=== PATIENT | female | born 1985 | race American Indian/Alaskan Native ===

== ENCOUNTER 2016-11-10 14:55 | Inpatient (IN) | payer MEDICARE ==
[2016-11-10 14:55] VITALS: BMI 38.7
--- NOTE | 2016-11-10 15:21 | C.PDOC ---
History Of Present Illness 31 year old patient, with a past medical history of CHF, atrial fibrillation, and pacemaker, presents to the ED complaining of shortness of breath with associated productive cough for the past couple of days. Patient also complains of abdominal pain when she coughs. Patient notes she is complaint with her chronic medications. Patient denies any fever. Time Seen by Provider: 11/10/16 15:10 Chief Complaint (Nursing): Shortness Of Breath History Per: Patient History/Exam Limitations: no limitations Onset/Duration Of Symptoms: Days (couple of days) Current Symptoms Are (Timing): Still Present Initiating Event: Other Quality: Tightness, "Pain" Exacerbating Factor(s): Coughing Severity: Mild Pain Scale Rating Of: 3 Associated Symptoms: Productive Cough Recent travel outside of the [place]: No Past Medical History Reviewed: Historical Data, Nursing Documentation, Vital Signs Vital Signs: Last Vital Signs Temp 98.3 F 11/10/16 15:13 Pulse 85 11/10/16 18:44 Resp 19 11/10/16 18:44 BP 96/53 L 11/10/16 18:44 Pulse Ox 99 11/10/16 19:01 - Medical History PMH: Atrial Fibrillation (ablation sep 2015), CHF Surgical History: Pacemaker - [facility] Procedures EXCISION OF DESCENDING COLON, ENDO, DIAGN (03/30/16) EXCISION OF STOMACH, ENDO, DIAGN (03/30/16) Family History: States: Unknown Family Hx - Social History Hx Tobacco Use: No Hx Alcohol Use: No Hx Substance Use: No - Immunization History Hx Tetanus Toxoid Vaccination: No Hx Influenza Vaccination: No Hx Pneumococcal Vaccination: No Review Of Systems Except As Marked, All Systems Reviewed And Found Negative. Constitutional: Negative for: Fever Respiratory: Positive for: Cough, Shortness of Breath Gastrointestinal: Positive for: Abdominal Pain Physical Exam - Physical Exam Appears: Non-toxic, Other (mild respiratory distress) Skin: Warm, Dry Head: Atraumatic, Normacephalic Eye(s): bilateral: PERRL, EOMI Oral Mucosa: Moist Neck: Normal ROM, Supple Chest: Symmetrical Cardiovascular: Rhythm Regular Respiratory: Normal Breath Sounds, No Accessory Muscle Use, No Rales, No Rhonchi , No Wheezing Gastrointestinal/Abdominal: Soft, Tenderness (suprapubic), No Guarding, No Rebound, Other (obese) Back: Normal Inspection, No CVA Tenderness Extremity: Normal ROM Neurological/Psych: Oriented x3, Normal Speech, Normal Cognition Gait: Steady ED Course And Treatment - Laboratory Results Result Diagrams: 11/10/16 15:44 11/10/16 15:44 ECG: Interpreted By Me, Viewed By Me ECG Rhythm: Sinus Tachycardia, Nonspecific Changes Rate From EC O2 Sat by Pulse Oximetry: 99 (RA) Pulse Ox Interpretation: Normal - Radiology CXR: Interpreted by Me, Viewed By Me CXR Interpretation: Yes: Cardiomegaly, Other (pacemaker). No: Infiltrates - CT Scan/US CTA Chest Other Rad Studies (CT/US): Read By Radiologist (Evangelina Castillo MD), Radiology Report Reviewed CT/US Interpretation: EXAM: CT Angiography Chest With Intravenous Contrast. CLINICAL HISTORY: 31 years old, female; Signs and symptoms; Shortness of breath ; Prior surgery; Surgery date: 6+. months; Additional info: SOB. TECHNIQUE: Axial computed tomographic angiography images of the chest with intravenous contrast using. pulmonary embolism protocol. This CT exam was performed using one or more of the following dose. reduction techniques: automated exposure control, adjustment of the mA and/or kV according to. patient size, and/or use of iterative reconstruction technique. MIP reconstructed images were created and reviewed. Coronal and sagittal reformatted images were created and reviewed. CONTRAST: 100 mL of [id number] administered intravenously. EXAM DATE/ TIME: 11/10/2016 4:05 PM. COMPARISON: CT - ANGIO CHEST PE PROTOCOL 01/15/2016 12 :12:28 AM. FINDINGS: Artifacts: Motion artifact degrades image quality. Heart , aorta and Pulmonary arteries: The heart is enlarged. There is streak artifact from pacemaker. leads. Aortic is normal in caliber. Lack of contrast in the aorta limits evaluation. Bolus timing limits. evaluation of the pulmonary vessels. There is poor opacification of pulmonary arteries. CT number of. the main pulmonary artery is only 109 Hounsfield units. There are no emboli in the main pulmonary. arteries. Peripheral vessels cannot be evaluated. Lungs: Trachea and main bronchi are patent. There asymmetric groundglass opacities bilaterally. There is atelectasis/scarring at both lung bases. There is subsegmental atelectasis/scarring in the. right upper lobe. There are multiple small less than 4 mm nodular opacities. Similar findings seen on. the prior study There are no effusions. Mediastinum: Esophagus is not optimally demonstrated. Allowing for technique, no pathologic. mediastinal or hilar adenopathy is identified. Thyroid: Thyroid is unremarkable. Bones/joints: Bony structures are unremarkable. Soft tissues: unremarkable. Upper abdomen: There are no acute abnormalities in the visualized portion of the abdomen. IMPRESSION: Cardiomegaly with pacemaker; bolus timing limits evaluation of pulmonary arteries,. no large central pulmonary emboli, peripheral vessels cannot be evaluated; asymmetric groundglass. opacity/airspace disease; multiple small less than 4 mm appearing nodules, similar findings seen on. the prior study. Footer: As per Fleischner Society guidelines for follow-up and management of pulmonary nodules: For patients at low risk (minimal or absent history of smoking and of other known risk factors), no. follow-up needed. For patient at high risk (history of smoking or of other known risk factors),. recommend follow-up chest CT at 12 months; if unchanged, no further follow-up needed. Progress Note: Plan: -Labs. -Chest x-ray. -Albuterol, Toradol. --Reassess and disposition. Progress: Morphine and Zofran given. Disposition - Disposition Disposition Time: 19:09 Condition: STABLE - Clinical Impression Clinical Impression: Pneumonia, Urinary tract infection, CHF (congestive heart failure), Dyspnea - PA / [employer] / Resident Statement MD/DO has reviewed & agrees with the documentation as recorded. - Scribe Statement The provider has reviewed the documentation as recorded by the Scribe Kristin Cheung All medical record entries made by the Scribe were at my direction and personally dictated by me. I have reviewed the chart and agree that the record accurately reflects my personal performance of the history, physical exam, medical decision making, and the department course for this patient. I have also personally directed, reviewed, and agree with the discharge instructions and disposition.
[2016-11-10] MEDS ORDERED: Albuterol 0.083% Inhal Sol (2.5 mg/3 mL) UD IH STA (15:22)
[2016-11-10 15:51] LABS: BASO % 0.5 % (0.0-2.0); EOS % 0.1 % (0.0-4.0); HEMATOCRIT 37.2 % (34.0-47.0); LYMPH # 0.8 K/uL (1.0-4.3); LYMPH % 9.4 % (20.0-40.0); MEAN CELL VOLUME 90.5 fL (81.0-99.0); MEAN CORPUSCULAR HEMOGLOBIN 30.2 pg (27.0-31.0); MEAN CORPUSCULAR HGB CONC 33.4 g/dL (33.0-37.0); MEAN PLATELET VOLUME 9.4 fL (7.2-11.7); MONO # 0.3 K/uL (0.0-0.8); MONO % 3.7 % (0.0-10.0); PLATELET COUNT 170 K/uL (130-400); RED CELL DISTRIBUTION WIDTH 13.9 % (11.5-14.5); WHITE BLOOD COUNT 8.1 K/uL (4.8-10.8)
[2016-11-10 15:54] LABS: RBC URINE 2 /hpf (0-3); URINE BACTERIA RARE (<OCC); URINE BILIRUBIN NEGATIVE (NEGATIVE); URINE BLOOD NEGATIVE (NEGATIVE); URINE COLOR Yellow (YELLOW); URINE GLUCOSE (UA) NORMAL (Normal); URINE KETONE NEGATIVE (NEGATIVE); URINE LEUKOCYTE ESTERASE 3+ Leu/uL (Negative); URINE PROTEIN 1+ mg/dL (NEGATIVE); WBC URINE 21 /hpf (0-5)
[2016-11-10] MEDS ORDERED: Albuterol 0.083% Inhal Sol (2.5 mg/3 mL) UD ONE (15:57)
[2016-11-10 16:03] LABS: CHLORIDE 96 mmol/L (98-107)
[2016-11-10 16:04] LABS: POTASSIUM 4.3 mmol/L (3.6-5.2); SODIUM 136 mmol/L (132-148)
[2016-11-10 16:06] LABS: ALB/GLOB RATIO 1.3 (1.0-2.1); ALKALINE PHOSPHATASE 44 U/L (38-126); ALT/SGPT 21 U/L (9-52); AST/SGOT 41 U/L (14-36); BILIRUBIN,TOTAL 1.6 mg/dL (0.2-1.3); BLOOD UREA NITROGEN 11 mg/dL (7-17); CARBON DIOXIDE 26 mmol/L (22-30); GFR AFRICAN-AMERICAN > 60; GLUCOSE,RANDOM 80 mg/dL (65-105); TOTAL PROTEIN 7.6 g/dL (6.3-8.3)
[2016-11-10 16:07] LABS: CALCIUM 8.6 mg/dl (8.6-10.4)
[2016-11-10 16:18] LABS: NEUTROPHIL 85 % (50-75); TOTAL CELLS COUNTED 100
[2016-11-10] MEDS ORDERED: Morphine 4 MG/ML VIAL ONE (16:51)
[2016-11-10] MEDS ORDERED: Iodixanol 320 MG/ML 100 ML BOTTLE IV ONE ×2 (17:27→17:59)
--- NOTE | 2016-11-10 18:15 | RAD ---
HISTORY: SOB COMPARISON: 03/30/2016 TECHNIQUE: Chest PA and lateral FINDINGS: LUNGS: Mild venous congestion. Patchy left basilar airspace opacity with question small left pleural effusion. PLEURA: As above. CARDIOVASCULAR: Cardiomegaly. Left-sided pacemaker. OSSEOUS STRUCTURES: No significant abnormalities. VISUALIZED UPPER ABDOMEN: Normal. OTHER FINDINGS: None. IMPRESSION: Mild venous congestion. Patchy left basilar airspace opacity with question small left pleural effusion.
--- NOTE | 2016-11-10 18:58 | CT ---
EXAM: CT Angiography Chest With Intravenous Contrast CLINICAL HISTORY: 31 years old, female; Signs and symptoms; Shortness of breath; Prior surgery; Surgery date: 6+ months; Additional info: SOB TECHNIQUE: Axial computed tomographic angiography images of the chest with intravenous contrast using pulmonary embolism protocol. This CT exam was performed using one or more of the following dose reduction techniques: automated exposure control, adjustment of the mA and/or kV according to patient size, and/or use of iterative reconstruction technique. MIP reconstructed images were created and reviewed. Coronal and sagittal reformatted images were created and reviewed. CONTRAST: 100 mL of [id number] administered intravenously. EXAM DATE/TIME: 11/10/2016 4:05 PM COMPARISON: CT - ANGIO CHEST PE PROTOCOL 01/15/2016 12:12:28 AM FINDINGS: Artifacts: Motion artifact degrades image quality. Heart, aorta and Pulmonary arteries: The heart is enlarged. There is streak artifact from pacemaker leads. Aortic is normal in caliber. Lack of contrast in the aorta limits evaluation. Bolus timing limits evaluation of the pulmonary vessels. There is poor opacification of pulmonary arteries. CT number of the main pulmonary artery is only 109 Hounsfield units. There are no emboli in the main pulmonary arteries. Peripheral vessels cannot be evaluated. Lungs: Trachea and main bronchi are patent. There asymmetric groundglass opacities bilaterally. There is atelectasis/scarring at both lung bases. There is subsegmental atelectasis/scarring in the right upper lobe. There are multiple small less than 4 mm nodular opacities. Similar findings seen on the prior study There are no effusions. Mediastinum: Esophagus is not optimally demonstrated. Allowing for technique, no pathologic mediastinal or hilar adenopathy is identified. Thyroid: Thyroid is unremarkable Bones/joints: Bony structures are unremarkable. Soft tissues: unremarkable Upper abdomen: There are no acute abnormalities in the visualized portion of the abdomen. IMPRESSION: Cardiomegaly with pacemaker; bolus timing limits evaluation of pulmonary arteries, no large central pulmonary emboli, peripheral vessels cannot be evaluated; asymmetric groundglass opacity/airspace disease; multiple small less than 4 mm appearing nodules, similar findings seen on the prior study Footer: As per Fleischner Society guidelines for follow-up and management of pulmonary nodules: For patients at low risk (minimal or absent history of smoking and of other known risk factors), no follow-up needed. For patient at high risk (history of smoking or of other known risk factors), recommend follow-up chest CT at 12 months; if unchanged, no further follow-up needed.
[2016-11-10] MEDS ORDERED: Moxifloxacin IV 400mg/250ml NS 250 ML IV ONE (19:07)
[2016-11-10] MEDS ORDERED: Moxifloxacin IV 400mg/250ml NS 250 ML IVPB ONE (19:40)
[2016-11-10] MEDS ORDERED: Home Med 1 UNIT (Tramadol/Acetaminophen [Ultracet 37.5/325 Mg] 1 TAB) PO PRN (21:09)
[2016-11-10] MEDS ORDERED: Azithromycin 500mg/250ML NS 250 ML IVPB SCH (21:15)
[2016-11-10] MEDS ORDERED: Azithromycin 500mg/250ML NS 250 ML IVPB ONE (23:51)
[2016-11-11] MEDS ORDERED: Tramadol 25 mg PO PRN (00:38)
[2016-11-11] MEDS: Tramadol 25 mg PO PRN ×2 (00:53→20:51)
[2016-11-11] MEDS: Albuterol-Ipratrop 3 mg / 0.5 (3 ml) UD INH SCH ×3 (08:03→19:18)
[2016-11-11] MEDS: Fluticasone-Salmeterol 250-50mcg Diskus INH SCH ×2 (08:08→19:17)
[2016-11-11] MEDS ORDERED: Digoxin 250 mcg (0.25 mg) Tab PO SCH (10:00)
[2016-11-11] MEDS ORDERED: VALSARTAN PO SCH (10:00)
[2016-11-11] MEDS ORDERED: SACUBITRIL PO SCH (10:00)
[2016-11-11] MEDS: Enoxaparin 40 mg Syringe SC SCH (10:42)
[2016-11-11] MEDS: cefTRIAXone IV 1 gm in Dextros 1 GM in Dextrose 5% In Water 50 ML IVPB SCH (10:42)
--- NOTE | 2016-11-11 11:57 | CP.PCM.CON ---
History of Present Illness - History of Present Illness History of Present Illness: 31 y/o female w/ past medical hx significant for CHF, A. fib, and pacemaker insertion presents for shortness of breath starting Friday night and progressively getting worse until Friday afternoon. She attempted taking her medications without improvement in symptoms. She admits associated aching constant substernal chest pain without radiation that worsens with a deep breath. She has had a slightly productive cough with only yellow sputum streaked with small amounts of blood. She denies previous diagnosis of COPD or asthma. Pulmonology was consulted for acute exacerbation of congestive heart failure. Presently her breathing has improved significantly and chest pain is diminished to slight ache only. She is currently having 6/10 stabbing RLQ abdominal pain on dilaudid 2mg IV that radiates to LLQ. It has been there since time of admission and has only slightly improved from 9/10 at time of admission with medication. She is now experiencing nausea. She denies orthopnea, headache , chest congestion, diarrhea, constipation, and vomiting. Pmhx; CHF & Atrial fibrillation Pshx: Pacemaker insertion (2009) Famhx: father dilated cardiomyopathy, A.fib, HTN; Mother asthma Sshx: lives with 8 y/o daughter in house. Denies ever smoking or drugs. Consumes alcohol rarely. PMD: none (Sees Dr. Rajan) Pearl Cutter: Dr. Rajan Review of Systems - Constitutional Constitutional: absent: Chills, Fever - EENT Nose/Mouth/Throat: absent: Nasal Congestion, Nasal Discharge - Cardiovascular Cardiovascular: Chest Pain at Rest, Chest Pain with Activity, Dyspnea, Dyspnea on Exertion - Respiratory Respiratory: Cough, Dyspnea, Dyspnea on Exertion, Wheezing. absent: Chest Congestion - Gastrointestinal Gastrointestinal: Abdominal Pain. absent: Constipation, Diarrhea - Neurological Neurological: absent: Abnormal Hearing, Headaches - Endocrine Endocrine: absent: Polydipsia, Polyphagia Past Patient History - Infectious Disease Hx of Infectious Diseases: None - Past Medical History & Family History Past Medical History?: Yes - Past Social History Smoking Status: Never Smoked - CARDIAC Hx Atrial Fibrillation: Yes (ablation sep 2015) Hx Congestive Heart Failure: Yes Hx Pacemaker: Yes - PULMONARY Hx Respiratory Disorders: No - NEUROLOGICAL Hx Neurological Disorder: No - HEENT Hx HEENT Problems: No - RENAL Hx Chronic Kidney Disease: No - ENDOCRINE/METABOLIC Hx Endocrine Disorders: No - HEMATOLOGICAL/ONCOLOGICAL Hx Blood Disorders: No - INTEGUMENTARY Hx Dermatological Problems: No - MUSCULOSKELETAL/RHEUMATOLOGICAL Hx Falls: No - GASTROINTESTINAL Hx Gastrointestinal Disorders: No - GENITOURINARY/GYNECOLOGICAL Hx Genitourinary Disorders: No - PSYCHIATRIC Hx Substance Use: No - SURGICAL HISTORY Hx Surgeries: Yes Other/Comment: AICGracia 2010 - ANESTHESIA Hx Anesthesia: Yes Hx Anesthesia Reactions: No Hx Malignant Hyperthermia: No Meds Allergies/Adverse Reactions: Allergies Allergy/AdvReac Type Severity Reaction Status Date / Time pantoprazole sodium Allergy Severe ITCHING Verified 11/10/16 15:03 [From Protonix] - Medications Medications: Current Medications Acetaminophen (Tylenol 325mg Tab) 325 mg PO Q8H PRN PRN Reason: Pain Last Admin: 11/11/16 00:51 Dose: 325 mg Albuterol/Ipratropium (Duoneb 3 Mg/0.5 Mg (3 Ml) Ud) 3 ml INH RQ6 [facility] Last Admin: 11/11/16 08:03 Dose: 3 ml Carvedilol (Coreg) 12.5 mg PO Q12 [facility] Last Admin: 11/10/16 23:54 Dose: Not Given Digoxin (Lanoxin) 0.25 mg PO DAILY [facility] Enoxaparin Sodium (Lovenox) 40 mg SC DAILY [facility] Furosemide (Lasix) 80 mg PO BID [facility] Home Med (Sacubitril/Valsartan [Entresto 24 Mg-26 Mg Tablet]) 1 tab PO DAILY [facility] Hydromorphone HCl (Dilaudid) 2 mg IVP Q12 [facility] Last Admin: 11/10/16 21:23 Dose: 2 mg Azithromycin (Zithromax 500mg In Ns Addvantage) 250 mls @ 167 mls/hr IVPB Q24H [facility] Last Admin: 11/11/16 00:31 Dose: 167 mls/hr Ceftriaxone Sodium 1 gm/ (Dextrose) 100 mls @ 50 mls/30 min IVPB DAILY [facility] Fluticasone/Salmeterol (Advair Diskus 250/50) 1 puff INH RQ12 [facility] Last Admin: 11/11/16 08:08 Dose: Not Given Tramadol HCl (Ultram) 25 mg PO Q8H PRN PRN Reason: Pain Last Admin: 11/11/16 00:53 Dose: 25 mg Physical Exam - Constitutional Appears: Non-toxic, No Acute Distress - Head Exam Head Exam: ATRAUMATIC, NORMOCEPHALIC - Eye Exam Eye Exam: PERRL Pupil Exam: NORMAL ACCOMODATION - ENT Exam ENT Exam: Mucous Membranes Moist - Neck Exam Neck exam: Positive for: Normal Inspection - Respiratory Exam Respiratory Exam: Clear to Auscultation Bilateral, NORMAL BREATHING PATTERN. absent: Accessory Muscle Use, Rales, Rhonchi, Wheezes - Cardiovascular Exam Cardiovascular Exam: REGULAR RHYTHM, +S1, +S2. absent: Gallop - GI/Abdominal Exam GI & Abdominal Exam: Normal Bowel Sounds, Rebound (Rebound tenderness present in RLQ), Soft, Tenderness (In RLQ on gentle and deep palpation.) - Extremities Exam Extremities exam: Positive for: normal inspection, pedal pulses present. Negative for: pedal edema - Back Exam Back exam: NORMAL INSPECTION - Neurological Exam Neurological exam: Alert, Oriented x3 - Psychiatric Exam Psychiatric exam: Normal Affect, Normal Mood - Skin Skin Exam: Intact, Normal Color, Warm Results - Vital Signs Recent Vital Signs: Last Vital Signs Temp 97.6 F 11/11/16 00:51 Pulse 92 H 11/11/16 06:00 Resp 20 11/11/16 06:00 BP 107/70 11/11/16 00:15 Pulse Ox 99 11/11/16 00:15 - Labs Result Diagrams: 11/10/16 15:44 11/10/16 15:44 Assessment & Plan - Assessment and Plan (Free Text) Assessment: Acute exacerbation of congestive heart failure Plan: Continue lasix 80mg IVP q12h. Consider reducing to lower dosage given clinical improvement. CHF management as per cardiology F/u abdomen/pelvis non-contrast CT scan for abdominal pain. F/u ECHO. Unlikely to be pneumonia given lack of significant clinical or imaging evidence. De-escalation of antibiotics may be appropriate. CT chest (11/10/16)scan shows cardiomegaly with multiple small < 4mm nodules seen on previous scans. CXR (11/10/16)Mild venous congestion. Patchy left basilar airspace opacity with question small left pleural effusion.
--- NOTE | 2016-11-11 13:45 | CT ---
PROCEDURE: CT Abdomen and Pelvis without intravenous contrast HISTORY: abd pain COMPARISON: None. TECHNIQUE: Without contrast.. Contrast Dose: Radiation dose: Total exam DLP = 1240 mGy-cm. This CT exam was performed using one or more of the following dose reduction techniques: Automated exposure control, adjustment of the mA and/or kV according to patient size, and/or use of iterative reconstruction technique. FINDINGS: LOWER THORAX: Cardiomegaly. LIVER: Unremarkable. No gross lesion or ductal dilatation. GALLBLADDER AND BILE DUCTS: Sludge in the gallbladder. PANCREAS: Unremarkable. No gross lesion or ductal dilatation. SPLEEN: Unremarkable. ADRENALS: Unremarkable. No mass. KIDNEYS AND URETERS: Residual contrast in the collecting systems. No hydronephrosis. No solid mass. VASCULATURE: Unremarkable. No aortic aneurysm. BOWEL: Unremarkable. No obstruction. No gross mural thickening. APPENDIX: Unremarkable. Normal appendix. PERITONEUM: Unremarkable. No free fluid. No free air. LYMPH NODES: Unremarkable. No enlarged lymph nodes. BLADDER: Unremarkable. REPRODUCTIVE: Unremarkable. BONES: No acute fracture. OTHER FINDINGS: None. IMPRESSION: Residual contrast in the urinary tract. Cardiomegaly. Sludge in gallbladder.
[2016-11-11] MEDS: Digoxin 250 mcg (0.25 mg) Tab PO SCH (18:40)
--- NOTE | 2016-11-11 18:59 | CP.PCM.HP ---
History of Present Illness - History of Present Illness History of Present Illness: 31 year old female with past medical history significant for CHF, atrial fibrillation and pacemaker insertion present for shortness of breath starting Friday night and progressively getting worse until Friday afternoon. She attempted taking her medication without improvement in symptoms. She admits associated aching constant substernal chest pain without radiation that worsens with a deep breathe. She has had a slightly productive cough with only yellow sputum streaked with small amount of blood. She denies previous diagnosis of COPD or asthma. She denies nausea, orthopnea, headache, chest congestion, diarrhea, constipation and vomiting. Present on Admission - Present on Admission Any Indicators Present on Admission: No Past Patient History - Infectious Disease Hx of Infectious Diseases: None - Past Medical History & Family History Past Medical History?: Yes - Past Social History Smoking Status: Never Smoked - CARDIAC Hx Atrial Fibrillation: Yes (ablation sep 2015) Hx Congestive Heart Failure: Yes Hx Pacemaker: Yes - PULMONARY Hx Respiratory Disorders: No - NEUROLOGICAL Hx Neurological Disorder: No - HEENT Hx HEENT Problems: No - RENAL Hx Chronic Kidney Disease: No - ENDOCRINE/METABOLIC Hx Endocrine Disorders: No - HEMATOLOGICAL/ONCOLOGICAL Hx Blood Disorders: No - INTEGUMENTARY Hx Dermatological Problems: No - MUSCULOSKELETAL/RHEUMATOLOGICAL Hx Falls: No - GASTROINTESTINAL Hx Gastrointestinal Disorders: No - GENITOURINARY/GYNECOLOGICAL Hx Genitourinary Disorders: No - PSYCHIATRIC Hx Substance Use: No - SURGICAL HISTORY Hx Surgeries: Yes Other/Comment: AICGracia 2009 - ANESTHESIA Hx Anesthesia: Yes Hx Anesthesia Reactions: No Hx Malignant Hyperthermia: No Meds Home Medications: Home Medication List Medication Instructions Recorded Confirmed Type Albuterol/Ipratropium [Combivent 1 puff IH Q6H PRN #1 inhaler 11/15/16 Rx Respimat] Amoxicillin/Clavulanate [Augmentin 1 tab PO BID #20 tab 11/15/16 Rx 875 MG-125 MG Tab] Fluticasone/Salmeterol 250/50 1 puff INH RQ12 #1 puff 11/15/16 Rx [Advair Diskus 250/50] Allergies/Adverse Reactions: Allergies Allergy/AdvReac Type Severity Reaction Status Date / Time pantoprazole sodium Allergy Severe ITCHING Verified 01/25/17 17:14 [From Protonix] Physical Exam - Constitutional Appears: Well - Head Exam Head Exam: ATRAUMATIC, NORMAL INSPECTION, NORMOCEPHALIC - Eye Exam Eye Exam: EOMI, Normal appearance, PERRL Pupil Exam: NORMAL ACCOMODATION, PERRL - ENT Exam ENT Exam: Mucous Membranes Moist, Normal Exam - Neck Exam Neck exam: Positive for: Normal Inspection - Respiratory Exam Respiratory Exam: Decreased Breath Sounds - Cardiovascular Exam Cardiovascular Exam: REGULAR RHYTHM, +S1, +S2 - GI/Abdominal Exam GI & Abdominal Exam: Diminished Bowel Sounds, Soft - Rectal Exam Rectal Exam: Deferred Results - Vital Signs Recent Vital Signs: Last Vital Signs Temp 97.1 F L 11/11/16 14:00 Pulse 92 H 11/11/16 10:00 Resp 20 11/11/16 06:00 BP 110/78 11/11/16 18:42 Pulse Ox 99 11/11/16 00:15 - Labs Result Diagrams: 11/13/16 06:06 11/13/16 07:29 Assessment & Plan (1) Asthma Status: Acute (2) Atrial fibrillation Status: Acute (3) Chest discomfort Status: Acute (4) Dyspnea Status: Acute (5) Foot sprain Status: Acute (6) Leg edema Status: Acute (7) PNA (pneumonia) Status: Acute (8) UTI (urinary tract infection) Status: Acute (9) CHF (congestive heart failure) Status: Chronic (10) Systolic and diastolic CHF w/reduced LV function, NYHA class 4 Status: Chronic - Assessment and Plan (Free Text) Plan: Consult pulmonology Consult cardiology Chest x-ray shows mild venous congestion DuoNeb Coreg Lanoxin Lovenox Lasix Dilaudid Zithromax Advair Diskus
[2016-11-11] MEDS: Azithromycin 500 MG in Sodium Chloride 0.9% 250 ML IVPB SCH (23:25)
[2016-11-12] MEDS: Albuterol-Ipratrop 3 mg / 0.5 (3 ml) UD INH SCH ×4 (01:01→19:41)
[2016-11-12 07:35] LABS: BASO % 0.5 % (0.0-2.0); EOS % 0.1 % (0.0-4.0); HEMATOCRIT 32.5 % (34.0-47.0); LYMPH # 0.7 K/uL (1.0-4.3); LYMPH % 15.1 % (20.0-40.0); MEAN CELL VOLUME 89.8 fL (81.0-99.0); MEAN CORPUSCULAR HEMOGLOBIN 30.3 pg (27.0-31.0); MEAN CORPUSCULAR HGB CONC 33.8 g/dL (33.0-37.0); MEAN PLATELET VOLUME 8.7 fL (7.2-11.7); MONO # 0.3 K/uL (0.0-0.8); MONO % 5.7 % (0.0-10.0); RED CELL DISTRIBUTION WIDTH 13.8 % (11.5-14.5); WHITE BLOOD COUNT 4.8 K/uL (4.8-10.8)
[2016-11-12 07:39] LABS: CHLORIDE 95 mmol/L (98-107)
[2016-11-12 07:40] LABS: POTASSIUM 3.8 mmol/L (3.6-5.2); SODIUM 134 mmol/L (132-148)
[2016-11-12 07:42] LABS: ALB/GLOB RATIO 1.2 (1.0-2.1); AST/SGOT 25 U/L (14-36); BILIRUBIN,TOTAL 0.9 mg/dL (0.2-1.3); BLOOD UREA NITROGEN 11 mg/dL (7-17); CARBON DIOXIDE 27 mmol/L (22-30); GFR AFRICAN-AMERICAN > 60; TOTAL PROTEIN 6.6 g/dL (6.3-8.3)
[2016-11-12 07:43] LABS: ALKALINE PHOSPHATASE 53 U/L (38-126); ALT/SGPT 23 U/L (9-52); CALCIUM 8.3 mg/dl (8.6-10.4); GLUCOSE,RANDOM 98 mg/dL (65-105)
[2016-11-12] MEDS: Fluticasone-Salmeterol 250-50mcg Diskus INH SCH (08:13)
--- NOTE | 2016-11-12 09:00 | CP.PCM.CON ---
<Kiran Troncoso - Last Filed: 11/12/16 08:54> History of Present Illness - History of Present Illness History of Present Illness: PGY4 GI Fellow Consult Note Patient is a 31yo female with PMHx significant for cardiomyopathy with h/o atrial fibrillation and pacemaker/defibrillator placement 8 years ago who presented to the ED with complaint of abdominal pain and shortness of breath. The patient returned from the [facility] on 6 days [employer]. 3 days [employer] she developed vague abdominal pain which eventually localized to the RLQ. Pain became more severe, stabbing in quality and with the worsening pain came shortness of breath. She later developed nausea and vomiting with emesis of undigested food over the past 24 hours. As pain did not improve and she continued to become more dyspneic, she came to the ED for further evaluation. A CT without contrast in the ED was unremarkable with the exception of gallbladder sludge and mild constipation. A fleet enema did not improve symptoms overnight. Denies any prior episodes like this. Currently, she denies any fever, chills, weight loss, hematochezia, melena, diarrhea but does admit to urinary frequency and urgency. PMHx: See HPI PSHx: Pacemaker/defibrillator placement FHx: Mom/Dad - dilated CMP Social: Denies tobacco, EtOH or illicit drug use Endo: EGD/Colonoscopy - 03/2016 at [facility] [place] - was told she had a spastic colon - will need to request records Review of Systems - Constitutional Constitutional: Anorexia. absent: Chills, Fever, Weight Gain, Weight Loss - EENT Eyes: absent: Change in Vision Nose/Mouth/Throat: absent: Sore Throat - Cardiovascular Cardiovascular: Dyspnea. absent: Chest Pain, Palpitations - Respiratory Respiratory: Dyspnea. absent: Cough, Excessive Mucous Production - Gastrointestinal Gastrointestinal: Abdominal Pain, Constipation, Nausea, Vomiting. absent: Cramping, Diarrhea, Dyspepsia, Dysphagia, Hematemesis, Hematochezia, Loose Stools, Melena, Odynophagia - Genitourinary Genitourinary: Dysuria, Urinary Frequency, Urinary Hesitance, Urinary Urgency - Musculoskeletal Musculoskeletal: absent: Back Pain, Neck Pain - Integumentary Integumentary: absent: New Lesions, Rash - Neurological Neurological: absent: Dizziness, Numbness, Focal Weakness - Psychiatric Psychiatric: absent: Anxiety, Depression - Endocrine Endocrine: Polyuria. absent: Polydipsia, Polyphagia - Hematologic/Lymphatic Hematologic: absent: Easy Bleeding, Easy Bruising, Lymphadenopathy Past Patient History - Infectious Disease Hx of Infectious Diseases: None - Past Medical History & Family History Past Medical History?: Yes - Past Social History Smoking Status: Never Smoked - CARDIAC Hx Atrial Fibrillation: Yes (ablation sep 2015) Hx Congestive Heart Failure: Yes Hx Pacemaker: Yes - PULMONARY Hx Respiratory Disorders: No - NEUROLOGICAL Hx Neurological Disorder: No - HEENT Hx HEENT Problems: No - RENAL Hx Chronic Kidney Disease: No - ENDOCRINE/METABOLIC Hx Endocrine Disorders: No - HEMATOLOGICAL/ONCOLOGICAL Hx Blood Disorders: No - INTEGUMENTARY Hx Dermatological Problems: No - MUSCULOSKELETAL/RHEUMATOLOGICAL Hx Falls: No - GASTROINTESTINAL Hx Gastrointestinal Disorders: No - GENITOURINARY/GYNECOLOGICAL Hx Genitourinary Disorders: No - PSYCHIATRIC Hx Substance Use: No - SURGICAL HISTORY Hx Surgeries: Yes Other/Comment: WALE 2009 - ANESTHESIA Hx Anesthesia: Yes Hx Anesthesia Reactions: No Hx Malignant Hyperthermia: No Meds Allergies/Adverse Reactions: Allergies Allergy/AdvReac Type Severity Reaction Status Date / Time pantoprazole sodium Allergy Severe ITCHING Verified 11/10/16 15:03 [From Protonix] - Medications Medications: Current Medications Acetaminophen (Tylenol 325mg Tab) 325 mg PO Q8H PRN PRN Reason: Pain Last Admin: 11/11/16 20:53 Dose: 325 mg Albuterol/Ipratropium (Duoneb 3 Mg/0.5 Mg (3 Ml) Ud) 3 ml INH RQ6 [facility] Last Admin: 11/12/16 07:58 Dose: 3 ml Carvedilol (Coreg) 12.5 mg PO Q12 [facility] Last Admin: 11/11/16 23:00 Dose: 12.5 mg Digoxin (Lanoxin) 0.25 mg PO DAILY@1800 [facility] Last Admin: 11/11/16 18:40 Dose: 0.25 mg Enoxaparin Sodium (Lovenox) 40 mg SC DAILY [facility] Last Admin: 11/11/16 10:42 Dose: 40 mg Famotidine (Pepcid) 20 mg PO DAILY [facility] Furosemide (Lasix) 80 mg PO BID [facility] Last Admin: 11/11/16 18:42 Dose: 80 mg Home Med (Sacubitril/Valsartan [Entresto 24 Mg-26 Mg Tablet]) 1 tab PO DAILY [facility] Hydromorphone HCl (Dilaudid) 2 mg IVP Q12 [facility] Last Admin: 11/11/16 22:20 Dose: 2 mg Ceftriaxone Sodium 1 gm/ (Dextrose) 100 mls @ 50 mls/30 min IVPB DAILY [facility] Last Admin: 11/11/16 10:42 Dose: 50 mls/30 min Azithromycin 500 mg/ Sodium (Chloride) 250 mls @ 167 mls/hr IVPB Q24H [facility] Last Admin: 11/11/16 23:25 Dose: 167 mls/hr Ondansetron HCl (Zofran Inj) 4 mg IVP Q6H PRN PRN Reason: nausea and vomiting Last Admin: 11/12/16 00:54 Dose: 4 mg Fluticasone/Salmeterol (Advair Diskus 250/50) 1 puff INH RQ12 [facility] Last Admin: 11/12/16 08:13 Dose: Not Given Tramadol HCl (Ultram) 25 mg PO Q8H PRN PRN Reason: Pain Last Admin: 11/11/16 20:51 Dose: 25 mg Physical Exam - Constitutional Appears: Non-toxic, No Acute Distress, Other (morbidly obese) - Eye Exam Eye Exam: EOMI, PERRL - ENT Exam ENT Exam: Mucous Membranes Moist - Respiratory Exam Respiratory Exam: Clear to Auscultation Bilateral. absent: Rales, Rhonchi, Wheezes - Cardiovascular Exam Cardiovascular Exam: RRR, +S1, +S2, Systolic Murmur (holosystolic) - GI/Abdominal Exam GI & Abdominal Exam: Normal Bowel Sounds, Soft, Tenderness (RLQ). absent: Distended, Firm, Guarding, Rigid - Extremities Exam Extremities exam: Positive for: normal inspection. Negative for: pedal edema - Neurological Exam Neurological exam: Alert, Oriented x3 - Psychiatric Exam Psychiatric exam: Normal Affect, Normal Mood - Skin Skin Exam: Dry, Warm Results - Vital Signs Recent Vital Signs: Last Vital Signs Temp 97.2 F L 11/12/16 08:00 Pulse 76 11/12/16 08:00 Resp 21 11/12/16 08:00 BP 111/75 11/12/16 08:00 Pulse Ox 100 11/12/16 08:00 - Labs Result Diagrams: 11/12/16 07:28 11/12/16 07:28 Labs: Laboratory Results - last 24 hr 11/12/16 07:28 WBC 4.8 RBC 3.62 L Hgb 11.0 Hct 32.5 L MCV 89.8 MCH 30.3 MCHC 33.8 RDW 13.8 Plt Count 147 MPV 8.7 Neut % (Auto) 78.6 H Lymph % (Auto) 15.1 L [place] % (Auto) 5.7 Eos % (Auto) 0.1 Baso % (Auto) 0.5 Neut # 3.8 Lymph # 0.7 L [place] # 0.3 Eos # 0.0 Baso # 0.0 Sodium 134 Potassium 3.8 Chloride 95 L Carbon Dioxide 27 Anion Gap 16 BUN 11 Creatinine 0.8 Est GFR ( Amer) > 60 Est GFR (Non-Af Amer) > 60 Random Glucose 98 Calcium 8.3 L Total Bilirubin 0.9 AST 25 ALT 23 Alkaline Phosphatase 53 Total Protein 6.6 Albumin 3.6 Globulin 3.0 Albumin/Globulin Ratio 1.2 Assessment & Plan - Assessment and Plan (Free Text) Assessment: Patient is a 31yo female with PMHx significant for cardiomyopathy with h/o atrial fibrillation and pacemaker/defibrillator placement 8 years ago who presented to the ED with complaint of abdominal pain and shortness of breath. -RLQ abdominal pain with nausea/vomiting -UTI -Acute exacerbation of CHF -H/O cardiomyopathy/CHF Plan: -Continue IV diuretic therapy for acute CHF exacerbation, symptoms improved since initiation -IV ABX for presumed UTI given abnormal U/A -Unclear etiology of abdominal pain at present given unremarkable CT scan - possibly 2/2 UTI, no evidence of colitis on CT - if symptoms worsen, consider repeat imaging with contrast; would also consider ruling out mesenteric ischemia if symptoms persist/worsen given cardiac history and elevated DDimer ( however this is typically elevated in obese patients) -Conservative therapy for now with IV ABX, analgesia and advancing diet as tolerated -Continue to monitor clinically - Date & Time Date: 11/12/16 Time: 07:00 <Clint Monae - Last Filed: 11/12/16 09:42> Meds - Medications Medications: Current Medications Acetaminophen (Tylenol 325mg Tab) 325 mg PO Q8H PRN PRN Reason: Pain Last Admin: 11/11/16 20:53 Dose: 325 mg Albuterol/Ipratropium (Duoneb 3 Mg/0.5 Mg (3 Ml) Ud) 3 ml INH RQ6 [facility] Last Admin: 11/12/16 07:58 Dose: 3 ml Carvedilol (Coreg) 12.5 mg PO Q12 [facility] Last Admin: 11/11/16 23:00 Dose: 12.5 mg Digoxin (Lanoxin) 0.25 mg PO DAILY@1800 [facility] Last Admin: 11/11/16 18:40 Dose: 0.25 mg Enoxaparin Sodium (Lovenox) 40 mg SC DAILY [facility] Last Admin: 11/11/16 10:42 Dose: 40 mg Famotidine (Pepcid) 20 mg PO DAILY [facility] Furosemide (Lasix) 80 mg PO BID [facility] Last Admin: 11/11/16 18:42 Dose: 80 mg Hydromorphone HCl (Dilaudid) 2 mg IVP Q12 [facility] Last Admin: 11/11/16 22:20 Dose: 2 mg Ceftriaxone Sodium 1 gm/ (Dextrose) 100 mls @ 50 mls/30 min IVPB DAILY [facility] Last Admin: 11/11/16 10:42 Dose: 50 mls/30 min Azithromycin 500 mg/ Sodium (Chloride) 250 mls @ 167 mls/hr IVPB Q24H [facility] Last Admin: 11/11/16 23:25 Dose: 167 mls/hr Ondansetron HCl (Zofran Inj) 4 mg IVP Q6H PRN PRN Reason: nausea and vomiting Last Admin: 11/12/16 00:54 Dose: 4 mg Fluticasone/Salmeterol (Advair Diskus 250/50) 1 puff INH RQ12 [facility] Last Admin: 11/12/16 08:13 Dose: Not Given Tramadol HCl (Ultram) 25 mg PO Q8H PRN PRN Reason: Pain Last Admin: 11/11/16 20:51 Dose: 25 mg Results - Vital Signs Recent Vital Signs: Last Vital Signs Temp 97.2 F L 11/12/16 08:00 Pulse 76 11/12/16 08:00 Resp 21 11/12/16 08:00 BP 111/75 11/12/16 08:00 Pulse Ox 100 11/12/16 08:00 - Labs Result Diagrams: 11/12/16 07:28 11/12/16 07:28 Labs: Laboratory Results - last 24 hr 11/12/16 07:28 WBC 4.8 RBC 3.62 L Hgb 11.0 Hct 32.5 L MCV 89.8 MCH 30.3 MCHC 33.8 RDW 13.8 Plt Count 147 MPV 8.7 Neut % (Auto) 78.6 H Lymph % (Auto) 15.1 L [place] % (Auto) 5.7 Eos % (Auto) 0.1 Baso % (Auto) 0.5 Neut # 3.8 Lymph # 0.7 L [place] # 0.3 Eos # 0.0 Baso # 0.0 Sodium 134 Potassium 3.8 Chloride 95 L Carbon Dioxide 27 Anion Gap 16 BUN 11 Creatinine 0.8 Est GFR ( Amer) > 60 Est GFR (Non-Af Amer) > 60 Random Glucose 98 Calcium 8.3 L Total Bilirubin 0.9 AST 25 ALT 23 Alkaline Phosphatase 53 Total Protein 6.6 Albumin 3.6 Globulin 3.0 Albumin/Globulin Ratio 1.2 Attending/Attestation - Attestation I have personally seen and examined this patient.: Yes I have fully participated in the care of the patient.: Yes I have reviewed all pertinent clinical information: Yes Notes (Text): 11/12/16 09:34 I have seen and examined patient with GI fellow. Agree with above documentation with the following additions. In brief, this is a 31 year old female with history of obesity, atrial fibrillation, CHF s/p ICD who presents to hospital with complaint of abdominal pain and dyspnea on exertion. Symptoms started after returning from the [facility] 6 days ago. She describes dyspnea which is worse with exertion along with RLQ abdominal pain radiating to RUQ, 6/ 10 intensity which was worse after meal consumption. This was associated with nausea and non-bloody emesis. She otherwise denies fever/chills, weight loss, rectal bleeding, diarrhea, or similar prior episodes. She does endorse urinary urgency. She had an EGD/colonoscopy at [facility] [place] in [place], unclear regarding results. Cardiomyopathy / CHF s/p ICD Atrial fibrillation Morbid obesity Abdominal pain - CT imaging reviewed by me showing GB sludge, otherwise no acute GI pathology UTI - Liquid diet, advance slowly as tolerated - Continue with antibiotic therapy as per medical team, await urine culture results - Oral H2 daksha and anti-emetic therapy PRN - Echocardiogram ordered, follow up cardiology recommendations - LFTs normal, continue to monitor - Continue with conservative management for time being, no planned GI intervention. Will continue to monitor patient clinical course
[2016-11-12] MEDS: Enoxaparin 40 mg Syringe SC SCH (09:53)
[2016-11-12] MEDS ORDERED: VALSARTAN PO SCH (10:00)
[2016-11-12] MEDS ORDERED: SACUBITRIL PO SCH (10:00)
[2016-11-12] MEDS: cefTRIAXone IV 1 gm in Dextros 1 GM in Dextrose 5% In Water 50 ML IVPB SCH (10:03)
--- NOTE | 2016-11-12 10:32 | CP.PCM.PN ---
Subjective - Date & Time of Evaluation Date of Evaluation: 11/12/16 Time of Evaluation: 15:00 - Subjective Subjective: pt. denies chest pain SOB improved afebrile Objective - Vital Signs/Intake and Output Vital Signs (last 24 hours): Temp Pulse Resp BP Pulse Ox 97.2 F L 88 21 95/80 L 100 11/12/16 08:00 11/12/16 10:00 11/12/16 08:00 11/12/16 10:03 11/12/16 08:00 Intake and Output: 11/12/16 11/12/16 06:59 18:59 Intake Total 350 300 Output Total 600 Balance -250 300 - Medications Medications: Current Medications Acetaminophen (Tylenol 325mg Tab) 325 mg PO Q8H PRN PRN Reason: Pain Last Admin: 11/11/16 20:53 Dose: 325 mg Albuterol/Ipratropium (Duoneb 3 Mg/0.5 Mg (3 Ml) Ud) 3 ml INH RQ6 [facility] Last Admin: 11/12/16 07:58 Dose: 3 ml Carvedilol (Coreg) 12.5 mg PO Q12 [facility] Last Admin: 11/12/16 10:03 Dose: 12.5 mg Digoxin (Lanoxin) 0.25 mg PO DAILY@1800 [facility] Last Admin: 11/11/16 18:40 Dose: 0.25 mg Enoxaparin Sodium (Lovenox) 40 mg SC DAILY [facility] Last Admin: 11/12/16 09:53 Dose: 40 mg Famotidine (Pepcid) 20 mg PO DAILY [facility] Last Admin: 11/12/16 09:52 Dose: 20 mg Furosemide (Lasix) 80 mg PO BID [facility] Last Admin: 11/11/16 18:42 Dose: 80 mg Hydromorphone HCl (Dilaudid) 2 mg IVP Q12 [facility] Last Admin: 11/12/16 09:54 Dose: 2 mg Ceftriaxone Sodium 1 gm/ (Dextrose) 100 mls @ 50 mls/30 min IVPB DAILY [facility] Last Admin: 11/12/16 10:03 Dose: 50 mls/30 min Azithromycin 500 mg/ Sodium (Chloride) 250 mls @ 167 mls/hr IVPB Q24H [facility] Last Admin: 11/11/16 23:25 Dose: 167 mls/hr Ondansetron HCl (Zofran Inj) 4 mg IVP Q6H PRN PRN Reason: nausea and vomiting Last Admin: 11/12/16 00:54 Dose: 4 mg Fluticasone/Salmeterol (Advair Diskus 250/50) 1 puff INH RQ12 [facility] Last Admin: 11/12/16 08:13 Dose: Not Given Tramadol HCl (Ultram) 25 mg PO Q8H PRN PRN Reason: Pain Last Admin: 11/11/16 20:51 Dose: 25 mg - Labs Labs: 11/12/16 07:28 11/12/16 07:28 - Constitutional Appears: Well - Head Exam Head Exam: ATRAUMATIC, NORMAL INSPECTION, NORMOCEPHALIC - Eye Exam Eye Exam: EOMI, Normal appearance, PERRL Pupil Exam: NORMAL ACCOMODATION, PERRL - ENT Exam ENT Exam: Mucous Membranes Moist, Normal Exam - Neck Exam Neck Exam: Full ROM, Normal Inspection. absent: Lymphadenopathy - Respiratory Exam Respiratory Exam: Decreased Breath Sounds - Cardiovascular Exam Cardiovascular Exam: REGULAR RHYTHM, +S1, +S2 - GI/Abdominal Exam GI & Abdominal Exam: Soft, Diminished Bowel Sounds - Rectal Exam Rectal Exam: Deferred Assessment and Plan - Assessment and Plan (Free Text) Plan: continue lasix and digoxin continue meds as ordered on liquid diet f/u dr. sosa cardio consultation
--- NOTE | 2016-11-12 16:00 | CP.PCM.PN ---
Subjective - Date & Time of Evaluation Date of Evaluation: 11/12/16 Time of Evaluation: 09:15 - Subjective Subjective: Patient seen and examined lying in bed. Patient is resting comfortably with no acute complaints. Pt continues to have only minimal urination. She admits to abdominal pain, constipation, headache, and joint aches. Pt denies chest pain and shortness of breath. Objective - Vital Signs/Intake and Output Vital Signs (last 24 hours): Temp Pulse Resp BP Pulse Ox 97.8 F 86 16 103/65 93 L 11/12/16 13:00 11/12/16 13:00 11/12/16 13:00 11/12/16 13:00 11/12/16 13:00 Intake and Output: 11/12/16 11/12/16 06:59 18:59 Intake Total 350 500 Output Total 600 Balance -250 500 - Medications Medications: Current Medications Acetaminophen (Tylenol 325mg Tab) 325 mg PO Q8H PRN PRN Reason: Pain Last Admin: 11/11/16 20:53 Dose: 325 mg Albuterol/Ipratropium (Duoneb 3 Mg/0.5 Mg (3 Ml) Ud) 3 ml INH RQ6 [facility] Last Admin: 11/12/16 13:28 Dose: 3 ml Carvedilol (Coreg) 12.5 mg PO Q12 [facility] Last Admin: 11/12/16 10:03 Dose: 12.5 mg Digoxin (Lanoxin) 0.25 mg PO DAILY@1800 [facility] Last Admin: 11/11/16 18:40 Dose: 0.25 mg Enoxaparin Sodium (Lovenox) 40 mg SC DAILY [facility] Last Admin: 11/12/16 09:53 Dose: 40 mg Famotidine (Pepcid) 20 mg PO DAILY [facility] Last Admin: 11/12/16 09:52 Dose: 20 mg Furosemide (Lasix) 80 mg PO BID [facility] Last Admin: 11/12/16 10:41 Dose: 80 mg Hydromorphone HCl (Dilaudid) 2 mg IVP Q12 [facility] Last Admin: 11/12/16 09:54 Dose: 2 mg Ceftriaxone Sodium 1 gm/ (Dextrose) 100 mls @ 50 mls/30 min IVPB DAILY [facility] Last Admin: 11/12/16 10:03 Dose: 50 mls/30 min Azithromycin 500 mg/ Sodium (Chloride) 250 mls @ 167 mls/hr IVPB Q24H [facility] Last Admin: 11/11/16 23:25 Dose: 167 mls/hr Metoclopramide HCl (Reglan) 10 mg IVP BID PRN PRN Reason: Nausea/Vomiting Ondansetron HCl (Zofran Inj) 4 mg IVP Q6H PRN PRN Reason: nausea and vomiting Last Admin: 11/12/16 12:49 Dose: 4 mg Fluticasone/Salmeterol (Advair Diskus 250/50) 1 puff INH RQ12 [facility] Last Admin: 11/12/16 08:13 Dose: Not Given Tramadol HCl (Ultram) 25 mg PO Q8H PRN PRN Reason: Pain Last Admin: 11/11/16 20:51 Dose: 25 mg - Labs Labs: 11/12/16 07:28 11/12/16 07:28 - Constitutional Appears: Non-toxic, No Acute Distress - Head Exam Head Exam: NORMOCEPHALIC - Eye Exam Eye Exam: Normal appearance Pupil Exam: NORMAL ACCOMODATION - ENT Exam ENT Exam: Mucous Membranes Moist - Neck Exam Neck Exam: Normal Inspection - Respiratory Exam Respiratory Exam: Accessory Muscle Use, Clear to Ausculation Bilateral, NORMAL BREATHING PATTERN. absent: Rales, Rhonchi, Wheezes, Respiratory Distress - Cardiovascular Exam Cardiovascular Exam: REGULAR RHYTHM, +S1, +S2, Murmur (Flow murmur noted). absent: Gallop - GI/Abdominal Exam GI & Abdominal Exam: Soft, Tenderness, Normal Bowel Sounds - Extremities Exam Extremities Exam: Full ROM, Normal Capillary Refill. absent: Pedal Edema - Back Exam Back Exam: NORMAL INSPECTION - Neurological Exam Neurological Exam: Alert, Awake - Psychiatric Exam Psychiatric exam: Normal Affect, Normal Mood - Skin Skin Exam: Dry, Intact, Normal Color, Warm Assessment and Plan - Assessment and Plan (Free Text) Assessment: Acute exacerbation CHF Plan: Urinating only small amount. Consider switching to lasix IVP or drip to enhance diuresis. Shortness of breath and clinical exam is continues to be stable. CHF management as per cardiology ECHO shows severe left sided systolic dysfunction EF = 20-30%. Unlikely to be pneumonia given lack of significant clinical or imaging evidence. Consider switching antibiotics for better UTI coverage. CT chest (11/10/16)scan shows cardiomegaly with multiple small < 4mm nodules seen on previous scans. CXR (11/10/16)Mild venous congestion. Patchy left basilar airspace opacity with question small left pleural effusion.
--- NOTE | 2016-11-12 17:31 | CP.PCM.CON ---
<James Dickinson - Last Filed: 11/12/16 17:24> History of Present Illness - History of Present Illness History of Present Illness: Cardiology Consultation Note Dr. Romero CC: Chest Pain and SOB HPI: This is a 31 year old female with PMH notable for cardiomyopathy with h/o atrial fibrillation and pacemaker/defibrillator placement 8 years ago presenting for cardiac evaluation of chest pain and shortness of breath. The patient notes that she had shortness of breath starting Friday night and that progressively worsened. Her SOB did not improve with home medications. The SOB was associated with substernal CP that did not radiate. This pain has since dissipated. The patient underwent echocardiographic evaluation on 11/11/16. the official report from this study is still pending. Presently, the patient denies fever, chills, headache, chest pain, SOB, abdominal pain, N/V/D/C, changes in bowel, and extremity paresthesias. PMH: cardiomyopathy with h/o atrial fibrillation and pacemaker/ defibrillator placement 8 years ago PSH: Pacemaker/defibrillator placement FH: Mom/Dad - dilated CMP Social: Denies tobacco, EtOH or illicit drug use Review of Systems - Constitutional Constitutional: absent: Chills, Fatigue, Fever - EENT Eyes: absent: Blind Spots, Change in Vision Ears: absent: Decreased Hearing, Tinnitus Nose/Mouth/Throat: absent: Nose Pain, Facial Pain, Neck Pain - Cardiovascular Cardiovascular: Leg Edema. absent: Chest Pain, Palpitations, Syncope - Respiratory Respiratory: absent: Cough, Dyspnea, Dyspnea on Exertion - Gastrointestinal Gastrointestinal: absent: Abdominal Pain, Constipation, Diarrhea, Nausea, Vomiting - Genitourinary Genitourinary: absent: Change in Urinary Stream - Musculoskeletal Musculoskeletal: absent: Stiffness, Tingling - Integumentary Integumentary: absent: Lesions, Rash, Wounds - Neurological Neurological: absent: Frequent Falls, Syncope, Tremor, Weakness - Endocrine Endocrine: absent: Cold Intolorance, Heat Intolorance Past Patient History - Infectious Disease Hx of Infectious Diseases: None - Past Medical History & Family History Past Medical History?: Yes - Past Social History Smoking Status: Never Smoked - CARDIAC Hx Atrial Fibrillation: Yes (ablation sep 2015) Hx Congestive Heart Failure: Yes Hx Pacemaker: Yes - PULMONARY Hx Respiratory Disorders: No - NEUROLOGICAL Hx Neurological Disorder: No - HEENT Hx HEENT Problems: No - RENAL Hx Chronic Kidney Disease: No - ENDOCRINE/METABOLIC Hx Endocrine Disorders: No - HEMATOLOGICAL/ONCOLOGICAL Hx Blood Disorders: No - INTEGUMENTARY Hx Dermatological Problems: No - MUSCULOSKELETAL/RHEUMATOLOGICAL Hx Falls: No - GASTROINTESTINAL Hx Gastrointestinal Disorders: No - GENITOURINARY/GYNECOLOGICAL Hx Genitourinary Disorders: No - PSYCHIATRIC Hx Substance Use: No - SURGICAL HISTORY Hx Surgeries: Yes Other/Comment: AICD 2010 - ANESTHESIA Hx Anesthesia: Yes Hx Anesthesia Reactions: No Hx Malignant Hyperthermia: No Meds Allergies/Adverse Reactions: Allergies Allergy/AdvReac Type Severity Reaction Status Date / Time pantoprazole sodium Allergy Severe ITCHING Verified 11/10/16 15:03 [From Protonix] - Medications Medications: Current Medications Acetaminophen (Tylenol 325mg Tab) 325 mg PO Q8H PRN PRN Reason: Pain Last Admin: 11/11/16 20:53 Dose: 325 mg Albuterol/Ipratropium (Duoneb 3 Mg/0.5 Mg (3 Ml) Ud) 3 ml INH RQ6 [facility] Last Admin: 11/12/16 13:28 Dose: 3 ml Carvedilol (Coreg) 12.5 mg PO Q12 [facility] Last Admin: 11/12/16 10:03 Dose: 12.5 mg Digoxin (Lanoxin) 0.25 mg PO DAILY@1800 [facility] Last Admin: 11/11/16 18:40 Dose: 0.25 mg Enoxaparin Sodium (Lovenox) 40 mg SC DAILY [facility] Last Admin: 11/12/16 09:53 Dose: 40 mg Famotidine (Pepcid) 20 mg PO DAILY [facility] Last Admin: 11/12/16 09:52 Dose: 20 mg Furosemide (Lasix) 80 mg PO BID [facility] Last Admin: 11/12/16 10:41 Dose: 80 mg Hydromorphone HCl (Dilaudid) 2 mg IVP Q12 [facility] Last Admin: 11/12/16 09:54 Dose: 2 mg Ceftriaxone Sodium 1 gm/ (Dextrose) 100 mls @ 50 mls/30 min IVPB DAILY [facility] Last Admin: 11/12/16 10:03 Dose: 50 mls/30 min Azithromycin 500 mg/ Sodium (Chloride) 250 mls @ 167 mls/hr IVPB Q24H [facility] Last Admin: 11/11/16 23:25 Dose: 167 mls/hr Metoclopramide HCl (Reglan) 10 mg IVP BID PRN PRN Reason: Nausea/Vomiting Ondansetron HCl (Zofran Inj) 4 mg IVP Q6H PRN PRN Reason: nausea and vomiting Last Admin: 11/12/16 12:49 Dose: 4 mg Fluticasone/Salmeterol (Advair Diskus 250/50) 1 puff INH RQ12 [facility] Last Admin: 11/12/16 08:13 Dose: Not Given Tramadol HCl (Ultram) 25 mg PO Q8H PRN PRN Reason: Pain Last Admin: 11/11/16 20:51 Dose: 25 mg Physical Exam - Constitutional Appears: Well - Head Exam Head Exam: ATRAUMATIC, NORMAL INSPECTION, NORMOCEPHALIC - Eye Exam Eye Exam: EOMI, Normal appearance, PERRL - ENT Exam ENT Exam: Mucous Membranes Moist, Normal Exam - Neck Exam Neck exam: Positive for: Normal Inspection. Negative for: Lymphadenopathy - Respiratory Exam Respiratory Exam: Clear to Auscultation Bilateral, NORMAL BREATHING PATTERN. absent: Rhonchi, Wheezes - Cardiovascular Exam Cardiovascular Exam: REGULAR RHYTHM, RRR, +S1, +S2. absent: Diastolic murmur, Systolic Murmur - GI/Abdominal Exam GI & Abdominal Exam: Normal Bowel Sounds, Soft. absent: Distended, Guarding, Tenderness - Extremities Exam Extremities exam: Positive for: pedal edema. Negative for: normal inspection - Neurological Exam Neurological exam: Alert, CN II-XII Intact, Oriented x3 - Skin Skin Exam: Dry, Intact, Normal Color, Warm Results - Vital Signs Recent Vital Signs: Last Vital Signs Temp 97.6 F 11/12/16 16:30 Pulse 74 11/12/16 16:30 Resp 20 11/12/16 16:30 BP 109/79 11/12/16 16:30 Pulse Ox 95 11/12/16 16:30 - Labs Result Diagrams: 11/12/16 07:28 11/12/16 07:28 Labs: Laboratory Results - last 24 hr 11/12/16 07:28 WBC 4.8 RBC 3.62 L Hgb 11.0 Hct 32.5 L MCV 89.8 MCH 30.3 MCHC 33.8 RDW 13.8 Plt Count 147 MPV 8.7 Neut % (Auto) 78.6 H Lymph % (Auto) 15.1 L [place] % (Auto) 5.7 Eos % (Auto) 0.1 Baso % (Auto) 0.5 Neut # 3.8 Lymph # 0.7 L [place] # 0.3 Eos # 0.0 Baso # 0.0 Sodium 134 Potassium 3.8 Chloride 95 L Carbon Dioxide 27 Anion Gap 16 BUN 11 Creatinine 0.8 Est GFR ( Amer) > 60 Est GFR (Non-Af Amer) > 60 Random Glucose 98 Calcium 8.3 L Total Bilirubin 0.9 AST 25 ALT 23 Alkaline Phosphatase 53 Total Protein 6.6 Albumin 3.6 Globulin 3.0 Albumin/Globulin Ratio 1.2 Assessment & Plan (2) Leg edema Status: Acute (3) Chest pain Status: Resolved (4) CHF (congestive heart failure) Status: Chronic - Assessment and Plan (Free Text) Plan: 1.) LE Edema- likely 2/2 to CHF - change lasix to IV 40mg IV BID - add metolazone 2.5mg PO - start losartan 100mg - Continue coreg 12.5mg po bid - Continue Digoxzin 0.25mg po daily - continue management as per medical and consult teams Case discussed with Dr. Nick Dickinson PGY1 - Date & Time Date: 11/12/16 Time: 17:39 <Zaynab Romero - Last Filed: 11/21/16 09:47> Results - Vital Signs Recent Vital Signs: Last Vital Signs Temp 97.6 F 11/15/16 00:00 Pulse 78 11/15/16 15:30 Resp 18 11/15/16 00:00 BP 111/56 L 11/15/16 11:14 Pulse Ox 98 11/14/16 08:00 - Labs Result Diagrams: 11/13/16 06:06 11/13/16 07:29 Attending/Attestation - Attestation I have personally seen and examined this patient.: Yes I have fully participated in the care of the patient.: Yes I have reviewed all pertinent clinical information: Yes Notes (Text): 11/21/16 09:46 pt with post cardiomyopathy diresis with zaroxyl and lasix
[2016-11-12] MEDS: Digoxin 250 mcg (0.25 mg) Tab PO SCH (18:16)
--- NOTE | 2016-11-12 22:59 | CARD ---
APPROVED REPORT EXAM: Two-dimensional and M-mode echocardiogram with Doppler and color Doppler. Other Information Quality : GoodRhythm : NSR INDICATION Dyspnea Pleural Effusion Atrial Fibrillation Chest Pain Congestive Heart Failure PACEMAKER, LEG EDEMA, PLEURAL EFFUSION, PNEUMONIA M-Mode DIMENSIONS RVDd2.35 (2.1-3.2cm)Left Atrium (MM)4.74 (2.5-4.0cm) IVSd1.73 (0.7-1.1cm)Aortic Root2.51 (2.2-3.7cm) LVDd6.22 (4.0-5.6cm)Aortic Cusp Exc.1.40 (1.5-2.0cm) PWd2.14 (0.7-1.1cm)FS (%) 10 % LVDs5.61 (2.0-3.8cm)LVEF (%)21 (>50%) Aortic Valve AoV Peak Hlqqkkeb968.3cm/Brit Peak GR.5mmHg Mitral Valve MV E Crhbsqqt15.0cm/sMV A Eabefvlg04.3cm/sE/A ratio2.4 TDI E/Lateral E'0.0E/Medial E'0.0 Tricuspid Valve TR Peak Bekyfqvj919jd/sTR Peak Gr.[id number] LEFT VENTRICLE The Left Ventricle is moderately dilated. There is borderline concentric left ventricular hypertrophy. Left ventricle systolic function is severely impaired. The Ejection Fraction is <20%. There is a flattened septum consistent with right ventricle pressure overload. Transmitral Doppler flow pattern is Grade II-pseudonormal filling dynamics. There is no ventricular septal defect visualized. RIGHT VENTRICLE The right ventricle is borderline dilated. The right ventricle is mildly to moderately hypertrophied. There is a pacemaker lead in the right ventricle. ATRIA The left atrium is moderately dilated. The right atrium is mildly dilated. AORTIC VALVE The aortic valve is mildly sclerotic. The aortic valve is tri-cuspid. No aortic regurgitation is present. There is no aortic valvular stenosis. MITRAL VALVE The mitral valve is normal in structure. There is no evidence of mitral valve prolapse. Mitral regurgitation is mild to moderate. TRICUSPID VALVE The tricuspid valve is normal in structure. There is mild to moderate tricuspid regurgitation. Right ventricular systolic pressure is estimated at greater than 60 mmHg. There is severe pulmonary hypertension. PULMONIC VALVE The pulmonic valve is not well visualized. There is mild to moderate pulmonic valvular regurgitation. GREAT VESSELS The IVC is normal in size and collapses >50% with inspiration. PERICARDIAL EFFUSION There is no pericardial effusion. There is moderate pleural effusion. <Conclusion> Left ventricle systolic function is severely impaired. The Ejection Fraction is <20%. Transmitral Doppler flow pattern is Grade II-pseudonormal filling dynamics. Mitral regurgitation is mild to moderate. There is severe pulmonary hypertension.
[2016-11-12] MEDS: Azithromycin 500 MG in Sodium Chloride 0.9% 250 ML IVPB SCH (23:51)
[2016-11-13] MEDS: Albuterol-Ipratrop 3 mg / 0.5 (3 ml) UD INH SCH ×4 (01:01→19:33)
[2016-11-13 06:23] LABS: BASO % 0.6 % (0.0-2.0); EOS % 0.7 % (0.0-4.0); HEMATOCRIT 33.3 % (34.0-47.0); LYMPH # 0.9 K/uL (1.0-4.3); LYMPH % 25.1 % (20.0-40.0); MEAN CELL VOLUME 89.8 fL (81.0-99.0); MEAN CORPUSCULAR HEMOGLOBIN 30.1 pg (27.0-31.0); MEAN CORPUSCULAR HGB CONC 33.5 g/dL (33.0-37.0); MEAN PLATELET VOLUME 8.9 fL (7.2-11.7); MONO # 0.3 K/uL (0.0-0.8); MONO % 8.8 % (0.0-10.0); RED CELL DISTRIBUTION WIDTH 13.6 % (11.5-14.5); WHITE BLOOD COUNT 3.6 K/uL (4.8-10.8)
[2016-11-13 07:36] LABS: CHLORIDE 94 mmol/L (98-107); POTASSIUM 3.7 mmol/L (3.6-5.2); SODIUM 134 mmol/L (132-148)
[2016-11-13 07:39] LABS: BLOOD UREA NITROGEN 10 mg/dL (7-17); CARBON DIOXIDE 28 mmol/L (22-30); GFR AFRICAN-AMERICAN > 60; GLUCOSE,RANDOM 87 mg/dL (65-105)
[2016-11-13] MEDS: Fluticasone-Salmeterol 250-50mcg Diskus INH SCH (07:48)
--- NOTE | 2016-11-13 09:02 | CP.PCM.PN ---
<LeanahumairaKiran moreira - Last Filed: 11/13/16 08:59> Subjective - Date & Time of Evaluation Date of Evaluation: 11/13/16 Time of Evaluation: 06:00 - Subjective Subjective: PGY4 GI Fellow Progress Note Patient seen and examined bedside this morning. The patient admits to ongoing right sided abdominal pain as well as constipation, nausea and vomiting. She vomited following solid meal for lunch and tlerated liquids for dinner. No events overnight. 12 system ROS performed and negative except where stated. Objective - Vital Signs/Intake and Output Vital Signs (last 24 hours): Temp Pulse Resp BP Pulse Ox 97.4 F L 70 22 108/71 95 11/13/16 08:00 11/13/16 08:00 11/13/16 08:00 11/13/16 08:00 11/13/16 08:00 Intake and Output: 11/13/16 11/13/16 06:59 18:59 Intake Total 850 Output Total 850 Balance 0 - Medications Medications: Current Medications Acetaminophen (Tylenol 325mg Tab) 325 mg PO Q8H PRN PRN Reason: Pain Last Admin: 11/11/16 20:53 Dose: 325 mg Albuterol/Ipratropium (Duoneb 3 Mg/0.5 Mg (3 Ml) Ud) 3 ml INH RQ6 [facility] Last Admin: 11/13/16 07:38 Dose: 3 ml Carvedilol (Coreg) 12.5 mg PO Q12 [facility] Last Admin: 11/12/16 21:27 Dose: 12.5 mg Digoxin (Lanoxin) 0.25 mg PO DAILY@1800 [facility] Last Admin: 11/12/16 18:16 Dose: 0.25 mg Enoxaparin Sodium (Lovenox) 40 mg SC DAILY [facility] Last Admin: 11/12/16 09:53 Dose: 40 mg Famotidine (Pepcid) 20 mg PO DAILY [facility] Last Admin: 11/12/16 09:52 Dose: 20 mg Furosemide (Lasix) 40 mg IVP BID [facility] Last Admin: 11/12/16 18:16 Dose: 40 mg Hydromorphone HCl (Dilaudid) 2 mg IVP Q12 [facility] Last Admin: 11/12/16 21:24 Dose: 2 mg Ceftriaxone Sodium 1 gm/ (Dextrose) 100 mls @ 50 mls/30 min IVPB DAILY [facility] Last Admin: 11/12/16 10:03 Dose: 50 mls/30 min Azithromycin 500 mg/ Sodium (Chloride) 250 mls @ 167 mls/hr IVPB Q24H [facility] Last Admin: 11/12/16 23:51 Dose: 167 mls/hr Metoclopramide HCl (Reglan) 10 mg IVP BID PRN PRN Reason: Nausea/Vomiting Metolazone (Zaroxolyn) 2.5 mg PO DAILY [facility] Ondansetron HCl (Zofran Inj) 4 mg IVP Q6H PRN PRN Reason: nausea and vomiting Last Admin: 11/12/16 12:49 Dose: 4 mg Polyethylene Glycol (Miralax) 17 gm PO DAILY [facility] Fluticasone/Salmeterol (Advair Diskus 250/50) 1 puff INH RQ12 [facility] Last Admin: 11/13/16 07:48 Dose: Not Given Tramadol HCl (Ultram) 25 mg PO Q8H PRN PRN Reason: Pain Last Admin: 11/11/16 20:51 Dose: 25 mg - Labs Labs: 11/13/16 06:06 11/13/16 07:29 - Constitutional Appears: No Acute Distress, Other (obese) - Eye Exam Eye Exam: EOMI, PERRL - ENT Exam ENT Exam: Mucous Membranes Moist - Respiratory Exam Respiratory Exam: Clear to Ausculation Bilateral. absent: Rales, Rhonchi, Wheezes - Cardiovascular Exam Cardiovascular Exam: RRR, +S1, +S2, Murmur (holosystolic) - GI/Abdominal Exam GI & Abdominal Exam: Soft, Tenderness (right sided), Normal Bowel Sounds. absent: Distended, Firm, Guarding, Rigid, Organomegaly - Extremities Exam Extremities Exam: Normal Inspection. absent: Pedal Edema, Tenderness - Neurological Exam Neurological Exam: Alert, Awake, Oriented x3 - Psychiatric Exam Psychiatric exam: Normal Affect, Normal Mood - Skin Skin Exam: Dry, Warm Assessment and Plan - Assessment and Plan (Free Text) Assessment: Patient is a 31yo female with PMHx significant for cardiomyopathy with h/o atrial fibrillation and pacemaker/defibrillator placement 8 years ago who presented to the ED with complaint of abdominal pain and shortness of breath. -RUQ/RLQ abdominal pain with nausea/vomiting -UTI -Acute exacerbation of CHF -H/O cardiomyopathy/CHF Plan: -Continue with liquid diet for now -Reglan/Zofran alternating PRN for nausea -Check abdominal U/S given persistence of discomfort -Consider repeat CT imaging with PO contrast if symptoms persist -Conservative therapy for now with IV ABX, analgesia, antiemetics and advancing diet as tolerated -Continue to monitor clinically <Reno Colon - Last Filed: 11/13/16 09:26> Objective - Vital Signs/Intake and Output Vital Signs (last 24 hours): Temp Pulse Resp BP Pulse Ox 97.4 F L 70 22 108/71 95 11/13/16 08:00 11/13/16 08:00 11/13/16 08:00 11/13/16 08:00 11/13/16 08:00 Intake and Output: 11/13/16 11/13/16 06:59 18:59 Intake Total 850 Output Total 850 Balance 0 - Medications Medications: Current Medications Acetaminophen (Tylenol 325mg Tab) 325 mg PO Q8H PRN PRN Reason: Pain Last Admin: 11/11/16 20:53 Dose: 325 mg Albuterol/Ipratropium (Duoneb 3 Mg/0.5 Mg (3 Ml) Ud) 3 ml INH RQ6 [facility] Last Admin: 11/13/16 07:38 Dose: 3 ml Carvedilol (Coreg) 12.5 mg PO Q12 [facility] Last Admin: 11/12/16 21:27 Dose: 12.5 mg Digoxin (Lanoxin) 0.25 mg PO DAILY@1800 [facility] Last Admin: 11/12/16 18:16 Dose: 0.25 mg Enoxaparin Sodium (Lovenox) 40 mg SC DAILY [facility] Last Admin: 11/12/16 09:53 Dose: 40 mg Famotidine (Pepcid) 20 mg PO DAILY [facility] Last Admin: 11/12/16 09:52 Dose: 20 mg Furosemide (Lasix) 40 mg IVP BID [facility] Last Admin: 11/12/16 18:16 Dose: 40 mg Hydromorphone HCl (Dilaudid) 2 mg IVP Q12 [facility] Last Admin: 11/12/16 21:24 Dose: 2 mg Ceftriaxone Sodium 1 gm/ (Dextrose) 100 mls @ 50 mls/30 min IVPB DAILY [facility] Last Admin: 11/12/16 10:03 Dose: 50 mls/30 min Azithromycin 500 mg/ Sodium (Chloride) 250 mls @ 167 mls/hr IVPB Q24H [facility] Last Admin: 11/12/16 23:51 Dose: 167 mls/hr Metoclopramide HCl (Reglan) 10 mg IVP BID PRN PRN Reason: Nausea/Vomiting Metolazone (Zaroxolyn) 2.5 mg PO DAILY [facility] Ondansetron HCl (Zofran Inj) 4 mg IVP Q6H PRN PRN Reason: nausea and vomiting Last Admin: 11/12/16 12:49 Dose: 4 mg Polyethylene Glycol (Miralax) 17 gm PO DAILY [facility] Fluticasone/Salmeterol (Advair Diskus 250/50) 1 puff INH RQ12 [facility] Last Admin: 11/13/16 07:48 Dose: Not Given Tramadol HCl (Ultram) 25 mg PO Q8H PRN PRN Reason: Pain Last Admin: 11/11/16 20:51 Dose: 25 mg - Labs Labs: 11/13/16 06:06 11/13/16 07:29 Attending/Attestation - Attestation I have personally seen and examined this patient.: Yes I have fully participated in the care of the patient.: Yes I have reviewed all pertinent clinical information, including history, physical exam and plan: Yes Notes (Text): Patient seen and examined with GI fellow on rounds. Agree with his note as documented above with the following additions/exceptions. This is a 31 year old female with h/o cardiomyopathy s/p AICD, atrial fibrillation who is admitted with abdominal pain and shortness of breath. She is being treated for CHF exacerbation. She has had persistence of abdominal complaints, although slightly improved today. She does complain of constipation. She had episode of non bloody emesis yesterday. Would obtain abdominal ultrasound for further evaluation given presence of sludge on CT and initial LFT abnormalities. Monitor LFTs. Continue supportive care, antiemetic therapy as needed, liquid diet as tolerated and bowel regimen. Obtain prior endoscopy records from [facility] [place]. 11/13/16 09:23
[2016-11-13] MEDS: cefTRIAXone IV 1 gm in Dextros 1 GM in Dextrose 5% In Water 50 ML IVPB SCH (09:23)
[2016-11-13] MEDS: metOLazone 2.5 MG TAB PO SCH (09:23)
[2016-11-13 09:30] LABS: ALB/GLOB RATIO 1.1 (1.0-2.1); ALKALINE PHOSPHATASE 49 U/L (38-126); AST/SGOT 51 U/L (14-36); BILIRUBIN,DIRECT 0.7 mg/dL (0.0-0.4); BILIRUBIN,TOTAL 0.8 mg/dL (0.2-1.3); TOTAL PROTEIN 6.7 g/dL (6.3-8.3)
[2016-11-13 09:31] LABS: ALT/SGPT 20 U/L (9-52)
--- NOTE | 2016-11-13 09:47 | CP.PCM.PN ---
<James Dickinson - Last Filed: 11/13/16 16:44> Subjective - Date & Time of Evaluation Date of Evaluation: 11/13/16 Time of Evaluation: 09:44 - Subjective Subjective: Cardiology Progress Note Dr. Romero Patient seen and examined at the bedside. No acute distress. No acute events overnight. The nursing staff reports no issues. The patient reports that the swithc from PO to IV lasix has not caused her to urinate any more frequently. The patient notes that the swelling in her LE has improved minimally. The patient reports continued right sided abdominal pain. Presently, the patient denies fever, chills, headache, and all cardiopulmonary complaints. Objective - Vital Signs/Intake and Output Vital Signs (last 24 hours): Temp Pulse Resp BP Pulse Ox 97.4 F L 70 22 116/82 95 11/13/16 08:00 11/13/16 08:00 11/13/16 08:00 11/13/16 09:31 11/13/16 08:00 Intake and Output: 11/13/16 11/13/16 06:59 18:59 Intake Total 850 Output Total 850 Balance 0 - Medications Medications: Current Medications Acetaminophen (Tylenol 325mg Tab) 325 mg PO Q8H PRN PRN Reason: Pain Last Admin: 11/11/16 20:53 Dose: 325 mg Albuterol/Ipratropium (Duoneb 3 Mg/0.5 Mg (3 Ml) Ud) 3 ml INH RQ6 [facility] Last Admin: 11/13/16 07:38 Dose: 3 ml Carvedilol (Coreg) 12.5 mg PO Q12 [facility] Last Admin: 11/13/16 09:21 Dose: 12.5 mg Digoxin (Lanoxin) 0.25 mg PO DAILY@1800 [facility] Last Admin: 11/12/16 18:16 Dose: 0.25 mg Enoxaparin Sodium (Lovenox) 40 mg SC DAILY [facility] Last Admin: 11/12/16 09:53 Dose: 40 mg Famotidine (Pepcid) 20 mg PO DAILY [facility] Last Admin: 11/13/16 09:23 Dose: 20 mg Furosemide (Lasix) 40 mg IVP BID [facility] Last Admin: 11/13/16 09:31 Dose: 40 mg Hydromorphone HCl (Dilaudid) 2 mg IVP Q12 [facility] Last Admin: 11/13/16 09:23 Dose: 2 mg Ceftriaxone Sodium 1 gm/ (Dextrose) 100 mls @ 50 mls/30 min IVPB DAILY [facility] Last Admin: 11/13/16 09:23 Dose: 50 mls/30 min Azithromycin 500 mg/ Sodium (Chloride) 250 mls @ 167 mls/hr IVPB Q24H [facility] Last Admin: 11/12/16 23:51 Dose: 167 mls/hr Metoclopramide HCl (Reglan) 10 mg IVP BID PRN PRN Reason: Nausea/Vomiting Metolazone (Zaroxolyn) 2.5 mg PO DAILY [facility] Last Admin: 11/13/16 09:23 Dose: 2.5 mg Ondansetron HCl (Zofran Inj) 4 mg IVP Q6H PRN PRN Reason: nausea and vomiting Last Admin: 11/12/16 12:49 Dose: 4 mg Polyethylene Glycol (Miralax) 17 gm PO DAILY [facility] Fluticasone/Salmeterol (Advair Diskus 250/50) 1 puff INH RQ12 [facility] Last Admin: 11/13/16 07:48 Dose: Not Given Tramadol HCl (Ultram) 25 mg PO Q8H PRN PRN Reason: Pain Last Admin: 11/11/16 20:51 Dose: 25 mg - Labs Labs: 11/13/16 06:06 11/13/16 07:29 - Constitutional Appears: Well, No Acute Distress - Head Exam Head Exam: ATRAUMATIC, NORMAL INSPECTION, NORMOCEPHALIC - Eye Exam Eye Exam: EOMI - ENT Exam ENT Exam: Mucous Membranes Moist - Neck Exam Neck Exam: Full ROM, Normal Inspection. absent: Lymphadenopathy - Respiratory Exam Respiratory Exam: Clear to Ausculation Bilateral, NORMAL BREATHING PATTERN. absent: Rhonchi, Wheezes - Cardiovascular Exam Cardiovascular Exam: REGULAR RHYTHM, RRR, +S1, +S2, Murmur. absent: Diastolic murmur - GI/Abdominal Exam GI & Abdominal Exam: Soft, Tenderness, Normal Bowel Sounds - Extremities Exam Extremities Exam: Full ROM, Normal Capillary Refill, Normal Inspection, Pedal Edema (trace-1+ edema (improving) ). absent: Joint Swelling - Neurological Exam Neurological Exam: Alert, Awake, CN II-XII Intact, Oriented x3 - Skin Skin Exam: Dry, Intact, Normal Color, Warm Assessment and Plan (2) Leg edema Status: Acute (3) Chest pain Status: Resolved (4) CHF (congestive heart failure) Status: Chronic - Assessment and Plan (Free Text) Plan: 1.) LE Edema- likely 2/2 to CHF - Lasix 40mg IV BID - metolazone 2.5mg PO - losartan 100mg - Continue coreg 12.5mg po bid - Continue Digoxzin 0.25mg po daily - LE Edema improved from prior examination - patient is hemodynamically stable at this time - continue management as per medical and consult teams Case discussed with Dr. Nick Dickinson PGY1 <Zaynab Romero - Last Filed: 11/21/16 09:48> Objective - Vital Signs/Intake and Output Vital Signs (last 24 hours): Temp Pulse Resp BP Pulse Ox 97.6 F 78 18 111/56 L 98 11/15/16 00:00 11/15/16 15:30 11/15/16 00:00 11/15/16 11:14 11/14/16 08:00 - Labs Labs: 11/13/16 06:06 11/13/16 07:29 Attending/Attestation - Attestation I have personally seen and examined this patient.: Yes I have fully participated in the care of the patient.: Yes I have reviewed all pertinent clinical information, including history, physical exam and plan: Yes Notes (Text): 11/21/16 09:48 May need to increase lasix
[2016-11-13] MEDS: Enoxaparin 40 mg Syringe SC SCH (09:48)
--- NOTE | 2016-11-13 10:25 | CP.PCM.PN ---
Subjective - Date & Time of Evaluation Date of Evaluation: 11/13/16 Time of Evaluation: 09:30 - Subjective Subjective: Pt seen and examined in bed. Pt continues to feel the same as yesterday. Pt has no acute complaints. Improving abdominal pain and has not yet had bowel movement despite fleet enema and laxative. Denies chest pain, shortness of breath, pleuritic chest pain, fever, chills, nausea, and vomiting. Objective - Vital Signs/Intake and Output Vital Signs (last 24 hours): Temp Pulse Resp BP Pulse Ox 97.4 F L 80 20 116/82 99 11/13/16 08:00 11/13/16 09:25 11/13/16 09:25 11/13/16 09:31 11/13/16 09:25 Intake and Output: 11/13/16 11/13/16 06:59 18:59 Intake Total 850 Output Total 850 Balance 0 - Medications Medications: Current Medications Acetaminophen (Tylenol 325mg Tab) 325 mg PO Q8H PRN PRN Reason: Pain Last Admin: 11/11/16 20:53 Dose: 325 mg Albuterol/Ipratropium (Duoneb 3 Mg/0.5 Mg (3 Ml) Ud) 3 ml INH RQ6 [facility] Last Admin: 11/13/16 07:38 Dose: 3 ml Carvedilol (Coreg) 12.5 mg PO Q12 [facility] Last Admin: 11/13/16 09:21 Dose: 12.5 mg Digoxin (Lanoxin) 0.25 mg PO DAILY@1800 [facility] Last Admin: 11/12/16 18:16 Dose: 0.25 mg Enoxaparin Sodium (Lovenox) 40 mg SC DAILY [facility] Last Admin: 11/13/16 09:48 Dose: 40 mg Famotidine (Pepcid) 20 mg PO DAILY [facility] Last Admin: 11/13/16 09:23 Dose: 20 mg Furosemide (Lasix) 40 mg IVP BID [facility] Last Admin: 11/13/16 09:31 Dose: 40 mg Hydromorphone HCl (Dilaudid) 2 mg IVP Q12 [facility] Last Admin: 11/13/16 09:23 Dose: 2 mg Ceftriaxone Sodium 1 gm/ (Dextrose) 100 mls @ 50 mls/30 min IVPB DAILY [facility] Last Admin: 11/13/16 09:23 Dose: 50 mls/30 min Azithromycin 500 mg/ Sodium (Chloride) 250 mls @ 167 mls/hr IVPB Q24H [facility] Last Admin: 11/12/16 23:51 Dose: 167 mls/hr Metoclopramide HCl (Reglan) 10 mg IVP BID PRN PRN Reason: Nausea/Vomiting Metolazone (Zaroxolyn) 2.5 mg PO DAILY [facility] Last Admin: 11/13/16 09:23 Dose: 2.5 mg Ondansetron HCl (Zofran Inj) 4 mg IVP Q6H PRN PRN Reason: nausea and vomiting Last Admin: 11/12/16 12:49 Dose: 4 mg Polyethylene Glycol (Miralax) 17 gm PO DAILY [facility] Fluticasone/Salmeterol (Advair Diskus 250/50) 1 puff INH RQ12 [facility] Last Admin: 11/13/16 07:48 Dose: Not Given Tramadol HCl (Ultram) 25 mg PO Q8H PRN PRN Reason: Pain Last Admin: 11/11/16 20:51 Dose: 25 mg - Labs Labs: 11/13/16 06:06 11/13/16 07:29 - Constitutional Appears: Non-toxic, No Acute Distress - Head Exam Head Exam: NORMOCEPHALIC - Eye Exam Eye Exam: Normal appearance, PERRL Pupil Exam: NORMAL ACCOMODATION - ENT Exam ENT Exam: Mucous Membranes Moist - Neck Exam Neck Exam: Normal Inspection - Respiratory Exam Respiratory Exam: Clear to Ausculation Bilateral, NORMAL BREATHING PATTERN. absent: Accessory Muscle Use, Rales, Rhonchi, Wheezes - Cardiovascular Exam Cardiovascular Exam: Diastolic murmur, REGULAR RHYTHM, RRR, +S1, +S2. absent: Gallop, Rubs - GI/Abdominal Exam GI & Abdominal Exam: Soft, Normal Bowel Sounds. absent: Tenderness - Extremities Exam Extremities Exam: Normal Inspection. absent: Joint Swelling, Pedal Edema - Neurological Exam Neurological Exam: Alert, Awake, Oriented x3 - Psychiatric Exam Psychiatric exam: Normal Affect, Normal Mood - Skin Skin Exam: Intact, Normal Color, Warm Assessment and Plan (1) Systolic and diastolic CHF w/reduced LV function, NYHA class 4 Status: Acute - Assessment and Plan (Free Text) Assessment: Acute exacerbation CHF Plan: Respiratory status is stable. Placed onto lasix IV from PO and started on zaroxlyn per cardiology. CHF management as per cardiology ECHO shows severe left sided systolic dysfunction EF = 20-30%. Unlikely to be pneumonia given lack of significant clinical or imaging evidence. Consider switching antibiotics for better UTI coverage. CT chest (11/10/16) scan shows cardiomegaly with multiple small < 4mm nodules seen on previous scans. CXR (11/10/16)Mild venous congestion. Patchy left basilar airspace opacity with question small left pleural effusion.
[2016-11-13] MEDS: POLYETHYLENE GLYCOL 3350 17 GM/Dose PACKET PO SCH (12:17)
--- NOTE | 2016-11-13 12:44 | US ---
HISTORY: eval GB, r/o choledocolithiasis COMPARISON: None. TECHNIQUE: Sonographic evaluation of the abdomen. FINDINGS: LIVER: Measures 17.2 cm. Normal echogenicity of the liver parenchyma. No mass. No intrahepatic bile duct dilatation. GALLBLADDER: Unremarkable. No gallstones. COMMON BILE DUCT: Measures 4.1 mm. No stones. No dilatation. PANCREAS: Unremarkable as visualized. No mass. No ductal dilatation. RIGHT KIDNEY: Measures 10.9cm. Normal echogenicity. No calculus, mass, or hydronephrosis. LEFT KIDNEY: Measures 9.2cm. Normal echogenicity. No calculus, mass, or hydronephrosis. SPLEEN: Normal in size and contour. No mass. A splenule is identified medial to the spleen. AORTA: No aneurysmal dilatation. IVC: Unremarkable. OTHER FINDINGS: None. IMPRESSION: No evidence of cholelithiasis or biliary dilatation.
[2016-11-13] MEDS: Digoxin 250 mcg (0.25 mg) Tab PO SCH (17:51)
--- NOTE | 2016-11-13 18:11 | CP.PCM.PN ---
Subjective - Date & Time of Evaluation Date of Evaluation: 11/13/16 Time of Evaluation: 15:20 - Subjective Subjective: clinically same still having constipation Objective - Vital Signs/Intake and Output Vital Signs (last 24 hours): Temp Pulse Resp BP Pulse Ox 97.4 F L 74 18 115/70 94 L 11/13/16 16:06 11/13/16 16:06 11/13/16 16:06 11/13/16 17:50 11/13/16 16:06 Intake and Output: 11/13/16 11/13/16 06:59 18:59 Intake Total 850 800 Output Total 850 750 Balance 0 50 - Medications Medications: Current Medications Acetaminophen (Tylenol 325mg Tab) 325 mg PO Q8H PRN PRN Reason: Pain Last Admin: 11/11/16 20:53 Dose: 325 mg Albuterol/Ipratropium (Duoneb 3 Mg/0.5 Mg (3 Ml) Ud) 3 ml INH RQ6 [facility] Last Admin: 11/13/16 13:25 Dose: 3 ml Carvedilol (Coreg) 12.5 mg PO Q12 [facility] Last Admin: 11/13/16 09:21 Dose: 12.5 mg Digoxin (Lanoxin) 0.25 mg PO DAILY@1800 [facility] Last Admin: 11/13/16 17:51 Dose: 0.25 mg Enoxaparin Sodium (Lovenox) 40 mg SC DAILY [facility] Last Admin: 11/13/16 09:48 Dose: 40 mg Famotidine (Pepcid) 20 mg PO DAILY [facility] Last Admin: 11/13/16 09:23 Dose: 20 mg Furosemide (Lasix) 40 mg IVP BID [facility] Last Admin: 11/13/16 17:50 Dose: 40 mg Hydromorphone HCl (Dilaudid) 2 mg IVP Q12 [facility] Last Admin: 11/13/16 09:23 Dose: 2 mg Ceftriaxone Sodium 1 gm/ (Dextrose) 100 mls @ 50 mls/30 min IVPB DAILY [facility] Last Admin: 11/13/16 09:23 Dose: 50 mls/30 min Azithromycin 500 mg/ Sodium (Chloride) 250 mls @ 167 mls/hr IVPB Q24H [facility] Last Admin: 11/12/16 23:51 Dose: 167 mls/hr Metoclopramide HCl (Reglan) 10 mg IVP BID PRN PRN Reason: Nausea/Vomiting Metolazone (Zaroxolyn) 2.5 mg PO DAILY [facility] Last Admin: 11/13/16 09:23 Dose: 2.5 mg Ondansetron HCl (Zofran Inj) 4 mg IVP Q6H PRN PRN Reason: nausea and vomiting Last Admin: 11/12/16 12:49 Dose: 4 mg Polyethylene Glycol (Miralax) 17 gm PO DAILY [facility] Last Admin: 11/13/16 12:17 Dose: 17 gm Fluticasone/Salmeterol (Advair Diskus 250/50) 1 puff INH RQ12 [facility] Last Admin: 11/13/16 07:48 Dose: Not Given Tramadol HCl (Ultram) 25 mg PO Q8H PRN PRN Reason: Pain Last Admin: 11/11/16 20:51 Dose: 25 mg - Labs Labs: 11/13/16 06:06 11/13/16 07:29 - Constitutional Appears: Well - Head Exam Head Exam: ATRAUMATIC, NORMAL INSPECTION, NORMOCEPHALIC - Eye Exam Eye Exam: EOMI, Normal appearance, PERRL Pupil Exam: NORMAL ACCOMODATION, PERRL - ENT Exam ENT Exam: Mucous Membranes Moist, Normal Exam - Neck Exam Neck Exam: Full ROM, Normal Inspection. absent: Lymphadenopathy - Respiratory Exam Respiratory Exam: Decreased Breath Sounds - Cardiovascular Exam Cardiovascular Exam: REGULAR RHYTHM, +S1, +S2 - GI/Abdominal Exam GI & Abdominal Exam: Soft, Diminished Bowel Sounds - Rectal Exam Rectal Exam: Deferred Assessment and Plan - Assessment and Plan (Free Text) Plan: Dr. Ry Mayfield continue meds as ordered f/u labs
--- NOTE | 2016-11-13 22:55 | CP.PCM.CON ---
History of Present Illness - History of Present Illness History of Present Illness: Patient with acute on Chronic systolic CHF Past Patient History - Infectious Disease Hx of Infectious Diseases: None - Past Medical History & Family History Past Medical History?: Yes - Past Social History Smoking Status: Never Smoked - CARDIAC Hx Atrial Fibrillation: Yes (ablation sep 2015) Hx Congestive Heart Failure: Yes Hx Pacemaker: Yes - PULMONARY Hx Respiratory Disorders: No - NEUROLOGICAL Hx Neurological Disorder: No - HEENT Hx HEENT Problems: No - RENAL Hx Chronic Kidney Disease: No - ENDOCRINE/METABOLIC Hx Endocrine Disorders: No - HEMATOLOGICAL/ONCOLOGICAL Hx Blood Disorders: No - INTEGUMENTARY Hx Dermatological Problems: No - MUSCULOSKELETAL/RHEUMATOLOGICAL Hx Falls: No - GASTROINTESTINAL Hx Gastrointestinal Disorders: No - GENITOURINARY/GYNECOLOGICAL Hx Genitourinary Disorders: No - PSYCHIATRIC Hx Substance Use: No - SURGICAL HISTORY Hx Surgeries: Yes Other/Comment: WALE 2009 - ANESTHESIA Hx Anesthesia: Yes Hx Anesthesia Reactions: No Hx Malignant Hyperthermia: No Meds Allergies/Adverse Reactions: Allergies Allergy/AdvReac Type Severity Reaction Status Date / Time pantoprazole sodium Allergy Severe ITCHING Verified 11/10/16 15:03 [From Protonix] - Medications Medications: Current Medications Acetaminophen (Tylenol 325mg Tab) 325 mg PO Q8H PRN PRN Reason: Pain Last Admin: 11/11/16 20:53 Dose: 325 mg Albuterol/Ipratropium (Duoneb 3 Mg/0.5 Mg (3 Ml) Ud) 3 ml INH RQ6 [facility] Last Admin: 11/13/16 19:33 Dose: 3 ml Carvedilol (Coreg) 12.5 mg PO Q12 [facility] Last Admin: 11/13/16 09:21 Dose: 12.5 mg Digoxin (Lanoxin) 0.25 mg PO DAILY@1800 [facility] Last Admin: 11/13/16 17:51 Dose: 0.25 mg Enoxaparin Sodium (Lovenox) 40 mg SC DAILY [facility] Last Admin: 11/13/16 09:48 Dose: 40 mg Famotidine (Pepcid) 20 mg PO DAILY [facility] Last Admin: 11/13/16 09:23 Dose: 20 mg Furosemide (Lasix) 40 mg IVP BID [facility] Last Admin: 11/13/16 17:50 Dose: 40 mg Hydromorphone HCl (Dilaudid) 2 mg IVP Q12 [facility] Last Admin: 11/13/16 22:04 Dose: 2 mg Ceftriaxone Sodium 1 gm/ (Dextrose) 100 mls @ 50 mls/30 min IVPB DAILY [facility] Last Admin: 11/13/16 09:23 Dose: 50 mls/30 min Azithromycin 500 mg/ Sodium (Chloride) 250 mls @ 167 mls/hr IVPB Q24H [facility] Last Admin: 11/12/16 23:51 Dose: 167 mls/hr Metoclopramide HCl (Reglan) 10 mg IVP BID PRN PRN Reason: Nausea/Vomiting Metolazone (Zaroxolyn) 2.5 mg PO DAILY [facility] Last Admin: 11/13/16 09:23 Dose: 2.5 mg Ondansetron HCl (Zofran Inj) 4 mg IVP Q6H PRN PRN Reason: nausea and vomiting Last Admin: 11/12/16 12:49 Dose: 4 mg Polyethylene Glycol (Miralax) 17 gm PO DAILY [facility] Last Admin: 11/13/16 12:17 Dose: 17 gm Fluticasone/Salmeterol (Advair Diskus 250/50) 1 puff INH RQ12 [facility] Last Admin: 11/13/16 07:48 Dose: Not Given Tramadol HCl (Ultram) 25 mg PO Q8H PRN PRN Reason: Pain Last Admin: 11/11/16 20:51 Dose: 25 mg Results - Vital Signs Recent Vital Signs: Last Vital Signs Temp 97.4 F L 11/13/16 16:06 Pulse 80 11/13/16 18:00 Resp 20 11/13/16 18:00 BP 115/70 11/13/16 18:00 Pulse Ox 94 L 11/13/16 16:06 - Labs Result Diagrams: 11/13/16 06:06 11/13/16 07:29 Labs: Laboratory Results - last 24 hr 11/13/16 11/13/16 06:06 07:29 WBC 3.6 L RBC 3.71 L Hgb 11.1 Hct 33.3 L MCV 89.8 MCH 30.1 MCHC 33.5 RDW 13.6 Plt Count 158 MPV 8.9 Neut % (Auto) 64.8 Lymph % (Auto) 25.1 [place] % (Auto) 8.8 Eos % (Auto) 0.7 Baso % (Auto) 0.6 Neut # 2.3 Lymph # 0.9 L [place] # 0.3 Eos # 0.0 Baso # 0.0 Sodium 134 Potassium 3.7 Chloride 94 L Carbon Dioxide 28 Anion Gap 15 BUN 10 Creatinine 0.8 Est GFR ( Amer) > 60 Est GFR (Non-Af Amer) > 60 Random Glucose 87 Calcium 8.0 L Total Bilirubin 0.8 Direct Bilirubin 0.7 H AST 51 H D ALT 20 Alkaline Phosphatase 49 Total Protein 6.7 Albumin 3.4 L Globulin 3.2 Albumin/Globulin Ratio 1.1
[2016-11-14] MEDS: Azithromycin 500 MG in Sodium Chloride 0.9% 250 ML IVPB SCH
[2016-11-14] MEDS: Albuterol-Ipratrop 3 mg / 0.5 (3 ml) UD INH SCH ×4 (01:01→20:37)
[2016-11-14] MEDS: Tramadol 25 mg PO PRN (01:57)
--- NOTE | 2016-11-14 07:04 | CP.PCM.PN ---
<Kiran Troncoso - Last Filed: 11/14/16 08:01> Subjective - Date & Time of Evaluation Date of Evaluation: 11/14/16 Time of Evaluation: 06:15 - Subjective Subjective: PGY4 GI Fellow Progress Note Patient seen and examined bedside this morning. The patient is on the phone, sitting up, in no discomfort this morning. States that she passed BM and ate without difficulty yesterday. No nausea, vomiting or abdominal pain presently. 12 system ROS performed and negative except where stated. Objective - Vital Signs/Intake and Output Vital Signs (last 24 hours): Temp Pulse Resp BP Pulse Ox 98 F 95 H 15 100/66 94 L 11/14/16 00:00 11/14/16 00:00 11/14/16 00:00 11/14/16 00:00 11/14/16 00:00 - Medications Medications: Current Medications Acetaminophen (Tylenol 325mg Tab) 325 mg PO Q8H PRN PRN Reason: Pain Last Admin: 11/11/16 20:53 Dose: 325 mg Albuterol/Ipratropium (Duoneb 3 Mg/0.5 Mg (3 Ml) Ud) 3 ml INH RQ6 [facility] Last Admin: 11/14/16 01:01 Dose: Not Given Carvedilol (Coreg) 12.5 mg PO Q12 [facility] Last Admin: 11/13/16 22:00 Dose: 12.5 mg Digoxin (Lanoxin) 0.25 mg PO DAILY@1800 [facility] Last Admin: 11/13/16 17:51 Dose: 0.25 mg Enoxaparin Sodium (Lovenox) 40 mg SC DAILY [facility] Last Admin: 11/13/16 09:48 Dose: 40 mg Famotidine (Pepcid) 20 mg PO DAILY [facility] Last Admin: 11/13/16 09:23 Dose: 20 mg Furosemide (Lasix) 40 mg IVP BID [facility] Last Admin: 11/13/16 17:50 Dose: 40 mg Hydromorphone HCl (Dilaudid) 2 mg IVP Q12 [facility] Last Admin: 11/13/16 22:04 Dose: 2 mg Ceftriaxone Sodium 1 gm/ (Dextrose) 100 mls @ 50 mls/30 min IVPB DAILY [facility] Last Admin: 11/13/16 09:23 Dose: 50 mls/30 min Azithromycin 500 mg/ Sodium (Chloride) 250 mls @ 167 mls/hr IVPB Q24H [facility] Last Admin: 11/14/16 00:00 Dose: 167 mls/hr Metoclopramide HCl (Reglan) 10 mg IVP BID PRN PRN Reason: Nausea/Vomiting Metolazone (Zaroxolyn) 2.5 mg PO DAILY [facility] Last Admin: 11/13/16 09:23 Dose: 2.5 mg Ondansetron HCl (Zofran Inj) 4 mg IVP Q6H PRN PRN Reason: nausea and vomiting Last Admin: 11/12/16 12:49 Dose: 4 mg Polyethylene Glycol (Miralax) 17 gm PO DAILY [facility] Last Admin: 11/13/16 12:17 Dose: 17 gm Fluticasone/Salmeterol (Advair Diskus 250/50) 1 puff INH RQ12 [facility] Last Admin: 11/13/16 07:48 Dose: Not Given Tramadol HCl (Ultram) 25 mg PO Q8H PRN PRN Reason: Pain Last Admin: 11/14/16 01:57 Dose: 25 mg - Labs Labs: 11/13/16 06:06 11/13/16 07:29 - Constitutional Appears: Non-toxic, No Acute Distress, Other (obese) - Eye Exam Eye Exam: EOMI, PERRL - ENT Exam ENT Exam: Mucous Membranes Moist - Respiratory Exam Respiratory Exam: Clear to Ausculation Bilateral. absent: Rales, Rhonchi, Wheezes - Cardiovascular Exam Cardiovascular Exam: RRR, +S1, +S2, Murmur (holosystolic) - GI/Abdominal Exam GI & Abdominal Exam: Soft, Normal Bowel Sounds. absent: Distended, Firm, Guarding, Rigid, Tenderness, Organomegaly - Neurological Exam Neurological Exam: Alert, Awake, Oriented x3 - Psychiatric Exam Psychiatric exam: Normal Affect, Normal Mood - Skin Skin Exam: Dry, Warm Assessment and Plan - Assessment and Plan (Free Text) Assessment: Patient is a 31yo female with PMHx significant for cardiomyopathy with h/o atrial fibrillation and pacemaker/defibrillator placement 8 years ago who presented to the ED with complaint of abdominal pain and shortness of breath. -RUQ/RLQ abdominal pain with nausea/vomiting - resolved -UTI -Acute exacerbation of CHF -H/O cardiomyopathy/CHF Plan: -Diet advanced without issue -Patient has never received reglan, no zofran given since 11/12 -U/S reviewed and unremarkable -All studies/lab work to date unremarkable -Continue conservative management with PRN analgesia/antiemetics and advance diet as tolerated -[facility] state there are no prior records on this patient with regards to an EGD/ Colonoscopy -No further recommendations at this time, OK for D/C from GI standpoint -Will sign off. Thank you for allowing us to participate in the care of your patient. Please reconsult if needed. <Clint Monae - Last Filed: 11/14/16 12:30> Objective - Vital Signs/Intake and Output Vital Signs (last 24 hours): Temp Pulse Resp BP Pulse Ox 97.3 F L 78 19 104/60 98 11/14/16 08:00 11/14/16 10:00 11/14/16 08:00 11/14/16 09:58 11/14/16 08:00 Intake and Output: 11/14/16 11/14/16 06:59 18:59 Intake Total 470 Balance 470 - Medications Medications: Current Medications Acetaminophen (Tylenol 325mg Tab) 325 mg PO Q8H PRN PRN Reason: Pain Last Admin: 11/11/16 20:53 Dose: 325 mg Albuterol/Ipratropium (Duoneb 3 Mg/0.5 Mg (3 Ml) Ud) 3 ml INH RQ6 [facility] Last Admin: 11/14/16 07:34 Dose: 3 ml Carvedilol (Coreg) 12.5 mg PO Q12 [facility] Last Admin: 11/14/16 09:57 Dose: 12.5 mg Digoxin (Lanoxin) 0.25 mg PO DAILY@1800 [facility] Last Admin: 11/13/16 17:51 Dose: 0.25 mg Enoxaparin Sodium (Lovenox) 40 mg SC DAILY [facility] Last Admin: 11/14/16 10:00 Dose: 40 mg Famotidine (Pepcid) 20 mg PO DAILY [facility] Last Admin: 11/14/16 09:57 Dose: 20 mg Furosemide (Lasix) 40 mg IVP BID [facility] Last Admin: 11/14/16 09:58 Dose: 40 mg Hydromorphone HCl (Dilaudid) 2 mg IVP Q12 [facility] Last Admin: 11/14/16 10:00 Dose: 2 mg Ceftriaxone Sodium 1 gm/ (Dextrose) 100 mls @ 50 mls/30 min IVPB DAILY [facility] Last Admin: 11/14/16 10:02 Dose: 50 mls/30 min Azithromycin 500 mg/ Sodium (Chloride) 250 mls @ 167 mls/hr IVPB Q24H [facility] Last Admin: 11/14/16 00:00 Dose: 167 mls/hr Metolazone (Zaroxolyn) 2.5 mg PO DAILY [facility] Last Admin: 11/14/16 09:57 Dose: 2.5 mg Ondansetron HCl (Zofran Inj) 4 mg IVP Q6H PRN PRN Reason: nausea and vomiting Last Admin: 11/12/16 12:49 Dose: 4 mg Polyethylene Glycol (Miralax) 17 gm PO DAILY [facility] Last Admin: 11/14/16 09:58 Dose: 17 gm Fluticasone/Salmeterol (Advair Diskus 250/50) 1 puff INH RQ12 [facility] Last Admin: 11/14/16 07:46 Dose: Not Given Tramadol HCl (Ultram) 25 mg PO Q8H PRN PRN Reason: Pain Last Admin: 11/14/16 01:57 Dose: 25 mg - Labs Labs: 11/13/16 06:06 11/13/16 07:29 Attending/Attestation - Attestation I have personally seen and examined this patient.: Yes I have fully participated in the care of the patient.: Yes I have reviewed all pertinent clinical information, including history, physical exam and plan: Yes Notes (Text): 11/14/16 12:28 I have seen and examined patient with GI fellow. She is seen sitting in bed, appears quite comfortable. Her abdominal pain has resolved and she denies nausea, vomiting, diarrhea, fever/chills. She had a bowel movement following miralax and is tolerating PO diet without difficulty. Atrial fibrillation CHF s/p ICD Obesity Abdominal pain, nausea, vomiting - resolved UTI - Diet as tolerated - Continue with antibiotic therapy as per medical team - Etiology of abdominal possibly related to biliary colic vs suprapubic pain related to UTI - No ongoing GI issues, will sign off case. Suggest additional outpatient GI follow up and obtaining prior endoscopic records from [facility]. Please reconsult as necessary, thank you.
[2016-11-14] MEDS: Fluticasone-Salmeterol 250-50mcg Diskus INH SCH ×2 (07:46→20:37)
--- NOTE | 2016-11-14 09:16 | CP.PCM.PN ---
<James Dickinson - Last Filed: 11/14/16 14:19> Subjective - Date & Time of Evaluation Date of Evaluation: 11/14/16 Time of Evaluation: 09:10 - Subjective Subjective: Cardiology Progress Note Dr. Romero Patient seen and examined at the bedside. No acute distress. No acute events overnight. The nursing staff reports no issues. The patient states that she feels much improved from yesterday. The patient also comments that the edema in her left leg has resolved, but she has residual edema in her right leg that she states is consistent with her baseline. Presently, the patient denies fever , chills, headache, and all cardiopulmonary complaints. Objective - Vital Signs/Intake and Output Vital Signs (last 24 hours): Temp Pulse Resp BP Pulse Ox 98 F 95 H 15 100/66 94 L 11/14/16 00:00 11/14/16 00:00 11/14/16 00:00 11/14/16 00:00 11/14/16 00:00 - Medications Medications: Current Medications Acetaminophen (Tylenol 325mg Tab) 325 mg PO Q8H PRN PRN Reason: Pain Last Admin: 11/11/16 20:53 Dose: 325 mg Albuterol/Ipratropium (Duoneb 3 Mg/0.5 Mg (3 Ml) Ud) 3 ml INH RQ6 [facility] Last Admin: 11/14/16 07:34 Dose: 3 ml Carvedilol (Coreg) 12.5 mg PO Q12 [facility] Last Admin: 11/13/16 22:00 Dose: 12.5 mg Digoxin (Lanoxin) 0.25 mg PO DAILY@1800 [facility] Last Admin: 11/13/16 17:51 Dose: 0.25 mg Enoxaparin Sodium (Lovenox) 40 mg SC DAILY [facility] Last Admin: 11/13/16 09:48 Dose: 40 mg Famotidine (Pepcid) 20 mg PO DAILY [facility] Last Admin: 11/13/16 09:23 Dose: 20 mg Furosemide (Lasix) 40 mg IVP BID [facility] Last Admin: 11/13/16 17:50 Dose: 40 mg Hydromorphone HCl (Dilaudid) 2 mg IVP Q12 [facility] Last Admin: 11/13/16 22:04 Dose: 2 mg Ceftriaxone Sodium 1 gm/ (Dextrose) 100 mls @ 50 mls/30 min IVPB DAILY [facility] Last Admin: 11/13/16 09:23 Dose: 50 mls/30 min Azithromycin 500 mg/ Sodium (Chloride) 250 mls @ 167 mls/hr IVPB Q24H [facility] Last Admin: 11/14/16 00:00 Dose: 167 mls/hr Metolazone (Zaroxolyn) 2.5 mg PO DAILY [facility] Last Admin: 11/13/16 09:23 Dose: 2.5 mg Ondansetron HCl (Zofran Inj) 4 mg IVP Q6H PRN PRN Reason: nausea and vomiting Last Admin: 11/12/16 12:49 Dose: 4 mg Polyethylene Glycol (Miralax) 17 gm PO DAILY [facility] Last Admin: 11/13/16 12:17 Dose: 17 gm Fluticasone/Salmeterol (Advair Diskus 250/50) 1 puff INH RQ12 [facility] Last Admin: 11/14/16 07:46 Dose: Not Given Tramadol HCl (Ultram) 25 mg PO Q8H PRN PRN Reason: Pain Last Admin: 11/14/16 01:57 Dose: 25 mg - Labs Labs: 11/13/16 06:06 11/13/16 07:29 - Additional Findings Additional findings: - Constitutional Appears: Well, No Acute Distress - Head Exam Head Exam: ATRAUMATIC, NORMAL INSPECTION, NORMOCEPHALIC - Eye Exam Eye Exam: EOMI - ENT Exam ENT Exam: Mucous Membranes Moist - Neck Exam Neck Exam: Full ROM, Normal Inspection. absent: Lymphadenopathy - Respiratory Exam Respiratory Exam: Clear to Ausculation Bilateral, NORMAL BREATHING PATTERN. absent: Rhonchi, Wheezes - Cardiovascular Exam Cardiovascular Exam: REGULAR RHYTHM, RRR, +S1, +S2, Murmur. absent: Diastolic murmur - GI/Abdominal Exam GI & Abdominal Exam: Soft, Tenderness, Normal Bowel Sounds - Extremities Exam Extremities Exam: Full ROM, Normal Capillary Refill, Normal Inspection, Pedal Edema (trace left LE, 1+ edema right LE ). absent: Joint Swelling - Neurological Exam Neurological Exam: Alert, Awake, CN II-XII Intact, Oriented x3 - Skin Skin Exam: Dry, Intact, Normal Color, Warm Assessment and Plan (1) Systolic and diastolic CHF w/reduced LV function, NYHA class 4 Status: Chronic (2) Leg edema Status: Acute (3) Chest pain Status: Resolved - Assessment and Plan (Free Text) Plan: 1.) LE Edema- likely 2/2 to CHF - Lasix 40mg IV BID - metolazone 2.5mg PO - losartan 100mg - Continue coreg 12.5mg po bid - Continue Digoxzin 0.25mg po daily - left LE edema resolved, right LE edema remains, but the patient states that this is consistent with her baseline - patient is voiding appropriately - continue to monitor I&O - continue daily weights - 11/11/16 Echo- LVEF 21% - patient is hemodynamically stable at this time - continue management as per medical and consult teams Case discussed with Dr. Nick Dickinson PGY1 <Zaynab Romero - Last Filed: 11/21/16 09:48> Objective - Vital Signs/Intake and Output Vital Signs (last 24 hours): Temp Pulse Resp BP Pulse Ox 97.6 F 78 18 111/56 L 98 11/15/16 00:00 11/15/16 15:30 11/15/16 00:00 11/15/16 11:14 11/14/16 08:00 - Labs Labs: 11/13/16 06:06 11/13/16 07:29 Attending/Attestation - Attestation I have personally seen and examined this patient.: Yes I have fully participated in the care of the patient.: Yes I have reviewed all pertinent clinical information, including history, physical exam and plan: Yes Notes (Text): 11/21/16 09:48 less edema much improved
[2016-11-14] MEDS: metOLazone 2.5 MG TAB PO SCH (09:57)
[2016-11-14] MEDS: POLYETHYLENE GLYCOL 3350 17 GM/Dose PACKET PO SCH (09:58)
[2016-11-14] MEDS: Enoxaparin 40 mg Syringe SC SCH (10:00)
[2016-11-14] MEDS: cefTRIAXone IV 1 gm in Dextros 1 GM in Dextrose 5% In Water 50 ML IVPB SCH (10:02)
--- NOTE | 2016-11-14 11:14 | CP.PCM.PN ---
Subjective - Date & Time of Evaluation Date of Evaluation: 11/14/16 Time of Evaluation: 10:45 - Subjective Subjective: Pt seen and examined sitting in chair at bedside. She is comfortable and offers no acute complaints. States that legs are always swollen and slightly painful but swelling may have increased recently. She is sedentary at work. Denies dyspnea, chest pain, difficulty breathing, fevers, chills. Objective - Vital Signs/Intake and Output Vital Signs (last 24 hours): Temp Pulse Resp BP Pulse Ox 98 F 95 H 15 104/60 94 L 11/14/16 00:00 11/14/16 00:00 11/14/16 00:00 11/14/16 09:58 11/14/16 00:00 - Medications Medications: Current Medications Acetaminophen (Tylenol 325mg Tab) 325 mg PO Q8H PRN PRN Reason: Pain Last Admin: 11/11/16 20:53 Dose: 325 mg Albuterol/Ipratropium (Duoneb 3 Mg/0.5 Mg (3 Ml) Ud) 3 ml INH RQ6 [facility] Last Admin: 11/14/16 07:34 Dose: 3 ml Carvedilol (Coreg) 12.5 mg PO Q12 [facility] Last Admin: 11/14/16 09:57 Dose: 12.5 mg Digoxin (Lanoxin) 0.25 mg PO DAILY@1800 [facility] Last Admin: 11/13/16 17:51 Dose: 0.25 mg Enoxaparin Sodium (Lovenox) 40 mg SC DAILY [facility] Last Admin: 11/14/16 10:00 Dose: 40 mg Famotidine (Pepcid) 20 mg PO DAILY [facility] Last Admin: 11/14/16 09:57 Dose: 20 mg Furosemide (Lasix) 40 mg IVP BID [facility] Last Admin: 11/14/16 09:58 Dose: 40 mg Hydromorphone HCl (Dilaudid) 2 mg IVP Q12 [facility] Last Admin: 11/14/16 10:00 Dose: 2 mg Ceftriaxone Sodium 1 gm/ (Dextrose) 100 mls @ 50 mls/30 min IVPB DAILY [facility] Last Admin: 11/14/16 10:02 Dose: 50 mls/30 min Azithromycin 500 mg/ Sodium (Chloride) 250 mls @ 167 mls/hr IVPB Q24H [facility] Last Admin: 11/14/16 00:00 Dose: 167 mls/hr Metolazone (Zaroxolyn) 2.5 mg PO DAILY [facility] Last Admin: 11/14/16 09:57 Dose: 2.5 mg Ondansetron HCl (Zofran Inj) 4 mg IVP Q6H PRN PRN Reason: nausea and vomiting Last Admin: 11/12/16 12:49 Dose: 4 mg Polyethylene Glycol (Miralax) 17 gm PO DAILY [facility] Last Admin: 11/14/16 09:58 Dose: 17 gm Fluticasone/Salmeterol (Advair Diskus 250/50) 1 puff INH RQ12 [facility] Last Admin: 11/14/16 07:46 Dose: Not Given Tramadol HCl (Ultram) 25 mg PO Q8H PRN PRN Reason: Pain Last Admin: 11/14/16 01:57 Dose: 25 mg - Labs Labs: 11/13/16 06:06 11/13/16 07:29 - Constitutional Appears: Non-toxic, No Acute Distress - Head Exam Head Exam: NORMAL INSPECTION, NORMOCEPHALIC - Eye Exam Eye Exam: Normal appearance Pupil Exam: NORMAL ACCOMODATION - ENT Exam ENT Exam: Mucous Membranes Moist - Neck Exam Neck Exam: Normal Inspection - Respiratory Exam Respiratory Exam: Clear to Ausculation Bilateral, NORMAL BREATHING PATTERN. absent: Rales, Rhonchi, Wheezes - Cardiovascular Exam Cardiovascular Exam: Diastolic murmur, REGULAR RHYTHM, RRR, +S1, +S2. absent: Rubs - GI/Abdominal Exam GI & Abdominal Exam: Soft, Normal Bowel Sounds. absent: Tenderness - Extremities Exam Extremities Exam: Pedal Edema (Greater on right than left. Pain to palpation of back of calf although pt states that is chronic. No erythema noted due to skin color. ) - Back Exam Back Exam: NORMAL INSPECTION - Neurological Exam Neurological Exam: Alert, Awake, Oriented x3 - Psychiatric Exam Psychiatric exam: Normal Affect, Normal Mood - Skin Skin Exam: Dry, Intact, Normal Color Assessment and Plan (1) Systolic and diastolic CHF w/reduced LV function, NYHA class 4 Status: Chronic - Assessment and Plan (Free Text) Assessment: CHF Exacerbation Plan: Stable from pulmonary point of view. CHF management per cardiology.
[2016-11-14 11:28] VITALS: PULSE 78
[2016-11-14 11:30] VITALS: O2SAT 98
[2016-11-14] MEDS: Digoxin 250 mcg (0.25 mg) Tab PO SCH (18:09)
[2016-11-14 18:10] VITALS: PULSE 77
--- NOTE | 2016-11-14 18:52 | CP.PCM.PN ---
Subjective - Date & Time of Evaluation Date of Evaluation: 11/14/16 Time of Evaluation: 18:10 - Subjective Subjective: clinically much improved seems comfortable Objective - Vital Signs/Intake and Output Vital Signs (last 24 hours): Temp Pulse Resp BP Pulse Ox 97.3 F L 78 19 107/70 98 11/14/16 08:00 11/14/16 10:00 11/14/16 08:00 11/14/16 18:09 11/14/16 08:00 Intake and Output: 11/14/16 11/14/16 06:59 18:59 Intake Total 1280 Output Total 1600 Balance -320 - Medications Medications: Current Medications Acetaminophen (Tylenol 325mg Tab) 325 mg PO Q8H PRN PRN Reason: Pain Last Admin: 11/11/16 20:53 Dose: 325 mg Albuterol/Ipratropium (Duoneb 3 Mg/0.5 Mg (3 Ml) Ud) 3 ml INH RQ6 [facility] Last Admin: 11/14/16 13:25 Dose: Not Given Carvedilol (Coreg) 12.5 mg PO Q12 [facility] Last Admin: 11/14/16 09:57 Dose: 12.5 mg Digoxin (Lanoxin) 0.25 mg PO DAILY@1800 [facility] Last Admin: 11/14/16 18:09 Dose: 0.25 mg Enoxaparin Sodium (Lovenox) 40 mg SC DAILY [facility] Last Admin: 11/14/16 10:00 Dose: 40 mg Famotidine (Pepcid) 20 mg PO DAILY [facility] Last Admin: 11/14/16 09:57 Dose: 20 mg Furosemide (Lasix) 40 mg IVP BID [facility] Last Admin: 11/14/16 18:09 Dose: 40 mg Hydromorphone HCl (Dilaudid) 2 mg IVP Q12 [facility] Ceftriaxone Sodium 1 gm/ (Dextrose) 100 mls @ 50 mls/30 min IVPB DAILY [facility] Last Admin: 11/14/16 10:02 Dose: 50 mls/30 min Azithromycin 500 mg/ Sodium (Chloride) 250 mls @ 167 mls/hr IVPB Q24H [facility] Last Admin: 11/14/16 00:00 Dose: 167 mls/hr Metolazone (Zaroxolyn) 2.5 mg PO DAILY [facility] Last Admin: 11/14/16 09:57 Dose: 2.5 mg Ondansetron HCl (Zofran Inj) 4 mg IVP Q6H PRN PRN Reason: nausea and vomiting Last Admin: 11/12/16 12:49 Dose: 4 mg Polyethylene Glycol (Miralax) 17 gm PO DAILY [facility] Last Admin: 11/14/16 09:58 Dose: 17 gm Fluticasone/Salmeterol (Advair Diskus 250/50) 1 puff INH RQ12 [facility] Last Admin: 11/14/16 07:46 Dose: Not Given Tramadol HCl (Ultram) 25 mg PO Q8H PRN PRN Reason: Pain Last Admin: 11/14/16 01:57 Dose: 25 mg - Labs Labs: 11/13/16 06:06 11/13/16 07:29 Assessment and Plan - Assessment and Plan (Free Text) Plan: continue meds as ordered Dr. Ry Mayfield
--- NOTE | 2016-11-14 21:41 | CP.PCM.PN ---
Subjective - Date & Time of Evaluation Date of Evaluation: 11/14/16 Time of Evaluation: 07:00 - Subjective Subjective: Patient seen and examined at the bedside. Comfortable Physical Examination - Head Exam Head Exam: ATRAUMATIC, NORMAL INSPECTION, NORMOCEPHALIC - Eye Exam Eye Exam: EOMI - ENT Exam ENT Exam: Mucous Membranes Moist - Neck Exam Neck Exam: Full ROM, Normal Inspection. absent: Lymphadenopathy - Respiratory Exam Respiratory Exam: Clear to Ausculation Bilateral, NORMAL BREATHING PATTERN. absent: Rhonchi, Wheezes - Cardiovascular Exam Cardiovascular Exam: REGULAR RHYTHM, RRR, +S1, +S2, Murmur. absent: Diastolic murmur - GI/Abdominal Exam GI & Abdominal Exam: Soft, Tenderness, Normal Bowel Sounds - Extremities Exam Extremities Exam: Full ROM, Normal Capillary Refill, Normal Inspection, Pedal Edema (trace left LE, 1+ edema right LE ). absent: Joint Swelling - Neurological Exam Neurological Exam: Alert, Awake, CN II-XII Intact, Oriented x3 - Skin Skin Exam: Dry, Intact, Normal Color, Warm Objective - Vital Signs/Intake and Output Vital Signs (last 24 hours): Temp Pulse Resp BP Pulse Ox 97.3 F L 78 19 107/70 98 11/14/16 08:00 11/14/16 10:00 11/14/16 08:00 11/14/16 18:09 11/14/16 08:00 Intake and Output: 11/14/16 11/15/16 18:59 06:59 Intake Total 1280 Output Total 1600 Balance -320 - Medications Medications: Current Medications Acetaminophen (Tylenol 325mg Tab) 325 mg PO Q8H PRN PRN Reason: Pain Last Admin: 11/11/16 20:53 Dose: 325 mg Albuterol/Ipratropium (Duoneb 3 Mg/0.5 Mg (3 Ml) Ud) 3 ml INH RQ6 [facility] Last Admin: 11/14/16 20:37 Dose: 3 ml Carvedilol (Coreg) 12.5 mg PO Q12 [facility] Last Admin: 11/14/16 09:57 Dose: 12.5 mg Digoxin (Lanoxin) 0.25 mg PO DAILY@1800 [facility] Last Admin: 11/14/16 18:09 Dose: 0.25 mg Enoxaparin Sodium (Lovenox) 40 mg SC DAILY [facility] Last Admin: 11/14/16 10:00 Dose: 40 mg Famotidine (Pepcid) 20 mg PO DAILY [facility] Last Admin: 11/14/16 09:57 Dose: 20 mg Furosemide (Lasix) 40 mg IVP BID [facility] Last Admin: 11/14/16 18:09 Dose: 40 mg Hydromorphone HCl (Dilaudid) 2 mg IVP Q12 [facility] Ceftriaxone Sodium 1 gm/ (Dextrose) 100 mls @ 50 mls/30 min IVPB DAILY [facility] Last Admin: 11/14/16 10:02 Dose: 50 mls/30 min Azithromycin 500 mg/ Sodium (Chloride) 250 mls @ 167 mls/hr IVPB Q24H [facility] Last Admin: 11/14/16 00:00 Dose: 167 mls/hr Metolazone (Zaroxolyn) 2.5 mg PO DAILY [facility] Last Admin: 11/14/16 09:57 Dose: 2.5 mg Ondansetron HCl (Zofran Inj) 4 mg IVP Q6H PRN PRN Reason: nausea and vomiting Last Admin: 11/12/16 12:49 Dose: 4 mg Polyethylene Glycol (Miralax) 17 gm PO DAILY [facility] Last Admin: 11/14/16 09:58 Dose: 17 gm Fluticasone/Salmeterol (Advair Diskus 250/50) 1 puff INH RQ12 [facility] Last Admin: 11/14/16 20:37 Dose: Not Given Tramadol HCl (Ultram) 25 mg PO Q8H PRN PRN Reason: Pain Last Admin: 11/14/16 01:57 Dose: 25 mg - Labs Labs: 11/13/16 06:06 11/13/16 07:29 Assessment and Plan - Assessment and Plan (Free Text) Assessment: Assessment and Plan (1) Systolic and diastolic CHF w/reduced LV function, NYHA class 4 Status: Chronic Change lasix to PO (2) Chest pain Status: Resolved Non cardiac (3) Leg edema Status: Acute Resolved
[2016-11-15] MEDS: Azithromycin 500 MG in Sodium Chloride 0.9% 250 ML IVPB SCH
[2016-11-15] MEDS: Albuterol-Ipratrop 3 mg / 0.5 (3 ml) UD INH SCH ×3 (01:01→14:10)
[2016-11-15 02:02] VITALS: RESP 18; TEMP 97.6
[2016-11-15] MEDS: Fluticasone-Salmeterol 250-50mcg Diskus INH SCH (07:58)
[2016-11-15] MEDS: POLYETHYLENE GLYCOL 3350 17 GM/Dose PACKET PO SCH (10:56)
[2016-11-15] MEDS: Enoxaparin 40 mg Syringe SC SCH (10:56)
[2016-11-15 10:57] VITALS: BP 111/56
[2016-11-15] MEDS: metOLazone 2.5 MG TAB PO SCH (11:17)
[2016-11-15] MEDS ORDERED: cefTRIAXone IV 1 gm in Dextros 50 ML IVPB SCH (12:00)
--- NOTE | 2016-11-15 12:18 | VASCLAB ---
PROCEDURE: Right Lower Extremity Venous Duplex Exam. HISTORY: CHF/Pleural effusion, R leg swelling DVT suspected PRIORS: None. TECHNIQUE: Right common femoral, femoral, popliteal and posterior tibial, peroneal and great saphenous veins were evaluated. Flow was assessed with color Doppler, compressibility, assessment of phasic flow and augmentation response. Report prepared by Willam Gardiner RVT FINDINGS: RIGHT: 1. Common Femoral Vein: 1.1. Compressibility - Fully compressible: Thrombus - None: Flow - Phasic: Augmentation -Normal: Reflux - . 2. Femoral Vein: 2.1. Compressibility - Fully compressible: Thrombus - None: Flow - Phasic: Augmentation -Normal: Reflux - . 3. Popliteal Vein: 3.1. Compressibility - Fully compressible: Thrombus - None: Flow - Phasic: Augmentation -Normal: Reflux - . 4. Posterior Tibial Vein: 4.1. Compressibility - Fully compressible: Thrombus - None: Flow - Phasic: Augmentation -Normal: Reflux - . 5. Peroneal Vein: 5.1. Compressibility - Fully compressible: Thrombus - None: Flow - Phasic: Augmentation -Normal: Reflux - . 6. Great Saphenous Vein: 6.1. Compressibility - Fully compressible: Thrombus -None: Flow - Phasic: Augmentation - Normal: Reflux - . OTHER FINDINGS: IMPRESSION: No evidence of deep or superficial vein thrombosis of the right lower extremity with excellent venous return. Normal venous flow noted in the left common femoral vein.
--- NOTE | 2016-11-15 12:39 | CP.PCM.PN ---
<James Dickinson - Last Filed: 11/15/16 12:24> Subjective - Date & Time of Evaluation Date of Evaluation: 11/15/16 Time of Evaluation: 12:24 - Subjective Subjective: Cardiology Progress Note Dr. Romero Patient seen and examined at the bedside. No acute distress. No acute events overnight. The nursing staff reports no issues. The patient states that she feels much improved from yesterday. The patient also comments that the edema in her left leg has resolved, but she has residual edema in her right leg that she states is consistent with her baseline. Venous ulsonography was done yesterday and preliminarily negative. Presently, the patient denies fever, chills, headache, and all cardiopulmonary complaints. Objective - Vital Signs/Intake and Output Vital Signs (last 24 hours): Temp Pulse Resp BP Pulse Ox 97.6 F 78 18 111/56 L 98 11/15/16 00:00 11/15/16 00:00 11/15/16 00:00 11/15/16 11:14 11/14/16 08:00 - Medications Medications: Current Medications Acetaminophen (Tylenol 325mg Tab) 325 mg PO Q8H PRN PRN Reason: Pain Last Admin: 11/11/16 20:53 Dose: 325 mg Albuterol/Ipratropium (Duoneb 3 Mg/0.5 Mg (3 Ml) Ud) 3 ml INH RQ6 [facility] Last Admin: 11/15/16 07:58 Dose: 3 ml Carvedilol (Coreg) 12.5 mg PO Q12 [facility] Last Admin: 11/15/16 10:57 Dose: 12.5 mg Digoxin (Lanoxin) 0.25 mg PO DAILY@1800 [facility] Last Admin: 11/14/16 18:09 Dose: 0.25 mg Enoxaparin Sodium (Lovenox) 40 mg SC DAILY [facility] Last Admin: 11/15/16 10:56 Dose: 40 mg Famotidine (Pepcid) 20 mg PO DAILY [facility] Last Admin: 11/15/16 10:57 Dose: 20 mg Furosemide (Lasix) 40 mg IVP BID [facility] Last Admin: 11/15/16 11:14 Dose: Not Given Hydromorphone HCl (Dilaudid) 2 mg IVP Q12 [facility] Last Admin: 11/15/16 11:13 Dose: Not Given Azithromycin 500 mg/ Sodium (Chloride) 250 mls @ 167 mls/hr IVPB Q24H [facility] Last Admin: 11/15/16 00:00 Dose: 167 mls/hr Ceftriaxone Sodium (Rocephin Iv 1 Gm Duplex) 50 mls @ 50 mls/30 min IVPB DAILY [facility] Last Admin: 11/15/16 11:48 Dose: 50 mls/30 min Metolazone (Zaroxolyn) 2.5 mg PO DAILY [facility] Last Admin: 11/15/16 11:17 Dose: 2.5 mg Ondansetron HCl (Zofran Inj) 4 mg IVP Q6H PRN PRN Reason: nausea and vomiting Last Admin: 11/12/16 12:49 Dose: 4 mg Polyethylene Glycol (Miralax) 17 gm PO DAILY [facility] Last Admin: 11/15/16 10:56 Dose: 17 gm Fluticasone/Salmeterol (Advair Diskus 250/50) 1 puff INH RQ12 [facility] Last Admin: 11/15/16 07:58 Dose: 1 puff Tramadol HCl (Ultram) 25 mg PO Q8H PRN PRN Reason: Pain Last Admin: 11/14/16 01:57 Dose: 25 mg - Labs Labs: 11/13/16 06:06 11/13/16 07:29 - Additional Findings Additional findings: - Constitutional Appears: Well, No Acute Distress - Head Exam Head Exam: ATRAUMATIC, NORMAL INSPECTION, NORMOCEPHALIC - Eye Exam Eye Exam: EOMI - ENT Exam ENT Exam: Mucous Membranes Moist - Neck Exam Neck Exam: Full ROM, Normal Inspection. absent: Lymphadenopathy - Respiratory Exam Respiratory Exam: Clear to Ausculation Bilateral, NORMAL BREATHING PATTERN. absent: Rhonchi, Wheezes - Cardiovascular Exam Cardiovascular Exam: REGULAR RHYTHM, RRR, +S1, +S2, Murmur. absent: Diastolic murmur - GI/Abdominal Exam GI & Abdominal Exam: Soft, Tenderness, Normal Bowel Sounds - Extremities Exam Extremities Exam: Full ROM, Normal Capillary Refill, Normal Inspection, Pedal Edema (trace left LE, 1+ edema right LE ). absent: Joint Swelling - Neurological Exam Neurological Exam: Alert, Awake, CN II-XII Intact, Oriented x3 - Skin Skin Exam: Dry, Intact, Normal Color, Warm Assessment and Plan (1) Systolic and diastolic CHF w/reduced LV function, NYHA class 4 Assessment & Plan: LE Edema likely 2/2 to chronic CHF Lasix 40mg IV BID metolazone 2.5mg PO losartan 100mg Continue coreg 12.5mg po bid Continue Digoxzin 0.25mg po daily left LE edema resolved, right LE edema remains, but the patient states that this is consistent with her baseline - RLE Doppler negative for superficial or deep thrombosis. Final report pending continue to monitor I&O continue daily weights 11/11/16 Echo- LVEF 21% patient is hemodynamically stable at this time continue management as per medical and consult teams Status: Chronic (2) Leg edema Assessment & Plan: 22 to CHF- management as per #1 Status: Acute (3) Chest pain Status: Resolved - Assessment and Plan (Free Text) Plan: Case discussed with Dr. Nick Dickinson PGY1 <Zaynab Romero - Last Filed: 11/21/16 09:49> Objective - Vital Signs/Intake and Output Vital Signs (last 24 hours): Temp Pulse Resp BP Pulse Ox 97.6 F 78 18 111/56 L 98 11/15/16 00:00 11/15/16 15:30 11/15/16 00:00 11/15/16 11:14 11/14/16 08:00 - Labs Labs: 11/13/16 06:06 11/13/16 07:29 Attending/Attestation - Attestation I have personally seen and examined this patient.: Yes I have fully participated in the care of the patient.: Yes I have reviewed all pertinent clinical information, including history, physical exam and plan: Yes Notes (Text): 11/21/16 09:49 negative for dvt prelim edema resolved to nl
--- NOTE | 2016-11-15 13:35 | CP.PCM.PN ---
Subjective - Date & Time of Evaluation Date of Evaluation: 11/15/16 Time of Evaluation: 11:40 - Subjective Subjective: clinically stable Objective - Vital Signs/Intake and Output Vital Signs (last 24 hours): Temp Pulse Resp BP Pulse Ox 97.6 F 78 18 111/56 L 98 11/15/16 00:00 11/15/16 00:00 11/15/16 00:00 11/15/16 11:14 11/14/16 08:00 - Medications Medications: Current Medications Acetaminophen (Tylenol 325mg Tab) 325 mg PO Q8H PRN PRN Reason: Pain Last Admin: 11/11/16 20:53 Dose: 325 mg Albuterol/Ipratropium (Duoneb 3 Mg/0.5 Mg (3 Ml) Ud) 3 ml INH RQ6 [facility] Last Admin: 11/15/16 07:58 Dose: 3 ml Carvedilol (Coreg) 12.5 mg PO Q12 [facility] Last Admin: 11/15/16 10:57 Dose: 12.5 mg Digoxin (Lanoxin) 0.25 mg PO DAILY@1800 [facility] Last Admin: 11/14/16 18:09 Dose: 0.25 mg Enoxaparin Sodium (Lovenox) 40 mg SC DAILY [facility] Last Admin: 11/15/16 10:56 Dose: 40 mg Famotidine (Pepcid) 20 mg PO DAILY [facility] Last Admin: 11/15/16 10:57 Dose: 20 mg Furosemide (Lasix) 40 mg PO BID [facility] Hydromorphone HCl (Dilaudid) 2 mg IVP Q12 [facility] Last Admin: 11/15/16 11:13 Dose: Not Given Azithromycin 500 mg/ Sodium (Chloride) 250 mls @ 167 mls/hr IVPB Q24H [facility] Last Admin: 11/15/16 00:00 Dose: 167 mls/hr Ceftriaxone Sodium (Rocephin Iv 1 Gm Duplex) 50 mls @ 50 mls/30 min IVPB DAILY [facility] Last Admin: 11/15/16 11:48 Dose: 50 mls/30 min Metolazone (Zaroxolyn) 2.5 mg PO DAILY [facility] Last Admin: 11/15/16 11:17 Dose: 2.5 mg Ondansetron HCl (Zofran Inj) 4 mg IVP Q6H PRN PRN Reason: nausea and vomiting Last Admin: 11/12/16 12:49 Dose: 4 mg Polyethylene Glycol (Miralax) 17 gm PO DAILY [facility] Last Admin: 11/15/16 10:56 Dose: 17 gm Fluticasone/Salmeterol (Advair Diskus 250/50) 1 puff INH RQ12 [facility] Last Admin: 11/15/16 07:58 Dose: 1 puff Tramadol HCl (Ultram) 25 mg PO Q8H PRN PRN Reason: Pain Last Admin: 11/14/16 01:57 Dose: 25 mg - Labs Labs: 11/13/16 06:06 11/13/16 07:29 - Constitutional Appears: Well - Head Exam Head Exam: ATRAUMATIC, NORMAL INSPECTION, NORMOCEPHALIC - Eye Exam Eye Exam: EOMI, Normal appearance, PERRL Pupil Exam: NORMAL ACCOMODATION, PERRL - ENT Exam ENT Exam: Mucous Membranes Moist, Normal Exam - Neck Exam Neck Exam: Full ROM, Normal Inspection. absent: Lymphadenopathy - Respiratory Exam Respiratory Exam: Decreased Breath Sounds - Cardiovascular Exam Cardiovascular Exam: REGULAR RHYTHM, +S1, +S2 - GI/Abdominal Exam GI & Abdominal Exam: Soft, Diminished Bowel Sounds - Rectal Exam Rectal Exam: Deferred Assessment and Plan - Assessment and Plan (Free Text) Plan: pt. is ready for discharge f/u with me as Outpatient tomorrow rx for Augmentin, Adavir and Combivent
--- NOTE | 2016-11-15 17:28 | CP.PCM.PN ---
Subjective - Date & Time of Evaluation Date of Evaluation: 11/15/16 Time of Evaluation: 17:24 - Subjective Subjective: 31 y/o female seen and examined today by Dr. Reid Lopez, admitted for CHF, BLE swelling-improved now, Doppler negtaive, PAOLA negative, denies any chest pain, sob, cough, resp easy and unlabored. Pt discharge home as per Dr. Reid Lopez, continue home meds, rx for Augmentin, Adavir and Combivent given as per Dr. Lopez, educated to f/u with Dr. lopez in the office tomorrow at 12 pm, return to ED if any worsening s/s, agree, verbalize understanding. Objective - Vital Signs/Intake and Output Vital Signs (last 24 hours): Temp Pulse Resp BP Pulse Ox 97.6 F 78 18 111/56 L 98 11/15/16 00:00 11/15/16 15:30 11/15/16 00:00 11/15/16 11:14 11/14/16 08:00 - Medications Medications: Current Medications Acetaminophen (Tylenol 325mg Tab) 325 mg PO Q8H PRN PRN Reason: Pain Last Admin: 11/11/16 20:53 Dose: 325 mg Albuterol/Ipratropium (Duoneb 3 Mg/0.5 Mg (3 Ml) Ud) 3 ml INH RQ6 [facility] Last Admin: 11/15/16 14:10 Dose: 3 ml Carvedilol (Coreg) 12.5 mg PO Q12 [facility] Last Admin: 11/15/16 10:57 Dose: 12.5 mg Digoxin (Lanoxin) 0.25 mg PO DAILY@1800 [facility] Last Admin: 11/14/16 18:09 Dose: 0.25 mg Enoxaparin Sodium (Lovenox) 40 mg SC DAILY [facility] Last Admin: 11/15/16 10:56 Dose: 40 mg Famotidine (Pepcid) 20 mg PO DAILY [facility] Last Admin: 11/15/16 10:57 Dose: 20 mg Furosemide (Lasix) 40 mg PO BID [facility] Hydromorphone HCl (Dilaudid) 2 mg IVP Q12 [facility] Last Admin: 11/15/16 11:13 Dose: Not Given Azithromycin 500 mg/ Sodium (Chloride) 250 mls @ 167 mls/hr IVPB Q24H [facility] Last Admin: 11/15/16 00:00 Dose: 167 mls/hr Ceftriaxone Sodium (Rocephin Iv 1 Gm Duplex) 50 mls @ 50 mls/30 min IVPB DAILY [facility] Last Admin: 11/15/16 11:48 Dose: 50 mls/30 min Metolazone (Zaroxolyn) 2.5 mg PO DAILY [facility] Last Admin: 11/15/16 11:17 Dose: 2.5 mg Ondansetron HCl (Zofran Inj) 4 mg IVP Q6H PRN PRN Reason: nausea and vomiting Last Admin: 11/12/16 12:49 Dose: 4 mg Polyethylene Glycol (Miralax) 17 gm PO DAILY [facility] Last Admin: 11/15/16 10:56 Dose: 17 gm Fluticasone/Salmeterol (Advair Diskus 250/50) 1 puff INH RQ12 [facility] Last Admin: 11/15/16 07:58 Dose: 1 puff Tramadol HCl (Ultram) 25 mg PO Q8H PRN PRN Reason: Pain Last Admin: 11/14/16 01:57 Dose: 25 mg - Labs Labs: 11/13/16 06:06 11/13/16 07:29
--- NOTE | 2016-11-15 17:32 | PCM.HF ---
Heart Failure Core Measure - Heart Failure Ejection Fraction: Less Than 40 % (lvef 21%) CECE Inhibitor Prescribed: Yes Beta-Jelly Prescribed: Carvedilol Angiotensin II Receptor Jelly Prescribed: Yes AnticoagulationTherapy for Atrial Fibrillation/Atrialflutter: Yes Aldosterone Antagonist Prescribed: No Contraindication/Reason for not providing: not prescribed by md at present Hydralazine Nitrate Prescribed: No Contraindication/Reason for not providing: on digoxin Implantable Cardioverter Defibrillator Therapy: Yes Cardiac Resynchronization Therapy Prescribed: No Contraindication/Reason for not providing: has pacemaker - Follow up Will be discharged to: Home Follow Up Date (must be within 7 days from discharge): 11/16/16 Follow Up Time: 09:00
--- NOTE | 2017-01-27 12:54 | CARD ---
APPROVED REPORT EKG Measurement Heart [id number] <Conclusion> Sinus tachycardia with 1st degree AV block Possible Left atrial enlargement Nonspecific ST and T wave abnormality Abnormal ECG
== END 2016-11-15 16:50 | disposition home or self-care (01) | DRG 292 ==
LOC: C.ER 14:55 → C.9E 20:28 → C.9I 22:43
PROVIDERS: ADMIT Internal Medicine Nephrology; ATTEND Internal Medicine Nephrology
DX: I50.43 Acute on chronic combined systolic (congestive) and diastolic (congestive) heart failure (principal); N39.0 Urinary tract infection, site not specified; I42.9 Cardiomyopathy, unspecified; R91.8 Other nonspecific abnormal finding of lung field; I48.91 Unspecified atrial fibrillation; R06.00 Dyspnea, unspecified; R60.0 Localized edema; Z95.810 Presence of automatic (implantable) cardiac defibrillator

== ENCOUNTER 2017-01-25 16:49 | Emergency (ER) | payer MEDICARE ==
[2017-01-25 16:49] VITALS: PULSE 77; BMI 38.7
[2017-01-25 17:14] VITALS: TEMP 97.7
[2017-01-25] MEDS ORDERED: Albuterol-Ipratrop 3 mg / 0.5 (3 ml) UD INH STA ×3 (18:05→23:15)
[2017-01-25] MEDS ORDERED: Albuterol-Ipratrop 3 mg / 0.5 (3 ml) UD ONE ×3 (18:29→23:31)
[2017-01-25 18:44] LABS: BASO % 1.2 % (0.0-2.0); EOS % 0.8 % (0.0-4.0); HEMATOCRIT 38.3 % (34.0-47.0); LYMPH # 0.9 K/uL (1.0-4.3); LYMPH % 26.2 % (20.0-40.0); MEAN CELL VOLUME 89.1 fL (81.0-99.0); MEAN CORPUSCULAR HEMOGLOBIN 29.5 pg (27.0-31.0); MEAN CORPUSCULAR HGB CONC 33.2 g/dL (33.0-37.0); MEAN PLATELET VOLUME 8.5 fL (7.2-11.7); MONO # 0.3 K/uL (0.0-0.8); MONO % 7.2 % (0.0-10.0); NRBC % 0.1 % (0.0-2.0); WHITE BLOOD COUNT 3.5 K/uL (4.8-10.8)
[2017-01-25 18:53] LABS: INR 1.2
[2017-01-25 18:55] LABS: CHLORIDE 104 mmol/L (98-107)
[2017-01-25 18:56] LABS: POTASSIUM 3.3 mmol/L (3.6-5.2); SODIUM 137 mmol/L (132-148)
[2017-01-25 18:58] LABS: ALB/GLOB RATIO 1.2 (1.0-2.1); ALKALINE PHOSPHATASE 44 U/L (38-126); ALT/SGPT 22 U/L (9-52); AST/SGOT 26 U/L (14-36); BILIRUBIN,TOTAL 1.1 mg/dL (0.2-1.3); BLOOD UREA NITROGEN 14 mg/dL (7-17); CARBON DIOXIDE 26 mmol/L (22-30); GFR AFRICAN-AMERICAN > 60; GLUCOSE,RANDOM 104 mg/dL (65-105); TOTAL PROTEIN 6.9 g/dL (6.3-8.3)
[2017-01-25 18:59] LABS: ALCOHOL SERUM < 10 mg/dl (0-10); CALCIUM 8.8 mg/dl (8.6-10.4)
[2017-01-25 19:01] LABS: RBC URINE 1913 /hpf (0-3); URINE BILIRUBIN NEGATIVE (NEGATIVE); URINE BLOOD 3+ (NEGATIVE); URINE COLOR Red (YELLOW); URINE GLUCOSE (UA) NORMAL (Normal); URINE KETONE TRACE mg/dL (NEGATIVE); URINE LEUKOCYTE ESTERASE NEG Leu/uL (Negative); URINE PROTEIN 2+ mg/dL (NEGATIVE)
[2017-01-25] MEDS ORDERED: Iodixanol 320 MG/ML 100 ML BOTTLE IV ONE (19:54)
--- NOTE | 2017-01-25 21:33 | C.PDOC ---
History Of Present Illness Patient is a 31 year old female who presents to the ER with a complaint of reproducible chest discomfort, cough and scant wheezing for the past 3 days. Patient has a Hx of asthma and uses advair. Asking for Dilaudid for chest discomfort. Denies SOB, nausea or vomiting. Time Seen by Provider: 01/25/17 17:43 Chief Complaint (Nursing): Chest Pain History Per: Patient History/Exam Limitations: no limitations Onset/Duration Of Symptoms: Days (3) Current Symptoms Are (Timing): Still Present Associated Symptoms: denies: Nausea, Dyspnea, Other (Vomiting) Exacerbating Factors: None Alleviating Factors: None Recent travel outside of the [place]: No Past Medical History Reviewed: Historical Data, Nursing Documentation, Vital Signs Vital Signs: Last Vital Signs Temp 97.7 F 01/25/17 17:09 Pulse 92 H 01/25/17 17:09 Resp 18 01/25/17 17:09 BP Pulse Ox 97 01/25/17 21:38 - Medical History PMH: Atrial Fibrillation (ablation sep 2015), CHF Surgical History: Pacemaker - [employer] Procedures EXCISION OF DESCENDING COLON, ENDO, DIAGN (03/30/16) EXCISION OF STOMACH, ENDO, DIAGN (03/30/16) Family History: States: Unknown Family Hx - Social History Hx Tobacco Use: No Hx Alcohol Use: No Hx Substance Use: No - Immunization History Hx Tetanus Toxoid Vaccination: No Hx Influenza Vaccination: No Hx Pneumococcal Vaccination: No Review Of Systems Cardiovascular: Positive for: Chest Pain (Reproducible chest wall) Respiratory: Positive for: Cough, Wheezing (Scant). Negative for: Shortness of Breath Gastrointestinal: Negative for: Nausea, Vomiting Physical Exam - Physical Exam Appears: Non-toxic, No Acute Distress, Other (Obese) Skin: Normal Color, Warm, Dry Head: Atraumatic, Normacephalic Oral Mucosa: Moist Chest: Symmetrical, No Tenderness Cardiovascular: Rhythm Regular, No Murmur Respiratory: No Rales, No Rhonchi, Wheezing (Scant, right side more than left) Gastrointestinal/Abdominal: Soft, No Tenderness, Other (Obese) Extremity: Normal ROM (x4), No Pedal Edema Neurological/Psych: Oriented x3, Normal Speech, Normal Cognition ED Course And Treatment - Laboratory Results Result Diagrams: 01/25/17 18:41 01/25/17 18:41 Lab Interpretation: Abnormal (dpdimer 519 H, tox + THC) O2 Sat by Pulse Oximetry: 97 (Room air) Pulse Ox Interpretation: Normal - Radiology CXR: Interpreted by Me CXR Interpretation: Yes: No Acute Disease - Other Rad CTA X-Ray: Read By Radiologist (neg for PE, stable pulm nodules.) Progress Note: CTA, EKG and CXR ordered. Solumedrol, ultram and nebulizer treatment administered. Reevaluation Time: 23:04 Reassessment Condition: Improved - Physician Consult Information Outcome Of Conversation: scant wheezing resolved. multiple request for pain meds, given solumedrol, tramadol, Motrin 600 PO, resting comfortably multiple re -evals Medical Decision Making Medical Decision Making: mild asthma exacerbation no pna/pnx/PE/CHF Disposition Doctor Will See Patient In The: Office Counseled Patient/Family Regarding: Studies Performed, Diagnosis - Disposition Disposition: HOME/ ROUTINE Disposition Time: 23:08 Condition: GOOD - Clinical Impression Clinical Impression: Chest discomfort, Asthma - Scribe Statement The provider has reviewed the documentation as recorded by the Scribjosh Ragsdale All medical record entries made by the Marizaibjosh were at my direction and personally dictated by me. I have reviewed the chart and agree that the record accurately reflects my personal performance of the history, physical exam, medical decision making, and the department course for this patient. I have also personally directed, reviewed, and agree with the discharge instructions and disposition.
--- NOTE | 2017-01-25 22:37 | CT ---
EXAM: CT Angiography Chest With Intravenous Contrast CLINICAL HISTORY: 31 years old, female; Pain; Chest pressure; Additional info: Cough, SOB, morbid obese, elev d-dimer TECHNIQUE: Axial computed tomographic angiography images of the chest with intravenous contrast using pulmonary embolism protocol. This CT exam was performed using one or more of the following dose reduction techniques: automated exposure control, adjustment of the mA and/or kV according to patient size, and/or use of iterative reconstruction technique. MIP reconstructed images were created and reviewed. Coronal and sagittal reformatted images were created and reviewed. CONTRAST: 100 mL of visipaque administered intravenously. COMPARISON: CT - ANGIO CHEST PE PROTOCOL 01/15/2016 12:12:28 AM FINDINGS: Limitations: Motion artifact - mild. Pulmonary arteries: No definite pulmonary embolism. Aorta: No aneurysm. No dissection. Inferior vena cava: Retrograde filling of IVC and hepatic veins. Lungs: Mild mosaic pattern of lung parenchyma, nonspecific. Minimal atelectasis/scarring. Several pulmonary nodules/nodular opacities, up to 0.3 cm, grossly unchanged allowing for motion. Pleural space: No significant effusion. No pneumothorax. Heart: Moderate cardiomegaly. No significant pericardial effusion. Bones/joints: No acute fracture. No dislocation. Soft tissues: Unremarkable. Lymph nodes: No pathologically enlarged lymph nodes. Tubes, lines and devices: LEFT pacemaker. IMPRESSION: 1. No definite CT evidence of pulmonary embolism. 2. Pulmonary nodules, grossly stable. Followup as clinically warranted. 3. Incidental/non-acute findings are described above.
[2017-01-25 23:43] VITALS: BP 146/87; PULSE 83; RESP 20; O2SAT 100
--- NOTE | 2017-01-26 12:27 | RAD ---
HISTORY: SOB COMPARISON: 11/10/2016 TECHNIQUE: Chest PA and lateral FINDINGS: LUNGS: No active pulmonary disease. PLEURA: No significant pleural effusion identified. No pneumothorax apparent. CARDIOVASCULAR: Cardiomegaly. AICD. No congestive change. OSSEOUS STRUCTURES: No significant abnormalities. VISUALIZED UPPER ABDOMEN: Normal. OTHER FINDINGS: None. IMPRESSION: Cardiomegaly. No acute infiltrate. AICD noted.
== END 2017-01-25 23:41 | disposition home or self-care (01) ==
LOC: C.ER 16:49
DX: J45.909 Unspecified asthma, uncomplicated (principal); R07.9 Chest pain, unspecified
CPT/HCPCS: 71020; 71275; 80053; 81001; 83880; 84484; 84703; 85025; 85378; 85610; 85730; 94640; 96374; 99284; G0480; J2930; Q9967

== ENCOUNTER 2017-04-21 14:44 | Inpatient (IN) | payer MEDICARE ==
[2017-04-21 14:45] VITALS: BMI 38.7
--- NOTE | 2017-04-21 17:22 | C.PDOC ---
History Of Present Illness 31 y/o female with hx of CHF and hemorrhoids presents to ED with complaints of rectum pain and rectal bleeding since February but worsening for the past week. Patient states she has been using Epson Salt and stool softener with no relief. Patient denies fever, chills ,n/v or any other complaints at this time. Time Seen by Provider: 04/21/17 16:51 Chief Complaint (Nursing): GI Problem History Per: Patient History/Exam Limitations: no limitations Onset/Duration Of Symptoms: Days Current Symptoms Are (Timing): Still Present Amount of Blood Loss: Medium Pain Scale Rating Of: 9 Quality Of Discomfort: "Pain" Associated Symptoms: Rectal Bleeding Past Medical History Reviewed: Historical Data, Nursing Documentation, Vital Signs Vital Signs: Last Vital Signs Temp 97.2 F L 04/21/17 15:03 Pulse 65 04/21/17 15:03 Resp 20 04/21/17 15:03 BP 119/77 04/21/17 15:03 Pulse Ox 96 04/21/17 17:39 - Medical History PMH: Atrial Fibrillation (ablation sep 2015), CHF Denies: Chronic Kidney Disease Surgical History: No Surg Hx, Pacemaker - [facility] Procedures EXCISION OF DESCENDING COLON, ENDO, DIAGN (03/30/16) EXCISION OF STOMACH, ENDO, DIAGN (03/30/16) Family History: States: Unknown Family Hx - Social History Hx Tobacco Use: No Hx Alcohol Use: No Hx Substance Use: No - Immunization History Hx Tetanus Toxoid Vaccination: No Hx Influenza Vaccination: No Hx Pneumococcal Vaccination: No Review Of Systems Except As Marked, All Systems Reviewed And Found Negative. Constitutional: Negative for: Fever, Chills Eyes: Negative for: Vision Change Gastrointestinal: Negative for: Nausea, Vomiting, Abdominal Pain Genitourinary: Negative for: Dysuria, Frequency, Hematuria Skin: Negative for: Rash Neurological: Negative for: Weakness, Numbness Physical Exam - Physical Exam Appears: Non-toxic, No Acute Distress, Other (Morbidly obese) Skin: Normal Color, Warm, Dry, No Rash Head: Atraumatic, Normacephalic Oral Mucosa: Moist Neck: Normal ROM, Supple Chest: Symmetrical Cardiovascular: Rhythm Regular, No Murmur Respiratory: Normal Breath Sounds, No Rales, No Rhonchi, No Wheezing Gastrointestinal/Abdominal: Soft, No Tenderness, No Guarding, No Rebound Rectal: Other (Swelling and erythema on 11o'clock spot along rectal fold. On digital limited exam tissue rig possible consecutive with stricture.) Back: No CVA Tenderness, No Paraspinal Tenderness Extremity: Normal ROM, Capillary Refill (<2 seconds) Neurological/Psych: Oriented x3 ED Course And Treatment O2 Sat by Pulse Oximetry: 96 (RA) Pulse Ox Interpretation: Normal Medical Decision Making Medical Decision Making: spoke with Dr Clark, will admit for further management. Disposition Discussed With .: Tra Clrak Doctor Will See Patient In The: Hospital - Disposition Disposition Time: 18:27 Condition: STABLE Forms: [employer] (Thai) - Clinical Impression Clinical Impression: Rectal pain, Rectal abscess - Scribe Statement The provider has reviewed the documentation as recorded by the Marizaibjosh Adams All medical record entries made by the Scribe were at my direction and personally dictated by me. I have reviewed the chart and agree that the record accurately reflects my personal performance of the history, physical exam, medical decision making, and the department course for this patient. I have also personally directed, reviewed, and agree with the discharge instructions and disposition. Decision To Admit - Pt Status Changed To: Hospital Disposition Of: Inpatient - Admit Certification Admit to Inpatient:: After my assessment, the patient will require hospitalization for at least two midnights. This is because of the severity of symptoms shown, intensity of services needed, and/or the medical risk in this patient being treated as an outpatient. - InPatient: Physician Admission Certification: I certify that this patient requires 2 or more midnights of care for the following reason:: patient with chronic rectal induration and possible abscess - . Bed Request Type: Regular Patient Diagnosis: Rectal pain, Rectal abscess
[2017-04-21] MEDS ORDERED: Lidocaine 2% Jelly (Uro-Jet) TOP ONE (17:31)
[2017-04-21] MEDS: Sodium Chloride 0.9% 1,000 ML IV SCH (18:38)
[2017-04-21 18:42] LABS: BASO # 0.1 K/uL (0.0-0.2); BASO % 1.2 % (0.0-2.0); EOS % 0.6 % (0.0-4.0); HEMATOCRIT 41.4 % (34.0-47.0); LYMPH # 1.2 K/uL (1.0-4.3); LYMPH % 20.3 % (20.0-40.0); MEAN CELL VOLUME 87.5 fL (81.0-99.0); MEAN CORPUSCULAR HEMOGLOBIN 30.2 pg (27.0-31.0); MEAN CORPUSCULAR HGB CONC 34.5 g/dL (33.0-37.0); MONO # 0.3 K/uL (0.0-0.8); MONO % 5.7 % (0.0-10.0); NRBC % 0.1 % (0.0-2.0); RED CELL DISTRIBUTION WIDTH 14.5 % (11.5-14.5); WHITE BLOOD COUNT 5.9 K/uL (4.8-10.8)
[2017-04-21 18:49] LABS: CHLORIDE 97 mmol/L (98-107); SODIUM 137 mmol/L (132-148)
[2017-04-21 18:50] LABS: POTASSIUM 3.8 mmol/L (3.6-5.2)
[2017-04-21 18:52] LABS: BLOOD UREA NITROGEN 13 mg/dL (7-17); CARBON DIOXIDE 28 mmol/L (22-30); GFR AFRICAN-AMERICAN > 60; GLUCOSE,RANDOM 74 mg/dL (65-105)
[2017-04-21 18:53] LABS: CALCIUM 9.1 mg/dl (8.6-10.4)
--- NOTE | 2017-04-21 19:15 | RAD ---
PROCEDURE: CHEST RADIOGRAPH, 1 VIEW HISTORY: admission COMPARISON: None available. FINDINGS: LUNGS: Mild venous congestion. Patchy bibasilar airspace opacities. Question trace left pleural effusion. PLEURA: As above. CARDIOVASCULAR: Marked cardiomegaly. Left-sided pacemaker. OSSEOUS STRUCTURES: No significant abnormalities. VISUALIZED UPPER ABDOMEN: Normal. OTHER FINDINGS: None. IMPRESSION: Mild venous congestion. Patchy bibasilar airspace opacities. Question trace left pleural effusion. Marked cardiomegaly. Left-sided pacemaker.
[2017-04-21] MEDS ORDERED: HYDROmorphone 0.5 mg/0.5 ml ISec IVP ONE (19:30)
[2017-04-21] MEDS: Dextrose 5%/0.45% NS 1,000 ML IV SCH (21:45)
[2017-04-22] MEDS: metroNIDAZOLE IV 500 mg/100 ml 500 MG/100 ML BAG IVPB SCH ×2 (01:02→07:00)
[2017-04-22] MEDS: ceFAZolin 1 gm FROZEN Premix 1 GM/50 ML ML IVPB SCH ×4 (01:03→23:58)
[2017-04-22] MEDS: Sodium Chloride 0.9% 1,000 ML IV SCH (04:30)
[2017-04-22 05:37] LABS: URINE BILIRUBIN NEGATIVE (NEGATIVE); URINE BLOOD NEGATIVE (NEGATIVE); URINE COLOR Amber (YELLOW); URINE GLUCOSE (UA) NEGATIVE (Normal); URINE KETONE NEGATIVE (NEGATIVE); URINE PROTEIN 3+ mg/dL (NEGATIVE)
[2017-04-22 05:38] LABS: RBC URINE 6 /hpf (0-3); URINE LEUKOCYTE ESTERASE 1+ Leu/uL (Negative); WBC URINE 28 /hpf (0-5)
[2017-04-22] MEDS: Dextrose 5%/0.45% NS 1,000 ML IV SCH ×2 (07:11→14:36)
--- NOTE | 2017-04-22 11:22 | CP.PCM.CON ---
<DEVON KENDRICK - Last Filed: 04/22/17 11:24> History of Present Illness - History of Present Illness History of Present Illness: Jhonatan Kendrick, PGY1, [employer] Consult Note for Dr. Barrios: CC: Elevated urine bHCG HPI: Pt is 31 yo female with past medical history of CHF and cardiomyopathy presents to [facility] for rectal pain and bleeding. Pt was evaluated for rectal pain and scheduled for OR today, on workup was found an elevated bHCG and protein in urine. Pt denies knowledge of current . Pt admits having mild to moderate nausea for the past 2 weeks, but denies recent vomiting. Pt reports FDLMP during the 1st week of March. Pt reports taking oral contraceptive pills regularly for the past year, denies use of any other contraception method. Pt denies abdominal pain, vaginal bleeding, discharge, CP, SOB, fever, chills, dysuria, or fatigue. Ob History: , with 2 elective abortions and 1 miscarriage. Full term delivery in 2008, female child, 6 lbs 11 oz at . [employer] Intern History: Last Pap smear was 2 years ago, results were normal, no history of abnormal pap smears. Pt reports having a gonorrhea infection in 2006 and was treated with antibiotics. 13 x regular x 3 days. No history of uterine fibroids. PMH: CHF, Afib, cardiomyopathy Surgical History: Pacemaker/defibrillator placement Social Hx: sexually active, monogamous, Denies tobacco, EtOH or illicit drug use Allergies: protonix Review of Systems - Review of Systems Review of Systems: 12 point ROS negative other than what is stated in HPI Past Patient History - Infectious Disease Hx of Infectious Diseases: None - Past Medical History & Family History Past Medical History?: Yes - Past Social History Smoking Status: Never Smoked - CARDIAC Hx Cardiac Disorders: Yes Hx Atrial Fibrillation: Yes (ablation sep 2015) Hx Congestive Heart Failure: Yes Hx Pacemaker: Yes - PULMONARY Hx Respiratory Disorders: No - NEUROLOGICAL Hx Neurological Disorder: No - HEENT Hx HEENT Problems: No - RENAL Hx Chronic Kidney Disease: No - ENDOCRINE/METABOLIC Hx Endocrine Disorders: No - HEMATOLOGICAL/ONCOLOGICAL Hx Blood Disorders: No - INTEGUMENTARY Hx Dermatological Problems: No - MUSCULOSKELETAL/RHEUMATOLOGICAL Hx Musculoskeletal Disorders: No Hx Falls: No - GASTROINTESTINAL Hx Gastrointestinal Disorders: Yes Hx Hemorrhoids: Yes - GENITOURINARY/GYNECOLOGICAL Hx Genitourinary Disorders: No - PSYCHIATRIC Hx Psychophysiologic Disorder: No Hx Substance Use: No - SURGICAL HISTORY Hx Surgeries: Yes Other/Comment: AICD 2009 - ANESTHESIA Hx Anesthesia: Yes Hx Anesthesia Reactions: No Hx Malignant Hyperthermia: No Meds Allergies/Adverse Reactions: Allergies Allergy/AdvReac Type Severity Reaction Status Date / Time pantoprazole sodium Allergy Severe ITCHING Verified 04/21/17 15:08 [From Protonix] - Medications Medications: Current Medications Acetaminophen (Tylenol 325mg Tab) 650 mg PO Q6 PRN PRN Reason: Pain, Mild (1-3) Sodium Chloride (Sodium Chloride 0.9%) 1,000 mls @ 100 mls/hr IV .Q10H [facility] Last Admin: 04/22/17 04:30 Dose: Not Given Dextrose/Sodium Chloride (Dextrose 5%/0.45% Ns 1000 Ml) 1,000 mls @ 125 mls/hr IV .Q8H [facility] Last Admin: 04/22/17 07:11 Dose: 125 mls/hr Cefazolin Sodium (Ancef) 1 gm in 50 mls @ 100 mls/hr IVPB Q8H [facility] Last Admin: 04/22/17 08:34 Dose: 100 mls/hr Physical Exam - Constitutional Appears: No Acute Distress - Head Exam Head Exam: ATRAUMATIC, NORMOCEPHALIC - Eye Exam Eye Exam: EOMI, Normal appearance, PERRL - ENT Exam ENT Exam: Mucous Membranes Moist - Neck Exam Neck exam: Positive for: Full Rom, Lymphadenopathy, Tenderness - Respiratory Exam Respiratory Exam: Clear to Auscultation Bilateral. absent: Rales, Rhonchi, Wheezes - Cardiovascular Exam Cardiovascular Exam: RRR. absent: Diastolic murmur, Gallop, Rubs, Systolic Murmur - GI/Abdominal Exam GI & Abdominal Exam: Soft. absent: Distended, Guarding, Organomegaly, Rebound, Tenderness - Extremities Exam Extremities exam: Positive for: normal inspection. Negative for: pedal edema - Neurological Exam Neurological exam: Alert, CN II-XII Intact, Oriented x3 - Psychiatric Exam Psychiatric exam: Normal Affect, Normal Mood - Skin Skin Exam: Dry, Intact, Normal Color, Warm Results - Vital Signs Recent Vital Signs: Last Vital Signs Temp 97.8 F 04/21/17 23:42 Pulse 87 04/21/17 23:42 Resp 20 04/21/17 23:42 BP 109/75 04/21/17 23:42 Pulse Ox 97 04/21/17 23:42 - Labs Result Diagrams: 04/21/17 18:37 04/21/17 18:37 Labs: Laboratory Results - last 24 hr 04/21/17 04/21/17 04/21/17 18:37 18:37 21:29 WBC 5.9 D RBC 4.73 Hgb 14.3 Hct 41.4 MCV 87.5 MCH 30.2 MCHC 34.5 RDW 14.5 Plt Count 214 MPV 8.0 Neut % (Auto) 72.2 Lymph % (Auto) 20.3 [place] % (Auto) 5.7 Eos % (Auto) 0.6 Baso % (Auto) 1.2 Neut # 4.2 Lymph # 1.2 [place] # 0.3 Eos # 0.0 Baso # 0.1 Sodium 137 Potassium 3.8 Chloride 97 L Carbon Dioxide 28 Anion Gap 17 BUN 13 Creatinine 0.9 Est GFR ( Amer) > 60 Est GFR (Non-Af Amer) > 60 Random Glucose 74 Calcium 9.1 Urine Color Urine Clarity Urine pH Ur Specific [place] Urine Protein Urine Glucose (UA) Urine Ketones Urine Blood Urine Nitrate Urine Bilirubin Urine Urobilinogen Ur Leukocyte Esterase Urine WBC (Auto) Urine RBC (Auto) Ur Squamous Epith Cells Hyaline Casts Urine HCG, Qual Blood Type B POSITIVE Antibody Screen Negative 04/22/17 03:59 WBC RBC Hgb Hct MCV MCH MCHC RDW Plt Count MPV Neut % (Auto) Lymph % (Auto) [place] % (Auto) Eos % (Auto) Baso % (Auto) Neut # Lymph # [place] # Eos # Baso # Sodium Potassium Chloride Carbon Dioxide Anion Gap BUN Creatinine Est GFR ( Amer) Est GFR (Non-Af Amer) Random Glucose Calcium Urine Color Marnie Urine Clarity Hazy Urine pH 5.0 Ur Specific [place] 1.024 Urine Protein 3+ H Urine Glucose (UA) Negative Urine Ketones Negative Urine Blood Negative Urine Nitrate Negative Urine Bilirubin Negative Urine Urobilinogen 2.0 H Ur Leukocyte Esterase 1+ H Urine WBC (Auto) 28 H Urine RBC (Auto) 6 H Ur Squamous Epith Cells 24 H Hyaline Casts 11-20 H Urine HCG, Qual Positive Blood Type Antibody Screen Assessment & Plan - Assessment and Plan (Free Text) Assessment: 31 yo female with past medical history of CHF, a-fib, and cardiomyopathy consulted for elevated bHCG on pre-op workup for rectal pain/ bleeding. Plan: 1. Possible , elevated HCG - Order stat bHCG - Order TVUS - BP, H/H WNL - UA showed 3+ protein, positive leuk esterase, epithelial cells 24 likely not a clean catch - Urine HCG qualitative positive 2. Rectal pain - Stop Dilautid, CI in - Tylenol 650 mg PO Q6H prn for pain - Management per surgery 3. History of CHF - Consulted MFM Pt discussed in detail with Dr. Barrios. <Timbo Barrios - Last Filed: 04/22/17 13:24> Meds - Medications Medications: Current Medications Acetaminophen (Tylenol 325mg Tab) 650 mg PO Q6 PRN PRN Reason: Pain, Mild (1-3) Last Admin: 04/22/17 12:03 Dose: 650 mg Sodium Chloride (Sodium Chloride 0.9%) 1,000 mls @ 100 mls/hr IV .Q10H [facility] Last Admin: 04/22/17 04:30 Dose: Not Given Dextrose/Sodium Chloride (Dextrose 5%/0.45% Ns 1000 Ml) 1,000 mls @ 125 mls/hr IV .Q8H [facility] Last Admin: 04/22/17 07:11 Dose: 125 mls/hr Cefazolin Sodium (Ancef) 1 gm in 50 mls @ 100 mls/hr IVPB Q8H [facility] Last Admin: 04/22/17 08:34 Dose: 100 mls/hr Results - Vital Signs Recent Vital Signs: Last Vital Signs Temp 97.8 F 04/21/17 23:42 Pulse 87 04/21/17 23:42 Resp 20 04/21/17 23:42 BP 109/75 04/21/17 23:42 Pulse Ox 97 04/21/17 23:42 - Labs Result Diagrams: 04/21/17 18:37 04/21/17 18:37 Labs: Laboratory Results - last 24 hr 04/21/17 04/21/17 04/21/17 18:37 18:37 21:29 WBC 5.9 D RBC 4.73 Hgb 14.3 Hct 41.4 MCV 87.5 MCH 30.2 MCHC 34.5 RDW 14.5 Plt Count 214 MPV 8.0 Neut % (Auto) 72.2 Lymph % (Auto) 20.3 [place] % (Auto) 5.7 Eos % (Auto) 0.6 Baso % (Auto) 1.2 Neut # 4.2 Lymph # 1.2 [place] # 0.3 Eos # 0.0 Baso # 0.1 Sodium 137 Potassium 3.8 Chloride 97 L Carbon Dioxide 28 Anion Gap 17 BUN 13 Creatinine 0.9 Est GFR ( Amer) > 60 Est GFR (Non-Af Amer) > 60 Random Glucose 74 Calcium 9.1 Urine Color Urine Clarity Urine pH Ur Specific [place] Urine Protein Urine Glucose (UA) Urine Ketones Urine Blood Urine Nitrate Urine Bilirubin Urine Urobilinogen Ur Leukocyte Esterase Urine WBC (Auto) Urine RBC (Auto) Ur Squamous Epith Cells Hyaline Casts Urine HCG, Qual Blood Type B POSITIVE Antibody Screen Negative 04/22/17 03:59 WBC RBC Hgb Hct MCV MCH MCHC RDW Plt Count MPV Neut % (Auto) Lymph % (Auto) [place] % (Auto) Eos % (Auto) Baso % (Auto) Neut # Lymph # [place] # Eos # Baso # Sodium Potassium Chloride Carbon Dioxide Anion Gap BUN Creatinine Est GFR ( Amer) Est GFR (Non-Af Amer) Random Glucose Calcium Urine Color Marnie Urine Clarity Hazy Urine pH 5.0 Ur Specific [place] 1.024 Urine Protein 3+ H Urine Glucose (UA) Negative Urine Ketones Negative Urine Blood Negative Urine Nitrate Negative Urine Bilirubin Negative Urine Urobilinogen 2.0 H Ur Leukocyte Esterase 1+ H Urine WBC (Auto) 28 H Urine RBC (Auto) 6 H Ur Squamous Epith Cells 24 H Hyaline Casts 11-20 H Urine HCG, Qual Positive Blood Type Antibody Screen Addendum Addendum: Patient examined.agree with resident exam, assessment and plan except 1)rectal abscess.continue management as per surgery.For pain management recommend tylenol .Use of naroctics in is associtad with effects on growth. risk of delivery and risk of withdrawl syndrome.If pain is severe then only short term shannan is suggested for severe pain 2) ultrasound done today.Intrauterine gestational sac?twin .repeat scan in 2 weeks avoid general anesthesia in first trimester patient need UA repeated and urine cx done secondary to proteinuria.If no uti and proteinuria present needs renal evalaution as well as MFM consultation 3) cardiomyopathy history -due to this patient is high risk needs MFM evaluation as well as cardiology evaluation Start vitamins once diet advanced 04/22/17 13:18
--- NOTE | 2017-04-22 11:59 | US ---
Indication: Comparison: None available Technique: Transvaginal pelvic ultrasound. Findings: The uterus measures approximately 11.8 x 6.3 x 7.8 cm. Anteverted. Cervix length measures approximately 3.2 cm. Two cystic structures presumed to reflect gestational sacs are identified. Gestational sac A measures approximately 0.8 cm. Gestational sac B measures approximately 0.4 cm. Both gestational sacs are too small for gestational age calculation. Gestational sac A contains a yolk sac measuring approximately 2 mm as well as a pole which measures approximately 0.2 cm. No evidence of motion at this time. Gestational sac B does not contain evidence of yolk sac or pole. The right ovary measures 3.4 x 2.0 x 3.5 cm. 2.0 x 2.1 x 2.0 cm probable corpus luteal cyst. The left ovary measures 3.5 x 2.2 x 4.3 cm. Blood flow was demonstrated to both ovaries. Impression: Two cystic structures presumed to reflect gestational sacs are identified. Gestational sac A measures approximately 0.8 cm. Gestational sac B measures approximately 0.4 cm. Both gestational sacs are too small for gestational age calculation. Gestational sac A contains a yolk sac measuring approximately 2 mm as well as a pole which measures approximately 0.2 cm. No evidence of motion at this time. Gestational sac B does not contain evidence of yolk sac or pole. Recommend clinical correlation and close interval follow-up. 2.1 cm probable right ovarian corpus luteal cyst.
--- NOTE | 2017-04-22 12:22 | CP.PCM.CON ---
History of Present Illness - History of Present Illness History of Present Illness: Pt is 31 yo female with past medical history of CHF and cardiomyopathy presents to [facility] for rectal pain and bleeding. Pt was evaluated for rectal pain and scheduled for OR today, on workup was found an elevated bHCG and protein in urine. Pt denies knowledge of current . Pt admits having mild to moderate nausea for the past 2 weeks, but denies recent vomiting. IV antibiotics started pending culture report from perirectal abscess PMH: CHF, Afib, cardiomyopathy Surgical History: Pacemaker/defibrillator placement Social Hx: sexually active, monogamous, Denies tobacco, EtOH or illicit drug use Allergies: protonix Review of Systems - Review of Systems All systems: reviewed and no additional remarkable complaints except - Constitutional Constitutional: As Per HPI - EENT Eyes: absent: As Per HPI, Blind Spots, Blurred Vision, Change in Vision, Decreased Night Vision, Diplopia, Discharge, Dry Eye, Exophthalmos, Floaters, Irritation, Itchy Eyes, Loss of Peripheral Vision, Pain, Photophobia, Requires Corrective Lenses, Sees Flashes, Spots in Vision, Tunnel Vision, Other Visual Disturbances, Loss of Vision, Other Ears: absent: As Per HPI, Decreased Hearing, Ear Discharge, Ear Pain, Tinnitus, Abnormal Hearing, Disequilibrium, Dizziness, Other Nose/Mouth/Throat: absent: As Per HPI, Epistaxis, Nasal Congestion, Nasal Discharge, Nasal Obstruction, Nasal Trauma, Nose Pain, Post Nasal Drip, Sinus Pain, Sinus Pressure, Bleeding Gums, Change in Voice, Dental Pain, Dry Mouth, Dysphagia, Halitosis, Hoarsness, Lip Swelling, Mouth Lesions, Mouth Pain, Odynophagia, Sore Throat, Throat Swelling, Tongue Swelling, Facial Pain, Neck Pain, Neck Mass, Other - Breasts Breasts: absent: As Per HPI, Change in Shape, Mass, Pain, Nipple Discharge, Nipple Inversion, Skin Changes, Swelling, Other - Cardiovascular Cardiovascular: absent: As Per HPI, Acrocyanosis, Chest Pain, Chest Pain at Rest , Chest Pain with Activity, Claudication, Diaphoresis, Dyspnea, Dyspnea on Exertion, Edema, Irregular Heart Rhythm, Pain Radiating to Arm/Neck/Jaw, Leg Edema, Leg Ulcers, Lightheadedness, Orthopnea, Palpitations, Paroxysmal Nocturnal Dyspnea, Pedal Edema, Radiating Pain, Rapid Heart Rate, Slow Heart Rate, Syncope, Other - Respiratory Respiratory: absent: As Per HPI, Cough, Dyspnea, Hemoptysis, Dyspnea on Exertion , Wheezing, Snoring, Stridor, Pain on Inspiration, Chest Congestion, Excessive Mucous Production, Change in Mucous Color, Pain with Coughing, Other - Gastrointestinal Gastrointestinal: As Per HPI - Genitourinary Genitourinary: absent: As Per HPI, Change in Urinary Stream, Difficulty Urinating, Dysuria, Flank Pain, Hematuria, Pyuria, Nocturia, Urinary Incontinence, Urinary Frequency, Urinary Hesitance, Urinary Urgency, Voiding Freq/Small Amts, Freq UTI, Hx Renal/Bladder Calculi, Hx /Renal Surgery, Bladder Distension, Other - Reproductive: Female Reproductive:Female: As Per HPI - Menstruation Menstruation: As Per HPI - Musculoskeletal Musculoskeletal: absent: As Per HPI, Abnormal Gait, Arthralgias, Atrophy, Back Pain, Deformity, Joint Swelling, Limited Range of Motion, Loss of Height, Muscle Cramps, Muscle Weakness, Myalgias, Neck Pain, Numbness, Radiating Pain into Limb, Stiffness, Tingling, Other - Integumentary Integumentary: As Per HPI, Skin Pain, Wounds - Neurological Neurological: absent: As Per HPI, Abnormal Gait, Abnormal Hearing, Abnormal Movements, Abnormal Speech, Behavioral Changes, Burning Sensations, Confusion, Convulsions, Disequilibrium, Dizziness, Numbness, Focal Weakness, Frequent Falls , Headaches, Lack of Coordination, Loss of Vision, Memory Loss, Paresthesias, Radicular Pain, Restless Legs, Sensory Deficit, Syncope, Tingling, Tremor, Vertigo, Weakness, Other Visual Disturbances, Other - Psychiatric Psychiatric: absent: As Per HPI, Abnormal Sleep Pattern, Anhedonia, Anxiety, Auditory Hallucinations, Behavioral Changes, Change in Appetite, Change in Libido, Confusion, Depression, Difficulty Concentrating, Hallucinations, Homicidal Ideation, Hopelessness, Irritability, Memory Loss, Mood Swings, Panic Attacks, Paranoia, Suicidal Ideation, Visual Hallucinations, Tactile Hallucinations, Other - Endocrine Endocrine: absent: As Per HPI, Change in Body Appearance, Change in Libido, Cold Intolorance, Deepening of Voice, Excessive Sweating, Fatigue, Flushing, Heat Intolorance, Increase in Ring/Shoe/Hat Size, Palpitations, Polydipsia, Polyphagia, Polyuria, Other - Hematologic/Lymphatic Hematologic: absent: As Per HPI, Easy Bleeding, Easy Bruising, Lymphadenopathy, Other Past Patient History - Infectious Disease Hx of Infectious Diseases: None - Past Medical History & Family History Past Medical History?: Yes - Past Social History Smoking Status: Never Smoked - CARDIAC Hx Cardiac Disorders: Yes Hx Atrial Fibrillation: Yes (ablation sep 2015) Hx Congestive Heart Failure: Yes Hx Pacemaker: Yes - PULMONARY Hx Respiratory Disorders: No - NEUROLOGICAL Hx Neurological Disorder: No - HEENT Hx HEENT Problems: No - RENAL Hx Chronic Kidney Disease: No - ENDOCRINE/METABOLIC Hx Endocrine Disorders: No - HEMATOLOGICAL/ONCOLOGICAL Hx Blood Disorders: No - INTEGUMENTARY Hx Dermatological Problems: No - MUSCULOSKELETAL/RHEUMATOLOGICAL Hx Musculoskeletal Disorders: No Hx Falls: No - GASTROINTESTINAL Hx Gastrointestinal Disorders: Yes Hx Hemorrhoids: Yes - GENITOURINARY/GYNECOLOGICAL Hx Genitourinary Disorders: No - PSYCHIATRIC Hx Psychophysiologic Disorder: No Hx Substance Use: No - SURGICAL HISTORY Hx Surgeries: Yes Other/Comment: AICD 2009 - ANESTHESIA Hx Anesthesia: Yes Hx Anesthesia Reactions: No Hx Malignant Hyperthermia: No Meds Allergies/Adverse Reactions: Allergies Allergy/AdvReac Type Severity Reaction Status Date / Time pantoprazole sodium Allergy Severe ITCHING Verified 04/21/17 15:08 [From Protonix] - Medications Medications: Current Medications Acetaminophen (Tylenol 325mg Tab) 650 mg PO Q6 PRN PRN Reason: Pain, Mild (1-3) Last Admin: 04/22/17 12:03 Dose: 650 mg Sodium Chloride (Sodium Chloride 0.9%) 1,000 mls @ 100 mls/hr IV .Q10H [facility] Last Admin: 04/22/17 04:30 Dose: Not Given Dextrose/Sodium Chloride (Dextrose 5%/0.45% Ns 1000 Ml) 1,000 mls @ 125 mls/hr IV .Q8H [facility] Last Admin: 04/22/17 07:11 Dose: 125 mls/hr Cefazolin Sodium (Ancef) 1 gm in 50 mls @ 100 mls/hr IVPB Q8H [facility] Last Admin: 04/22/17 08:34 Dose: 100 mls/hr Physical Exam - Constitutional Appears: Non-toxic, Chronically Ill - Head Exam Head Exam: NORMOCEPHALIC - Eye Exam Eye Exam: PERRL. absent: Scleral icterus - ENT Exam ENT Exam: Mucous Membranes Dry, Normal External Ear Exam - Neck Exam Neck exam: Negative for: Lymphadenopathy - Respiratory Exam Respiratory Exam: Decreased Breath Sounds, Clear to Auscultation Bilateral - Cardiovascular Exam Cardiovascular Exam: REGULAR RHYTHM, +S1, +S2 - GI/Abdominal Exam GI & Abdominal Exam: Diminished Bowel Sounds, Soft. absent: Tenderness - Rectal Exam Rectal Exam: Deferred - Exam Exam: NORMAL INSPECTION - Extremities Exam Extremities exam: Positive for: pedal pulses present. Negative for: calf tenderness, pedal edema, tenderness - Back Exam Back exam: absent: CVA tenderness (L), CVA tenderness (R), paraspinal tenderness - Neurological Exam Neurological exam: Alert, CN II-XII Intact, Oriented x3, Reflexes Normal - Psychiatric Exam Psychiatric exam: Normal Mood - Skin Skin Exam: Dry Additional comments: WOUNDS PER NURSES NOTES Results - Vital Signs Recent Vital Signs: Last Vital Signs Temp 97.8 F 04/21/17 23:42 Pulse 87 04/21/17 23:42 Resp 20 04/21/17 23:42 BP 109/75 04/21/17 23:42 Pulse Ox 97 04/21/17 23:42 - Labs Result Diagrams: 04/21/17 18:37 04/21/17 18:37 Labs: Laboratory Results - last 24 hr 04/21/17 04/21/17 04/21/17 18:37 18:37 21:29 WBC 5.9 D RBC 4.73 Hgb 14.3 Hct 41.4 MCV 87.5 MCH 30.2 MCHC 34.5 RDW 14.5 Plt Count 214 MPV 8.0 Neut % (Auto) 72.2 Lymph % (Auto) 20.3 Trigg % (Auto) 5.7 Eos % (Auto) 0.6 Baso % (Auto) 1.2 Neut # 4.2 Lymph # 1.2 Trigg # 0.3 Eos # 0.0 Baso # 0.1 Sodium 137 Potassium 3.8 Chloride 97 L Carbon Dioxide 28 Anion Gap 17 BUN 13 Creatinine 0.9 Est GFR ( Amer) > 60 Est GFR (Non-Af Amer) > 60 Random Glucose 74 Calcium 9.1 Urine Color Urine Clarity Urine pH Ur Specific [place] Urine Protein Urine Glucose (UA) Urine Ketones Urine Blood Urine Nitrate Urine Bilirubin Urine Urobilinogen Ur Leukocyte Esterase Urine WBC (Auto) Urine RBC (Auto) Ur Squamous Epith Cells Hyaline Casts Urine HCG, Qual Blood Type B POSITIVE Antibody Screen Negative 04/22/17 03:59 WBC RBC Hgb Hct MCV MCH MCHC RDW Plt Count MPV Neut % (Auto) Lymph % (Auto) Trigg % (Auto) Eos % (Auto) Baso % (Auto) Neut # Lymph # Trigg # Eos # Baso # Sodium Potassium Chloride Carbon Dioxide Anion Gap BUN Creatinine Est GFR ( Amer) Est GFR (Non-Af Amer) Random Glucose Calcium Urine Color Marnie Urine Clarity Hazy Urine pH 5.0 Ur Specific [place] 1.024 Urine Protein 3+ H Urine Glucose (UA) Negative Urine Ketones Negative Urine Blood Negative Urine Nitrate Negative Urine Bilirubin Negative Urine Urobilinogen 2.0 H Ur Leukocyte Esterase 1+ H Urine WBC (Auto) 28 H Urine RBC (Auto) 6 H Ur Squamous Epith Cells 24 H Hyaline Casts 11-20 H Urine HCG, Qual Positive Blood Type Antibody Screen Assessment & Plan (1) Rectal abscess Status: Acute (2) Rectal pain Status: Acute (3) Asthma Status: Acute - Assessment and Plan (Free Text) Assessment: CONT EMPIRIC IV ANTIBIOTICS FOR OR AND I AND D ONCE CLEARED BY OBGYN
[2017-04-22] MEDS ORDERED: Sodium Chloride 0.9% 1,000 ML IV SCH ×2 (14:08→14:09)
--- NOTE | 2017-04-22 15:09 | CARD ---
APPROVED REPORT EKG Measurement Heart [id number] <Conclusion> Sinus rhythm with 1st degree AV block with premature atrial complexes Otherwise normal ECG
--- NOTE | 2017-04-22 19:12 | CP.PCM.CON ---
History of Present Illness - History of Present Illness History of Present Illness: COMPREHENSIVE HISTORY & PHYSICAL EXAM HPI 31 years old black woman with a history of cardiomyopathy since 10 years is admitted with rectal abscess and cardiac clearance is requested. The patient had a cardiac catheterization done a few years ago and [facility], coronaries were normal and left ventricle ejection fraction is about 50%. A few years ago patient also had cardio defibrillator placed. Patient has no issue of congestive heart failure recently from her cardiomyopathy. Patient was admitted in November 2016 in [facility] for congestive heart failure was treated with medical therapy and discharged. During that time echocardiogram showed left internal ejection fraction of 15% with dilated left ventricle, left atrium. Patient also has a history of atrial fibrillation, which is cardioverted last [facility] and since then patient has been normal sinus rhythm. Patient also has a positive urine for PAST HIST. PERSONAL HIST: Smoking. N Alcohol. N Allergy N Travel_- . FAMILY HIST : ROS : Constitutional: Negative for weight change, chills, night sweats, fatigue and usage of assist device. Eyes: Negative for redness, swelling, itching, discharge, vision changes, blurry vision, double vision, glaucoma, cataracts, Ears: Negative for hearing loss, ringing, , tinnitus, vertigo Nose: Negative for rhinorrhea, stuffiness, sniffing, itching, postnasal drip, discoloration, nasal congestion and epistaxis. Throat: Negative for throat clearing, sore throat, hoarseness, difficulty swallowing and difficulty speaking. Respiratory: Negative for cough, chest tightness, sputum or phlegm, chronic cough, hemoptysis, wheezing, snoring at night, pleuritic chest pain and daytime somnolence. Cardiovascular: Negative for chest pain, palpitations, orthopnea, PND, Edema of legs, leg cramps, angina, claudication, , irregular heartbeat, Neurology: Negative for irritability, muscle weakness, numbness and tingling, seizures, tremors, migraines, slurred speech, syncope, memory loss, mood changes , recurrent headaches Gastrointestinal: Negative for difficulty swallowing, diarrhea, constipation, black stools, rectal bleeding, nausea, flatulence, reflux, poor appetite, changes in bowel habits, abdominal pain Genitourinary: Negative for frequent urination, hematuria, discharge, incontinence, urinary retention, frequent UTI, Psychiatric: Negative for depression, anxiety/panic, suicidal tendencies, Musculoskeletal: Negative for swollen joints, back pain, , neck pain, morning stiffness of joints, . Skin: Negative for rash, ulcers, itching, dry skin and pigmented lesions. P/E: Constitutional: Appears stated age and in no apparent distress. Head: Normocephalic. Ears: External ear canals patent without inflammation. Tympanic membranes intact with normal light reflex and landmark. Eyes: Pupils are central, bilaterally equal, symmetrical and reacts to light with normal movements and no icterus or pallor. Nose: External nares are patent. Mucosa is pink Mouth-Throat: Good general appearance and condition. No post-pharyngeal/oropharyngeal erythema and tonsillar hypertrophy. Good dental hygiene. Neck-Lymphatic: Neck is supple with normal ROM, no thyromegaly, lymph nodes or masses. JVD is normal with no carotid bruit. Lungs: Clear to percussion and auscultation with bilateral normal air entry. Cardiovascular: S1 and S2 are normal with grade 3/6 jennifer in mitral area radiation to axilla No gallops and rub. GI Exam: No hepatomegaly. Abdomen is soft and non-tender. No Organomegaly , masses or hernias are evident and bowel sounds are normal and active. Neurology: Higher function and all cranial nerves intact, with no gross motor or sensory deficit. Superficial and deep reflexes are normal with downwards planters. No cerebellar deficit with normal gait. Musculoskeletal: No tender spots with normal curvature of the spine with no swelling or restricted ROM of the small and large joints. Extremities: Homans sign absent. Intact pulses with mild pitting edema, calf tenderness or skin color changes. Skin: No rash, eruptions or abnormal skin pigmentation LAB/RADIOLOGY: ASSESMENT : #1. Rectal abscess. #2 cardiomyopathy with left internal ejection fraction of 15%, with AICD and history of A. fib. #3 moderate mitral regurg. #4 severe pulmonary hypertension, etiology not clear. #5 positive test. Plan. Patient is currently moderate to severe cardiac risk for general anesthesia because of low ejection fraction of 15%, left ventricular dilatation, and severe pulmonary hypertension. Past Patient History - Infectious Disease Hx of Infectious Diseases: None - Past Medical History & Family History Past Medical History?: Yes - Past Social History Smoking Status: Never Smoked - CARDIAC Hx Cardiac Disorders: Yes Hx Atrial Fibrillation: Yes (ablation sep 2015) Hx Congestive Heart Failure: Yes Hx Pacemaker: Yes - PULMONARY Hx Respiratory Disorders: No - NEUROLOGICAL Hx Neurological Disorder: No - HEENT Hx HEENT Problems: No - RENAL Hx Chronic Kidney Disease: No - ENDOCRINE/METABOLIC Hx Endocrine Disorders: No - HEMATOLOGICAL/ONCOLOGICAL Hx Blood Disorders: No - INTEGUMENTARY Hx Dermatological Problems: No - MUSCULOSKELETAL/RHEUMATOLOGICAL Hx Musculoskeletal Disorders: No Hx Falls: No - GASTROINTESTINAL Hx Gastrointestinal Disorders: Yes Hx Hemorrhoids: Yes - GENITOURINARY/GYNECOLOGICAL Hx Genitourinary Disorders: No - PSYCHIATRIC Hx Psychophysiologic Disorder: No Hx Substance Use: No - SURGICAL HISTORY Hx Surgeries: Yes Other/Comment: AICD 2009 - ANESTHESIA Hx Anesthesia: Yes Hx Anesthesia Reactions: No Hx Malignant Hyperthermia: No Meds Allergies/Adverse Reactions: Allergies Allergy/AdvReac Type Severity Reaction Status Date / Time pantoprazole sodium Allergy Severe ITCHING Verified 04/21/17 15:08 [From Protonix] - Medications Medications: Current Medications Acetaminophen (Tylenol 325mg Tab) 650 mg PO Q6 PRN PRN Reason: Pain, Mild (1-3) Last Admin: 04/22/17 12:03 Dose: 650 mg Cefazolin Sodium (Ancef) 1 gm in 50 mls @ 100 mls/hr IVPB Q8H [facility] Last Admin: 04/22/17 17:00 Dose: 100 mls/hr Results - Vital Signs Recent Vital Signs: Last Vital Signs Temp 97.9 F 04/22/17 16:00 Pulse 90 04/22/17 16:00 Resp 20 04/22/17 16:00 BP 107/72 04/22/17 16:00 Pulse Ox 98 04/22/17 16:00 - Labs Result Diagrams: 04/21/17 18:37 04/21/17 18:37 Labs: Laboratory Results - last 24 hr 04/21/17 04/21/17 04/22/17 18:37 21:29 03:59 WBC 5.9 D RBC 4.73 Hgb 14.3 Hct 41.4 MCV 87.5 MCH 30.2 MCHC 34.5 RDW 14.5 Plt Count 214 MPV 8.0 Neut % (Auto) 72.2 Lymph % (Auto) 20.3 [place] % (Auto) 5.7 Eos % (Auto) 0.6 Baso % (Auto) 1.2 Neut # 4.2 Lymph # 1.2 [place] # 0.3 Eos # 0.0 Baso # 0.1 Urine Color Marnie Urine Clarity Hazy Urine pH 5.0 Ur Specific [place] 1.024 Urine Protein 3+ H Urine Glucose (UA) Negative Urine Ketones Negative Urine Blood Negative Urine Nitrate Negative Urine Bilirubin Negative Urine Urobilinogen 2.0 H Ur Leukocyte Esterase 1+ H Urine WBC (Auto) 28 H Urine RBC (Auto) 6 H Ur Squamous Epith Cells 24 H Hyaline Casts 11-20 H Urine HCG, Qual Positive Blood Type B POSITIVE Antibody Screen Negative
--- NOTE | 2017-04-23 08:41 | CP.PCM.PN ---
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 Pt denies any acute overnight events. Pt states she understands results of ultrasound and risks associated with her past medical history, will follow-up outpatient. Pt denies abdominal pain, any spotting or vaginal bleeding, discharge, fatigue, dysuria, numbness, or focal deficits. Objective - Vital Signs/Intake and Output Vital Signs (last 24 hours): Temp Pulse Resp BP Pulse Ox 98 F 87 20 109/70 95 04/23/17 07:59 04/23/17 07:59 04/23/17 07:59 04/23/17 07:59 04/23/17 07:59 Intake and Output: 04/23/17 04/23/17 06:59 18:59 Intake Total 700 220 Balance 700 220 - Medications Medications: Current Medications Acetaminophen (Tylenol 325mg Tab) 650 mg PO Q6 PRN PRN Reason: Pain, Mild (1-3) Last Admin: 04/23/17 01:34 Dose: 650 mg Cefazolin Sodium (Ancef) 1 gm in 50 mls @ 100 mls/hr IVPB Q8H [facility] Last Admin: 04/22/17 23:58 Dose: 100 mls/hr - Labs Labs: 04/21/17 18:37 04/21/17 18:37 - Constitutional Appears: No Acute Distress - Head Exam Head Exam: ATRAUMATIC, NORMOCEPHALIC - Eye Exam Eye Exam: EOMI, PERRL - ENT Exam ENT Exam: Mucous Membranes Moist - Neck Exam Neck Exam: Full ROM - Respiratory Exam Respiratory Exam: Clear to Ausculation Bilateral. absent: Rales, Rhonchi, Wheezes - Cardiovascular Exam Cardiovascular Exam: RRR. absent: Gallop, Rubs, Murmur - GI/Abdominal Exam GI & Abdominal Exam: Soft. absent: Distended, Guarding, Tenderness, Rebound - Rectal Exam Rectal Exam: Deferred - Extremities Exam Extremities Exam: Normal Inspection - Neurological Exam Neurological Exam: Alert, Awake, Oriented x3 - Skin Skin Exam: Dry, Intact, Normal Color, Warm Assessment and Plan - Assessment and Plan (Free Text) Assessment: 31 yo female with past medical history of CHF, a-fib, and cardiomyopathy consulted for elevated urine HCG and probable on TVUS. Plan: 1. Probable , elevated urine HCG - TVUS showed interauterine gestational sac, questionable twin , repeat scan in 2 weeks - Avoid general anesthesia in first trimester - F/u quantitative bHCG - F/u repeat UA and urine culture 2/2 proteinuria on initial UA - If no UTI, consider renal evaluation if proteinuria on repeat UA - Urine HCG qualitative positive 2. Rectal Abscess - Cont. management per surgery - Recommend Tylenol 650 mg PO Q6H prn for pain - Use of narcotics in is associated with effects on growth, risk of delivery, and risk of syndrome - [place] narcotic use for severe pain, short term use 3. History cardiomyopathy - Pt high risk, needs MFM evaluation - Management per cardiology Pt discussed in detail with attending. <Kyra Cheung - Last Filed: 04/24/17 06:57> Objective - Vital Signs/Intake and Output Vital Signs (last 24 hours): Temp Pulse Resp BP Pulse Ox 97.3 F L 81 20 116/62 98 04/23/17 16:00 04/23/17 16:00 04/23/17 16:00 04/23/17 16:35 04/23/17 15:00 Intake and Output: 04/23/17 04/24/17 18:59 06:59 Intake Total 270 Balance 270 - Medications Medications: Current Medications Acetaminophen (Tylenol 325mg Tab) 650 mg PO Q6 PRN PRN Reason: Pain, Mild (1-3) Last Admin: 04/23/17 01:34 Dose: 650 mg Digoxin (Lanoxin) 0.25 mg PO DAILY [facility] Last Admin: 04/23/17 15:30 Dose: 0.25 mg Docusate Sodium (Colace) 100 mg PO BID [facility] Last Admin: 04/23/17 18:24 Dose: 100 mg Famotidine (Pepcid) 20 mg PO DAILY [facility] Last Admin: 04/23/17 16:55 Dose: 20 mg Furosemide (Lasix) 20 mg PO DAILY [facility] Last Admin: 04/23/17 16:35 Dose: 20 mg Cefazolin Sodium (Ancef) 1 gm in 50 mls @ 100 mls/hr IVPB Q8H [facility] Last Admin: 04/23/17 17:00 Dose: Not Given Ipratropium [place] (Atrovent Hfa) 2 puff IH RQ6 PRN PRN Reason: Shortness of Breath Labetalol HCl (Trandate) 100 mg PO BID [facility] Last Admin: 04/23/17 18:01 Dose: 100 mg Oxycodone/Acetaminophen (Percocet 5/325 Mg Tab) 2 tab PO Q4H PRN PRN Reason: Pain, moderate (4-7) Stop: 04/26/17 13:55 Last Admin: 04/23/17 15:55 Dose: 2 tab Fluticasone/Salmeterol (Advair Diskus 250/50) 1 puff INH RQ12 [facility]IM - Labs Labs: 04/21/17 18:37 04/21/17 18:37 Assessment and Plan - Assessment and Plan (Free Text) Plan: agree with above f/u beta quantative , recommend daily vitamin and outpatient follow up s/p I+D Rectal abscess managament as per primary team
[2017-04-23] MEDS: ceFAZolin 1 gm FROZEN Premix 1 GM/50 ML ML IVPB SCH ×2 (09:15→17:00)
[2017-04-23] MEDS ORDERED: Lidocaine Hydrochloride 5 ML INJ ONE ×2 (12:27→12:49)
[2017-04-23] MEDS ORDERED: Propofol 10 mg/ml Inj (20 ML) ONE (12:27)
[2017-04-23] MEDS ORDERED: Etomidate 20 mg/10ml Inj IV ONE (12:32)
[2017-04-23] MEDS ORDERED: Lactated Ringer's 1,000 ML IV ONE (12:40)
[2017-04-23] MEDS ORDERED: Bupivacaine HCl 0.25% PF (10 ml) Inj ONE (12:52)
[2017-04-23] MEDS: Lidocaine 1% Inj (20ml) ONE ×4 (12:55→13:16)
[2017-04-23] MEDS: HYDROmorphone 0.5 mg/0.5 ml ISec IVP PRN ×2 (13:47→14:47)
--- NOTE | 2017-04-23 15:26 | CP.PCM.CON ---
<Anjum Florence - Last Filed: 04/23/17 15:54> History of Present Illness - History of Present Illness History of Present Illness: PGY1 Note for Dr. Higgins FULL CODE HPI: We are being consulted for medical management s/p rectal abscess I/D by Dr. Clark. Patient is a 31y/o 4 week AA Female with a PMH of Afib ( converted to NSR), cardiomyopathy and a 2 lead AICD. Patient states she has had the rectal pain for 2 months that started to hurt more with defecation in the past 2 weeks that prompted her to come to the ER. Patient states it hurt to pass gas as well as defecate. She had an I/D today. Currently she is in pain and feels like she needs to pass gas but it hurts too much to do so. She also has a UTI and is complaining of polyuria and dysuria as well as positional belly pain. Recent travel to [place], [place] and [place]. Denies sick contacts or recent illness. No Fever or chills. ROS: * Gen: No fever or chills, denies diaphoresis or weakness, Denies REN, Dizziness or lightheadedness, No WL, no change in appetite * HEENT: Denies vision or hearing changes, no sore throat or dysphagia * Heart: No chest pain or palpitations, previous cardiac cath was normal. Previous Ech in the last 6 months showed Severe Pulm HTN, mod mitral regurg and an EF of <20% * Lungs: denies SOB, Cough * GI: Positional Abdominal pain, no N/V, no hematemesis, diarrhea or constipation, No hematochezia * : + dysuria and frequency * Ext: No leg pain or swelling * MSK: no back pain * Skin: no rash * Heme: no bruising or easy bleeding PMH: * Afib --> NSR * Cardiomyopathy * AICD 2 lead, has shocked her at least 1 time, not currently paced PSH: * AICD * POD #0 rectal abscess I/D * Cardiac cath, no stents * ablation FH: * Dad has CHF SH: * No smoking, alcohol or drug use * Lives with daughter * Works at a [employer] Meds: * Dig * Furosemide * Eliquis * Potassium Allergies: Protonix Review of Systems - Constitutional Constitutional: As Per HPI - EENT Eyes: As Per HPI Ears: As Per HPI Nose/Mouth/Throat: As Per HPI - Breasts Breasts: As Per HPI - Cardiovascular Cardiovascular: As Per HPI - Respiratory Respiratory: As Per HPI - Gastrointestinal Gastrointestinal: As Per HPI - Genitourinary Genitourinary: As Per HPI - Reproductive: Female Reproductive:Female: As Per HPI - Menstruation Menstruation: As Per HPI - Musculoskeletal Musculoskeletal: As Per HPI - Integumentary Integumentary: As Per HPI - Neurological Neurological: As Per HPI - Psychiatric Psychiatric: As Per HPI - Endocrine Endocrine: As Per HPI - Hematologic/Lymphatic Hematologic: As Per HPI Past Patient History - Infectious Disease Hx of Infectious Diseases: None - Past Medical History & Family History Past Medical History?: Yes - Past Social History Smoking Status: Never Smoked - CARDIAC Hx Cardiac Disorders: Yes Hx Atrial Fibrillation: Yes (ablation sep 2015) Hx Congestive Heart Failure: Yes Hx Pacemaker: Yes - PULMONARY Hx Respiratory Disorders: No - NEUROLOGICAL Hx Neurological Disorder: No - HEENT Hx HEENT Problems: No - RENAL Hx Chronic Kidney Disease: No - ENDOCRINE/METABOLIC Hx Endocrine Disorders: No - HEMATOLOGICAL/ONCOLOGICAL Hx Blood Disorders: No - INTEGUMENTARY Hx Dermatological Problems: No - MUSCULOSKELETAL/RHEUMATOLOGICAL Hx Musculoskeletal Disorders: No Hx Falls: No - GASTROINTESTINAL Hx Gastrointestinal Disorders: Yes Hx Hemorrhoids: Yes - GENITOURINARY/GYNECOLOGICAL Hx Genitourinary Disorders: No - PSYCHIATRIC Hx Psychophysiologic Disorder: No Hx Substance Use: No - SURGICAL HISTORY Hx Surgeries: Yes Other/Comment: AICD 2010 - ANESTHESIA Hx Anesthesia: Yes Hx Anesthesia Reactions: No Hx Malignant Hyperthermia: No Meds Allergies/Adverse Reactions: Allergies Allergy/AdvReac Type Severity Reaction Status Date / Time pantoprazole sodium Allergy Severe ITCHING Verified 04/21/17 15:08 [From Protonix] - Medications Medications: Current Medications Acetaminophen (Tylenol 325mg Tab) 650 mg PO Q6 PRN PRN Reason: Pain, Mild (1-3) Last Admin: 04/23/17 01:34 Dose: 650 mg Docusate Sodium (Colace) 100 mg PO BID JIM Hydromorphone HCl (Dilaudid) 0.5 mg IVP Q5M PRN PRN Reason: Pain, severe (8-10) Stop: 04/23/17 15:19 Last Admin: 04/23/17 14:47 Dose: 0.5 mg Cefazolin Sodium (Ancef) 1 gm in 50 mls @ 100 mls/hr IVPB Q8H JIM Last Admin: 04/23/17 09:15 Dose: 100 mls/hr Oxycodone/Acetaminophen (Percocet 5/325 Mg Tab) 2 tab PO Q4H PRN PRN Reason: Pain, moderate (4-7) Stop: 04/26/17 13:55 Physical Exam - Constitutional Appears: Well, Non-toxic, No Acute Distress - Head Exam Head Exam: ATRAUMATIC, NORMAL INSPECTION, NORMOCEPHALIC - Eye Exam Eye Exam: EOMI - ENT Exam ENT Exam: Mucous Membranes Moist - Neck Exam Neck exam: Positive for: Normal Inspection - Respiratory Exam Respiratory Exam: Clear to Auscultation Bilateral, NORMAL BREATHING PATTERN - Cardiovascular Exam Cardiovascular Exam: Tachycardia, REGULAR RHYTHM, Systolic Murmur - GI/Abdominal Exam GI & Abdominal Exam: Normal Bowel Sounds, Soft, Tenderness (mild tenderness to palpation in the LLQ). absent: Distended - Rectal Exam Additional comments: Dressing C/D/I - Extremities Exam Extremities exam: Negative for: joint swelling, tenderness - Back Exam Back exam: absent: CVA tenderness (L), CVA tenderness (R) - Neurological Exam Neurological exam: Alert, Oriented x3 - Psychiatric Exam Psychiatric exam: Normal Affect, Normal Mood - Skin Skin Exam: Dry, Intact, Normal Color, Warm Results - Vital Signs Recent Vital Signs: Last Vital Signs Temp 97.4 F L 04/23/17 13:16 Pulse 85 04/23/17 14:45 Resp 13 04/23/17 14:45 BP 109/66 04/23/17 14:45 Pulse Ox 98 04/23/17 14:45 - Labs Result Diagrams: 04/21/17 18:37 04/21/17 18:37 Assessment & Plan - Assessment and Plan (Free Text) Assessment: S/P Rectal Abscess I/D * Management per Dr. Clark * Percocet 5/325 2 tabs Q4 PRN * Wound cultures * ID (Mangia) * Ancef 1g Q8 UTI * ID (Mangia) * Ancef 1g Q8 * Urine cultures Post Cardiomyopathy * Cards (Duran) * Dig 0.25 PO QD * Labetalol 100mg PO BID * Furosemide * AICD 2 lead * Echo showed EF of <20 * CXR - mild venous congestion, patchy bibasilar opacities, trace L. Pleural effusion Hx of Afib * AICD * Currently NSR, holding anticoag 4 Weeks Preg * BhCG + * Transvag US - gestational sac, pole, intrauterine preg * OBGYN (Denis) PPX * T3 * Colace 100 PO BID * Ambulate * SCD * ICS 10x per hour - Date & Time Date: 04/23/17 Time: 16:16 <Haroon Higgins - Last Filed: 04/23/17 17:46> Meds - Medications Medications: Current Medications Acetaminophen (Tylenol 325mg Tab) 650 mg PO Q6 PRN PRN Reason: Pain, Mild (1-3) Last Admin: 04/23/17 01:34 Dose: 650 mg Digoxin (Lanoxin) 0.25 mg PO DAILY [facility] Last Admin: 04/23/17 15:30 Dose: 0.25 mg Docusate Sodium (Colace) 100 mg PO BID [facility] Famotidine (Pepcid) 20 mg PO DAILY [facility] Last Admin: 04/23/17 16:55 Dose: 20 mg Furosemide (Lasix) 20 mg PO DAILY [facility] Last Admin: 04/23/17 16:35 Dose: 20 mg Cefazolin Sodium (Ancef) 1 gm in 50 mls @ 100 mls/hr IVPB Q8H [facility] Last Admin: 04/23/17 09:15 Dose: 100 mls/hr Ipratropium [place] (Atrovent Hfa) 2 puff IH RQ6 PRN PRN Reason: Shortness of Breath Labetalol HCl (Trandate) 100 mg PO BID [facility] Oxycodone/Acetaminophen (Percocet 5/325 Mg Tab) 2 tab PO Q4H PRN PRN Reason: Pain, moderate (4-7) Stop: 04/26/17 13:55 Last Admin: 04/23/17 15:55 Dose: 2 tab Fluticasone/Salmeterol (Advair Diskus 250/50) 1 puff INH RQ12 [facility] Results - Vital Signs Recent Vital Signs: Last Vital Signs Temp 97.3 F L 04/23/17 16:00 Pulse 81 04/23/17 16:00 Resp 20 04/23/17 16:00 BP 116/62 04/23/17 16:35 Pulse Ox 98 04/23/17 15:00 - Labs Result Diagrams: 04/21/17 18:37 04/21/17 18:37 Attending/Attestation - Attestation I have personally seen and examined this patient.: Yes I have fully participated in the care of the patient.: Yes I have reviewed all pertinent clinical information: Yes Notes (Text): 04/23/17 17:37 Medical Consult: Patient was seen and examined by me, agree with the above note by the resident. The patient was is PACU when we saw her, she had just had an I and D of rectal area abscess and fistulectomy. There is a history signifigant for cardiomyopathy. She has a AICD as well as atrial fibrillation which was cardioverted and from review of previous EKGs she has so far been in NSR. She does have a history of a very low ejection fraction. Her regular medications include valsartan, coreg, lasix, digoxin, and eliquis. At the time we saw her in the PACU she was not in any acute distress but reported having some pain. She was very insisting on taking digoxin due to her cardiac history. Due to risk - will not continue the valsartan and coreg. Will use labetalol for the time being as well as continue digoxin With reguards to anticoagulation heparin ggt is an option if we really need to give anticoagulation. thank you Haroon Higgins
[2017-04-23] MEDS ORDERED: Albuterol-Ipratrop 20 mcg/actuation (4 g) IH PRN (15:30)
[2017-04-23] MEDS: Digoxin 250 mcg (0.25 mg) Tab PO SCH (15:30)
[2017-04-23] MEDS ORDERED: Albuterol-Ipratrop 3 mg / 0.5 (3 ml) UD IH PRN (15:30)
[2017-04-23] MEDS: Oxycodone/Acetaminophen 5/325 mg Tab PO PRN ×2 (15:55→19:57)
[2017-04-23] MEDS ORDERED: Ipratropium 17 mcg/puff-200 puff/12.5 gm HFA Inh IH PRN (16:00)
--- NOTE | 2017-04-23 16:31 | CP.PCM.PN ---
Subjective - Date & Time of Evaluation Date of Evaluation: 04/23/17 Time of Evaluation: 07:00 - Subjective Subjective: comfortable s/p I and D rectal abscess no fever no abd pain Objective - Vital Signs/Intake and Output Vital Signs (last 24 hours): Temp Pulse Resp BP Pulse Ox 97.8 F 84 14 116/62 98 04/23/17 15:00 04/23/17 15:00 04/23/17 15:00 04/23/17 15:00 04/23/17 15:00 Intake and Output: 04/23/17 04/23/17 06:59 18:59 Intake Total 700 270 Balance 700 270 - Medications Medications: Current Medications Acetaminophen (Tylenol 325mg Tab) 650 mg PO Q6 PRN PRN Reason: Pain, Mild (1-3) Last Admin: 04/23/17 01:34 Dose: 650 mg Digoxin (Lanoxin) 0.25 mg PO DAILY [facility] Docusate Sodium (Colace) 100 mg PO BID [facility] Furosemide (Lasix) 20 mg PO DAILY [facility] Cefazolin Sodium (Ancef) 1 gm in 50 mls @ 100 mls/hr IVPB Q8H [facility] Last Admin: 04/23/17 09:15 Dose: 100 mls/hr Ipratropium [place] (Atrovent Hfa) 2 puff IH RQ6 PRN PRN Reason: Shortness of Breath Labetalol HCl (Trandate) 100 mg PO BID [facility]IM Oxycodone/Acetaminophen (Percocet 5/325 Mg Tab) 2 tab PO Q4H PRN PRN Reason: Pain, moderate (4-7) Stop: 04/26/17 13:55 Fluticasone/Salmeterol (Advair Diskus 250/50) 1 puff INH RQ12 [facility] Sucralfate (Carafate Tab) 1 gm PO BID JIM - Labs Labs: 04/21/17 18:37 04/21/17 18:37 - Constitutional Appears: Non-toxic - Head Exam Head Exam: NORMOCEPHALIC - Eye Exam Eye Exam: PERRL - ENT Exam ENT Exam: Mucous Membranes Dry - Neck Exam Neck Exam: absent: Lymphadenopathy - Respiratory Exam Respiratory Exam: Decreased Breath Sounds - Cardiovascular Exam Cardiovascular Exam: REGULAR RHYTHM - GI/Abdominal Exam GI & Abdominal Exam: Distended, Soft - Rectal Exam Rectal Exam: Deferred - Exam Exam: NORMAL INSPECTION - Extremities Exam Extremities Exam: absent: Pedal Edema - Back Exam Back Exam: absent: CVA tenderness (L), CVA tenderness (R) Assessment and Plan (1) Rectal abscess Status: Acute (2) Rectal pain Status: Acute (3) Asthma Status: Acute - Assessment and Plan (Free Text) Assessment: cont iv rx await cultures
[2017-04-23 17:29] VITALS: RESP 20
[2017-04-23] MEDS: Fluticasone-Salmeterol 250-50mcg Diskus INH SCH (22:03)
--- NOTE | 2017-04-23 23:31 | OP ---
PROCEDURE DATE: 04/23/2017 PREOPERATIVE DIAGNOSIS: Rectal abscess. POSTOPERATIVE DIAGNOSIS: Rectal abscess with fistula. PROCEDURE PERFORMED: Incision and drainage of rectal and pelvic abscess with fistulotomy. SURGEON: rTa Clark MD TYPE OF ANESTHESIA: General. ESTIMATED BLOOD LOSS: 15 mL. POSTOPERATIVE CONDITION: Stable. INDICATIONS FOR SURGERY: This is a 31-year-old female, very sick, with cardiomyopathy and several medical problems, also found to be approximately 6 weeks. She presented with rectal pain and was found to have an abscess. She underwent a cardiology as well as OB and several other consults. She wishes to terminate the . She was taken to the OR now for incision and drainage of the abscess under local anesthesia due to her poor 20% ejection fraction. DESCRIPTION OF PROCEDURE: The patient was taken to the operating room, IV sedation was administered. She was placed in lithotomy position. The area was infiltrated with 1% lidocaine. An incision was made into the abscess and it was noted to go into the pelvis and the fistula was also noted and a fistulotomy was performed. Abscess completely drained. Bleeding was controlled using the Bovie. Large pelvic blood vessel was repaired. The wound was irrigated with copious amounts of saline solution. Partial tissue transfer closure was performed and the central portion was packed open with wet saline bolus. The patient tolerated the procedure well. Returned to recovery room in stable condition. Tra Clark MD
[2017-04-24] MEDS: Oxycodone/Acetaminophen 5/325 mg Tab PO PRN ×2 (00:14→11:27)
[2017-04-24] MEDS: ceFAZolin 1 gm FROZEN Premix 1 GM/50 ML ML IVPB SCH ×2 (00:15→08:28)
--- NOTE | 2017-04-24 07:38 | CP.PCM.PN ---
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 Pt denies any acute overnight events. Pt lying comfortably in bed and tolerated I&D well. Pt states that pain is well controlled. Pt denies CP, SOB, abdominal pain, N/V/D, fever, chills, dysuria, or discharge. Objective - Vital Signs/Intake and Output Vital Signs (last 24 hours): Temp Pulse Resp BP Pulse Ox 97.2 F L 94 H 20 101/67 96 04/24/17 00:07 04/24/17 00:07 04/24/17 00:07 04/24/17 00:07 04/24/17 00:07 - Medications Medications: Current Medications Acetaminophen (Tylenol 325mg Tab) 650 mg PO Q6 PRN PRN Reason: Pain, Mild (1-3) Last Admin: 04/23/17 01:34 Dose: 650 mg Digoxin (Lanoxin) 0.25 mg PO DAILY [facility] Last Admin: 04/23/17 15:30 Dose: 0.25 mg Docusate Sodium (Colace) 100 mg PO BID [facility] Last Admin: 04/23/17 18:24 Dose: 100 mg Famotidine (Pepcid) 20 mg PO DAILY [facility] Last Admin: 04/23/17 16:55 Dose: 20 mg Furosemide (Lasix) 20 mg PO DAILY [facility] Last Admin: 04/23/17 16:35 Dose: 20 mg Cefazolin Sodium (Ancef) 1 gm in 50 mls @ 100 mls/hr IVPB Q8H [facility] Last Admin: 04/24/17 00:15 Dose: 100 mls/hr Ipratropium [place] (Atrovent Hfa) 2 puff IH RQ6 PRN PRN Reason: Shortness of Breath Labetalol HCl (Trandate) 100 mg PO BID [facility] Last Admin: 04/23/17 18:01 Dose: 100 mg Oxycodone/Acetaminophen (Percocet 5/325 Mg Tab) 2 tab PO Q4H PRN PRN Reason: Pain, moderate (4-7) Stop: 04/26/17 13:55 Last Admin: 04/24/17 00:14 Dose: 2 tab Fluticasone/Salmeterol (Advair Diskus 250/50) 1 puff INH RQ12 [facility] Last Admin: 04/23/17 22:03 Dose: Not Given - Labs Labs: 04/21/17 18:37 04/21/17 18:37 - Constitutional Appears: No Acute Distress - Head Exam Head Exam: ATRAUMATIC, NORMOCEPHALIC - Eye Exam Eye Exam: EOMI, PERRL - ENT Exam ENT Exam: Mucous Membranes Moist - Neck Exam Neck Exam: Full ROM - Respiratory Exam Respiratory Exam: Clear to Ausculation Bilateral. absent: Rales, Rhonchi, Wheezes - Cardiovascular Exam Cardiovascular Exam: RRR. absent: Gallop, Rubs, Murmur - GI/Abdominal Exam GI & Abdominal Exam: Soft. absent: Distended, Guarding, Tenderness, Rebound - Rectal Exam Rectal Exam: Deferred - Extremities Exam Extremities Exam: Normal Inspection - Back Exam Back Exam: NORMAL INSPECTION - Neurological Exam Neurological Exam: Alert, Awake, Oriented x3 - Psychiatric Exam Psychiatric exam: Normal Affect, Normal Mood - Skin Skin Exam: Dry, Intact, Normal Color, Warm Assessment and Plan - Assessment and Plan (Free Text) Assessment: 31 yo female with past medical history of CHF, a-fib, and cardiomyopathy consulted for elevated urine HCG and probable on TVUS. Plan: 1. 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 Rectal Abscess - Cont. management per primary - Recommend Tylenol 650 mg PO Q6H prn for pain - Use of narcotics in is associated with effects on growth, risk of delivery, and risk of syndrome - [place] narcotic use for severe pain, short term use 3. History cardiomyopathy - F/u outpatient Thank you for consultation, will sign off. Please re-consult if needed. Pt discussed in detail with attending. <Timbo Barrios - Last Filed: 04/25/17 06:38> Objective - Vital Signs/Intake and Output Vital Signs (last 24 hours): Temp Pulse Resp BP Pulse Ox 98 F 84 20 105/75 94 L 04/24/17 23:48 04/25/17 01:00 04/24/17 23:48 04/24/17 23:48 04/24/17 23:48 Intake and Output: 04/24/17 04/25/17 18:59 06:59 Intake Total 910 Balance 910 - Medications Medications: Current Medications Acetaminophen (Tylenol 325mg Tab) 650 mg PO Q6 PRN PRN Reason: Pain, Mild (1-3) Last Admin: 04/24/17 22:09 Dose: 650 mg Digoxin (Lanoxin) 0.25 mg PO DAILY [facility] Last Admin: 04/24/17 09:57 Dose: 0.25 mg Docusate Sodium (Colace) 100 mg PO BID [facility] Last Admin: 04/24/17 17:45 Dose: 100 mg Famotidine (Pepcid) 20 mg PO DAILY [facility] Last Admin: 04/24/17 09:57 Dose: 20 mg Furosemide (Lasix) 20 mg PO DAILY [facility] Last Admin: 04/24/17 09:57 Dose: Not Given Ceftriaxone Sodium 1 gm/ (Sodium Chloride) 100 mls @ 100 mls/hr IVPB DAILY [facility] Last Admin: 04/24/17 11:27 Dose: 100 mls/hr Ipratropium [place] (Atrovent Hfa) 2 puff IH RQ6 PRN PRN Reason: Shortness of Breath Labetalol HCl (Trandate) 100 mg PO BID [facility] Last Admin: 04/24/17 17:45 Dose: 100 mg Oxycodone/Acetaminophen (Percocet 5/325 Mg Tab) 2 tab PO Q4H PRN PRN Reason: Pain, moderate (4-7) Stop: 04/26/17 13:55 Last Admin: 04/24/17 11:27 Dose: 2 tab Fluticasone/Salmeterol (Advair Diskus 250/50) 1 puff INH RQ12 [facility] Last Admin: 04/24/17 19:37 Dose: Not Given - Labs Labs: 04/24/17 13:58 04/24/17 13:58 Addendum Addendum: Patient with , cardiomyopathy s/p d&c Patient reports that she has been advised by her substation operator against the and she plans to terminate as soon as she is discharged.She has seen Dr Blanco in past and plans to follow up with him Thank you for the consult 04/25/17 06:35
[2017-04-24] MEDS: Fluticasone-Salmeterol 250-50mcg Diskus INH SCH ×2 (07:42→19:37)
[2017-04-24 08:12] LABS: RBC URINE 3 /hpf (0-3); URINE BILIRUBIN NEGATIVE (NEGATIVE); URINE BLOOD NEGATIVE (NEGATIVE); URINE COLOR Yellow (YELLOW); URINE GLUCOSE (UA) NORMAL (Normal); URINE KETONE NEGATIVE (NEGATIVE); URINE LEUKOCYTE ESTERASE TRACE Leu/uL (Negative); URINE PROTEIN 2+ mg/dL (NEGATIVE); URINE UROBILINOGEN NORMAL mg/dL (0.2-1.0); WBC URINE 4 /hpf (0-5)
[2017-04-24 08:23] LABS: URINE BACTERIA RARE (<OCC)
--- NOTE | 2017-04-24 08:39 | CP.PCM.PN ---
<Nelda Castillo - Last Filed: 04/24/17 14:56> Subjective - Date & Time of Evaluation Date of Evaluation: 04/24/17 Time of Evaluation: 07:00 - Subjective Subjective: Medicine Progress Note: Patient was seen and [facility] at [facility] in the AM. Patient states she still continues to have pain during urination but denies hematuria. Patient also states she had a bowel movement yesterday with some rectal bleeding. Patient denies fever, shortness of breath or chest pain. Patient states she had some nausea yesterday with one episode of vomiting. Objective - Vital Signs/Intake and Output Vital Signs (last 24 hours): Temp Pulse Resp BP Pulse Ox 98.1 F 83 20 92/70 L 93 L 04/24/17 08:25 04/24/17 08:25 04/24/17 08:25 04/24/17 08:25 04/24/17 08:25 - Medications Medications: Current Medications Acetaminophen (Tylenol 325mg Tab) 650 mg PO Q6 PRN PRN Reason: Pain, Mild (1-3) Last Admin: 04/23/17 01:34 Dose: 650 mg Digoxin (Lanoxin) 0.25 mg PO DAILY [facility] Last Admin: 04/23/17 15:30 Dose: 0.25 mg Docusate Sodium (Colace) 100 mg PO BID [facility] Last Admin: 04/23/17 18:24 Dose: 100 mg Famotidine (Pepcid) 20 mg PO DAILY [facility] Last Admin: 04/23/17 16:55 Dose: 20 mg Furosemide (Lasix) 20 mg PO DAILY [facility] Last Admin: 04/23/17 16:35 Dose: 20 mg Cefazolin Sodium (Ancef) 1 gm in 50 mls @ 100 mls/hr IVPB Q8H [facility] Last Admin: 04/24/17 08:28 Dose: 100 mls/hr Ipratropium [place] (Atrovent Hfa) 2 puff IH RQ6 PRN PRN Reason: Shortness of Breath Labetalol HCl (Trandate) 100 mg PO BID [facility] Last Admin: 04/23/17 18:01 Dose: 100 mg Oxycodone/Acetaminophen (Percocet 5/325 Mg Tab) 2 tab PO Q4H PRN PRN Reason: Pain, moderate (4-7) Stop: 04/26/17 13:55 Last Admin: 04/24/17 00:14 Dose: 2 tab Fluticasone/Salmeterol (Advair Diskus 250/50) 1 puff INH RQ12 [facility] Last Admin: 04/24/17 07:42 Dose: Not Given - Labs Labs: 04/21/17 18:37 04/21/17 18:37 - Constitutional Appears: No Acute Distress, Other (obese) - Head Exam Head Exam: ATRAUMATIC, NORMAL INSPECTION, NORMOCEPHALIC - Eye Exam Eye Exam: EOMI, Normal appearance, PERRL Pupil Exam: NORMAL ACCOMODATION - ENT Exam ENT Exam: Mucous Membranes Moist - Respiratory Exam Respiratory Exam: Clear to Ausculation Bilateral, NORMAL BREATHING PATTERN - Cardiovascular Exam Cardiovascular Exam: REGULAR RHYTHM, RRR, +S1, +S2 - GI/Abdominal Exam GI & Abdominal Exam: Soft, Normal Bowel Sounds. absent: Tenderness Additional comments: obese - Rectal Exam Additional comments: s/p rectal abscess I&D no packing seen, no bleeding seen - Extremities Exam Extremities Exam: Normal Inspection. absent: Pedal Edema, Tenderness - Neurological Exam Neurological Exam: Alert, Awake, Oriented x3 - Psychiatric Exam Psychiatric exam: Normal Affect, Normal Mood - Skin Skin Exam: Dry, Intact, Normal Color, Warm Assessment and Plan - Assessment and Plan (Free Text) Assessment: 1.) S/P Rectal Abscess I/D * Management per Dr. Clark * Percocet 5/325 2 tabs Q4 PRN * Wound cultures: Gram Negative Claude - preliminary * ID Consult: Dr. Flores --> help appreciated * Ancef 1g Q8 discontinued 2.) UTI * ID Consult: Dr. Flores --> help appreciated * Ancef 1g Q8 discontinued * Ceftriaxone 1gm IV daily started 04/24 * f/u Urine cultures 3.) Post Cardiomyopathy * Cardiology Consult: Dr. Garzon --> help appreciated * Dig 0.25 PO QD * Labetalol 100mg PO BID * Furosemide * AICD 2 lead * Echo (11/11/16): Showed EF of <20; Left ventricle systolic function is severely impaired. Mitral regurgitation is mild to moderate. There is severe pulmonary hypertension. * CXR - mild venous congestion, patchy bibasilar opacities, trace L. Pleural effusion 4.) History of Afib * AICD * Currently NSR, holding anticoag 5.) 4 Weeks Preg * BhCG + * Transvag US: 2 gestational sacs; only one pole seen, intrauterine preg * OBGYN: Dr. Barrios 6.) PPX * T3 * Colace 100 PO BID * Ambulate * SCD * ICS 10x per hour <GiselaHaroon H - Last Filed: 04/24/17 16:20> Objective - Vital Signs/Intake and Output Vital Signs (last 24 hours): Temp Pulse Resp BP Pulse Ox 98.1 F 83 20 92/70 L 93 L 04/24/17 08:25 04/24/17 08:25 04/24/17 08:25 04/24/17 08:25 04/24/17 08:25 - Medications Medications: Current Medications Acetaminophen (Tylenol 325mg Tab) 650 mg PO Q6 PRN PRN Reason: Pain, Mild (1-3) Last Admin: 04/23/17 01:34 Dose: 650 mg Digoxin (Lanoxin) 0.25 mg PO DAILY [facility] Last Admin: 04/24/17 09:57 Dose: 0.25 mg Docusate Sodium (Colace) 100 mg PO BID [facility] Last Admin: 04/24/17 09:57 Dose: 100 mg Famotidine (Pepcid) 20 mg PO DAILY [facility] Last Admin: 04/24/17 09:57 Dose: 20 mg Furosemide (Lasix) 20 mg PO DAILY [facility] Last Admin: 04/24/17 09:57 Dose: Not Given Ceftriaxone Sodium 1 gm/ (Sodium Chloride) 100 mls @ 100 mls/hr IVPB DAILY [facility] Last Admin: 04/24/17 11:27 Dose: 100 mls/hr Ipratropium [place] (Atrovent Hfa) 2 puff IH RQ6 PRN PRN Reason: Shortness of Breath Labetalol HCl (Trandate) 100 mg PO BID [facility] Last Admin: 04/24/17 09:58 Dose: Not Given Oxycodone/Acetaminophen (Percocet 5/325 Mg Tab) 2 tab PO Q4H PRN PRN Reason: Pain, moderate (4-7) Stop: 04/26/17 13:55 Last Admin: 04/24/17 11:27 Dose: 2 tab Potassium Chloride (K-Dur 20 Meq Er Tab) 20 meq PO ONCE ONE Stop: 09/21/17 17:01 Fluticasone/Salmeterol (Advair Diskus 250/50) 1 puff INH RQ12 [facility] Last Admin: 04/24/17 07:42 Dose: Not Given - Labs Labs: 04/24/17 13:58 04/24/17 13:58 Attending/Attestation - Attestation I have personally seen and examined this patient.: Yes I have fully participated in the care of the patient.: Yes I have reviewed all pertinent clinical information, including history, physical exam and plan: Yes Notes (Text): Medical consult: Patient was seen and examined by me, agree with the above note by medical supply technician. We reviewed her telemetry, and overnight her heart rate was stable. She is also in NSR. When reviewing the telemetry it appears that she does have a long ME segment. This might be related to her extensive history of cardiomyopathy. At this time because of the extensive cardiac history the patient is still getting beta daksha medication however we changed her from Coreg over to labetalol because the patient is . Also the patient is still on digoxin as well. We discussed this with the patient and the digoxin is category C however she is quite insistent on taking her digoxin. We also explained to the patient that she is currently not on the ARB class medications that she was on before, again this is due to the patient With regards to anticoagulation, her previous EKGs on recent dates have been normal sinus rhythm and the patient is still normal sinus rhythm were holding on the Eliquis at this time since the patient might require additional incision and drainage by surgery. In the future if need to be could use a heparin drip for anticoagulation, however at this moment will hold off on this As mentioned before considering the patient's extensive cardiac history as well as complicated history - she is at a relatively high risk. The patient understands this. Today when we saw her she explains that she feels relatively well, the pain is being controlled with medication that she is receiving she did not have any fevers, denid ing short, denied having any abdominal pain. Thank you very much, Haroon Higgins
[2017-04-24] MEDS: Digoxin 250 mcg (0.25 mg) Tab PO SCH (09:57)
--- NOTE | 2017-04-24 11:57 | CP.PCM.PN ---
Subjective - Date & Time of Evaluation Date of Evaluation: 04/24/17 Time of Evaluation: 11:57 - Subjective Subjective: I & D OF RECTAL ABSCESS UNDER IV SEDATION CARDIAC STATUS STABLE Objective - Vital Signs/Intake and Output Vital Signs (last 24 hours): Temp Pulse Resp BP Pulse Ox 98.1 F 83 20 92/70 L 93 L 04/24/17 08:25 04/24/17 08:25 04/24/17 08:25 04/24/17 08:25 04/24/17 08:25 Intake and Output: 04/23/17 04/24/17 23:59 11:59 Intake Total 50 Balance 50 - Medications Medications: Current Medications Acetaminophen (Tylenol 325mg Tab) 650 mg PO Q6 PRN PRN Reason: Pain, Mild (1-3) Last Admin: 04/23/17 01:34 Dose: 650 mg Digoxin (Lanoxin) 0.25 mg PO DAILY [facility] Last Admin: 04/24/17 09:57 Dose: 0.25 mg Docusate Sodium (Colace) 100 mg PO BID [facility] Last Admin: 04/24/17 09:57 Dose: 100 mg Famotidine (Pepcid) 20 mg PO DAILY [facility] Last Admin: 04/24/17 09:57 Dose: 20 mg Furosemide (Lasix) 20 mg PO DAILY [facility] Last Admin: 04/24/17 09:57 Dose: Not Given Ceftriaxone Sodium 1 gm/ (Sodium Chloride) 100 mls @ 100 mls/hr IVPB DAILY [facility] Last Admin: 04/24/17 11:27 Dose: 100 mls/hr Ipratropium [place] (Atrovent Hfa) 2 puff IH RQ6 PRN PRN Reason: Shortness of Breath Labetalol HCl (Trandate) 100 mg PO BID [facility] Last Admin: 04/24/17 09:58 Dose: Not Given Oxycodone/Acetaminophen (Percocet 5/325 Mg Tab) 2 tab PO Q4H PRN PRN Reason: Pain, moderate (4-7) Stop: 04/26/17 13:55 Last Admin: 04/24/17 11:27 Dose: 2 tab Fluticasone/Salmeterol (Advair Diskus 250/50) 1 puff INH RQ12 [facility] Last Admin: 04/24/17 07:42 Dose: Not Given - Labs Labs: 04/21/17 18:37 04/21/17 18:37
[2017-04-24 14:10] LABS: BASO % 0.5 % (0.0-2.0); EOS % 0.4 % (0.0-4.0); HEMATOCRIT 37.8 % (34.0-47.0); LYMPH # 0.9 K/uL (1.0-4.3); LYMPH % 21.5 % (20.0-40.0); MEAN CELL VOLUME 87.5 fL (81.0-99.0); MEAN CORPUSCULAR HGB CONC 34.3 g/dL (33.0-37.0); MEAN PLATELET VOLUME 8.4 fL (7.2-11.7); MONO # 0.3 K/uL (0.0-0.8); MONO % 7.4 % (0.0-10.0); RED CELL DISTRIBUTION WIDTH 14.3 % (11.5-14.5); WHITE BLOOD COUNT 4.2 K/uL (4.8-10.8)
[2017-04-24 14:18] LABS: CHLORIDE 91 mmol/L (98-107); POTASSIUM 3.1 mmol/L (3.6-5.2); SODIUM 134 mmol/L (132-148)
[2017-04-24 14:20] LABS: GFR AFRICAN-AMERICAN > 60
[2017-04-24 14:21] LABS: ALB/GLOB RATIO 1.2 (1.0-2.1); ALKALINE PHOSPHATASE 38 U/L (38-126); ALT/SGPT 30 U/L (9-52); AST/SGOT 28 U/L (14-36); BILIRUBIN,TOTAL 0.7 mg/dL (0.2-1.3); BLOOD UREA NITROGEN 10 mg/dL (7-17); CALCIUM 8.3 mg/dl (8.6-10.4); CARBON DIOXIDE 31 mmol/L (22-30); GLUCOSE,RANDOM 85 mg/dL (65-105); MAGNESIUM 1.6 mg/dL (1.6-2.3); PHOSPHOROUS 2.8 mg/dL (2.5-4.5); TOTAL PROTEIN 6.9 g/dL (6.3-8.3)
[2017-04-24] MEDS ORDERED: Potassium Chloride 20 mEq ER Tab PO ONE ×2 (15:30→17:00)
--- NOTE | 2017-04-24 18:07 | PN ---
DATE OF SERVICE: 04/24/2017 SUBJECTIVE: The patient is seen at the bedside today. She is resting comfortably. She states that the pain in her rectum has decreased since the surgery. OBJECTIVE: VITAL SIGNS: Her temperature is 98.1, pulse is 83, BP is 92/70, O2 sat is 96 on room air. : The patient was placed in prone position and her rectal wound was examined. It was reexplored and sharply debrided . Remaining collection was drained and cultured. The wound was then repacked. ASSESSMENT: The patient is 1 day status post fistulotomy and drainage of a pelvic abscess. She is much improved and her pain has decreased dramatically. PLAN: The patient remains and wishes to terminate her while hospitalized, probably a good decision as due to her cardiomyopathy, she is not a candidate for an outpatient at a free standing procedure. We will contact OB about this and discuss it. Tra Clark MD
[2017-04-25 08:06] VITALS: TEMP 98; O2SAT 96
[2017-04-25] MEDS ORDERED: Potassium Chloride 20 mEq ER Tab PO ONE ×2 (09:29→11:00)
--- NOTE | 2017-04-25 09:30 | CP.PCM.PN ---
<Nelda Castillo KendraJeny - Last Filed: 04/25/17 16:19> Subjective - Date & Time of Evaluation Date of Evaluation: 04/25/17 Time of Evaluation: 07:30 - Subjective Subjective: Medicine Progress Note: Patient was seen and examined at bedside in the AM. Patient stated she had a bowel movement overnight and she did have rectal bleeding with rectal pain. She states her pain with urination has improved. She denies nausea, vomiting, or fever. Objective - Vital Signs/Intake and Output Vital Signs (last 24 hours): Temp Pulse Resp BP Pulse Ox 98.0 F 84 20 95/72 L 96 04/25/17 07:05 04/25/17 07:30 04/25/17 07:05 04/25/17 07:05 04/25/17 07:05 - Medications Medications: Current Medications Acetaminophen (Tylenol 325mg Tab) 650 mg PO Q6 PRN PRN Reason: Pain, Mild (1-3) Last Admin: 04/24/17 22:09 Dose: 650 mg Digoxin (Lanoxin) 0.25 mg PO DAILY [facility] Last Admin: 04/24/17 09:57 Dose: 0.25 mg Docusate Sodium (Colace) 100 mg PO BID [facility] Last Admin: 04/24/17 17:45 Dose: 100 mg Famotidine (Pepcid) 20 mg PO DAILY [facility] Last Admin: 04/24/17 09:57 Dose: 20 mg Furosemide (Lasix) 20 mg PO DAILY [facility] Last Admin: 04/24/17 09:57 Dose: Not Given Ceftriaxone Sodium 1 gm/ (Sodium Chloride) 100 mls @ 100 mls/hr IVPB DAILY [facility] Last Admin: 04/24/17 11:27 Dose: 100 mls/hr Ipratropium [place] (Atrovent Hfa) 2 puff IH RQ6 PRN PRN Reason: Shortness of Breath Labetalol HCl (Trandate) 100 mg PO BID [facility] Last Admin: 04/24/17 17:45 Dose: 100 mg Oxycodone/Acetaminophen (Percocet 5/325 Mg Tab) 2 tab PO Q4H PRN PRN Reason: Pain, moderate (4-7) Stop: 04/26/17 13:55 Last Admin: 04/24/17 11:27 Dose: 2 tab Potassium Chloride (K-Dur 20 Meq Er Tab) 20 meq PO ONCE ONE Stop: 04/25/17 09:30 Potassium Chloride (K-Dur 20 Meq Er Tab) 20 meq PO ONCE ONE Stop: 04/25/17 11:01 Fluticasone/Salmeterol (Advair Diskus 250/50) 1 puff INH RQ12 [facility] Last Admin: 04/24/17 19:37 Dose: Not Given - Labs Labs: 04/24/17 13:58 04/24/17 13:58 - Constitutional Appears: No Acute Distress - Head Exam Head Exam: ATRAUMATIC, NORMAL INSPECTION, NORMOCEPHALIC - Eye Exam Eye Exam: EOMI, Normal appearance, PERRL Pupil Exam: NORMAL ACCOMODATION - ENT Exam ENT Exam: Mucous Membranes Moist - Respiratory Exam Respiratory Exam: Clear to Ausculation Bilateral, NORMAL BREATHING PATTERN - Cardiovascular Exam Cardiovascular Exam: REGULAR RHYTHM, RRR, +S1, +S2 - GI/Abdominal Exam GI & Abdominal Exam: Soft, Normal Bowel Sounds. absent: Tenderness Additional comments: obese - Rectal Exam Additional comments: Rectal ulceration seen. No bleeding - Extremities Exam Extremities Exam: Normal Inspection. absent: Pedal Edema, Tenderness - Neurological Exam Neurological Exam: Alert, Awake, Oriented x3 - Psychiatric Exam Psychiatric exam: Normal Affect, Normal Mood - Skin Skin Exam: Dry, Intact, Normal Color, Warm Assessment and Plan - Assessment and Plan (Free Text) Assessment: 1.) S/P Rectal Abscess I/D * Management per Dr. Clark * Percocet 5/325 2 tabs Q4 PRN * Wound cultures: E. Coli * ID Consult: Dr. Flores --> help appreciated * Ancef 1g Q8 discontinued * Patient being discharged per Dr. Clark 2.) UTI * ID Consult: Dr. Flores --> help appreciated * Ancef 1g Q8 discontinued * Ceftriaxone 1gm IV daily started 04/24 * Urine cultures: No Growth 3.) Post Cardiomyopathy * Cardiology Consult: Dr. Garzon --> help appreciated * Dig 0.25 PO QD * Labetalol 100mg PO BID * Furosemide * AICD 2 lead * Echo (11/11/16): Showed EF of <20; Left ventricle systolic function is severely impaired. Mitral regurgitation is mild to moderate. There is severe pulmonary hypertension. * CXR - mild venous congestion, patchy bibasilar opacities, trace L. Pleural effusion 4.) History of Afib * AICD * Currently NSR, holding anticoag 5.) 4 Weeks Preg * BhCG + * Transvag US: 2 gestational sacs; only one pole seen, intrauterine preg * OBGYN: Dr. Barrios 6.) PPX * T3 * Colace 100 PO BID * Ambulate * SCD * ICS 10x per hour Disposition: Patient being discharged per Dr. Clark Thank you for this consult. The medicine team will signoff. Case discussed with Dr. Gisela Castillo PGY-1 <Haroon Higgins - Last Filed: 04/25/17 17:21> Objective - Vital Signs/Intake and Output Vital Signs (last 24 hours): Temp Pulse Resp BP Pulse Ox 98.0 F 85 20 91/67 L 96 04/25/17 07:05 04/25/17 10:00 04/25/17 07:05 04/25/17 10:06 04/25/17 07:05 Intake and Output: 04/25/17 04/25/17 06:59 18:59 Intake Total 1080 Balance 1080 - Labs Labs: 04/25/17 10:45 04/25/17 10:45 Attending/Attestation - Attestation I have personally seen and examined this patient.: Yes I have fully participated in the care of the patient.: Yes I have reviewed all pertinent clinical information, including history, physical exam and plan: Yes Notes (Text): 04/25/17 17:17 Medical Attending: Patient was seen and examined by me. Agree with the above note by the resident. As mentioned previously the patient has a history of cardiomyopathy requiring anticoagulation, cardiac medication as well as AICD. Because of her situation she is in a very high risk . Per review of surgical notes, there are no further plans for OR. The patient reported that last night she did ok. She reported the pain was controlled. She slept ok. She denied chest pain, denied palpitations, denied abdominal pain. She is able to tolerate diet. She also had a normal bowel movement as well. We wished her the best. thank you Haroon Higgins
[2017-04-25] MEDS: Digoxin 250 mcg (0.25 mg) Tab PO SCH (10:03)
[2017-04-25 10:07] VITALS: BP 91/67; PULSE 85
[2017-04-25] MEDS: Fluticasone-Salmeterol 250-50mcg Diskus INH SCH (10:45)
[2017-04-25 11:58] LABS: MONO # 0.4 K/uL (0.0-0.8)
[2017-04-25 12:05] LABS: BASO % 0.5 % (0.0-2.0); EOS % 0.4 % (0.0-4.0); HEMATOCRIT 38.2 % (34.0-47.0); LYMPH # 1.4 K/uL (1.0-4.3); MEAN CELL VOLUME 87.4 fL (81.0-99.0); MEAN CORPUSCULAR HEMOGLOBIN 30.4 pg (27.0-31.0); MEAN CORPUSCULAR HGB CONC 34.7 g/dL (33.0-37.0); MEAN PLATELET VOLUME 9.1 fL (7.2-11.7); MONO % 5.9 % (0.0-10.0); NRBC % 0.1 % (0.0-2.0); RED CELL DISTRIBUTION WIDTH 14.1 % (11.5-14.5)
[2017-04-25 12:06] LABS: CHLORIDE 95 mmol/L (98-107)
[2017-04-25 12:07] LABS: POTASSIUM 3.4 mmol/L (3.6-5.2); SODIUM 134 mmol/L (132-148)
[2017-04-25 12:08] LABS: BILIRUBIN,TOTAL 0.9 mg/dL (0.2-1.3); GFR AFRICAN-AMERICAN > 60
[2017-04-25 12:09] LABS: ALB/GLOB RATIO 1.2 (1.0-2.1); ALKALINE PHOSPHATASE 42 U/L (38-126); ALT/SGPT 30 U/L (9-52); AST/SGOT 27 U/L (14-36); BLOOD UREA NITROGEN 7 mg/dL (7-17); CALCIUM 8.7 mg/dl (8.6-10.4); CARBON DIOXIDE 27 mmol/L (22-30); GLUCOSE,RANDOM 88 mg/dL (65-105); PHOSPHOROUS 2.9 mg/dL (2.5-4.5); TOTAL PROTEIN 7.3 g/dL (6.3-8.3)
[2017-04-25 12:10] LABS: MAGNESIUM 1.5 mg/dL (1.6-2.3)
[2017-04-25] MEDS: Oxycodone/Acetaminophen 5/325 mg Tab PO PRN (12:54)
[2017-04-25] MEDS ORDERED: Potassium Chloride 20 mEq ER Tab PO STA (14:22)
--- NOTE | 2017-04-25 14:24 | PCM.HF ---
Heart Failure Core Measure - Heart Failure Ejection Fraction: 40 % or Greater CECE Inhibitor Prescribed: No Contraindication/Reason for not providing: arb Beta-Jelly Prescribed: Carvedilol Angiotensin II Receptor Jelly Prescribed: Yes AnticoagulationTherapy for Atrial Fibrillation/Atrialflutter: No Contraindication/Reason for not providing: no afib Aldosterone Antagonist Prescribed: No Contraindication/Reason for not providing: ef >40 Hydralazine Nitrate Prescribed: No Contraindication/Reason for not providing: ef >40 Implantable Cardioverter Defibrillator Therapy: Yes Cardiac Resynchronization Therapy Prescribed: No Contraindication/Reason for not providing: aicd - Follow up Will be discharged to: Home Follow Up Date (must be within 7 days from discharge): 04/29/17 Follow Up Time: 09:00
[2017-04-25 16:36] VITALS: PULSE 85
== END 2017-04-25 15:20 | disposition home or self-care (01) | DRG 781 ==
LOC: C.ER 14:44 → C.9E 18:28 → C.3T 21:48 → C.5S 04-23 19:22
PROVIDERS: ADMIT Surgery; ATTEND Surgery
PROC: 0D9P0ZZ Drainage of Rectum, Open Approach (ICD-10-PCS; principal; 2017-04-21)
PROC: 0J9C0ZZ Drainage of Pelvic Region Subcutaneous Tissue and Fascia, Open Approach (ICD-10-PCS; 2017-04-21)
DX: O99.89 Other specified diseases and conditions complicating pregnancy, childbirth and the puerperium (principal); O90.3 Peripartum cardiomyopathy; I27.2 Other secondary pulmonary hypertension; K61.1 Rectal abscess; I48.91 Unspecified atrial fibrillation; I50.9 Heart failure, unspecified; K62.5 Hemorrhage of anus and rectum; O99.511 Diseases of the respiratory system complicating pregnancy, first trimester; N73.9 Female pelvic inflammatory disease, unspecified; Z3A.01 Less than 8 weeks gestation of pregnancy; O99.411 Diseases of the circulatory system complicating pregnancy, first trimester; I34.0 Nonrheumatic mitral (valve) insufficiency; J45.909 Unspecified asthma, uncomplicated; O21.9 Vomiting of pregnancy, unspecified; O23.41 Unspecified infection of urinary tract in pregnancy, first trimester; O30.001 Twin pregnancy, unspecified number of placenta and unspecified number of amniotic sacs, first trimester; Z95.0 Presence of cardiac pacemaker

== ENCOUNTER 2017-05-22 14:47 | Inpatient (IN) | payer MEDICARE ==
[2017-05-22 15:04] VITALS: BMI 39.1
[2017-05-22 15:51] LABS: BASO % 0.7 % (0.0-2.0); EOS % 0.5 % (0.0-4.0); HEMATOCRIT 37.6 % (34.0-47.0); LYMPH # 0.8 K/uL (1.0-4.3); LYMPH % 21.5 % (20.0-40.0); MEAN CELL VOLUME 88.6 fL (81.0-99.0); MEAN CORPUSCULAR HGB CONC 33.8 g/dL (33.0-37.0); MONO # 0.3 K/uL (0.0-0.8); MONO % 6.8 % (0.0-10.0); NRBC % 0.2 % (0.0-2.0); RED CELL DISTRIBUTION WIDTH 14.9 % (11.5-14.5); WHITE BLOOD COUNT 3.9 K/uL (4.8-10.8)
[2017-05-22 15:58] LABS: INR 1.3
[2017-05-22 15:59] LABS: CHLORIDE 100 mmol/L (98-107)
[2017-05-22 16:00] LABS: SODIUM 131 mmol/L (132-148)
[2017-05-22 16:01] LABS: POTASSIUM 3.7 mmol/L (3.6-5.2)
[2017-05-22 16:02] LABS: GFR AFRICAN-AMERICAN > 60
[2017-05-22 16:03] LABS: ALKALINE PHOSPHATASE 37 U/L (38-126); ALT/SGPT 24 U/L (9-52); AST/SGOT 35 U/L (14-36); BILIRUBIN,TOTAL 1.7 mg/dL (0.2-1.3); BLOOD UREA NITROGEN 7 mg/dL (7-17); CALCIUM 8.8 mg/dl (8.6-10.4); CARBON DIOXIDE 21 mmol/L (22-30); GLUCOSE,RANDOM 97 mg/dL (65-105); MAGNESIUM 1.5 mg/dL (1.6-2.3); TOTAL PROTEIN 7.7 g/dL (6.3-8.3)
--- NOTE | 2017-05-22 16:16 | RAD ---
HISTORY: SOB, cough. h/o CHF. COMPARISON: Comparison chest 04/21/2017 FINDINGS: LUNGS: No acute infiltrate. PLEURA: No significant pleural effusion identified, no pneumothorax apparent. CARDIOVASCULAR: No change single lead pacemaker/ defibrillator. Heart remains enlarged. No pb pulmonary edema OSSEOUS STRUCTURES: No significant abnormalities. VISUALIZED UPPER ABDOMEN: Normal. OTHER FINDINGS: None. IMPRESSION: No acute infiltrate. . No pb pulmonary edema seen. Marked cardiomegaly unchanged.
[2017-05-22 16:49] LABS: RBC URINE 24 /hpf (0-3); URINE BACTERIA OCC (<OCC); URINE BILIRUBIN NEGATIVE (NEGATIVE); URINE COLOR Amber (YELLOW); URINE GLUCOSE (UA) NORMAL (Normal); URINE KETONE NEGATIVE (NEGATIVE); URINE LEUKOCYTE ESTERASE 1+ Leu/uL (Negative); URINE PROTEIN 3+ mg/dL (NEGATIVE); WBC URINE 16 /hpf (0-5)
[2017-05-22 16:51] LABS: URINE BLOOD 1+ (NEGATIVE)
[2017-05-22] MEDS ORDERED: Magnesium Sulfate 1 gm in D5W 1 GM/100 ML BAG IVPB ONE ×2 (17:34→17:43)
--- NOTE | 2017-05-22 19:49 | US ---
EXAM: US First Trimester, Transabdominal CLINICAL HISTORY: 31 years old, female; Signs and symptoms; Lmp or gestational age (in weeks): 8-1-17; Other: Bleeding; ; Additional info: Bleeding, TECHNIQUE: Real-time transabdominal obstetrical ultrasound of the maternal pelvis and a first trimester with image documentation. COMPARISON: Prior images are not available for review. FINDINGS: Gestation: The uterus is anteflexed. Uterus measures approximately 12.4 x 7.5 x 8.8 cm. There are 2 gestational sacs in the uterus which are asymmetric in size. Placenta/amniotic fluid: Cannot be adequately evaluated due to the early gestational age. Uterus/cervix: unremarkable No myometrial mass. Ovaries: Neither ovary could be identified. No mass. Free fluid: ..... Bladder: Bladder is almost completely empty. IMPRESSION: Limited by body habitus and incomplete bladder distention, asymmetric size gestational sacs in the uterus, difficult to further evaluate EXAM: US , Transvaginal EXAM DATE/TIME: 05/22/2017 4:52 PM CLINICAL HISTORY: 31 years old, female; Signs and symptoms; Lmp or gestational age (in weeks): 8-1-17; Other: Bleeding; ; Additional info: Bleeding, beta hCG level XX,CCLXXXIII.0 TECHNIQUE: Real-time transvaginal obstetrical ultrasound of the maternal pelvis and a first trimester with image documentation. Transvaginal imaging was used for better evaluation of the fetus and adnexa. COMPARISON: Prior images are not available for review. Report dated 04/22/17 suggests early twin intrauterine gestation FINDINGS: Gestation: There are 2 gestational sacs in the uterus. Larger sac is irregularly shaped and has mean diameter 28.6 mm, 7 weeks 5 days. There is a smaller adjacent sac mean diameter 17.4 mm, 6 weeks 1 day. There are no poles. There are no yolk sacs. Uterus/cervix: Cervix measures approximately 4 cm in length. Texture of the myometrium is heterogeneous. Ovaries: Left ovary measures approximately 2.8 x 2.3 x 2.5 cm..There is expected blood flow on Doppler imaging. Right ovary measures 3.2 x 2 x 2.8 cm. There is expected blood flow on Doppler imaging Free fluid: There is trace fluid in the left adnexa IMPRESSION: Asymmetric size and shape gestational sacs in the uterus, 7 weeks 5 days size and 6 weeks 1 day size, no poles or yolk sacs, findings suspicious for failure Correlation with serial beta hCG levels and sonography advised
--- NOTE | 2017-05-22 20:12 | C.PDOC ---
History Of Present Illness Pt c/o worsening dyspnea. She found out that she was 1 months ago. Time Seen by Provider: 05/22/17 15:07 Chief Complaint (Nursing): Shortness Of Breath History Per: Patient Onset/Duration Of Symptoms: Days Current Symptoms Are (Timing): Worse Current Respiratory Medications: See Home Med List, Diuretic Severity: Moderate Associated Symptoms: Chest Pain, Productive Cough, Ankle/Leg Swelling Reports Recently: Treated By A Physician Additional History Per: Prior Records Past Medical History Reviewed: Historical Data, Nursing Documentation, Vital Signs Vital Signs: Last Vital Signs Temp 98.4 F 05/22/17 14:59 Pulse 114 H 05/22/17 19:28 Resp 20 05/22/17 19:28 BP 104/79 05/22/17 19:28 Pulse Ox 99 05/22/17 20:12 - Medical History PMH: Atrial Fibrillation (ablation sep 2015), CHF Surgical History: Pacemaker (AICD) - [facility] Procedures DRAINAGE OF PELVIC SUBCU/FASCIA, OPEN APPROACH (04/21/17) DRAINAGE OF RECTUM, OPEN APPROACH (04/21/17) EXCISION OF DESCENDING COLON, ENDO, DIAGN (03/30/16) EXCISION OF STOMACH, ENDO, DIAGN (03/30/16) Family History: States: Unknown Family Hx - Social History Hx Tobacco Use: No Hx Alcohol Use: No Hx Substance Use: No - Immunization History Hx Tetanus Toxoid Vaccination: No Hx Influenza Vaccination: No Hx Pneumococcal Vaccination: No Review Of Systems Except As Marked, All Systems Reviewed And Found Negative. Constitutional: Positive for: Weakness. Negative for: Fever Cardiovascular: Positive for: Chest Pain, Orthopnea, Edema Respiratory: Positive for: Cough, Shortness of Breath, SOB with Excertion, Sputum. Negative for: Hemoptysis Gastrointestinal: Positive for: Nausea, Vomiting Genitourinary: Positive for: Vaginal Discharge Musculoskeletal: Negative for: Neck Pain, Back Pain Skin: Negative for: Rash Neurological: Negative for: Weakness, Numbness Physical Exam - Physical Exam Appears: In Acute Distress (mild), Chronically Ill Skin: Normal Color, Warm, Dry Head: Atraumatic, Normacephalic Eye(s): bilateral: PERRL, EOMI Neck: Normal ROM, Supple Cardiovascular: Rhythm Regular, Murmur Respiratory: Rales (bibasilar) Gastrointestinal/Abdominal: Soft, No Tenderness Back: No CVA Tenderness Extremity: Normal ROM, Pedal Edema Neurological/Psych: Oriented x3, Normal Motor, Normal Sensation ED Course And Treatment - Laboratory Results Result Diagrams: 05/22/17 15:46 05/22/17 15:46 Lab Interpretation: Abnormal Interpretation Of Abnormal: Elevated BNP. Urine POC: Positive ECG: Interpreted By Me, Viewed By Me ECG Rhythm: Sinus Tachycardia, 1st Degree HB, Nonspecific Changes ECG Interpretation: Abnormal Interpretation Of ECG: Digoxin affect. Rate From EC O2 Sat by Pulse Oximetry: 99 Pulse Ox Interpretation: Normal - Radiology CXR: Viewed By Me, Read By Radiologist CXR Interpretation: Yes: Cardiomegaly, Other (CHF) - CT Scan/US Pelvic US Other Rad Studies (CT/US): Read By Radiologist, Radiology Report Reviewed CT/US Interpretation: IMPRESSION: Asymmetric size and shape gestational sacs in the uterus, 7 weeks. 5 days size and 6 weeks 1 day size, no poles or yolk sacs, findings. suspicious for failure. . Correlation with serial beta hCG levels and sonography advised Progress Note: Pt's Optical Effects Camera Operator is Dr. Blanco. who does not come here. - Physician Consult Information Physician Contacted: Dottie Lucio Ruff (Optical Effects Camera Operator) Outcome Of Conversation: She will consult. Progress - Interventions Interventions:: Observation, Oxygen - Medications Administered Intravenous: Diuretic - Data Reviewed Data Reviewed: Lab, Diagnostic imaging, EKG, Old records - Patient Status Patient status: Partially improved - Continuity of Care Discussed patient case with:: Patient, ED Nurse, Covering for PMD Discussed pt. case with splunk consultant/specialty: Cardiology, Obstetrics/Gynecology - Patient Plan Patient Plan: Admission, Telemetry Disposition Discussed With : Andrew Hung Comment: He accepted pt on his service. Pt was also d/w Dr. Rajan. Doctor Will See Patient In The: Hospital Counseled Patient/Family Regarding: Studies Performed, Diagnosis - Disposition Disposition: HOSPITALIZED Disposition Time: 20:21 Condition: GUARDED - Clinical Impression Clinical Impression: CHF exacerbation,
[2017-05-22] MEDS ORDERED: Albuterol-Ipratrop 3 mg / 0.5 (3 ml) UD INH PRN (23:59)
[2017-05-23] MEDS: Promethazine DM 12.5 mg-30 mg/10 ml Syrup PO SCH ×4 (00:46→18:15)
--- NOTE | 2017-05-23 00:58 | CP.PCM.CON ---
History of Present Illness - History of Present Illness History of Present Illness: Asked by Dr. Valenzuela, on behalf of Dr. Hung, to see patient: ultrasound findings suggest early loss. Patient received in bed 10 in E.D. in [facility], 05/21/17 at approximately 2040 hours. Awake, alert, oriented to time, person and place; pleasant and cooperative. 31 y.o. , LMP beginning 03/2017, admitted for CHF exacerbation. Patient has a private barrel maker provider affiliated with [facility], Dr. Blanco. Patient saw him 05/21/17 for office visit - Pap test was obtained; office based ultrasound was performed. ... "he said I was about 5 weeks +/- in each sac. He didn't' see anything" ... thought to be too early. Patient had a previous E.D. evaluation 04/22/2017: at which time, ultrasound revealed two gestational sacs: sac A contained a yolk sac, a pole, no cardiac activity. Sac B neither yolk sac nor pole...."Both gestational sacs are too small for gestational age calculation". The impression of today's ultrasound is that of "asymmetric size and shape of gestational sacs in uterus, 7w 5d and 6w 1d, no poles or yolk sacs, findings suspicious for failure." Patient reports vaginal spitting x 2 weeks, and foul odor to vaginal discharge, also x 2 weeks; (+) nausea. "I just feel blah" P Ob: 2009, , female, 6lb 11oz, [facility]. 2007, Spont ab x 1, "very early", with D&C. 2011, VTOP x 2, each less than 6 weeks, with D&C - no complications. 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 PSH: D&C x 3; 2009, placement of debrillator; 04/2017, repair of anal fistula. Allergies: protonix = itching Meds: see list Soc Hx: denies tobacco, illicit drug or EtOH use. With significant other x 2 years. Fam Hx: Mother alive 56 y.o. HTN. Father alive 57 y.o. - cardiac disease ... "he has the exact same condition as me". No known fam h/o cancer Review of Systems - Review of Systems All systems: reviewed and no additional remarkable complaints except - Reproductive: Female Reproductive:Female: Vaginal Odor, Other Additional comments: vaginal spotting Past Patient History - Infectious Disease Hx of Infectious Diseases: None - Past Medical History & Family History Past Medical History?: Yes Pertinent Family History: Mother - HTN. Father - cardiac issues - Past Social History Smoking Status: Never Smoked Drugs: Denies Home Situation {Lives}: With Family - CARDIAC Hx Atrial Fibrillation: Yes (ablation sep 2015) Hx Congestive Heart Failure: Yes Hx Pacemaker: Yes (AICD) - PULMONARY Hx Respiratory Disorders: No - NEUROLOGICAL Hx Neurological Disorder: No - HEENT Hx HEENT Problems: No - RENAL Hx Chronic Kidney Disease: No - ENDOCRINE/METABOLIC Hx Endocrine Disorders: No - HEMATOLOGICAL/ONCOLOGICAL Hx Blood Disorders: No - INTEGUMENTARY Hx Dermatological Problems: No - MUSCULOSKELETAL/RHEUMATOLOGICAL Hx Musculoskeletal Disorders: No Hx Falls: No - GASTROINTESTINAL Hx Gastrointestinal Disorders: Yes Hx Hemorrhoids: Yes - GENITOURINARY/GYNECOLOGICAL Hx Genitourinary Disorders: No : 5 Para: 1 Termination of : 3 - PSYCHIATRIC Hx Substance Use: No - SURGICAL HISTORY Hx Surgeries: Yes Hx Dilation and Curettage: Yes (2007, 2014 x 2) Other/Comment: AICD 2009 - ANESTHESIA Hx Anesthesia: Yes Hx Anesthesia Reactions: No Hx Malignant Hyperthermia: No Meds Allergies/Adverse Reactions: Allergies Allergy/AdvReac Type Severity Reaction Status Date / Time pantoprazole sodium Allergy Severe ITCHING Verified 04/21/17 15:08 [From Protonix] - Medications Medications: Current Medications Acetaminophen (Tylenol 325mg Tab) 650 mg PO Q6 PRN PRN Reason: Pain, moderate (4-7) Albuterol/Ipratropium (Duoneb 3 Mg/0.5 Mg (3 Ml) Ud) 3 ml INH RQ6 JIM Digoxin (Lanoxin) 0.25 mg PO DAILY@1800 JIM Enoxaparin Sodium (Lovenox) 40 mg SC DAILY JIM Furosemide (Lasix) 80 mg IVP Q12 JIM Promethazine HCl/Dextromethorphan (Phenergan Dm Syrup) 10 ml PO Q6 JIM Physical Exam - Constitutional Appears: Well, No Acute Distress - Head Exam Head Exam: NORMAL INSPECTION - ENT Exam ENT Exam: Mucous Membranes Moist - Neck Exam Neck exam: Positive for: Full Rom - Respiratory Exam Respiratory Exam: NORMAL BREATHING PATTERN - GI/Abdominal Exam GI & Abdominal Exam: Soft Additional comments: Non tender, non distended - Exam Bimanual exam: NORMAL BIMANUAL EXAM Additional comments: No cervical motion tenderness; uterus approximately 12 weeks, anteverted, soft, mobile, non tender; no adnexal masses or tenderness elicited. (+) odor to vaginal discharge - Extremities Exam Extremities exam: Positive for: full ROM, normal inspection - Back Exam Back exam: NORMAL INSPECTION - Neurological Exam Neurological exam: Alert, Oriented x3 - Psychiatric Exam Psychiatric exam: Normal Affect, Normal Mood - Skin Skin Exam: Dry, Normal Color Results - Vital Signs Recent Vital Signs: Last Vital Signs Temp 97.6 F 05/22/17 22:45 Pulse 106 H 05/22/17 22:45 Resp 20 05/22/17 22:45 BP 92/70 L 05/22/17 22:45 Pulse Ox 98 05/22/17 22:45 - Labs Result Diagrams: 05/22/17 15:46 05/22/17 15:46 Labs: Laboratory Results - last 24 hr 05/22/17 05/22/17 05/22/17 15:46 15:46 15:46 WBC 3.9 L RBC 4.24 Hgb 12.7 Hct 37.6 MCV 88.6 MCH 30.0 MCHC 33.8 RDW 14.9 H Plt Count 206 MPV 9.0 Neut % (Auto) 70.5 Lymph % (Auto) 21.5 [place] % (Auto) 6.8 Eos % (Auto) 0.5 Baso % (Auto) 0.7 Neut # 2.8 Lymph # 0.8 L [place] # 0.3 Eos # 0.0 Baso # 0.0 PT 14.7 H INR 1.3 APTT 31 Sodium 131 L Potassium 3.7 Chloride 100 Carbon Dioxide 21 L Anion Gap 14 BUN 7 Creatinine 0.7 Est GFR ( Amer) > 60 Est GFR (Non-Af Amer) > 60 Random Glucose 97 Calcium 8.8 Magnesium 1.5 L Total Bilirubin 1.7 H AST 35 ALT 24 Alkaline Phosphatase 37 L Troponin I 0.0420 NT-Pro-B Natriuret Pep 4110 H Total Protein 7.7 Albumin 3.9 Globulin 3.8 Albumin/Globulin Ratio 1.0 Beta HCG, Quant Urine Color Urine Clarity Urine pH Ur Specific [place] Urine Protein Urine Glucose (UA) Urine Ketones Urine Blood Urine Nitrate Urine Bilirubin Urine Urobilinogen Ur Leukocyte Esterase Urine WBC (Auto) Urine RBC (Auto) Ur Squamous Epith Cells Urine Bacteria Urine HCG, Qual Digoxin 05/22/17 05/22/17 05/22/17 15:46 15:54 16:24 WBC RBC Hgb Hct MCV MCH MCHC RDW Plt Count MPV Neut % (Auto) Lymph % (Auto) [place] % (Auto) Eos % (Auto) Baso % (Auto) Neut # Lymph # [place] # Eos # Baso # PT INR APTT Sodium Potassium Chloride Carbon Dioxide Anion Gap BUN Creatinine Est GFR ( Amer) Est GFR (Non-Af Amer) Random Glucose Calcium Magnesium Total Bilirubin AST ALT Alkaline Phosphatase Troponin I NT-Pro-B Natriuret Pep Total Protein Albumin Globulin Albumin/Globulin Ratio Beta HCG, Quant . Urine Color Marnie Urine Clarity Hazy Urine pH 5.0 Ur Specific [place] 1.026 Urine Protein 3+ H Urine Glucose (UA) Normal Urine Ketones Negative Urine Blood 1+ H Urine Nitrate Negative Urine Bilirubin Negative Urine Urobilinogen 4.0 H Ur Leukocyte Esterase 1+ H Urine WBC (Auto) 16 H Urine RBC (Auto) 24 H Ur Squamous Epith Cells 16 H Urine Bacteria Occ H Urine HCG, Qual Positive Digoxin 0.9 Assessment & Plan - Assessment and Plan (Free Text) Assessment: Laboratory and ultrasound reports reviewed by me personally. The comparison of the two ultrasound reports one month apart and their significance was discussed at length with the patientt. She expressed an understanding re: early loss, and that no intervention is needed at this time. She further understands and agrees the matter can be addressed once she is stabilized and is discharged to follow up with her private management specialist provider. Secondary issue: presumptive bacterial vaginitis, which can be treated to alleviated patient's discontentment with the odor. Patient is otherwise stable from a management specialist perspective. Mild hyponatremia noted; to be addressed by primary medical team. Plan: 1) Medical management as per primary medical team 2) Flagyl 500 mg p.o. BID x 7 days, if not contraindicated. If p.o. no good, the metrogel vaginal cream, 1 applicator per vagina QHS x 5 days. 3) Upon discharge, patient to follow up with Dr. Blanco Thank you for the pleasure of this consultation - Date & Time Date: 05/22/17 Time: 21:10
[2017-05-23] MEDS: Albuterol-Ipratrop 3 mg / 0.5 (3 ml) UD INH SCH ×4 (01:22→19:33)
[2017-05-23] MEDS ORDERED: Enoxaparin 40 mg Syringe SC SCH (10:00)
--- NOTE | 2017-05-23 12:00 | CARD ---
APPROVED REPORT EKG Measurement Heart [id number] <Conclusion> Sinus tachycardia with 1st degree AV block Cannot rule out Anterior infarct, age undetermined Abnormal ECG
[2017-05-23 14:17] LABS: HEMATOCRIT 36.5 % (34.0-47.0); MEAN CELL VOLUME 88.7 fL (81.0-99.0); MEAN CORPUSCULAR HEMOGLOBIN 29.8 pg (27.0-31.0); MEAN CORPUSCULAR HGB CONC 33.6 g/dL (33.0-37.0); MEAN PLATELET VOLUME 9.2 fL (7.2-11.7); RED CELL DISTRIBUTION WIDTH 15.4 % (11.5-14.5); WHITE BLOOD COUNT 3.6 K/uL (4.8-10.8)
[2017-05-23 14:29] LABS: CHLORIDE 97 mmol/L (98-107); POTASSIUM 3.4 mmol/L (3.6-5.2); SODIUM 131 mmol/L (132-148)
--- NOTE | 2017-05-23 14:30 | CP.PCM.CON ---
<Yolande Lamb - Last Filed: 05/23/17 17:17> History of Present Illness - History of Present Illness History of Present Illness: Cardiology Consult Note- Dr. Mayfield's service CC: shortness of breath HPI: 31 year old female with past medical history significant for cardiomyopathy and one transient incidence of atrial fibrillation presents with complaints of increasing shortness of breath. She states that she has been having symptoms for the past several weeks now without much relief. She normally uses the nebulizer or Lasix however she stated that neither was effective. She states that her last menstrual period was in March of this year. Patient states that though she skipped a period in April and began experiencing increased breast tenderness, she did not suspect that she was . It was only after an ED visit a few weeks back where she was found to be incidentally. During a routine visit to her OBGYN yesterday, she learned that she was but that the would not be viable. Patient states that she came to be evaluated due to worsening dyspnea. She admits to some chest discomfort. She denies headaches, palpitations, paresthesias, nausea or vomiting at this time. 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 Review of Systems - Constitutional Constitutional: absent: Fever, Frequent Falls - EENT Eyes: absent: Change in Vision - Cardiovascular Cardiovascular: Dyspnea, Dyspnea on Exertion - Respiratory Respiratory: Dyspnea - Gastrointestinal Gastrointestinal: absent: Nausea, Vomiting - Reproductive: Female Reproductive:Female: Amenorrhea (due to ) - Musculoskeletal Musculoskeletal: absent: Back Pain - Integumentary Integumentary: Swelling - Hematologic/Lymphatic Hematologic: absent: Easy Bruising Past Patient History - Infectious Disease Hx of Infectious Diseases: None - Past Medical History & Family History Past Medical History?: Yes - Past Social History Smoking Status: Never Smoked Drugs: Denies Home Situation {Lives}: With Family - CARDIAC Hx Atrial Fibrillation: Yes (ablation sep 2015) Hx Congestive Heart Failure: Yes Hx Pacemaker: Yes (AICD) - PULMONARY Hx Respiratory Disorders: No - NEUROLOGICAL Hx Neurological Disorder: No - HEENT Hx HEENT Problems: No - RENAL Hx Chronic Kidney Disease: No - ENDOCRINE/METABOLIC Hx Endocrine Disorders: No - HEMATOLOGICAL/ONCOLOGICAL Hx Blood Disorders: No - INTEGUMENTARY Hx Dermatological Problems: No - MUSCULOSKELETAL/RHEUMATOLOGICAL Hx Musculoskeletal Disorders: No Hx Falls: No - GASTROINTESTINAL Hx Gastrointestinal Disorders: Yes Hx Hemorrhoids: Yes - GENITOURINARY/GYNECOLOGICAL Hx Genitourinary Disorders: No : 5 Para: 1 Termination of : 3 - PSYCHIATRIC Hx Substance Use: No - SURGICAL HISTORY Hx Surgeries: Yes Hx Dilation and Curettage: Yes (2007, 2014 x 2) Other/Comment: AICD 2009 - ANESTHESIA Hx Anesthesia: Yes Hx Anesthesia Reactions: No Hx Malignant Hyperthermia: No Meds Allergies/Adverse Reactions: Allergies Allergy/AdvReac Type Severity Reaction Status Date / Time pantoprazole sodium Allergy Severe ITCHING Verified 04/21/17 15:08 [From Protonix] - Medications Medications: Current Medications Acetaminophen (Tylenol 325mg Tab) 650 mg PO Q6 PRN PRN Reason: Pain, moderate (4-7) Last Admin: 05/23/17 00:46 Dose: 650 mg Albuterol/Ipratropium (Duoneb 3 Mg/0.5 Mg (3 Ml) Ud) 3 ml INH RQ6 JIM Last Admin: 05/23/17 13:14 Dose: 3 ml Digoxin (Lanoxin) 0.25 mg PO DAILY@1800 JIM Enoxaparin Sodium (Lovenox) 40 mg SC DAILY [facility] Last Admin: 05/23/17 10:04 Dose: 40 mg Furosemide (Lasix) 80 mg IVP Q12 JIM Last Admin: 05/23/17 10:04 Dose: 80 mg Promethazine HCl/Dextromethorphan (Phenergan Dm Syrup) 10 ml PO Q6 JIM Last Admin: 05/23/17 11:33 Dose: 10 ml Physical Exam - Constitutional Appears: Non-toxic, No Acute Distress, Other (large body habitus) - Head Exam Head Exam: ATRAUMATIC, NORMAL INSPECTION, NORMOCEPHALIC - Eye Exam Eye Exam: EOMI, Normal appearance, PERRL Pupil Exam: NORMAL ACCOMODATION, PERRL - ENT Exam ENT Exam: Mucous Membranes Moist - Neck Exam Neck exam: Positive for: Full Rom - Respiratory Exam Respiratory Exam: Rales, NORMAL BREATHING PATTERN. absent: Wheezes, Stridor - Cardiovascular Exam Cardiovascular Exam: +S1, +S2 - GI/Abdominal Exam GI & Abdominal Exam: Normal Bowel Sounds, Soft. absent: Tenderness - Extremities Exam Extremities exam: Positive for: normal capillary refill, pedal edema, pedal pulses present - Back Exam Back exam: FULL ROM - Neurological Exam Neurological exam: Alert, Oriented x3 - Psychiatric Exam Psychiatric exam: Normal Affect, Normal Mood - Skin Skin Exam: Dry, Intact, Normal Color, Warm Results - Vital Signs Recent Vital Signs: Last Vital Signs Temp 97.9 F 05/23/17 07:20 Pulse 114 H 05/23/17 13:00 Resp 20 05/23/17 13:00 BP 114/81 05/23/17 13:00 Pulse Ox 99 05/23/17 13:00 - Labs Result Diagrams: 05/23/17 14:06 05/23/17 14:06 Labs: Laboratory Results - last 24 hr 05/22/17 05/22/17 05/22/17 15:46 15:46 15:46 WBC 3.9 L RBC 4.24 Hgb 12.7 Hct 37.6 MCV 88.6 MCH 30.0 MCHC 33.8 RDW 14.9 H Plt Count 206 MPV 9.0 Neut % (Auto) 70.5 Lymph % (Auto) 21.5 [place] % (Auto) 6.8 Eos % (Auto) 0.5 Baso % (Auto) 0.7 Neut # 2.8 Lymph # 0.8 L [place] # 0.3 Eos # 0.0 Baso # 0.0 PT 14.7 H INR 1.3 APTT 31 Sodium 131 L Potassium 3.7 Chloride 100 Carbon Dioxide 21 L Anion Gap 14 BUN 7 Creatinine 0.7 Est GFR ( Amer) > 60 Est GFR (Non-Af Amer) > 60 Random Glucose 97 Calcium 8.8 Magnesium 1.5 L Total Bilirubin 1.7 H AST 35 ALT 24 Alkaline Phosphatase 37 L Troponin I 0.0420 NT-Pro-B Natriuret Pep 4110 H Total Protein 7.7 Albumin 3.9 Globulin 3.8 Albumin/Globulin Ratio 1.0 Beta HCG, Quant Urine Color Urine Clarity Urine pH Ur Specific [place] Urine Protein Urine Glucose (UA) Urine Ketones Urine Blood Urine Nitrate Urine Bilirubin Urine Urobilinogen Ur Leukocyte Esterase Urine WBC (Auto) Urine RBC (Auto) Ur Squamous Epith Cells Urine Bacteria Urine HCG, Qual Digoxin 05/22/17 05/22/17 05/22/17 15:46 15:54 16:24 WBC RBC Hgb Hct MCV MCH MCHC RDW Plt Count MPV Neut % (Auto) Lymph % (Auto) [place] % (Auto) Eos % (Auto) Baso % (Auto) Neut # Lymph # [place] # Eos # Baso # PT INR APTT Sodium Potassium Chloride Carbon Dioxide Anion Gap BUN Creatinine Est GFR ( Amer) Est GFR (Non-Af Amer) Random Glucose Calcium Magnesium Total Bilirubin AST ALT Alkaline Phosphatase Troponin I NT-Pro-B Natriuret Pep Total Protein Albumin Globulin Albumin/Globulin Ratio Beta HCG, Quant . Urine Color Marnie Urine Clarity Hazy Urine pH 5.0 Ur Specific [place] 1.026 Urine Protein 3+ H Urine Glucose (UA) Normal Urine Ketones Negative Urine Blood 1+ H Urine Nitrate Negative Urine Bilirubin Negative Urine Urobilinogen 4.0 H Ur Leukocyte Esterase 1+ H Urine WBC (Auto) 16 H Urine RBC (Auto) 24 H Ur Squamous Epith Cells 16 H Urine Bacteria Occ H Urine HCG, Qual Positive Digoxin 0.9 Assessment & Plan (1) cardiomyopathy Assessment and Plan: Diagnosed following patient's in [address] Rajan outpatient but has not been compliant with therapy. Patient was advised not to become due to high risk nature Patient advised to contraceptive measures- Suggestions fror IUD or implanon device Since has been confirmed nonviable - May continue with Lasix therapy and Digoxin Oxygen as tolerated per nasal canula Avoid unnecessary IV fluid administration (2) demise Assessment and Plan: OBGYN Dr. Blanco confirmed findings in the office yesterday per patient Ultrasound 05/22- Asymmetric gestational sacs noted- No poles or yolk sac appreciated Findings suspicious for failure In comparison to Ultrasound from 04/22: two gestational sacs noted then. Gestational sac A: yolk sac and pole present Gestational sac B: Did not contain evidence of yolk sac or pole. Clinical correlation was warranted . Status: Acute (3) History of atrial fibrillation Assessment and Plan: As noted above. Echo from November - EF less than 20%, LV systolic function severely impaired; severe pulm hypertension Dig and Lasix Therapeutic Lovenox Status: Acute (4) Prophylactic measure Assessment and Plan: Therapeutic Lovenox 110 SC Q12 GI prophylaxis not indicated at this time Counseled extensively on the need for contraceptive measures. can complicate patient's heart condition Discussed with attending- Management and planning per Dr. Mayfield Status: Acute <Anjum Mayfield - Last Filed: 05/23/17 20:44> Meds - Medications Medications: Current Medications Acetaminophen (Tylenol 325mg Tab) 650 mg PO Q6 PRN PRN Reason: Pain, moderate (4-7) Last Admin: 05/23/17 00:46 Dose: 650 mg Albuterol/Ipratropium (Duoneb 3 Mg/0.5 Mg (3 Ml) Ud) 3 ml INH RQ6 JIM Last Admin: 05/23/17 19:33 Dose: 3 ml Digoxin (Lanoxin) 0.25 mg PO DAILY@1800 JIM Last Admin: 05/23/17 18:15 Dose: 0.25 mg Enoxaparin Sodium (Lovenox) 110 mg SC Q12 JIM Furosemide (Lasix) 80 mg IVP Q12 JIM Last Admin: 05/23/17 10:04 Dose: 80 mg Metronidazole (Flagyl) 500 mg in 100 mls @ 100 mls/hr IVPB Q8 JIM Oxycodone/Acetaminophen (Percocet 5/325 Mg Tab) 1 tab PO Q6H PRN PRN Reason: Pain, moderate (4-7) Stop: 05/26/17 19:55 Last Admin: 05/23/17 19:58 Dose: 1 tab Potassium Chloride (Klor-Con 10) 10 meq PO BRK JIM Last Admin: 05/23/17 18:15 Dose: 10 meq Promethazine HCl/Dextromethorphan (Phenergan Dm Syrup) 10 ml PO Q6 JIM Last Admin: 05/23/17 18:15 Dose: Not Given Results - Vital Signs Recent Vital Signs: Last Vital Signs Temp 97.5 F L 05/23/17 15:17 Pulse 104 H 05/23/17 16:00 Resp 20 05/23/17 15:17 BP 106/75 05/23/17 15:17 Pulse Ox 99 05/23/17 15:17 - Labs Result Diagrams: 05/23/17 14:06 05/23/17 14:06 Labs: Laboratory Results - last 24 hr 05/23/17 05/23/17 05/23/17 14:06 14:06 14:06 WBC 3.6 L RBC 4.12 Hgb 12.3 Hct 36.5 MCV 88.7 MCH 29.8 MCHC 33.6 RDW 15.4 H Plt Count 187 MPV 9.2 D-Dimer, Quantitative 1131 H Sodium 131 L Potassium 3.4 L Chloride 97 L Carbon Dioxide 21 L Anion Gap 16 BUN 9 Creatinine 0.7 Est GFR ( Amer) > 60 Est GFR (Non-Af Amer) > 60 Random Glucose 101 Calcium 9.1 Total Bilirubin 1.3 AST 22 ALT 33 Alkaline Phosphatase 35 L Total Creatine Kinase 65 CK-MB (Mass) 0.23 Troponin I, Quant 0.0170 Total Protein 7.6 Albumin 3.8 Globulin 3.8 Albumin/Globulin Ratio 1.0 Assessment & Plan - Assessment and Plan (Free Text) Assessment: Patient seen and evaluated with the medical accounts receivable specialist Plan of care as documented
[2017-05-23 14:31] LABS: BILIRUBIN,TOTAL 1.3 mg/dL (0.2-1.3); GFR AFRICAN-AMERICAN > 60
[2017-05-23 14:32] LABS: ALKALINE PHOSPHATASE 35 U/L (38-126); ALT/SGPT 33 U/L (9-52); AST/SGOT 22 U/L (14-36); BLOOD UREA NITROGEN 9 mg/dL (7-17); CALCIUM 9.1 mg/dl (8.6-10.4); CARBON DIOXIDE 21 mmol/L (22-30); GLUCOSE,RANDOM 101 mg/dL (65-105); TOTAL PROTEIN 7.6 g/dL (6.3-8.3)
--- NOTE | 2017-05-23 16:32 | CP.PCM.CON ---
History of Present Illness - History of Present Illness History of Present Illness: 31 year old female with past medical history significant for cardiomyopathy, atrial fibrillation presents with complaints of increasing shortness of breath. She states that she has been having symptoms for the past several weeks now without much relief. She normally uses the nebulizer or Lasix however she stated that neither was working. She states that her last menstrual period was in March of this year. Patient states that though she skipped a period in April and began experiencing increased breast tenderness, she did not suspect that she was . It was only after an ED visit a few weeks back where she found out about . During a routine visit to her OBGYN yesterday, she learned that she was but that the would not be viable. Patient states that she came to be evaluated due to worsening dyspnea. She admits to some chest discomfort. She denies headaches, palpitations, paresthesias, nausea or vomiting at this time. She reports cough but denies fever, chills and phlegm. Review of Systems - Review of Systems All systems: reviewed and no additional remarkable complaints except (as mentioned in HPI) Past Patient History - Infectious Disease Hx of Infectious Diseases: None - Past Medical History & Family History Past Medical History?: Yes - Past Social History Smoking Status: Never Smoked Drugs: Denies Home Situation {Lives}: With Family - CARDIAC Hx Atrial Fibrillation: Yes (ablation sep 2015) Hx Congestive Heart Failure: Yes Hx Pacemaker: Yes (AICD) - PULMONARY Hx Respiratory Disorders: No - NEUROLOGICAL Hx Neurological Disorder: No - HEENT Hx HEENT Problems: No - RENAL Hx Chronic Kidney Disease: No - ENDOCRINE/METABOLIC Hx Endocrine Disorders: No - HEMATOLOGICAL/ONCOLOGICAL Hx Blood Disorders: No - INTEGUMENTARY Hx Dermatological Problems: No - MUSCULOSKELETAL/RHEUMATOLOGICAL Hx Musculoskeletal Disorders: No Hx Falls: No - GASTROINTESTINAL Hx Gastrointestinal Disorders: Yes Hx Hemorrhoids: Yes - GENITOURINARY/GYNECOLOGICAL Hx Genitourinary Disorders: No : 5 Para: 1 Termination of : 3 - PSYCHIATRIC Hx Substance Use: No - SURGICAL HISTORY Hx Surgeries: Yes Hx Dilation and Curettage: Yes (2007, 2014 x 2) Other/Comment: AICD 2009 - ANESTHESIA Hx Anesthesia: Yes Hx Anesthesia Reactions: No Hx Malignant Hyperthermia: No Meds Allergies/Adverse Reactions: Allergies Allergy/AdvReac Type Severity Reaction Status Date / Time pantoprazole sodium Allergy Severe ITCHING Verified 04/21/17 15:08 [From Protonix] - Medications Medications: Current Medications Acetaminophen (Tylenol 325mg Tab) 650 mg PO Q6 PRN PRN Reason: Pain, moderate (4-7) Last Admin: 05/23/17 00:46 Dose: 650 mg Albuterol/Ipratropium (Duoneb 3 Mg/0.5 Mg (3 Ml) Ud) 3 ml INH RQ6 JIM Last Admin: 05/23/17 13:14 Dose: 3 ml Digoxin (Lanoxin) 0.25 mg PO DAILY@1800 JIM Enoxaparin Sodium (Lovenox) 110 mg SC Q12 JIM Furosemide (Lasix) 80 mg IVP Q12 JIM Last Admin: 05/23/17 10:04 Dose: 80 mg Potassium Chloride (Klor-Con 10) 10 meq PO BRK JIM Promethazine HCl/Dextromethorphan (Phenergan Dm Syrup) 10 ml PO Q6 JIM Last Admin: 05/23/17 11:33 Dose: 10 ml Physical Exam - Head Exam Head Exam: NORMAL INSPECTION - Eye Exam Eye Exam: Normal appearance - ENT Exam ENT Exam: Mucous Membranes Moist - Respiratory Exam Respiratory Exam: Clear to Auscultation Bilateral - Cardiovascular Exam Cardiovascular Exam: Tachycardia, REGULAR RHYTHM - GI/Abdominal Exam GI & Abdominal Exam: Normal Bowel Sounds, Soft - Extremities Exam Extremities exam: Positive for: pedal edema - Neurological Exam Neurological exam: Alert, Oriented x3 Results - Vital Signs Recent Vital Signs: Last Vital Signs Temp 97.5 F L 05/23/17 15:17 Pulse 119 H 05/23/17 15:17 Resp 20 05/23/17 15:17 BP 106/75 05/23/17 15:17 Pulse Ox 99 05/23/17 15:17 - Labs Result Diagrams: 05/23/17 14:06 05/23/17 14:06 Labs: Laboratory Results - last 24 hr 05/22/17 05/23/17 05/23/17 16:24 14:06 14:06 WBC RBC Hgb Hct MCV MCH MCHC RDW Plt Count MPV D-Dimer, Quantitative 1131 H Sodium 131 L Potassium 3.4 L Chloride 97 L Carbon Dioxide 21 L Anion Gap 16 BUN 9 Creatinine 0.7 Est GFR ( Amer) > 60 Est GFR (Non-Af Amer) > 60 Random Glucose 101 Calcium 9.1 Total Bilirubin 1.3 AST 22 ALT 33 Alkaline Phosphatase 35 L Total Creatine Kinase 65 CK-MB (Mass) 0.23 Troponin I, Quant 0.0170 Total Protein 7.6 Albumin 3.8 Globulin 3.8 Albumin/Globulin Ratio 1.0 Urine Color Marnie Urine Clarity Hazy Urine pH 5.0 Ur Specific [place] 1.026 Urine Protein 3+ H Urine Glucose (UA) Normal Urine Ketones Negative Urine Blood 1+ H Urine Nitrate Negative Urine Bilirubin Negative Urine Urobilinogen 4.0 H Ur Leukocyte Esterase 1+ H Urine WBC (Auto) 16 H Urine RBC (Auto) 24 H Ur Squamous Epith Cells 16 H Urine Bacteria Occ H Urine HCG, Qual Positive 05/23/17 14:06 WBC 3.6 L RBC 4.12 Hgb 12.3 Hct 36.5 MCV 88.7 MCH 29.8 MCHC 33.6 RDW 15.4 H Plt Count 187 MPV 9.2 D-Dimer, Quantitative Sodium Potassium Chloride Carbon Dioxide Anion Gap BUN Creatinine Est GFR ( Amer) Est GFR (Non-Af Amer) Random Glucose Calcium Total Bilirubin AST ALT Alkaline Phosphatase Total Creatine Kinase CK-MB (Mass) Troponin I, Quant Total Protein Albumin Globulin Albumin/Globulin Ratio Urine Color Urine Clarity Urine pH Ur Specific [place] Urine Protein Urine Glucose (UA) Urine Ketones Urine Blood Urine Nitrate Urine Bilirubin Urine Urobilinogen Ur Leukocyte Esterase Urine WBC (Auto) Urine RBC (Auto) Ur Squamous Epith Cells Urine Bacteria Urine HCG, Qual Assessment & Plan - Assessment and Plan (Free Text) Assessment: Dyspnea Cough CHF/Post cardiomyopathy Demise Afib Bronchodilators Lasix Keep pt negative balance Monitor I/O's although pt is tachycardic, doubt there is any PE as room air O2 is 99% Spoke to pt at length regarding her and she is requesting tubal ligation as future pregnancies could be life threatening for her DVT/GI prophalaxis
--- NOTE | 2017-05-23 17:47 | CP.PCM.PN ---
<PollyjarodCastillo - Last Filed: 05/23/17 22:09> Subjective - Date & Time of Evaluation Date of Evaluation: 05/23/17 Time of Evaluation: 17:44 - Subjective Subjective: PGY-[address] Cheung's service: Patient seen and examined at bedside. She is reporting "heaviness in her chest, " and "pain in her ribs from dry coughing" associated with nausea/vomiting. She reports these symptoms have been worsening over the past few days. She denies subjective fever, chills, headache, palpitations, diarrhea, or constipation. Patient questioned about understanding of course. Patient is aware of loss of . She knows to follow up with EQUIPMENT ANALYST as outpatient to monitor resolution. Objective - Vital Signs/Intake and Output Vital Signs (last 24 hours): Temp Pulse Resp BP Pulse Ox 97.5 F L 104 H 20 106/75 99 05/23/17 15:17 05/23/17 16:00 05/23/17 15:17 05/23/17 15:17 05/23/17 15:17 Intake and Output: 05/23/17 05/23/17 06:59 18:59 Intake Total 280 Balance 280 - Medications Medications: Current Medications Acetaminophen (Tylenol 325mg Tab) 650 mg PO Q6 PRN PRN Reason: Pain, moderate (4-7) Last Admin: 05/23/17 00:46 Dose: 650 mg Albuterol/Ipratropium (Duoneb 3 Mg/0.5 Mg (3 Ml) Ud) 3 ml INH RQ6 JIM Last Admin: 05/23/17 13:14 Dose: 3 ml Digoxin (Lanoxin) 0.25 mg PO DAILY@1800 JIM Enoxaparin Sodium (Lovenox) 110 mg SC Q12 JIM Furosemide (Lasix) 80 mg IVP Q12 JIM Last Admin: 05/23/17 10:04 Dose: 80 mg Metronidazole (Flagyl) 500 mg in 100 mls @ 100 mls/hr IVPB Q8 JIM Potassium Chloride (Klor-Con 10) 10 meq PO BRK JIM Promethazine HCl/Dextromethorphan (Phenergan Dm Syrup) 10 ml PO Q6 JIM Last Admin: 05/23/17 11:33 Dose: 10 ml - Labs Labs: 05/23/17 14:06 05/23/17 14:06 PT 14.7 SECONDS (9.7-12.2) H 05/22/17 15:46 INR 1.3 05/22/17 15:46 APTT 31 SECONDS (21-34) 05/22/17 15:46 - Constitutional Appears: Non-toxic, No Acute Distress - Head Exam Head Exam: NORMAL INSPECTION, NORMOCEPHALIC - ENT Exam ENT Exam: Mucous Membranes Moist - Respiratory Exam Respiratory Exam: Clear to Ausculation Bilateral, NORMAL BREATHING PATTERN. absent: Rales, Rhonchi, Wheezes - Cardiovascular Exam Cardiovascular Exam: REGULAR RHYTHM, +S1, +S2 - GI/Abdominal Exam GI & Abdominal Exam: Soft, Normal Bowel Sounds. absent: Distended, Firm - Extremities Exam Extremities Exam: Normal Capillary Refill, Pedal Edema - Neurological Exam Neurological Exam: Alert, Awake, Oriented x3 - Psychiatric Exam Psychiatric exam: Normal Affect, Normal Mood - Skin Skin Exam: Dry, Intact, Warm Assessment and Plan - Assessment and Plan (Free Text) Plan: demise OBGYN Dr. Blanco OPDX EQUIPMENT ANALYST US Pelvis/TV (05/22/17)- Asymmetric gestational sacs noted- No poles or yolk sac appreciated. Findings suspicious for failure -Ultrasound (04/22/17): two gestational sacs noted then. Gestational sac A: yolk sac and pole presentGestational sac B: Did not contain evidence of yolk sac or pole. Clinical correlation was warranted. Dr. Ruff, EQUIPMENT ANALYST consult: help appreciated - discussed with pt loss - will f/u with Dr. Blanco OPDX - Bacterial vaginosis: Flagyl BID x [address] Mayfield Cardiology Consult Diagnosed following in 2008 -Patient was advised not to become due to high risk nature -Patient advised to contraceptive measures- Suggestions for IUD/implanon device confirmed nonviable: Lasix 80mg IV BID Digoxin 0.25mg PO Daily O2 PRN 2L Duonebs INH Q6H Promethazine 10ml PO Q6H JIM Avoid unnecessary IV fluid administration History of atrial fibrillation Echo from November - EF less than 20%, LV systolic function severely impaired; severe pulm hypertension Digoxin 0.25mg PO Daily Therapeutic Lovenox - Per Cardio recc Bacterial Vaginosis Flagyl 500mg IV Q12H x 7 days - can be switched to PO when N/V resolves Prophylactic measure Therapeutic Lovenox 110 SC Q12 GI prophylaxis not indicated at this time Castillo Wilbert PGY-2 All medical management per Dr. Cheung <Krystal Cheung - Last Filed: 06/10/17 10:45> Objective - Vital Signs/Intake and Output Vital Signs (last 24 hours): Temp Pulse Resp BP Pulse Ox 97.3 F L 105 H 20 96/71 L 96 05/30/17 16:26 05/30/17 16:26 05/30/17 16:26 05/30/17 16:26 05/30/17 16:26 - Labs Labs: 05/28/17 07:37 05/29/17 11:46 PT 14.7 SECONDS (9.7-12.2) H 05/22/17 15:46 INR 1.3 05/22/17 15:46 APTT 31 SECONDS (21-34) 05/22/17 15:46 Attending/Attestation - Attestation I have personally seen and examined this patient.: Yes I have fully participated in the care of the patient.: Yes I have reviewed all pertinent clinical information, including history, physical exam and plan: Yes Notes (Text): Patient examined. Chest pain and coughing present. Ultrasound pelvis shows asymmetrical gastric sac, without pole. failure. Continue treatment for atrial fibrillation, bacterial vaginosis and cardiomyopathy.
[2017-05-23] MEDS: Potassium Chloride 10 mEq ER Tab PO SCH (18:15)
[2017-05-23] MEDS: Digoxin 250 mcg (0.25 mg) Tab PO SCH (18:15)
[2017-05-23] MEDS: Oxycodone/Acetaminophen 5/325 mg Tab PO PRN (19:58)
[2017-05-23] MEDS: metroNIDAZOLE IV 500 mg/100 ml 500 MG/100 ML BAG IVPB SCH (22:56)
[2017-05-23] MEDS: Enoxaparin 120 mg Syringe SC SCH (23:01)
--- NOTE | 2017-05-23 23:43 | CP.PCM.PN ---
Subjective - Date & Time of Evaluation Date of Evaluation: 05/23/17 Time of Evaluation: 21:30 - Subjective Subjective: clinically same. Objective - Vital Signs/Intake and Output Vital Signs (last 24 hours): Temp Pulse Resp BP Pulse Ox 97.5 F L 104 H 20 100/78 99 05/23/17 15:17 05/23/17 16:00 05/23/17 15:17 05/23/17 22:56 05/23/17 15:17 Intake and Output: 05/23/17 05/24/17 18:59 06:59 Intake Total 280 Balance 280 - Medications Medications: Current Medications Acetaminophen (Tylenol 325mg Tab) 650 mg PO Q6 PRN PRN Reason: Pain, moderate (4-7) Last Admin: 05/23/17 00:46 Dose: 650 mg Albuterol/Ipratropium (Duoneb 3 Mg/0.5 Mg (3 Ml) Ud) 3 ml INH RQ6 JIM Last Admin: 05/23/17 19:33 Dose: 3 ml Digoxin (Lanoxin) 0.25 mg PO DAILY@1800 JIM Last Admin: 05/23/17 18:15 Dose: 0.25 mg Enoxaparin Sodium (Lovenox) 110 mg SC Q12 JIM Last Admin: 05/23/17 23:01 Dose: 110 mg Furosemide (Lasix) 80 mg IVP Q12 JIM Last Admin: 05/23/17 22:56 Dose: Not Given Metronidazole (Flagyl) 500 mg in 100 mls @ 100 mls/hr IVPB Q8 JIM Last Admin: 05/23/17 22:56 Dose: 100 mls/hr Oxycodone/Acetaminophen (Percocet 5/325 Mg Tab) 1 tab PO Q6H PRN PRN Reason: Pain, moderate (4-7) Stop: 05/26/17 19:55 Last Admin: 05/23/17 19:58 Dose: 1 tab Potassium Chloride (Klor-Con 10) 10 meq PO BRK JIM Last Admin: 05/23/17 18:15 Dose: 10 meq Promethazine HCl/Dextromethorphan (Phenergan Dm Syrup) 10 ml PO Q6 JIM Last Admin: 05/23/17 18:15 Dose: Not Given - Labs Labs: 05/23/17 14:06 05/23/17 14:06 PT 14.7 SECONDS (9.7-12.2) H 05/22/17 15:46 INR 1.3 05/22/17 15:46 APTT 31 SECONDS (21-34) 05/22/17 15:46 - Constitutional Appears: Well - Head Exam Head Exam: ATRAUMATIC, NORMAL INSPECTION, NORMOCEPHALIC - Eye Exam Eye Exam: EOMI, Normal appearance, PERRL Pupil Exam: NORMAL ACCOMODATION, PERRL - ENT Exam ENT Exam: Mucous Membranes Moist, Normal Exam - Neck Exam Neck Exam: Full ROM, Normal Inspection. absent: Lymphadenopathy - Respiratory Exam Respiratory Exam: Clear to Ausculation Bilateral, NORMAL BREATHING PATTERN - Cardiovascular Exam Cardiovascular Exam: REGULAR RHYTHM, +S1, +S2. absent: Murmur - GI/Abdominal Exam GI & Abdominal Exam: Soft, Normal Bowel Sounds. absent: Tenderness - Rectal Exam Rectal Exam: NORMAL INSPECTION - Exam Exam: Circumcision, NORMAL INSPECTION External exam: NORMAL EXTERNAL EXAM Speculum exam: NORMAL SPECULUM EXAM Bimanual exam: NORMAL BIMANUAL EXAM - Extremities Exam Extremities Exam: Full ROM, Normal Capillary Refill, Normal Inspection. absent : Joint Swelling, Pedal Edema - Back Exam Back Exam: NORMAL INSPECTION - Neurological Exam Neurological Exam: Alert, Awake, CN II-XII Intact, Normal Gait, Oriented x3 - Psychiatric Exam Psychiatric exam: Normal Affect, Normal Mood - Skin Skin Exam: Dry, Intact, Normal Color, Warm Assessment and Plan (1) Asthma Status: Acute (2) Atrial fibrillation Status: Acute (3) CHF exacerbation Status: Acute (4) Chest discomfort Status: Acute (5) Dyspnea Status: Acute (6) demise Status: Acute (7) Foot sprain Status: Acute (8) History of atrial fibrillation Status: Acute (9) Leg edema Status: Acute (10) PNA (pneumonia) Status: Acute (11) cardiomyopathy Status: Acute (12) Status: Acute (13) Prophylactic measure Status: Acute (14) Rectal abscess Status: Acute (15) Rectal pain Status: Acute (16) UTI (urinary tract infection) Status: Acute (17) CHF (congestive heart failure) Status: Chronic (18) Systolic and diastolic CHF w/reduced LV function, NYHA class 4 Status: Chronic - Assessment and Plan (Free Text) Plan: Patient examined. Patient better. Continue digoxin. Continue furosemide, enoxaparin. Continue metronidazole. Continue supportive care.
[2017-05-24] MEDS: Albuterol-Ipratrop 3 mg / 0.5 (3 ml) UD INH SCH (02:07)
[2017-05-24] MEDS: metroNIDAZOLE IV 500 mg/100 ml 500 MG/100 ML BAG IVPB SCH ×3 (06:03→21:26)
[2017-05-24] MEDS: Oxycodone/Acetaminophen 5/325 mg Tab PO PRN ×2 (06:21→17:09)
[2017-05-24] MEDS: Promethazine DM 12.5 mg-30 mg/10 ml Syrup PO SCH ×4 (06:23→17:28)
[2017-05-24] MEDS: Potassium Chloride 10 mEq ER Tab PO SCH (09:00)
--- NOTE | 2017-05-24 09:08 | CP.PCM.PN ---
Subjective - Date & Time of Evaluation Date of Evaluation: 05/24/17 Time of Evaluation: 09:07 - Subjective Subjective: Pt seen and examined No events overnight Feels better Objective - Vital Signs/Intake and Output Vital Signs (last 24 hours): Temp Pulse Resp BP Pulse Ox 98.2 F 98 H 20 87/64 L 96 05/24/17 07:00 05/24/17 07:00 05/24/17 07:00 05/24/17 07:00 05/24/17 07:00 Intake and Output: 05/24/17 05/24/17 06:59 18:59 Intake Total 10 Balance 10 - Medications Medications: Current Medications Acetaminophen (Tylenol 325mg Tab) 650 mg PO Q6 PRN PRN Reason: Pain, moderate (4-7) Last Admin: 05/23/17 00:46 Dose: 650 mg Albuterol/Ipratropium (Duoneb 3 Mg/0.5 Mg (3 Ml) Ud) 3 ml INH RQ6 JIM Last Admin: 05/24/17 02:07 Dose: 3 ml Digoxin (Lanoxin) 0.25 mg PO DAILY@1800 JIM Last Admin: 05/23/17 18:15 Dose: 0.25 mg Enoxaparin Sodium (Lovenox) 110 mg SC Q12 JIM Last Admin: 05/23/17 23:01 Dose: 110 mg Furosemide (Lasix) 80 mg IVP Q12 JIM Last Admin: 05/23/17 22:56 Dose: Not Given Metronidazole (Flagyl) 500 mg in 100 mls @ 100 mls/hr IVPB Q8 JIM Last Admin: 05/24/17 06:03 Dose: 100 mls/hr Oxycodone/Acetaminophen (Percocet 5/325 Mg Tab) 1 tab PO Q6H PRN PRN Reason: Pain, moderate (4-7) Stop: 05/26/17 19:55 Last Admin: 05/24/17 06:21 Dose: 1 tab Potassium Chloride (Klor-Con 10) 10 meq PO BRK JIM Last Admin: 05/23/17 18:15 Dose: 10 meq Promethazine HCl/Dextromethorphan (Phenergan Dm Syrup) 10 ml PO Q6 JIM Last Admin: 05/24/17 06:23 Dose: Not Given - Labs Labs: 05/23/17 14:06 05/23/17 14:06 PT 14.7 SECONDS (9.7-12.2) H 05/22/17 15:46 INR 1.3 05/22/17 15:46 APTT 31 SECONDS (21-34) 05/22/17 15:46 - Head Exam Head Exam: NORMAL INSPECTION - Eye Exam Eye Exam: Normal appearance - ENT Exam ENT Exam: Mucous Membranes Moist - Respiratory Exam Respiratory Exam: Clear to Ausculation Bilateral - Cardiovascular Exam Cardiovascular Exam: REGULAR RHYTHM, +S1, +S2 - GI/Abdominal Exam GI & Abdominal Exam: Soft, Normal Bowel Sounds - Extremities Exam Extremities Exam: Normal Inspection - Neurological Exam Neurological Exam: Alert, Oriented x3 Assessment and Plan - Assessment and Plan (Free Text) Assessment: Dyspnea Cough CHF/Post cardiomyopathy Demise Afib Bronchodilators Lasix Keep pt negative balance Monitor I/O's Spoke to pt at length regarding her and she is requesting tubal ligation as future pregnancies could be life threatening for her DVT/GI prophalaxis
[2017-05-24] MEDS: Enoxaparin 120 mg Syringe SC SCH ×2 (09:54→21:25)
--- NOTE | 2017-05-24 15:01 | CP.PCM.PN ---
Subjective - Date & Time of Evaluation Date of Evaluation: 05/24/17 Time of Evaluation: 08:40 - Subjective Subjective: clinically same Objective - Vital Signs/Intake and Output Vital Signs (last 24 hours): Temp Pulse Resp BP Pulse Ox 98.2 F 98 H 20 115/83 96 05/24/17 07:00 05/24/17 07:00 05/24/17 07:00 05/24/17 09:55 05/24/17 07:00 Intake and Output: 05/24/17 05/24/17 06:59 18:59 Intake Total 10 Balance 10 - Medications Medications: Current Medications Acetaminophen (Tylenol 325mg Tab) 650 mg PO Q6 PRN PRN Reason: Pain, moderate (4-7) Last Admin: 05/23/17 00:46 Dose: 650 mg Albuterol/Ipratropium (Duoneb 3 Mg/0.5 Mg (3 Ml) Ud) 3 ml INH RQ6 JIM Last Admin: 05/24/17 02:07 Dose: 3 ml Digoxin (Lanoxin) 0.25 mg PO DAILY@1800 JIM Last Admin: 05/23/17 18:15 Dose: 0.25 mg Enoxaparin Sodium (Lovenox) 110 mg SC Q12 JIM Last Admin: 05/24/17 09:54 Dose: 110 mg Furosemide (Lasix) 80 mg IVP Q12 JIM Last Admin: 05/24/17 09:55 Dose: 80 mg Metronidazole (Flagyl) 500 mg in 100 mls @ 100 mls/hr IVPB Q8 JIM Last Admin: 05/24/17 13:57 Dose: 100 mls/hr Oxycodone/Acetaminophen (Percocet 5/325 Mg Tab) 1 tab PO Q6H PRN PRN Reason: Pain, moderate (4-7) Stop: 05/26/17 19:55 Last Admin: 05/24/17 06:21 Dose: 1 tab Potassium Chloride (Klor-Con 10) 10 meq PO BRK JIM Last Admin: 05/24/17 09:00 Dose: 10 meq Promethazine HCl/Dextromethorphan (Phenergan Dm Syrup) 10 ml PO Q6 JIM Last Admin: 05/24/17 12:40 Dose: Not Given - Labs Labs: 05/23/17 14:06 05/23/17 14:06 PT 14.7 SECONDS (9.7-12.2) H 05/22/17 15:46 INR 1.3 05/22/17 15:46 APTT 31 SECONDS (21-34) 05/22/17 15:46 - Constitutional Appears: Well - Head Exam Head Exam: ATRAUMATIC, NORMAL INSPECTION, NORMOCEPHALIC - Eye Exam Eye Exam: EOMI, Normal appearance, PERRL Pupil Exam: NORMAL ACCOMODATION, PERRL - ENT Exam ENT Exam: Mucous Membranes Moist, Normal Exam - Neck Exam Neck Exam: Full ROM, Normal Inspection. absent: Lymphadenopathy - Respiratory Exam Respiratory Exam: Clear to Ausculation Bilateral, NORMAL BREATHING PATTERN - Cardiovascular Exam Cardiovascular Exam: REGULAR RHYTHM, +S1, +S2. absent: Murmur - GI/Abdominal Exam GI & Abdominal Exam: Soft, Normal Bowel Sounds. absent: Tenderness - Rectal Exam Rectal Exam: NORMAL INSPECTION - Exam Exam: Circumcision, NORMAL INSPECTION External exam: NORMAL EXTERNAL EXAM Speculum exam: NORMAL SPECULUM EXAM Bimanual exam: NORMAL BIMANUAL EXAM - Extremities Exam Extremities Exam: Full ROM, Normal Capillary Refill, Normal Inspection. absent : Joint Swelling, Pedal Edema - Back Exam Back Exam: NORMAL INSPECTION - Neurological Exam Neurological Exam: Alert, Awake, CN II-XII Intact, Normal Gait, Oriented x3 - Psychiatric Exam Psychiatric exam: Normal Affect, Normal Mood - Skin Skin Exam: Dry, Intact, Normal Color, Warm Assessment and Plan (1) Asthma Status: Acute (2) Atrial fibrillation Status: Acute (3) CHF exacerbation Status: Acute (4) Chest discomfort Status: Acute (5) Dyspnea Status: Acute (6) demise Status: Acute (7) Foot sprain Status: Acute (8) History of atrial fibrillation Status: Acute (9) Leg edema Status: Acute (10) PNA (pneumonia) Status: Acute (11) cardiomyopathy Status: Acute (12) Status: Acute (13) Prophylactic measure Status: Acute (14) Rectal abscess Status: Acute (15) Rectal pain Status: Acute (16) UTI (urinary tract infection) Status: Acute (17) CHF (congestive heart failure) Status: Chronic (18) Systolic and diastolic CHF w/reduced LV function, NYHA class 4 Status: Chronic - Assessment and Plan (Free Text) Plan: Continue same pain is better seen by Dr. Anjum coleman seen by Dr. Hung is not viable discussed with Dr. Rob Donovan again yesterday he says patient cannot go to the full-time discussed with the GI [facility] MATE doctor who claims patient is no longer any pain medications can be given pain medications and Motrin order patient feels better
[2017-05-24] MEDS ORDERED: Potassium Chloride 10 mEq ER Tab PO STA (15:02)
[2017-05-24] MEDS: Digoxin 250 mcg (0.25 mg) Tab PO SCH (17:09)
--- NOTE | 2017-05-24 23:41 | CP.PCM.PN ---
Subjective - Date & Time of Evaluation Date of Evaluation: 05/24/17 Time of Evaluation: 17:10 - Subjective Subjective: Patient seen and evaluated Patient states still has some dyspnea Denies chest pain Objective - Vital Signs/Intake and Output Vital Signs (last 24 hours): Temp Pulse Resp BP Pulse Ox 98.2 F 98 H 20 116/58 L 96 05/24/17 07:00 05/24/17 07:00 05/24/17 07:00 05/24/17 21:24 05/24/17 07:00 Intake and Output: 05/24/17 05/25/17 18:59 06:59 Intake Total 700 Output Total 400 Balance 300 - Medications Medications: Current Medications Acetaminophen (Tylenol 325mg Tab) 650 mg PO Q6 PRN PRN Reason: Pain, moderate (4-7) Last Admin: 05/23/17 00:46 Dose: 650 mg Albuterol/Ipratropium (Duoneb 3 Mg/0.5 Mg (3 Ml) Ud) 3 ml INH RQ6 JIM Last Admin: 05/24/17 02:07 Dose: 3 ml Digoxin (Lanoxin) 0.25 mg PO DAILY@1800 JIM Last Admin: 05/24/17 17:09 Dose: 0.25 mg Enoxaparin Sodium (Lovenox) 110 mg SC Q12 JIM Last Admin: 05/24/17 21:25 Dose: 110 mg Furosemide (Lasix) 20 mg IVP Q12 JIM Last Admin: 05/24/17 21:24 Dose: 20 mg Metronidazole (Flagyl) 500 mg in 100 mls @ 100 mls/hr IVPB Q8 JIM Last Admin: 05/24/17 21:26 Dose: 100 mls/hr Oxycodone/Acetaminophen (Percocet 5/325 Mg Tab) 1 tab PO Q6H PRN PRN Reason: Pain, moderate (4-7) Stop: 05/26/17 19:55 Last Admin: 05/24/17 17:09 Dose: 1 tab Promethazine HCl/Dextromethorphan (Phenergan Dm Syrup) 10 ml PO Q6 JIM Last Admin: 05/24/17 17:28 Dose: 10 ml - Labs Labs: 05/23/17 14:06 05/23/17 14:06 PT 14.7 SECONDS (9.7-12.2) H 05/22/17 15:46 INR 1.3 05/22/17 15:46 APTT 31 SECONDS (21-34) 05/22/17 15:46 Assessment and Plan - Assessment and Plan (Free Text) Assessment: (1) cardiomyopathy Assessment and Plan: Diagnosed following patient's in [address] Rajan outpatient but has not been compliant with therapy. Patient was advised not to become due to high risk nature Patient advised to contraceptive measures- Suggestions fror IUD or implanon device Since has been confirmed nonviable - May continue with Lasix therapy and Digoxin Oxygen as tolerated per nasal canula Avoid unnecessary IV fluid administration (2) demise Assessment and Plan: OBGYN Dr. Blanco confirmed findings in the office yesterday per patient Ultrasound 05/22- Asymmetric gestational sacs noted- No poles or yolk sac appreciated Findings suspicious for failure In comparison to Ultrasound from 04/22: two gestational sacs noted then. Gestational sac A: yolk sac and pole present Gestational sac B: Did not contain evidence of yolk sac or pole. Clinical correlation was warranted . Status: Acute (3) History of atrial fibrillation Assessment and Plan: As noted above. Echo from November - EF less than 20%, LV systolic function severely impaired; severe pulm hypertension Dig and Lasix Therapeutic Lovenox Status: Acute (4) Prophylactic measure Assessment and Plan: Therapeutic Lovenox 110 SC Q12 GI prophylaxis not indicated at this time Counseled extensively on the need for contraceptive measures. can complicate patient's heart condition Discussed with attending- Management and planning per Dr. Mayfield Status: Acute
[2017-05-25] MEDS: Promethazine DM 12.5 mg-30 mg/10 ml Syrup PO SCH ×3 (00:09→17:35)
[2017-05-25] MEDS: Albuterol-Ipratrop 3 mg / 0.5 (3 ml) UD INH SCH ×4 (01:51→19:30)
[2017-05-25] MEDS: metroNIDAZOLE IV 500 mg/100 ml 500 MG/100 ML BAG IVPB SCH ×4 (08:16→21:22)
[2017-05-25] MEDS: Enoxaparin 120 mg Syringe SC SCH ×2 (09:22→21:23)
--- NOTE | 2017-05-25 17:10 | CP.PCM.PN ---
Subjective - Date & Time of Evaluation Date of Evaluation: 05/25/17 Time of Evaluation: 08:40 - Subjective Subjective: clinically same Objective - Vital Signs/Intake and Output Vital Signs (last 24 hours): Temp Pulse Resp BP Pulse Ox 97.8 F 188 H 20 136/89 95 05/25/17 15:00 05/25/17 15:00 05/25/17 15:00 05/25/17 15:00 05/25/17 15:00 - Medications Medications: Current Medications Acetaminophen (Tylenol 325mg Tab) 650 mg PO Q6 PRN PRN Reason: Pain, moderate (4-7) Last Admin: 05/23/17 00:46 Dose: 650 mg Albuterol/Ipratropium (Duoneb 3 Mg/0.5 Mg (3 Ml) Ud) 3 ml INH RQ6 [facility] Last Admin: 05/25/17 13:46 Dose: 3 ml Digoxin (Lanoxin) 0.25 mg PO DAILY@1800 [facility] Last Admin: 05/24/17 17:09 Dose: 0.25 mg Enoxaparin Sodium (Lovenox) 110 mg SC Q12 [facility] Last Admin: 05/25/17 09:22 Dose: 110 mg Furosemide (Lasix) 20 mg IVP Q12 [facility] Last Admin: 05/25/17 09:21 Dose: 20 mg Metronidazole (Flagyl) 500 mg in 100 mls @ 100 mls/hr IVPB Q8 [facility] Last Admin: 05/25/17 14:18 Dose: 100 mls/hr Oxycodone/Acetaminophen (Percocet 5/325 Mg Tab) 1 tab PO Q6H PRN PRN Reason: Pain, moderate (4-7) Stop: 05/26/17 19:55 Last Admin: 05/24/17 17:09 Dose: 1 tab Promethazine HCl/Dextromethorphan (Phenergan Dm Syrup) 10 ml PO Q6 [facility] Last Admin: 05/25/17 06:38 Dose: Not Given - Labs Labs: 05/23/17 14:06 05/23/17 14:06 PT 14.7 SECONDS (9.7-12.2) H 05/22/17 15:46 INR 1.3 05/22/17 15:46 APTT 31 SECONDS (21-34) 05/22/17 15:46 - Constitutional Appears: Well - Head Exam Head Exam: ATRAUMATIC, NORMAL INSPECTION, NORMOCEPHALIC - Eye Exam Eye Exam: EOMI, Normal appearance, PERRL Pupil Exam: NORMAL ACCOMODATION, PERRL - ENT Exam ENT Exam: Mucous Membranes Moist, Normal Exam - Neck Exam Neck Exam: Full ROM, Normal Inspection. absent: Lymphadenopathy - Respiratory Exam Respiratory Exam: Decreased Breath Sounds - Cardiovascular Exam Cardiovascular Exam: REGULAR RHYTHM, +S1, +S2 - GI/Abdominal Exam GI & Abdominal Exam: Soft, Diminished Bowel Sounds - Rectal Exam Rectal Exam: Deferred Assessment and Plan (1) Asthma Status: Acute (2) Atrial fibrillation Status: Acute (3) CHF exacerbation Status: Acute (4) Chest discomfort Status: Acute (5) Dyspnea Status: Acute (6) demise Status: Acute (7) Foot sprain Status: Acute (8) History of atrial fibrillation Status: Acute (9) Leg edema Status: Acute (10) PNA (pneumonia) Status: Acute (11) cardiomyopathy Status: Acute (12) Status: Acute (13) Prophylactic measure Status: Acute (14) Rectal abscess Status: Acute (15) Rectal pain Status: Acute (16) UTI (urinary tract infection) Status: Acute (17) CHF (congestive heart failure) Status: Chronic (18) Systolic and diastolic CHF w/reduced LV function, NYHA class 4 Status: Chronic - Assessment and Plan (Free Text) Plan: Cardio consult done. Patient better. No difficulty breathing. Continue digoxin, enoxaparin, furosemide, metronidazole. Continue supportive care.
--- NOTE | 2017-05-25 17:14 | CP.PCM.PN ---
Subjective - Date & Time of Evaluation Date of Evaluation: 05/25/17 Time of Evaluation: 17:14 Objective - Vital Signs/Intake and Output Vital Signs (last 24 hours): Temp Pulse Resp BP Pulse Ox 97.8 F 188 H 20 136/89 95 05/25/17 15:00 05/25/17 15:00 05/25/17 15:00 05/25/17 15:00 05/25/17 15:00 - Medications Medications: Current Medications Acetaminophen (Tylenol 325mg Tab) 650 mg PO Q6 PRN PRN Reason: Pain, moderate (4-7) Last Admin: 05/23/17 00:46 Dose: 650 mg Albuterol/Ipratropium (Duoneb 3 Mg/0.5 Mg (3 Ml) Ud) 3 ml INH RQ6 [facility] Last Admin: 05/25/17 13:46 Dose: 3 ml Digoxin (Lanoxin) 0.25 mg PO DAILY@1800 [facility] Last Admin: 05/24/17 17:09 Dose: 0.25 mg Enoxaparin Sodium (Lovenox) 110 mg SC Q12 [facility] Last Admin: 05/25/17 09:22 Dose: 110 mg Furosemide (Lasix) 20 mg IVP Q12 [facility] Last Admin: 05/25/17 09:21 Dose: 20 mg Metronidazole (Flagyl) 500 mg in 100 mls @ 100 mls/hr IVPB Q8 [facility] Last Admin: 05/25/17 14:18 Dose: 100 mls/hr Oxycodone/Acetaminophen (Percocet 5/325 Mg Tab) 1 tab PO Q6H PRN PRN Reason: Pain, moderate (4-7) Stop: 05/26/17 19:55 Last Admin: 05/24/17 17:09 Dose: 1 tab Promethazine HCl/Dextromethorphan (Phenergan Dm Syrup) 10 ml PO Q6 [facility] Last Admin: 05/25/17 06:38 Dose: Not Given - Labs Labs: 05/23/17 14:06 05/23/17 14:06 PT 14.7 SECONDS (9.7-12.2) H 05/22/17 15:46 INR 1.3 05/22/17 15:46 APTT 31 SECONDS (21-34) 05/22/17 15:46
[2017-05-25] MEDS: Digoxin 250 mcg (0.25 mg) Tab PO SCH (17:33)
[2017-05-25] MEDS: Oxycodone/Acetaminophen 5/325 mg Tab PO PRN (17:34)
--- NOTE | 2017-05-25 22:17 | CP.PCM.PN ---
Subjective - Date & Time of Evaluation Date of Evaluation: 05/25/17 Time of Evaluation: 12:50 - Subjective Subjective: Patient seen and evaluated Improved breathing Physical Examination - Constitutional Appears: Non-toxic, No Acute Distress - Head Exam Head Exam: ATRAUMATIC, NORMOCEPHALIC - Eye Exam Eye Exam: EOMI - ENT Exam ENT Exam: Mucous Membranes Moist - Respiratory Exam Respiratory Exam: Wheezes (minimal), NORMAL BREATHING PATTERN - Cardiovascular Exam Cardiovascular Exam: +S1, +S2, Murmur - GI/Abdominal Exam GI & Abdominal Exam: Soft, Normal Bowel Sounds - Extremities Exam Extremities Exam: absent: Calf Tenderness Additional comments: minimal lower extremity swelling, R>L - Neurological Exam Neurological Exam: Alert, Awake - Psychiatric Exam Psychiatric exam: Normal Affect - Skin Skin Exam: Warm Objective - Vital Signs/Intake and Output Vital Signs (last 24 hours): Temp Pulse Resp BP Pulse Ox 97.8 F 188 H 20 100/69 95 05/25/17 15:00 05/25/17 15:00 05/25/17 15:00 05/25/17 21:24 05/25/17 15:00 - Medications Medications: Current Medications Acetaminophen (Tylenol 325mg Tab) 650 mg PO Q6 PRN PRN Reason: Pain, moderate (4-7) Last Admin: 05/23/17 00:46 Dose: 650 mg Albuterol/Ipratropium (Duoneb 3 Mg/0.5 Mg (3 Ml) Ud) 3 ml INH RQ6 [facility] Last Admin: 05/25/17 19:30 Dose: 3 ml Digoxin (Lanoxin) 0.25 mg PO DAILY@1800 [facility] Last Admin: 05/25/17 17:33 Dose: 0.25 mg Enoxaparin Sodium (Lovenox) 110 mg SC Q12 [facility] Last Admin: 05/25/17 21:23 Dose: 110 mg Furosemide (Lasix) 20 mg IVP Q12 [facility] Last Admin: 05/25/17 21:24 Dose: 20 mg Metronidazole (Flagyl) 500 mg in 100 mls @ 100 mls/hr IVPB Q8 [facility] Last Admin: 05/25/17 21:22 Dose: 100 mls/hr Oxycodone/Acetaminophen (Percocet 5/325 Mg Tab) 1 tab PO Q6H PRN PRN Reason: Pain, moderate (4-7) Stop: 05/26/17 19:55 Last Admin: 05/25/17 17:34 Dose: 1 tab Promethazine HCl/Dextromethorphan (Phenergan Dm Syrup) 10 ml PO Q6 JIM Last Admin: 05/25/17 17:35 Dose: 10 ml - Labs Labs: 05/23/17 14:06 05/23/17 14:06 PT 14.7 SECONDS (9.7-12.2) H 05/22/17 15:46 INR 1.3 05/22/17 15:46 APTT 31 SECONDS (21-34) 05/22/17 15:46 Assessment and Plan - Assessment and Plan (Free Text) Assessment: (1) cardiomyopathy Assessment and Plan: Diagnosed following patient's in [address] Rajan outpatient but has not been compliant with therapy. Patient was advised not to become due to high risk nature Patient advised to contraceptive measures- Suggestions fror IUD or implanon device Since has been confirmed nonviable - May continue with Lasix therapy and Digoxin Oxygen as tolerated per nasal canula Avoid unnecessary IV fluid administration (2) demise Assessment and Plan: OBGYN Dr. Blanco confirmed findings in the office yesterday per patient Ultrasound 05/22- Asymmetric gestational sacs noted- No poles or yolk sac appreciated Findings suspicious for failure In comparison to Ultrasound from 04/22: two gestational sacs noted then. Gestational sac A: yolk sac and pole present Gestational sac B: Did not contain evidence of yolk sac or pole. Clinical correlation was warranted . Status: Acute (3) History of atrial fibrillation Assessment and Plan: As noted above. Echo from November - EF less than 20%, LV systolic function severely impaired; severe pulm hypertension Dig and Lasix Therapeutic Lovenox Status: Acute (4) Prophylactic measure Assessment and Plan: Therapeutic Lovenox 110 SC Q12 GI prophylaxis not indicated at this time Counseled extensively on the need for contraceptive measures. can complicate patient's heart condition
[2017-05-26] MEDS: Oxycodone/Acetaminophen 5/325 mg Tab PO PRN ×3 (00:06→15:04)
[2017-05-26] MEDS: Promethazine DM 12.5 mg-30 mg/10 ml Syrup PO SCH ×2 (00:20→06:32)
[2017-05-26] MEDS: Albuterol-Ipratrop 3 mg / 0.5 (3 ml) UD INH SCH ×4 (01:30→20:15)
[2017-05-26] MEDS: Enoxaparin 120 mg Syringe SC SCH (09:55)
[2017-05-26] MEDS: Promethazine DM 6.25 mg-15 mg/5 ml Syrup PO SCH ×3 (12:27→23:55)
--- NOTE | 2017-05-26 13:23 | CP.PCM.PN ---
Subjective - Date & Time of Evaluation Date of Evaluation: 05/26/17 Time of Evaluation: 13:22 - Subjective Subjective: Pt seen and examined No events overnight Objective - Vital Signs/Intake and Output Vital Signs (last 24 hours): Temp Pulse Resp BP Pulse Ox 97.9 F 93 H 20 101/70 90 L 05/26/17 08:30 05/26/17 08:30 05/26/17 08:30 05/26/17 09:52 05/26/17 08:30 - Medications Medications: Current Medications Acetaminophen (Tylenol 325mg Tab) 650 mg PO Q6 PRN PRN Reason: Pain, moderate (4-7) Last Admin: 05/23/17 00:46 Dose: 650 mg Albuterol/Ipratropium (Duoneb 3 Mg/0.5 Mg (3 Ml) Ud) 3 ml INH RQ6 [facility] Last Admin: 05/26/17 07:48 Dose: 3 ml Digoxin (Lanoxin) 0.25 mg PO DAILY@1800 [facility] Last Admin: 05/25/17 17:33 Dose: 0.25 mg Enoxaparin Sodium (Lovenox) 110 mg SC Q12 [facility]IM Last Admin: 05/26/17 09:55 Dose: 110 mg Furosemide (Lasix) 20 mg IVP Q12 [facility]IM Last Admin: 05/26/17 09:52 Dose: 20 mg Metronidazole (Flagyl) 500 mg PO Q8 JIM Last Admin: 05/26/17 07:05 Dose: 500 mg Oxycodone/Acetaminophen (Percocet 5/325 Mg Tab) 1 tab PO Q6H PRN PRN Reason: Pain, moderate (4-7) Stop: 05/26/17 19:55 Last Admin: 05/26/17 06:32 Dose: 1 tab Promethazine HCl/Dextromethorphan (Phenergan Dm Syrup) 10 ml PO Q6 [facility]IM Last Admin: 05/26/17 12:27 Dose: 10 ml - Labs Labs: 05/23/17 14:06 05/23/17 14:06 PT 14.7 SECONDS (9.7-12.2) H 05/22/17 15:46 INR 1.3 05/22/17 15:46 APTT 31 SECONDS (21-34) 05/22/17 15:46 - Head Exam Head Exam: NORMAL INSPECTION - Eye Exam Eye Exam: Normal appearance - ENT Exam ENT Exam: Mucous Membranes Moist - Respiratory Exam Respiratory Exam: Clear to Ausculation Bilateral - Cardiovascular Exam Cardiovascular Exam: REGULAR RHYTHM, +S1, +S2 - GI/Abdominal Exam GI & Abdominal Exam: Soft, Normal Bowel Sounds Assessment and Plan - Assessment and Plan (Free Text) Assessment: Dyspnea Cough CHF/Post cardiomyopathy Demise Afib Bronchodilators Lasix Keep pt negative balance Monitor I/O's Continue supportive care DVT/GI prophalaxis
--- NOTE | 2017-05-26 17:26 | CP.PCM.PN ---
Subjective - Date & Time of Evaluation Date of Evaluation: 05/26/17 Time of Evaluation: 17:13 - Subjective Subjective: Dr barreto made round and discuss case with him patient show sinus rhythm on the monitor; he recommend vq scan and venous doppler of the low ext if negative patient will be off anticoagulant change lovenox to 40 mg sc daily Objective - Vital Signs/Intake and Output Vital Signs (last 24 hours): Temp Pulse Resp BP Pulse Ox 97.8 F 99 H 20 105/73 85 L 05/26/17 16:05 05/26/17 16:05 05/26/17 16:05 05/26/17 16:05 05/26/17 16:05 - Medications Medications: Current Medications Acetaminophen (Tylenol 325mg Tab) 650 mg PO Q6 PRN PRN Reason: Pain, moderate (4-7) Last Admin: 05/23/17 00:46 Dose: 650 mg Albuterol/Ipratropium (Duoneb 3 Mg/0.5 Mg (3 Ml) Ud) 3 ml INH RQ6 [facility]IM Last Admin: 05/26/17 13:39 Dose: 3 ml Digoxin (Lanoxin) 0.25 mg PO DAILY@1800 [facility] Last Admin: 05/25/17 17:33 Dose: 0.25 mg Enoxaparin Sodium (Lovenox) 40 mg SC DAILY JIM Furosemide (Lasix) 20 mg IVP Q12 JIM Last Admin: 05/26/17 09:52 Dose: 20 mg Metronidazole (Flagyl) 500 mg PO Q8 JIM Last Admin: 05/26/17 14:01 Dose: 500 mg Oxycodone/Acetaminophen (Percocet 5/325 Mg Tab) 1 tab PO Q6H PRN PRN Reason: Pain, moderate (4-7) Stop: 05/26/17 19:55 Last Admin: 05/26/17 15:04 Dose: 1 tab Promethazine HCl/Dextromethorphan (Phenergan Dm Syrup) 10 ml PO Q6 [facility]IM Last Admin: 05/26/17 12:27 Dose: 10 ml - Labs Labs: 05/23/17 14:06 05/23/17 14:06 PT 14.7 SECONDS (9.7-12.2) H 05/22/17 15:46 INR 1.3 05/22/17 15:46 APTT 31 SECONDS (21-34) 05/22/17 15:46
[2017-05-26] MEDS: Digoxin 250 mcg (0.25 mg) Tab PO SCH (17:44)
--- NOTE | 2017-05-26 18:56 | CP.PCM.PN ---
Subjective - Date & Time of Evaluation Date of Evaluation: 05/26/17 Time of Evaluation: 09:40 - Subjective Subjective: clinically same Objective - Vital Signs/Intake and Output Vital Signs (last 24 hours): Temp Pulse Resp BP Pulse Ox 97.8 F 99 H 20 105/73 85 L 05/26/17 16:05 05/26/17 16:05 05/26/17 16:05 05/26/17 16:05 05/26/17 16:05 - Medications Medications: Current Medications Acetaminophen (Tylenol 325mg Tab) 650 mg PO Q6 PRN PRN Reason: Pain, moderate (4-7) Last Admin: 05/23/17 00:46 Dose: 650 mg Albuterol/Ipratropium (Duoneb 3 Mg/0.5 Mg (3 Ml) Ud) 3 ml INH RQ6 [facility]IM Last Admin: 05/26/17 13:39 Dose: 3 ml Digoxin (Lanoxin) 0.25 mg PO DAILY@1800 [facility]IM Last Admin: 05/26/17 17:44 Dose: 0.25 mg Enoxaparin Sodium (Lovenox) 40 mg SC DAILY JIM Furosemide (Lasix) 20 mg IVP Q12 [facility]IM Last Admin: 05/26/17 09:52 Dose: 20 mg Metronidazole (Flagyl) 500 mg PO Q8 JIM Last Admin: 05/26/17 14:01 Dose: 500 mg Oxycodone/Acetaminophen (Percocet 5/325 Mg Tab) 1 tab PO Q6H PRN PRN Reason: Pain, moderate (4-7) Stop: 05/26/17 19:55 Last Admin: 05/26/17 15:04 Dose: 1 tab Promethazine HCl/Dextromethorphan (Phenergan Dm Syrup) 10 ml PO Q6 JIM Last Admin: 05/26/17 17:47 Dose: Not Given - Labs Labs: 05/23/17 14:06 05/23/17 14:06 PT 14.7 SECONDS (9.7-12.2) H 05/22/17 15:46 INR 1.3 05/22/17 15:46 APTT 31 SECONDS (21-34) 05/22/17 15:46 - Constitutional Appears: Well - Head Exam Head Exam: ATRAUMATIC, NORMAL INSPECTION, NORMOCEPHALIC - Eye Exam Eye Exam: EOMI, Normal appearance, PERRL Pupil Exam: NORMAL ACCOMODATION, PERRL - ENT Exam ENT Exam: Mucous Membranes Moist, Normal Exam - Neck Exam Neck Exam: Full ROM, Normal Inspection. absent: Lymphadenopathy - Respiratory Exam Respiratory Exam: Decreased Breath Sounds - Cardiovascular Exam Cardiovascular Exam: REGULAR RHYTHM, +S1, +S2 - GI/Abdominal Exam GI & Abdominal Exam: Soft, Diminished Bowel Sounds - Rectal Exam Rectal Exam: Deferred Assessment and Plan - Assessment and Plan (Free Text) Plan: Dr barreto made round and discuss case with him patient show sinus rhythm on the monitor; he recommend vq scan and venous doppler of the low ext if negative patient will be off anticoagulant change lovenox to 40 mg sc daily
--- NOTE | 2017-05-26 22:43 | CP.PCM.PN ---
Subjective - Date & Time of Evaluation Date of Evaluation: 05/26/17 Time of Evaluation: 19:35 - Subjective Subjective: Patient seen and evaluated Chronic systolic CHF feels better today Physical Examination - Constitutional Appears: Non-toxic, No Acute Distress - Head Exam Head Exam: ATRAUMATIC, NORMOCEPHALIC - Eye Exam Eye Exam: EOMI - ENT Exam ENT Exam: Mucous Membranes Moist - Respiratory Exam Respiratory Exam: Wheezes (minimal), NORMAL BREATHING PATTERN - Cardiovascular Exam Cardiovascular Exam: +S1, +S2, Murmur - GI/Abdominal Exam GI & Abdominal Exam: Soft, Normal Bowel Sounds - Extremities Exam Extremities Exam: absent: Calf Tenderness Additional comments: minimal lower extremity swelling, R>L - Neurological Exam Neurological Exam: Alert, Awake - Psychiatric Exam Psychiatric exam: Normal Affect - Skin Skin Exam: Warm Objective - Vital Signs/Intake and Output Vital Signs (last 24 hours): Temp Pulse Resp BP Pulse Ox 97.8 F 99 H 20 102/70 85 L 05/26/17 16:05 05/26/17 20:36 05/26/17 16:05 05/26/17 21:37 05/26/17 16:05 - Medications Medications: Current Medications Acetaminophen (Tylenol 325mg Tab) 650 mg PO Q6 PRN PRN Reason: Pain, moderate (4-7) Last Admin: 05/23/17 00:46 Dose: 650 mg Albuterol/Ipratropium (Duoneb 3 Mg/0.5 Mg (3 Ml) Ud) 3 ml INH RQ6 [facility] Last Admin: 05/26/17 20:15 Dose: 3 ml Digoxin (Lanoxin) 0.25 mg PO DAILY@1800 [facility] Last Admin: 05/26/17 17:44 Dose: 0.25 mg Enoxaparin Sodium (Lovenox) 40 mg SC DAILY [facility] Furosemide (Lasix) 20 mg IVP Q12 [facility] Last Admin: 05/26/17 21:37 Dose: 20 mg Metronidazole (Flagyl) 500 mg PO Q8 [facility] Last Admin: 05/26/17 21:36 Dose: 500 mg Promethazine HCl/Dextromethorphan (Phenergan Dm Syrup) 10 ml PO Q6 [facility] Last Admin: 05/26/17 17:47 Dose: Not Given - Labs Labs: 05/23/17 14:06 05/23/17 14:06 PT 14.7 SECONDS (9.7-12.2) H 05/22/17 15:46 INR 1.3 05/22/17 15:46 APTT 31 SECONDS (21-34) 05/22/17 15:46 Assessment and Plan - Assessment and Plan (Free Text) Assessment: (1) cardiomyopathy Assessment and Plan: Diagnosed following patient's in [address] Rajan outpatient but has not been compliant with therapy. Patient was advised not to become due to high risk nature Patient advised to contraceptive measures- Suggestions fror IUD or implanon device Since has been confirmed nonviable - May continue with Lasix therapy and Digoxin Oxygen as tolerated per nasal canula Avoid unnecessary IV fluid administration (2) demise Assessment and Plan: OBGYN Dr. Blanco confirmed findings in the office yesterday per patient Ultrasound 05/22- Asymmetric gestational sacs noted- No poles or yolk sac appreciated Findings suspicious for failure In comparison to Ultrasound from 04/22: two gestational sacs noted then. Gestational sac A: yolk sac and pole present Gestational sac B: Did not contain evidence of yolk sac or pole. Clinical correlation was warranted . Status: Acute (3) History of atrial fibrillation Assessment and Plan: As noted above. Echo from November - EF less than 20%, LV systolic function severely impaired; severe pulm hypertension Dig and Lasix Therapeutic Lovenox Status: Acute (4) Prophylactic measure Assessment and Plan: Therapeutic Lovenox 110 SC Q12 GI prophylaxis not indicated at this time Counseled extensively on the need for contraceptive measures. can complicate patient's heart condition
[2017-05-27] MEDS: Albuterol-Ipratrop 3 mg / 0.5 (3 ml) UD INH SCH ×4 (01:52→18:35)
[2017-05-27] MEDS: Promethazine DM 6.25 mg-15 mg/5 ml Syrup PO SCH ×3 (05:40→17:40)
[2017-05-27] MEDS: Enoxaparin 40 mg Syringe SC SCH (10:45)
[2017-05-27 10:51] LABS: CHLORIDE 98 mmol/L (98-107); SODIUM 130 mmol/L (132-148)
[2017-05-27 10:52] LABS: POTASSIUM 3.5 mmol/L (3.6-5.2)
[2017-05-27 10:54] LABS: ALKALINE PHOSPHATASE 43 U/L (38-126); AST/SGOT 93 U/L (14-36); BILIRUBIN,TOTAL 1.4 mg/dL (0.2-1.3); BLOOD UREA NITROGEN 9 mg/dL (7-17); CARBON DIOXIDE 19 mmol/L (22-30); GFR AFRICAN-AMERICAN > 60; GLUCOSE,RANDOM 86 mg/dL (65-105); TOTAL PROTEIN 7.7 g/dL (6.3-8.3)
[2017-05-27 10:55] LABS: ALT/SGPT 97 U/L (9-52)
[2017-05-27 10:59] LABS: HEMATOCRIT 36.7 % (34.0-47.0); MEAN CELL VOLUME 88.4 fL (81.0-99.0); MEAN CORPUSCULAR HGB CONC 33.9 g/dL (33.0-37.0); MEAN PLATELET VOLUME 8.6 fL (7.2-11.7); RED CELL DISTRIBUTION WIDTH 15.2 % (11.5-14.5); WHITE BLOOD COUNT 3.6 K/uL (4.8-10.8)
[2017-05-27 11:00] LABS: EOS % 0.2 % (0.0-4.0); LYMPH # 0.6 K/uL (1.0-4.3); MONO # 0.3 K/uL (0.0-0.8); MONO % 7.7 % (0.0-10.0); NRBC % 0.1 % (0.0-2.0)
--- NOTE | 2017-05-27 12:01 | CP.PCM.PN ---
<Yolande Lamb - Last Filed: 05/27/17 14:30> Subjective - Date & Time of Evaluation Date of Evaluation: 05/27/17 Time of Evaluation: 09:11 - Subjective Subjective: PGY 2 Medicine Note- Dr. Cheung's service Pt seen and examined in mild distress. Per nursing, patient's pain appears to be increased. Patient states that she has abdominal pain that seems to be unrelieved by anything. Patient states that she has not been able to eat anything either since yesterday. She admits to nausea and generalized body aches. She denies subjective fevers or chills at this time. Objective - Vital Signs/Intake and Output Vital Signs (last 24 hours): Temp Pulse Resp BP Pulse Ox 97.7 F 97 H 20 105/73 95 05/27/17 08:00 05/27/17 08:00 05/27/17 08:00 05/27/17 08:00 05/27/17 08:00 - Medications Medications: Current Medications Acetaminophen (Tylenol 325mg Tab) 650 mg PO Q6 PRN PRN Reason: Pain, moderate (4-7) Last Admin: 05/23/17 00:46 Dose: 650 mg Albuterol/Ipratropium (Duoneb 3 Mg/0.5 Mg (3 Ml) Ud) 3 ml INH RQ6 [facility] Last Admin: 05/27/17 08:59 Dose: 3 ml Digoxin (Lanoxin) 0.25 mg PO DAILY@1800 [facility] Last Admin: 05/26/17 17:44 Dose: 0.25 mg Enoxaparin Sodium (Lovenox) 40 mg SC DAILY [facility] Last Admin: 05/27/17 10:45 Dose: 40 mg Furosemide (Lasix) 20 mg IVP Q12 [facility] Last Admin: 05/26/17 21:37 Dose: 20 mg Metronidazole (Flagyl) 500 mg PO Q8 [facility] Last Admin: 05/27/17 05:41 Dose: 500 mg Promethazine HCl/Dextromethorphan (Phenergan Dm Syrup) 10 ml PO Q6 [facility] Last Admin: 05/27/17 05:40 Dose: Not Given - Labs Labs: 05/27/17 10:31 05/27/17 10:31 PT 14.7 SECONDS (9.7-12.2) H 05/22/17 15:46 INR 1.3 05/22/17 15:46 APTT 31 SECONDS (21-34) 05/22/17 15:46 - Constitutional Appears: Non-toxic - Head Exam Head Exam: ATRAUMATIC, NORMAL INSPECTION - Eye Exam Eye Exam: EOMI - ENT Exam ENT Exam: Mucous Membranes Moist - Neck Exam Neck Exam: Full ROM - Respiratory Exam Respiratory Exam: NORMAL BREATHING PATTERN. absent: Wheezes - Cardiovascular Exam Cardiovascular Exam: +S1, +S2 - GI/Abdominal Exam GI & Abdominal Exam: Soft, Normal Bowel Sounds - Extremities Exam Extremities Exam: Full ROM - Back Exam Back Exam: Full ROM - Neurological Exam Neurological Exam: Alert, Awake, Oriented x3 - Psychiatric Exam Psychiatric exam: Anxious, Normal Affect, Normal Mood - Skin Skin Exam: Dry, Normal Color, Warm Assessment and Plan (1) cardiomyopathy (2) demise Status: Acute (3) History of atrial fibrillation Status: Acute (4) Prophylactic measure Status: Acute - Assessment and Plan (Free Text) Assessment: Abdominal Pain Assessment and Plan: F/U abdominal ultrasound and transvag ultrasound Spoke with OBGYN team regarding - they will re-assess in light of new abdominal pain. Patient may need a D and C. Surgery also consulted on the case as recommended by another person on the case - follow up recommendations Transaminitis Assessment and Plan: Avoid tylenol agents Unlikely hepatitis related. Likely medication toxicity- Patient was started on tylenol on 05/23 and LFTs increased soon afterwards. Will stop at this time and investigate whether there are other hepatotoxic meds involved. Dyspnea Assessment and Plan: Intermittent Continue bronchodilators, Lasix Rule out pulmonary embolism Check VQ scan and Venous Dopplers- If negative, can switch off therapeutic lovenox to daily prophylactic therapies against DVTs cardiomyopathy Assessment and Plan: Diagnosed following patient's in [address] Rajan outpatient but has not been compliant with therapy. Patient was advised not to become due to high risk nature Patient advised to contraceptive measures- Suggestions fror IUD or implanon device Since has been confirmed nonviable - May continue with Lasix therapy and Digoxin Oxygen as tolerated per nasal canula Monitor Ins and outs Avoid unnecessary IV fluid administration demise Assessment and Plan: OBGYN Dr. Blanco confirmed findings in the office 05/22 per patient Ultrasound 05/22- Asymmetric gestational sacs noted- No poles or yolk sac appreciated Findings suspicious for failure In comparison to Ultrasound from 04/22: two gestational sacs noted then. Gestational sac A: yolk sac and pole present Gestational sac B: Did not contain evidence of yolk sac or pole. Clinical correlation was warranted . Repeat quant bhcg from 05/27 decreasing Transvag ultrasound. - Follow up Status: Acute History of atrial fibrillation Assessment and Plan: As noted above. Echo from November - EF less than 20%, LV systolic function severely impaired; severe pulm hypertension Dig and Lasix Therapeutic Lovenox Status: Acute Constipation Assessment and Plan: Patient is not eating and that may be a likely reason. Increase water intake Dulcolax x1 Monitor Prophylactic measure Assessment and Plan: Therapeutic Lovenox 110 SC Q12 GI prophylaxis not indicated at this time Counseled extensively on the need for contraceptive measures. Any further can complicate patient's heart condition Discussed with attending- All management and planning per Dr. Reid Cheung <Krystal Cheung S - Last Filed: 06/10/17 10:46> Objective - Vital Signs/Intake and Output Vital Signs (last 24 hours): Temp Pulse Resp BP Pulse Ox 97.3 F L 105 H 20 96/71 L 96 05/30/17 16:26 05/30/17 16:26 05/30/17 16:26 05/30/17 16:26 05/30/17 16:26 - Labs Labs: 05/28/17 07:37 05/29/17 11:46 PT 14.7 SECONDS (9.7-12.2) H 05/22/17 15:46 INR 1.3 05/22/17 15:46 APTT 31 SECONDS (21-34) 05/22/17 15:46 Attending/Attestation - Attestation I have personally seen and examined this patient.: Yes I have fully participated in the care of the patient.: Yes I have reviewed all pertinent clinical information, including history, physical exam and plan: Yes Notes (Text): Patient examined. Abdominal pain present. Continue treatment for cardiomyopathy, atrial fibrillation and was treated with diagnosis.
[2017-05-27] MEDS ORDERED: Bisacodyl 5mg EC Tab PO ONE (12:16)
[2017-05-27] MEDS ORDERED: Potassium Chloride 20 mEq/15 ml LIQ UD PO ONE (13:00)
--- NOTE | 2017-05-27 13:16 | CP.PCM.CON ---
History of Present Illness - History of Present Illness History of Present Illness: General Surgery Dr. Enciso 31 y/o F w/ PMHx of CHF presents to the ED c/o worsening dyspnea. In the ED, pt was found to have non-viable intra-uterine on US. Nipple Maker was consulted and recommended IV Abx and outpatient D&C. Pt continues to have worsening abd pain prompting PMD to consult general surgery for further evaluation. Pt admits to worsening abd pain that started last evening. Pain comes in waves and localized to suprapubic region w/ radiation to her low back. Pt denies having had this pain in the past. Pt admits to subjective fevers and chills, decreased appetite, N&V, diarrhea and constipation. Pt denies recurrent vaginal discharge. LKMP: 03/2017 PMHx: dilated cardiomyopathy, a.fib Meds: reviewed in chart ALL: pantoprazole - pruritus PSHx: anal fistulectomy, cerclage, AICD pacement SHx: denies tobacco, drug use. rare EtOH use FHx: Father - heart failure; mother - cardiomegaly, HTN Review of Systems - Review of Systems All systems: reviewed and no additional remarkable complaints except (see HPI) Past Patient History - Infectious Disease Hx of Infectious Diseases: None - Past Medical History & Family History Past Medical History?: Yes - Past Social History Smoking Status: Never Smoked Drugs: Denies Home Situation {Lives}: With Family - CARDIAC Hx Atrial Fibrillation: Yes (ablation sep 2015) Hx Congestive Heart Failure: Yes Hx Pacemaker: Yes (AICD) - PULMONARY Hx Respiratory Disorders: No - NEUROLOGICAL Hx Neurological Disorder: No - HEENT Hx HEENT Problems: No - RENAL Hx Chronic Kidney Disease: No - ENDOCRINE/METABOLIC Hx Endocrine Disorders: No - HEMATOLOGICAL/ONCOLOGICAL Hx Blood Disorders: No - INTEGUMENTARY Hx Dermatological Problems: No - MUSCULOSKELETAL/RHEUMATOLOGICAL Hx Musculoskeletal Disorders: No Hx Falls: No - GASTROINTESTINAL Hx Gastrointestinal Disorders: Yes Hx Hemorrhoids: Yes - GENITOURINARY/GYNECOLOGICAL Hx Genitourinary Disorders: No : 5 Para: 1 Termination of : 3 - PSYCHIATRIC Hx Substance Use: No - SURGICAL HISTORY Hx Surgeries: Yes Hx Dilation and Curettage: Yes (2007, 2014 x 2) Other/Comment: AICD 2009 - ANESTHESIA Hx Anesthesia: Yes Hx Anesthesia Reactions: No Hx Malignant Hyperthermia: No Meds Allergies/Adverse Reactions: Allergies Allergy/AdvReac Type Severity Reaction Status Date / Time pantoprazole sodium Allergy Severe ITCHING Verified 04/21/17 15:08 [From Protonix] - Medications Medications: Current Medications Albuterol/Ipratropium (Duoneb 3 Mg/0.5 Mg (3 Ml) Ud) 3 ml INH RQ6 [facility] Last Admin: 05/27/17 08:59 Dose: 3 ml Digoxin (Lanoxin) 0.25 mg PO DAILY@1800 [facility] Last Admin: 05/26/17 17:44 Dose: 0.25 mg Enoxaparin Sodium (Lovenox) 40 mg SC DAILY [facility] Last Admin: 05/27/17 10:45 Dose: 40 mg Furosemide (Lasix) 20 mg IVP Q12 [facility] Last Admin: 05/26/17 21:37 Dose: 20 mg Metronidazole (Flagyl) 500 mg PO Q8 [facility] Last Admin: 05/27/17 05:41 Dose: 500 mg Promethazine HCl/Dextromethorphan (Phenergan Dm Syrup) 10 ml PO Q6 [facility] Last Admin: 05/27/17 05:40 Dose: Not Given Physical Exam - Constitutional Appears: Non-toxic, No Acute Distress - Head Exam Head Exam: NORMAL INSPECTION - Eye Exam Eye Exam: Normal appearance - ENT Exam ENT Exam: Mucous Membranes Moist - Respiratory Exam Respiratory Exam: NORMAL BREATHING PATTERN. absent: Accessory Muscle Use, Respiratory Distress - Cardiovascular Exam Cardiovascular Exam: absent: Bradycardia, Tachycardia - GI/Abdominal Exam GI & Abdominal Exam: Soft, Tenderness (suprapubic TTP). absent: Distended, Guarding, Rebound, Rigid - Extremities Exam Extremities exam: Positive for: normal inspection - Neurological Exam Neurological exam: Alert, Oriented x3 - Psychiatric Exam Psychiatric exam: Normal Affect, Normal Mood - Skin Skin Exam: Dry, Intact, Normal Color, Warm Results - Vital Signs Recent Vital Signs: Last Vital Signs Temp 97.7 F 05/27/17 08:00 Pulse 97 H 05/27/17 08:00 Resp 20 05/27/17 08:00 BP 105/73 05/27/17 08:00 Pulse Ox 95 05/27/17 08:00 - Labs Result Diagrams: 05/27/17 10:31 05/27/17 10:31 Labs: Laboratory Results - last 24 hr 05/27/17 05/27/17 10:31 10:31 WBC 3.6 L RBC 4.15 Hgb 12.4 Hct 36.7 MCV 88.4 MCH 30.0 MCHC 33.9 RDW 15.2 H Plt Count 193 MPV 8.6 Neut % (Auto) 74.1 Lymph % (Auto) 17.0 L Hampton % (Auto) 7.7 Eos % (Auto) 0.2 Baso % (Auto) 1.0 Neut # 2.7 Lymph # 0.6 L Hampton # 0.3 Eos # 0.0 Baso # 0.0 Sodium 130 L Potassium 3.5 L Chloride 98 Carbon Dioxide 19 L Anion Gap 17 BUN 9 Creatinine 0.7 Est GFR ( Amer) > 60 Est GFR (Non-Af Amer) > 60 Random Glucose 86 Calcium 9.0 Total Bilirubin 1.4 H AST 93 H D ALT 97 H D Alkaline Phosphatase 43 Total Protein 7.7 Albumin 3.9 Globulin 3.8 Albumin/Globulin Ratio 1.0 Beta HCG, Quant 95339.00 - Imaging and Cardiology US - abdomen Status: Report reviewed by me VQ-scan Status: Report reviewed by me Assessment & Plan - Assessment and Plan (Free Text) Assessment: 31 y/o F w/ acute demise and retained products - f/u Abd US - cont IV per Nipple Maker - improve pain management - cont zofran Q4 - recommend D&C this admission Pt discussed w/ Dr. Fernie Martinez DO PGY2
--- NOTE | 2017-05-27 13:36 | NM ---
COMPARISON: May 27, 2017. TECHNIQUE: 11.2 mCi technetium 99-m Xe-133 Gas. 3.4 mCI technetium 99-m MAA administered intravenously. FINDINGS: VENTILATION COMPONENT: Normal. PERFUSION COMPONENT: Solitary subsegmental defect right lower lobe IMPRESSION: Low probability ventilation perfusion scan for pulmonary embolism.
[2017-05-27] MEDS ORDERED: Morphine 4 MG/ML VIAL IV PRN (13:38)
--- NOTE | 2017-05-27 13:38 | RAD ---
HISTORY: rule out pulmonary embolism COMPARISON: 05/22/2017 FINDINGS: LUNGS: No active pulmonary disease. PLEURA: No significant pleural effusion identified, no pneumothorax apparent. CARDIOVASCULAR: Cardiomegaly. No evidence of acute, significant cardiovascular disease. Position/ configuration of pacemaker Satisfactory. OSSEOUS STRUCTURES: No significant abnormalities. VISUALIZED UPPER ABDOMEN: Normal. OTHER FINDINGS: None. IMPRESSION: No active disease. No significant interval change compared to the prior examination(s).
[2017-05-27] MEDS ORDERED: Oxycodone/Acetaminophen 5/325 mg Tab PO PRN (13:52)
--- NOTE | 2017-05-27 15:21 | US ---
HISTORY: abd pain COMPARISON: Abdominal ultrasound performed 11/13/16 TECHNIQUE: Sonographic evaluation of the abdomen. FINDINGS: LIVER: Measures 19.4 cm in sagittal dimension. Echogenic liver may be seen in setting of hepatic parenchymal disease or fatty infiltration. No focal hepatic mass identified. The main portal vein appears patent with normal directional flow. No intrahepatic bile duct dilatation. GALLBLADDER: No gallstones. No gallbladder wall thickening. Negative sonographic Poe's sign as assessed by the ship loader. COMMON BILE DUCT: Measures 3 mm. PANCREAS: Not well visualized. RIGHT KIDNEY: Measures 12.4 x 4.3 x 4.2cm. No obstructing calculus or hydronephrosis identified. LEFT KIDNEY: Measures 12.0 x 4.9 x 4.9cm. No obstructing calculus or hydronephrosis identified. SPLEEN: Measures approximately 11.0 cm. AORTA: Limited views appear unremarkable. IVC: Limited views appear unremarkable. OTHER FINDINGS: None. IMPRESSION: Echogenic liver may be seen in setting of hepatic parenchymal disease or fatty infiltration.
--- NOTE | 2017-05-27 15:24 | US ---
Indication: monitor progress- non-viable Comparison: Ob transvaginal ultrasound performed 04/22/17 Technique: Transvaginal ultrasound of the pelvis. Findings: The uterus measures approximately 13.1 x 7.5 x 9.8 cm. Anteverted. Cervix length measures approximately 3.9 cm. Twin gestation. Two cystic structures consistent with gestational sacs identified. Gestational sac A measures approximately 2.5 cm consistent with gestational age 7 weeks 1 day. Gestational sac B measures approximately 1.3 cm consistent with gestational age 5 weeks 4 days. Yolk sac and pole are not visualized. Both gestational sac contours appear irregular. The right ovary measures 3.8 x 2.2 x 3.7 cm. The left ovary measures 3.7 x 1.7 x 3.1 cm. Blood flow was demonstrated to both ovaries. Impression: Twin gestation with gestational age calculated by gestational sac calculation and 7 weeks 1 day for fetus A and 5 weeks 4 days for fetus B. Both gestational sac contours appear irregular. No evidence of yolk sac or pole. Correlate clinically.
[2017-05-27] MEDS: Morphine 4 MG/ML VIAL IV PRN (17:01)
[2017-05-27] MEDS: Digoxin 250 mcg (0.25 mg) Tab PO SCH (17:01)
--- NOTE | 2017-05-27 18:37 | CP.PCM.PN ---
Subjective - Date & Time of Evaluation Date of Evaluation: 05/27/17 Time of Evaluation: 09:00 - Subjective Subjective: clinically same Objective - Vital Signs/Intake and Output Vital Signs (last 24 hours): Temp Pulse Resp BP Pulse Ox 97.7 F 80 20 97/66 L 95 05/27/17 16:00 05/27/17 16:00 05/27/17 16:00 05/27/17 16:00 05/27/17 16:00 Intake and Output: 05/27/17 05/27/17 06:59 18:59 Intake Total 480 Balance 480 - Medications Medications: Current Medications Albuterol/Ipratropium (Duoneb 3 Mg/0.5 Mg (3 Ml) Ud) 3 ml INH RQ6 [facility] Last Admin: 05/27/17 13:52 Dose: 3 ml Digoxin (Lanoxin) 0.25 mg PO DAILY@1800 [facility] Last Admin: 05/27/17 17:01 Dose: 0.25 mg Enoxaparin Sodium (Lovenox) 40 mg SC DAILY [facility] Last Admin: 05/27/17 10:45 Dose: 40 mg Furosemide (Lasix) 20 mg IVP Q12 [facility] Last Admin: 05/27/17 13:14 Dose: 20 mg Metronidazole (Flagyl) 500 mg PO Q8 [facility] Last Admin: 05/27/17 14:07 Dose: Not Given Morphine Sulfate (Morphine) 4 mg IV Q4 PRN PRN Reason: Pain, severe (8-10) Last Admin: 05/27/17 17:01 Dose: 4 mg Ondansetron HCl (Zofran Inj) 4 mg IVP Q4 PRN PRN Reason: Nausea/Vomiting Oxycodone/Acetaminophen (Percocet 5/325 Mg Tab) 1 tab PO Q4H PRN PRN Reason: Pain, moderate (4-7) Stop: 05/30/17 13:53 Promethazine HCl/Dextromethorphan (Phenergan Dm Syrup) 10 ml PO Q6 [facility] Last Admin: 05/27/17 17:40 Dose: Not Given - Labs Labs: 05/27/17 10:31 05/27/17 10:31 PT 14.7 SECONDS (9.7-12.2) H 05/22/17 15:46 INR 1.3 05/22/17 15:46 APTT 31 SECONDS (21-34) 05/22/17 15:46 - Constitutional Appears: Well - Head Exam Head Exam: ATRAUMATIC, NORMAL INSPECTION, NORMOCEPHALIC - Eye Exam Eye Exam: EOMI, Normal appearance, PERRL Pupil Exam: NORMAL ACCOMODATION, PERRL - ENT Exam ENT Exam: Mucous Membranes Moist, Normal Exam - Neck Exam Neck Exam: Full ROM, Normal Inspection. absent: Lymphadenopathy - Respiratory Exam Respiratory Exam: Decreased Breath Sounds - Cardiovascular Exam Cardiovascular Exam: REGULAR RHYTHM, +S1, +S2 - GI/Abdominal Exam GI & Abdominal Exam: Soft, Diminished Bowel Sounds - Rectal Exam Rectal Exam: Deferred Assessment and Plan (1) Asthma Status: Acute (2) Atrial fibrillation Status: Acute (3) CHF exacerbation Status: Acute (4) Chest discomfort Status: Acute (5) Dyspnea Status: Acute (6) demise Status: Acute (7) Foot sprain Status: Acute (8) History of atrial fibrillation Status: Acute (9) Leg edema Status: Acute (10) PNA (pneumonia) Status: Acute (11) cardiomyopathy Status: Acute (12) Status: Acute (13) Prophylactic measure Status: Acute (14) Rectal abscess Status: Acute (15) Rectal pain Status: Acute (16) UTI (urinary tract infection) Status: Acute (17) CHF (congestive heart failure) Status: Chronic (18) Systolic and diastolic CHF w/reduced LV function, NYHA class 4 Status: Chronic - Assessment and Plan (Free Text) Plan: VQ scan done. Low possibility of pulmonary embolism. Continue digoxin, enoxaparin, furosemide, metronidazole. Continue supportive care.
--- NOTE | 2017-05-27 18:46 | CP.PCM.PN ---
Subjective - Date & Time of Evaluation Date of Evaluation: 05/27/17 Objective - Vital Signs/Intake and Output Vital Signs (last 24 hours): Temp Pulse Resp BP Pulse Ox 97.7 F 80 20 97/66 L 95 05/27/17 16:00 05/27/17 16:00 05/27/17 16:00 05/27/17 16:00 05/27/17 16:00 Intake and Output: 05/27/17 05/27/17 06:59 18:59 Intake Total 480 Balance 480 - Medications Medications: Current Medications Albuterol/Ipratropium (Duoneb 3 Mg/0.5 Mg (3 Ml) Ud) 3 ml INH RQ6 [facility] Last Admin: 05/27/17 18:35 Dose: 3 ml Digoxin (Lanoxin) 0.25 mg PO DAILY@1800 [facility] Last Admin: 05/27/17 17:01 Dose: 0.25 mg Enoxaparin Sodium (Lovenox) 40 mg SC DAILY [facility] Last Admin: 05/27/17 10:45 Dose: 40 mg Furosemide (Lasix) 20 mg IVP Q12 [facility] Last Admin: 05/27/17 13:14 Dose: 20 mg Metronidazole (Flagyl) 500 mg PO Q8 [facility] Last Admin: 05/27/17 14:07 Dose: Not Given Morphine Sulfate (Morphine) 4 mg IV Q4 PRN PRN Reason: Pain, severe (8-10) Last Admin: 05/27/17 17:01 Dose: 4 mg Ondansetron HCl (Zofran Inj) 4 mg IVP Q4 PRN PRN Reason: Nausea/Vomiting Oxycodone/Acetaminophen (Percocet 5/325 Mg Tab) 1 tab PO Q4H PRN PRN Reason: Pain, moderate (4-7) Stop: 05/30/17 13:53 Promethazine HCl/Dextromethorphan (Phenergan Dm Syrup) 10 ml PO Q6 [facility] Last Admin: 05/27/17 17:40 Dose: Not Given - Labs Labs: 05/27/17 10:31 05/27/17 10:31 PT 14.7 SECONDS (9.7-12.2) H 05/22/17 15:46 INR 1.3 05/22/17 15:46 APTT 31 SECONDS (21-34) 05/22/17 15:46
--- NOTE | 2017-05-27 20:44 | CT ---
EXAM: CT Abdomen and Pelvis Without Intravenous Contrast EXAM DATE/TIME: Exam ordered 05/27/2017 2:13 PM CLINICAL HISTORY: 31 years old, female; Pain; Abdominal pain; Generalized; Patient HX: Abd pain/s/p demise; Additional info: Worsening abd pain TECHNIQUE: Axial computed tomography images of the abdomen and pelvis without intravenous contrast. All CT scans at this facility use one or more dose reduction techniques, viz.: automated exposure control; ma/kV adjustment per patient size (including targeted exams where dose is matched to indication; i.e. head); or iterative reconstruction technique. Coronal and sagittal reformatted images were created and reviewed. COMPARISON: US - PREG 1ST TRIMESTER/OB TV 2017-05-22 18:56 FINDINGS: Lower thorax: The heart is enlarged. Findings suggest a small pericardial effusion. ABDOMEN: Liver: The liver measures 18.9 cm in craniocaudal span in the midclavicular line. Gallbladder and bile ducts: Unremarkable. No calcified stones. No ductal dilation. Pancreas: Unremarkable. No ductal dilation. Spleen: Unremarkable. No splenomegaly. Adrenals: There is a 2 cm left adrenal mass with a density measurement of 9H. Surgical clips are noted in the right adnexa. Kidneys and ureters: The right kidney is malrotated. No obstructing stones. No hydronephrosis. Stomach and bowel: Unremarkable. No obstruction. No mucosal thickening. Appendix: No findings to suggest acute appendicitis. PELVIS: Bladder: Unremarkable. No stones. Reproductive: There is a suggestion of fluid within the endometrial canal. ABDOMEN and PELVIS: Intraperitoneal space: Unremarkable. No free air. No significant fluid collection. Bones/joints: No acute fracture. No dislocation. Soft tissues: There is mild body wall edema. Vasculature: Unremarkable. No abdominal aortic aneurysm. Lymph nodes: Unremarkable. No enlarged lymph nodes. IMPRESSION: 1. No acute findings. 2. Marked cardiomegaly with possible small pericardial effusion 3. Hepatic steatosis. 4. Low density left adrenal mass. No follow-up is necessary.
--- NOTE | 2017-05-27 23:49 | CP.PCM.PN ---
Subjective - Date & Time of Evaluation Date of Evaluation: 05/27/17 Time of Evaluation: 18:00 - Subjective Subjective: Patient seen and evaluated No cardiac events Surgery recommendations noted Low to intermediate risk for cardiac events for D & C Avoid fluid overload Physical Examination - Constitutional Appears: Non-toxic, No Acute Distress - Head Exam Head Exam: ATRAUMATIC, NORMOCEPHALIC - Eye Exam Eye Exam: EOMI - ENT Exam ENT Exam: Mucous Membranes Moist - Respiratory Exam Respiratory Exam: Wheezes (minimal), NORMAL BREATHING PATTERN - Cardiovascular Exam Cardiovascular Exam: +S1, +S2, Murmur - GI/Abdominal Exam GI & Abdominal Exam: Soft, Normal Bowel Sounds - Extremities Exam Extremities Exam: absent: Calf Tenderness Additional comments: minimal lower extremity swelling, R>L - Neurological Exam Neurological Exam: Alert, Awake - Psychiatric Exam Psychiatric exam: Normal Affect - Skin Skin Exam: Warm Objective - Vital Signs/Intake and Output Vital Signs (last 24 hours): Temp Pulse Resp BP Pulse Ox 97.9 F 92 H 18 95/60 L 95 05/27/17 23:27 05/27/17 23:27 05/27/17 23:27 05/27/17 23:27 05/27/17 23:27 Intake and Output: 05/27/17 05/28/17 18:59 06:59 Intake Total 480 Balance 480 - Medications Medications: Current Medications Albuterol/Ipratropium (Duoneb 3 Mg/0.5 Mg (3 Ml) Ud) 3 ml INH RQ6 [facility] Last Admin: 05/27/17 18:35 Dose: 3 ml Digoxin (Lanoxin) 0.25 mg PO DAILY@1800 [facility] Last Admin: 05/27/17 17:01 Dose: 0.25 mg Enoxaparin Sodium (Lovenox) 40 mg SC DAILY [facility] Last Admin: 05/27/17 10:45 Dose: 40 mg Furosemide (Lasix) 20 mg IVP Q12 [facility] Last Admin: 05/27/17 21:55 Dose: 20 mg Metronidazole (Flagyl) 500 mg PO Q8 [facility] Last Admin: 05/27/17 21:55 Dose: 500 mg Morphine Sulfate (Morphine) 4 mg IV Q4 PRN PRN Reason: Pain, severe (8-10) Last Admin: 05/27/17 17:01 Dose: 4 mg Ondansetron HCl (Zofran Inj) 4 mg IVP Q4 PRN PRN Reason: Nausea/Vomiting Oxycodone/Acetaminophen (Percocet 5/325 Mg Tab) 1 tab PO Q4H PRN PRN Reason: Pain, moderate (4-7) Stop: 05/30/17 13:53 Promethazine HCl/Dextromethorphan (Phenergan Dm Syrup) 10 ml PO Q6 [facility] Last Admin: 05/27/17 17:40 Dose: Not Given - Labs Labs: 05/27/17 10:31 05/27/17 10:31 PT 14.7 SECONDS (9.7-12.2) H 05/22/17 15:46 INR 1.3 05/22/17 15:46 APTT 31 SECONDS (21-34) 05/22/17 15:46 Assessment and Plan - Assessment and Plan (Free Text) Assessment: (1) cardiomyopathy Assessment and Plan: Diagnosed following patient's in [address] Rajan outpatient but has not been compliant with therapy. Patient was advised not to become due to high risk nature Patient advised to contraceptive measures- Suggestions fror IUD or implanon device Since has been confirmed nonviable - May continue with Lasix therapy and Digoxin Oxygen as tolerated per nasal canula Avoid unnecessary IV fluid administration (2) demise Assessment and Plan: OBGYN Dr. Blanco confirmed findings in the office yesterday per patient Ultrasound 05/22- Asymmetric gestational sacs noted- No poles or yolk sac appreciated Findings suspicious for failure In comparison to Ultrasound from 04/22: two gestational sacs noted then. Gestational sac A: yolk sac and pole present Gestational sac B: Did not contain evidence of yolk sac or pole. Clinical correlation was warranted . Status: Acute (3) History of atrial fibrillation Assessment and Plan: As noted above. Echo from November - EF less than 20%, LV systolic function severely impaired; severe pulm hypertension Dig and Lasix Therapeutic Lovenox Status: Acute (4) Prophylactic measure Assessment and Plan: Therapeutic Lovenox 110 SC Q12 GI prophylaxis not indicated at this time Counseled extensively on the need for contraceptive measures. can complicate patient's heart condition
[2017-05-28] MEDS: Morphine 4 MG/ML VIAL IV PRN ×3 (00:03→19:00)
[2017-05-28] MEDS: Promethazine DM 6.25 mg-15 mg/5 ml Syrup PO SCH ×4 (00:15→18:10)
[2017-05-28] MEDS: Albuterol-Ipratrop 3 mg / 0.5 (3 ml) UD INH SCH ×4 (02:10→19:21)
[2017-05-28 07:54] LABS: BASO % 0.6 % (0.0-2.0); EOS % 0.9 % (0.0-4.0); HEMATOCRIT 33.9 % (34.0-47.0); LYMPH # 0.5 K/uL (1.0-4.3); MEAN CELL VOLUME 88.9 fL (81.0-99.0); MEAN CORPUSCULAR HEMOGLOBIN 30.1 pg (27.0-31.0); MEAN CORPUSCULAR HGB CONC 33.9 g/dL (33.0-37.0); MEAN PLATELET VOLUME 8.8 fL (7.2-11.7); MONO # 0.3 K/uL (0.0-0.8); MONO % 8.8 % (0.0-10.0); NRBC % 0.2 % (0.0-2.0); WHITE BLOOD COUNT 3.2 K/uL (4.8-10.8)
[2017-05-28 08:44] LABS: CHLORIDE 97 mmol/L (98-107); POTASSIUM 3.2 mmol/L (3.6-5.2); SODIUM 130 mmol/L (132-148)
[2017-05-28 08:46] LABS: ALB/GLOB RATIO 0.9 (1.0-2.1); ALKALINE PHOSPHATASE 38 U/L (38-126); ALT/SGPT 103 U/L (9-52); AST/SGOT 88 U/L (14-36); BILIRUBIN,TOTAL 1.1 mg/dL (0.2-1.3); BLOOD UREA NITROGEN 8 mg/dL (7-17); CARBON DIOXIDE 23 mmol/L (22-30); GFR AFRICAN-AMERICAN > 60; TOTAL PROTEIN 7.1 g/dL (6.3-8.3)
[2017-05-28 08:47] LABS: CALCIUM 8.8 mg/dl (8.6-10.4); GLUCOSE,RANDOM 85 mg/dL (65-105); MAGNESIUM 1.5 mg/dL (1.6-2.3); PHOSPHOROUS 3.4 mg/dL (2.5-4.5)
[2017-05-28] MEDS: Enoxaparin 40 mg Syringe SC SCH (09:13)
[2017-05-28] MEDS: Magnesium Oxide 400 mg Tab UD PO SCH (12:12)
[2017-05-28] MEDS ORDERED: Potassium Chloride 20 mEq ER Tab PO ONE (12:30)
--- NOTE | 2017-05-28 15:01 | VASCLAB ---
PROCEDURE: Lower Extremity Venous Duplex Exam. HISTORY: Leg swelling PRIORS: None. TECHNIQUE: Bilateral common femoral, femoral, popliteal and posterior tibial, peroneal and great saphenous veins were evaluated. Flow was assessed with color Doppler, compressibility, assessment of phasic flow and augmentation response. Report prepared by MILDRED Rea, RVT FINDINGS: RIGHT: 1. Common Femoral Vein: 1.1. Compressibility - Fully compressible: Thrombus - None : Flow - Phasic: Augmentation -Normal: Reflux - None. 2. Femoral Vein: 2.1. Compressibility - Fully compressible: Thrombus - None : Flow - Phasic: Augmentation -Normal: Reflux - None. 3. Popliteal Vein: 3.1. Compressibility - Fully compressible: Thrombus - None : Flow - Phasic: Augmentation -Normal: Reflux - None. 4. Posterior Tibial Vein: 4.1. Compressibility - Fully compressible: Thrombus - None: Flow - Phasic: Augmentation -Normal: Reflux - None. 5. Peroneal Vein: 5.1. Compressibility - Fully compressible: Thrombus - None: Flow - Phasic: Augmentation -Normal: Reflux - None. 6. Great Saphenous Vein: 6.1. Compressibility - Fully compressible: Thrombus - None: Flow - Phasic: Augmentation - Normal: Reflux - None. LEFT: 1. Common Femoral Vein: 1.1. Compressibility - Fully compressible: Thrombus - None: Flow - Phasic: Augmentation -Normal: Reflux - None. 2. Femoral Vein: 2.1. Compressibility - Fully compressible: Thrombus - None: Flow - Phasic: Augmentation -Normal: Reflux - None. 3. Popliteal Vein: 3.1. Compressibility - Fully compressible: Thrombus - None : Flow - Phasic: Augmentation -Normal: Reflux - None. 4. Posterior Tibial Vein: 4.1. Compressibility - Fully compressible: Thrombus - None: Flow - Phasic: Augmentation -Normal: Reflux - None. 5. Peroneal Vein: 5.1. Compressibility - Fully compressible: Thrombus - None: Flow - Phasic: Augmentation -Normal: Reflux - None. 6. Great Saphenous Vein: 6.1. Compressibility - Fully compressible: Thrombus - None: Flow - Phasic: Augmentation - Normal: Reflux - None. OTHER FINDINGS: Right: None significant. Left: None significant. IMPRESSION: Right: No evidence of deep or superficial vein thrombosis of the right lower extremity. Normal valve function noted of the right side. Left: No evidence of deep or superficial vein thrombosis of the left lower extremity. Normal valve function noted of the left side.
--- NOTE | 2017-05-28 16:09 | CP.PCM.PN ---
Subjective - Date & Time of Evaluation Date of Evaluation: 05/28/17 Time of Evaluation: 07:00 - Subjective Subjective: GENERAL SURGERY PROGRESS NOTE FOR DR. LERMA Patient seen and examined at bedside. She reports abdominal pain that comes and goes. She describes the pain as cramping. She is not eating much because she states that she does not like the food. She is having regular BMs and passing flatus. She denies nausea and hasn't vomited anymore. Objective - Vital Signs/Intake and Output Vital Signs (last 24 hours): Temp Pulse Resp BP Pulse Ox 97.5 F L 90 20 99/74 L 99 05/28/17 12:18 05/28/17 12:18 05/28/17 12:18 05/28/17 12:18 05/28/17 12:18 - Medications Medications: Current Medications Albuterol/Ipratropium (Duoneb 3 Mg/0.5 Mg (3 Ml) Ud) 3 ml INH RQ6 [facility] Last Admin: 05/28/17 13:18 Dose: 3 ml Digoxin (Lanoxin) 0.25 mg PO DAILY@1800 [facility] Last Admin: 05/27/17 17:01 Dose: 0.25 mg Enoxaparin Sodium (Lovenox) 40 mg SC DAILY [facility] Last Admin: 05/28/17 09:13 Dose: 40 mg Furosemide (Lasix) 20 mg IVP Q12 [facility] Last Admin: 05/28/17 12:12 Dose: 20 mg Magnesium Oxide (Mag-Ox) 400 mg PO DAILY [facility] Stop: 05/30/17 12:01 Last Admin: 05/28/17 12:12 Dose: 400 mg Metronidazole (Flagyl) 500 mg PO Q8 [facility] Last Admin: 05/28/17 15:19 Dose: 500 mg Morphine Sulfate (Morphine) 4 mg IV Q4 PRN PRN Reason: Pain, severe (8-10) Last Admin: 05/28/17 09:05 Dose: 4 mg Ondansetron HCl (Zofran Inj) 4 mg IVP Q4 PRN PRN Reason: Nausea/Vomiting Oxycodone/Acetaminophen (Percocet 5/325 Mg Tab) 1 tab PO Q4H PRN PRN Reason: Pain, moderate (4-7) Stop: 05/30/17 13:53 Potassium Chloride (K-Dur 20 Meq Er Tab) 20 meq PO DAILY [facility] Stop: 05/31/17 10:01 Promethazine HCl/Dextromethorphan (Phenergan Dm Syrup) 10 ml PO Q6 [facility] Last Admin: 05/28/17 11:45 Dose: Not Given - Labs Labs: 05/28/17 07:37 05/28/17 07:37 PT 14.7 SECONDS (9.7-12.2) H 05/22/17 15:46 INR 1.3 05/22/17 15:46 APTT 31 SECONDS (21-34) 05/22/17 15:46 - Constitutional Appears: Non-toxic, No Acute Distress - Head Exam Head Exam: ATRAUMATIC, NORMAL INSPECTION - Eye Exam Eye Exam: EOMI, Normal appearance - Respiratory Exam Respiratory Exam: NORMAL BREATHING PATTERN. absent: Respiratory Distress - Cardiovascular Exam Cardiovascular Exam: +S1, +S2 - GI/Abdominal Exam GI & Abdominal Exam: Soft. absent: Distended, Firm, Guarding, Rigid, Tenderness , Rebound - Neurological Exam Neurological Exam: Alert, Awake - Psychiatric Exam Psychiatric exam: Normal Affect, Normal Mood - Skin Skin Exam: Dry, Warm Assessment and Plan - Assessment and Plan (Free Text) Assessment: 31yo F with PMHx of dilated cardiomyopathy, AFib, with acute demise and retained products - Abdomen CT: no acute findings; hepatic steatosis; left adrenal mass; marked cardiomegaly with possible small pericardial effusion - Abdomen US: echogenic liver, no gallbladder pathology - No general surgery intervention necessary - Recommend D&C this admission - 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 Fernie Paulino PGY-3
--- NOTE | 2017-05-28 16:22 | CP.PCM.PN ---
Subjective - Date & Time of Evaluation Date of Evaluation: 05/28/17 Time of Evaluation: 16:22 Objective - Vital Signs/Intake and Output Vital Signs (last 24 hours): Temp Pulse Resp BP Pulse Ox 97.5 F L 90 20 99/74 L 99 05/28/17 12:18 05/28/17 12:18 05/28/17 12:18 05/28/17 12:18 05/28/17 12:18 Intake and Output: 05/28/17 05/28/17 06:59 18:59 Intake Total 480 Balance 480 - Medications Medications: Current Medications Albuterol/Ipratropium (Duoneb 3 Mg/0.5 Mg (3 Ml) Ud) 3 ml INH RQ6 [facility] Last Admin: 05/28/17 13:18 Dose: 3 ml Digoxin (Lanoxin) 0.25 mg PO DAILY@1800 [facility] Last Admin: 05/27/17 17:01 Dose: 0.25 mg Enoxaparin Sodium (Lovenox) 40 mg SC DAILY [facility] Last Admin: 05/28/17 09:13 Dose: 40 mg Furosemide (Lasix) 20 mg IVP Q12 [facility] Last Admin: 05/28/17 12:12 Dose: 20 mg Magnesium Oxide (Mag-Ox) 400 mg PO DAILY [facility] Stop: 05/30/17 12:01 Last Admin: 05/28/17 12:12 Dose: 400 mg Metronidazole (Flagyl) 500 mg PO Q8 [facility] Last Admin: 05/28/17 15:19 Dose: 500 mg Morphine Sulfate (Morphine) 4 mg IV Q4 PRN PRN Reason: Pain, severe (8-10) Last Admin: 05/28/17 09:05 Dose: 4 mg Ondansetron HCl (Zofran Inj) 4 mg IVP Q4 PRN PRN Reason: Nausea/Vomiting Oxycodone/Acetaminophen (Percocet 5/325 Mg Tab) 1 tab PO Q4H PRN PRN Reason: Pain, moderate (4-7) Stop: 05/30/17 13:53 Potassium Chloride (K-Dur 20 Meq Er Tab) 20 meq PO DAILY [facility] Stop: 05/31/17 10:01 Promethazine HCl/Dextromethorphan (Phenergan Dm Syrup) 10 ml PO Q6 [facility] Last Admin: 05/28/17 11:45 Dose: Not Given - Labs Labs: 05/28/17 07:37 05/28/17 07:37 PT 14.7 SECONDS (9.7-12.2) H 05/22/17 15:46 INR 1.3 05/22/17 15:46 APTT 31 SECONDS (21-34) 05/22/17 15:46
--- NOTE | 2017-05-28 17:55 | CP.PCM.PN ---
<Jeanette Puga DO - Last Filed: 05/28/17 17:49> Subjective - Date & Time of Evaluation Date of Evaluation: 05/28/17 Time of Evaluation: 10:40 - Subjective Subjective: Cardiology progress note for Dr. Mayfield Patient seen and examined. Patient denies chest pain or dyspnea today. Patient' s only complaints at this time are pelvic pain and cramping. Patient states she had minimal vaginal bleeding yesterday but none today, denies passing clots. Objective - Vital Signs/Intake and Output Vital Signs (last 24 hours): Temp Pulse Resp BP Pulse Ox 97.5 F L 90 20 99/74 L 99 05/28/17 12:18 05/28/17 12:18 05/28/17 12:18 05/28/17 12:18 05/28/17 12:18 Intake and Output: 05/28/17 05/28/17 06:59 18:59 Intake Total 480 Balance 480 - Medications Medications: Current Medications Albuterol/Ipratropium (Duoneb 3 Mg/0.5 Mg (3 Ml) Ud) 3 ml INH RQ6 [facility] Last Admin: 05/28/17 13:18 Dose: 3 ml Digoxin (Lanoxin) 0.25 mg PO DAILY@1800 [facility] Last Admin: 05/27/17 17:01 Dose: 0.25 mg Enoxaparin Sodium (Lovenox) 40 mg SC DAILY [facility] Last Admin: 05/28/17 09:13 Dose: 40 mg Furosemide (Lasix) 20 mg IVP Q12 [facility] Last Admin: 05/28/17 12:12 Dose: 20 mg Magnesium Oxide (Mag-Ox) 400 mg PO DAILY [facility] Stop: 05/30/17 12:01 Last Admin: 05/28/17 12:12 Dose: 400 mg Metronidazole (Flagyl) 500 mg PO Q8 [facility] Last Admin: 05/28/17 15:19 Dose: 500 mg Morphine Sulfate (Morphine) 4 mg IV Q4 PRN PRN Reason: Pain, severe (8-10) Last Admin: 05/28/17 09:05 Dose: 4 mg Ondansetron HCl (Zofran Inj) 4 mg IVP Q4 PRN PRN Reason: Nausea/Vomiting Oxycodone/Acetaminophen (Percocet 5/325 Mg Tab) 1 tab PO Q4H PRN PRN Reason: Pain, moderate (4-7) Stop: 05/30/17 13:53 Potassium Chloride (K-Dur 20 Meq Er Tab) 20 meq PO DAILY [facility] Stop: 05/31/17 10:01 Promethazine HCl/Dextromethorphan (Phenergan Dm Syrup) 10 ml PO Q6 [facility] Last Admin: 05/28/17 11:45 Dose: Not Given - Labs Labs: 05/28/17 07:37 05/28/17 07:37 PT 14.7 SECONDS (9.7-12.2) H 05/22/17 15:46 INR 1.3 05/22/17 15:46 APTT 31 SECONDS (21-34) 05/22/17 15:46 - Constitutional Appears: Non-toxic, No Acute Distress - Head Exam Head Exam: ATRAUMATIC, NORMOCEPHALIC - Eye Exam Eye Exam: EOMI - ENT Exam ENT Exam: Mucous Membranes Moist - Respiratory Exam Respiratory Exam: Wheezes (minimal), NORMAL BREATHING PATTERN - Cardiovascular Exam Cardiovascular Exam: +S1, +S2, Murmur - GI/Abdominal Exam GI & Abdominal Exam: Soft, Normal Bowel Sounds - Extremities Exam Extremities Exam: absent: Calf Tenderness Additional comments: minimal lower extremity swelling, R>L - Neurological Exam Neurological Exam: Alert, Awake - Psychiatric Exam Psychiatric exam: Normal Affect - Skin Skin Exam: Warm Assessment and Plan - Assessment and Plan (Free Text) Assessment: 31 year old female with PMHx dilated cardiomyopathy s/p AICD, hospitalized with demise Dilated cardiomyopathy patient has AICD patient low-intermediate risk for cardiac events in D&C avoid fluid overload Echo from November - EF less than 20%, LV systolic function severely impaired; severe pulm hypertension continue digoxin 0.25mg daily, lasix 20mg Q12 Afib continue therapeutic lovenox Plan as per Dr. Mayfield <Anjum Mayfield - Last Filed: 05/28/17 23:49> Objective - Vital Signs/Intake and Output Vital Signs (last 24 hours): Temp Pulse Resp BP Pulse Ox 97.3 F L 101 H 18 94/70 L 96 05/28/17 23:37 05/28/17 23:37 05/28/17 23:37 05/28/17 23:37 05/28/17 23:37 Intake and Output: 05/28/17 05/29/17 18:59 06:59 Intake Total 480 Balance 480 - Medications Medications: Current Medications Albuterol/Ipratropium (Duoneb 3 Mg/0.5 Mg (3 Ml) Ud) 3 ml INH RQ6 [facility] Last Admin: 05/28/17 19:21 Dose: 3 ml Digoxin (Lanoxin) 0.25 mg PO DAILY@1800 [facility] Last Admin: 05/28/17 18:10 Dose: 0.25 mg Enoxaparin Sodium (Lovenox) 40 mg SC DAILY [facility] Last Admin: 05/28/17 09:13 Dose: 40 mg Furosemide (Lasix) 20 mg IVP Q12 [facility] Last Admin: 05/28/17 21:35 Dose: 20 mg Magnesium Oxide (Mag-Ox) 400 mg PO DAILY [facility] Stop: 05/30/17 12:01 Last Admin: 05/28/17 12:12 Dose: 400 mg Metronidazole (Flagyl) 500 mg PO Q8 [facility] Last Admin: 05/28/17 21:34 Dose: 500 mg Morphine Sulfate (Morphine) 4 mg IV Q4 PRN PRN Reason: Pain, severe (8-10) Last Admin: 05/28/17 19:00 Dose: 4 mg Ondansetron HCl (Zofran Inj) 4 mg IVP Q4 PRN PRN Reason: Nausea/Vomiting Oxycodone/Acetaminophen (Percocet 5/325 Mg Tab) 1 tab PO Q4H PRN PRN Reason: Pain, moderate (4-7) Stop: 05/30/17 13:53 Potassium Chloride (K-Dur 20 Meq Er Tab) 20 meq PO DAILY [facility] Stop: 05/31/17 10:01 Promethazine HCl/Dextromethorphan (Phenergan Dm Syrup) 10 ml PO Q6 [facility] Last Admin: 05/28/17 18:10 Dose: Not Given - Labs Labs: 05/28/17 07:37 05/28/17 07:37 PT 14.7 SECONDS (9.7-12.2) H 05/22/17 15:46 INR 1.3 05/22/17 15:46 APTT 31 SECONDS (21-34) 05/22/17 15:46 Assessment and Plan - Assessment and Plan (Free Text) Assessment: Patient seen and evaluated with the biomedical engineering internship Plan of care as documented
[2017-05-28] MEDS: Digoxin 250 mcg (0.25 mg) Tab PO SCH (18:10)
--- NOTE | 2017-05-28 19:48 | CP.PCM.PN ---
Subjective - Date & Time of Evaluation Date of Evaluation: 05/28/17 Time of Evaluation: 08:40 - Subjective Subjective: clinically same Objective - Vital Signs/Intake and Output Vital Signs (last 24 hours): Temp Pulse Resp BP Pulse Ox 97.5 F L 90 20 99/74 L 99 05/28/17 12:18 05/28/17 12:18 05/28/17 12:18 05/28/17 12:18 05/28/17 12:18 Intake and Output: 05/28/17 05/29/17 18:59 06:59 Intake Total 480 Balance 480 - Medications Medications: Current Medications Albuterol/Ipratropium (Duoneb 3 Mg/0.5 Mg (3 Ml) Ud) 3 ml INH RQ6 [facility] Last Admin: 05/28/17 19:21 Dose: 3 ml Digoxin (Lanoxin) 0.25 mg PO DAILY@1800 [facility] Last Admin: 05/28/17 18:10 Dose: 0.25 mg Enoxaparin Sodium (Lovenox) 40 mg SC DAILY [facility] Last Admin: 05/28/17 09:13 Dose: 40 mg Furosemide (Lasix) 20 mg IVP Q12 [facility] Last Admin: 05/28/17 12:12 Dose: 20 mg Magnesium Oxide (Mag-Ox) 400 mg PO DAILY [facility] Stop: 05/30/17 12:01 Last Admin: 05/28/17 12:12 Dose: 400 mg Metronidazole (Flagyl) 500 mg PO Q8 [facility] Last Admin: 05/28/17 15:19 Dose: 500 mg Morphine Sulfate (Morphine) 4 mg IV Q4 PRN PRN Reason: Pain, severe (8-10) Last Admin: 05/28/17 09:05 Dose: 4 mg Ondansetron HCl (Zofran Inj) 4 mg IVP Q4 PRN PRN Reason: Nausea/Vomiting Oxycodone/Acetaminophen (Percocet 5/325 Mg Tab) 1 tab PO Q4H PRN PRN Reason: Pain, moderate (4-7) Stop: 05/30/17 13:53 Potassium Chloride (K-Dur 20 Meq Er Tab) 20 meq PO DAILY [facility] Stop: 05/31/17 10:01 Promethazine HCl/Dextromethorphan (Phenergan Dm Syrup) 10 ml PO Q6 [facility] Last Admin: 10/25/17 18:10 Dose: Not Given - Labs Labs: 05/28/17 07:37 05/28/17 07:37 PT 14.7 SECONDS (9.7-12.2) H 05/22/17 15:46 INR 1.3 05/22/17 15:46 APTT 31 SECONDS (21-34) 05/22/17 15:46 - Constitutional Appears: Well - Head Exam Head Exam: ATRAUMATIC, NORMAL INSPECTION, NORMOCEPHALIC - Eye Exam Eye Exam: EOMI, Normal appearance, PERRL Pupil Exam: NORMAL ACCOMODATION, PERRL - ENT Exam ENT Exam: Mucous Membranes Moist, Normal Exam - Neck Exam Neck Exam: Full ROM, Normal Inspection. absent: Lymphadenopathy - Respiratory Exam Respiratory Exam: Decreased Breath Sounds - Cardiovascular Exam Cardiovascular Exam: REGULAR RHYTHM, +S1, +S2 - GI/Abdominal Exam GI & Abdominal Exam: Soft, Diminished Bowel Sounds - Rectal Exam Rectal Exam: Deferred Assessment and Plan (1) Asthma Status: Acute (2) Atrial fibrillation Status: Acute (3) CHF exacerbation Status: Acute (4) Chest discomfort Status: Acute (5) Dyspnea Status: Acute (6) demise Status: Acute (7) Foot sprain Status: Acute (8) History of atrial fibrillation Status: Acute (9) Leg edema Status: Acute (10) PNA (pneumonia) Status: Acute (11) cardiomyopathy Status: Acute (12) Status: Acute (13) Prophylactic measure Status: Acute (14) Rectal abscess Status: Acute (15) Rectal pain Status: Acute (16) UTI (urinary tract infection) Status: Acute (17) CHF (congestive heart failure) Status: Chronic (18) Systolic and diastolic CHF w/reduced LV function, NYHA class 4 Status: Chronic - Assessment and Plan (Free Text) Plan: Patient examined. Patient better. No chest pain or dyspnea. Only pelvic cramps. Continue digoxin, furosemide, magnesium oxide, metronidazole. Continue supportive care.
[2017-05-29] MEDS: Morphine 4 MG/ML VIAL IV PRN ×4 (00:08→21:47)
[2017-05-29] MEDS: Promethazine DM 6.25 mg-15 mg/5 ml Syrup PO SCH ×4 (00:08→21:43)
[2017-05-29] MEDS: Albuterol-Ipratrop 3 mg / 0.5 (3 ml) UD INH SCH ×4 (01:55→20:08)
[2017-05-29 09:29] VITALS: RESP 20
--- NOTE | 2017-05-29 10:02 | CP.PCM.PN ---
<Jeanette Puga DO - Last Filed: 05/29/17 11:32> Subjective - Date & Time of Evaluation Date of Evaluation: 05/29/17 Time of Evaluation: 09:57 - Subjective Subjective: Cardiology progress note for Dr. Mayfield Patient seen and examined. Patient states she feels well today. Patient denies dyspnea, wheezing, chest pain. Patient still has complaint of lower abdominal/ pelvic pain. Objective - Vital Signs/Intake and Output Vital Signs (last 24 hours): Temp Pulse Resp BP Pulse Ox 97.4 F L 100 H 20 104/74 94 L 05/29/17 08:25 05/29/17 08:25 05/29/17 08:25 05/29/17 08:25 05/29/17 08:25 - Medications Medications: Current Medications Albuterol/Ipratropium (Duoneb 3 Mg/0.5 Mg (3 Ml) Ud) 3 ml INH RQ6 [facility] Last Admin: 05/29/17 07:42 Dose: 3 ml Digoxin (Lanoxin) 0.25 mg PO DAILY@1800 [facility] Last Admin: 05/28/17 18:10 Dose: 0.25 mg Enoxaparin Sodium (Lovenox) 40 mg SC DAILY [facility] Last Admin: 05/28/17 09:13 Dose: 40 mg Furosemide (Lasix) 20 mg IVP Q12 [facility] Last Admin: 05/28/17 21:35 Dose: 20 mg Magnesium Oxide (Mag-Ox) 400 mg PO DAILY [facility] Stop: 05/30/17 12:01 Last Admin: 05/28/17 12:12 Dose: 400 mg Metronidazole (Flagyl) 500 mg PO Q8 [facility] Last Admin: 05/29/17 06:02 Dose: 500 mg Morphine Sulfate (Morphine) 4 mg IV Q4 PRN PRN Reason: Pain, severe (8-10) Last Admin: 05/29/17 06:12 Dose: 4 mg Ondansetron HCl (Zofran Inj) 4 mg IVP Q4 PRN PRN Reason: Nausea/Vomiting Oxycodone/Acetaminophen (Percocet 5/325 Mg Tab) 1 tab PO Q4H PRN PRN Reason: Pain, moderate (4-7) Stop: 05/30/17 13:53 Potassium Chloride (K-Dur 20 Meq Er Tab) 20 meq PO DAILY [facility] Stop: 05/31/17 10:01 Promethazine HCl/Dextromethorphan (Phenergan Dm Syrup) 10 ml PO Q6 [facility] Last Admin: 05/29/17 00:08 Dose: Not Given - Labs Labs: 05/28/17 07:37 05/28/17 07:37 PT 14.7 SECONDS (9.7-12.2) H 05/22/17 15:46 INR 1.3 05/22/17 15:46 APTT 31 SECONDS (21-34) 05/22/17 15:46 - Constitutional Appears: Non-toxic, No Acute Distress - Head Exam Head Exam: ATRAUMATIC, NORMOCEPHALIC - Eye Exam Eye Exam: EOMI - ENT Exam ENT Exam: Mucous Membranes Moist - Respiratory Exam Respiratory Exam: Clear to Ausculation Bilateral, NORMAL BREATHING PATTERN. absent: Wheezes, Respiratory Distress - Cardiovascular Exam Cardiovascular Exam: +S1, +S2, Murmur - GI/Abdominal Exam GI & Abdominal Exam: Soft, Normal Bowel Sounds. absent: Tenderness - Extremities Exam Additional comments: mild non-pitting edema b/l extremities right arm with area of induration from lovenox injection - Neurological Exam Neurological Exam: Alert, Awake - Psychiatric Exam Psychiatric exam: Normal Affect - Skin Skin Exam: Warm Assessment and Plan - Assessment and Plan (Free Text) Assessment: 31 year old female with PMHx dilated cardiomyopathy s/p AICD, hospitalized with demise Dilated cardiomyopathy patient has AICD patient low-intermediate risk for cardiac events in D&C avoid fluid overload Echo from November - EF less than 20%, LV systolic function severely impaired; severe pulm hypertension continue digoxin 0.25mg daily, lasix 20mg Q12 Afib transient episode in past, no evidence currently continue medical management as above demise OBGYN Dr. Blanco confirmed findings in the office 05/22 per patient Ultrasound 05/22- Asymmetric gestational sacs noted- No poles or yolk sac appreciated In comparison to Ultrasound from 04/22: two gestational sacs noted then. Gestational sac A: yolk sac and pole present Gestational sac B: Did not contain evidence of yolk sac or pole. Clinical correlation was warranted . Repeat quant bhcg from 05/27 decreasing Transvaginal US 05/27: two cystic structures consistent with gestational sacs. both sac contours appear irregular. No evidence of yolk sac or pole. OBGYN input appreciated Plan as per Dr. Mayfield <Anjum Mayfield - Last Filed: 05/29/17 23:43> Objective - Vital Signs/Intake and Output Vital Signs (last 24 hours): Temp Pulse Resp BP Pulse Ox 97.8 F 83 20 142/76 95 05/29/17 15:56 05/29/17 18:00 05/29/17 15:56 05/29/17 21:48 05/29/17 15:56 Intake and Output: 05/29/17 05/30/17 18:59 06:59 Intake Total 480 Balance 480 - Medications Medications: Current Medications Albuterol/Ipratropium (Duoneb 3 Mg/0.5 Mg (3 Ml) Ud) 3 ml INH RQ6 [facility] Last Admin: 05/29/17 20:08 Dose: Not Given Digoxin (Lanoxin) 0.25 mg PO DAILY@1800 [facility] Last Admin: 05/29/17 17:36 Dose: 0.25 mg Enoxaparin Sodium (Lovenox) 40 mg SC DAILY [facility] Last Admin: 05/29/17 10:37 Dose: 40 mg Furosemide (Lasix) 20 mg IVP Q12 [facility] Last Admin: 05/29/17 21:48 Dose: 20 mg Magnesium Oxide (Mag-Ox) 400 mg PO DAILY [facility] Stop: 05/30/17 12:01 Last Admin: 05/29/17 10:36 Dose: 400 mg Metronidazole (Flagyl) 500 mg PO Q8 [facility] Last Admin: 05/29/17 21:48 Dose: 500 mg Morphine Sulfate (Morphine) 4 mg IV Q4 PRN PRN Reason: Pain, severe (8-10) Last Admin: 05/29/17 21:47 Dose: 4 mg Ondansetron HCl (Zofran Inj) 4 mg IVP Q4 PRN PRN Reason: Nausea/Vomiting Oxycodone/Acetaminophen (Percocet 5/325 Mg Tab) 1 tab PO Q4H PRN PRN Reason: Pain, moderate (4-7) Stop: 05/30/17 13:53 Potassium Chloride (K-Dur 20 Meq Er Tab) 20 meq PO DAILY [facility] Stop: 05/31/17 10:01 Last Admin: 05/29/17 10:36 Dose: 20 meq Promethazine HCl/Dextromethorphan (Phenergan Dm Syrup) 10 ml PO Q6 [facility] Last Admin: 05/29/17 21:43 Dose: Not Given - Labs Labs: 05/28/17 07:37 05/29/17 11:46 PT 14.7 SECONDS (9.7-12.2) H 05/22/17 15:46 INR 1.3 05/22/17 15:46 APTT 31 SECONDS (21-34) 05/22/17 15:46 Assessment and Plan - Assessment and Plan (Free Text) Assessment: Patient seen and evaluated with the medical microbiologist Plan of care as documented
[2017-05-29] MEDS: Potassium Chloride 20 mEq ER Tab PO SCH (10:36)
[2017-05-29] MEDS: Magnesium Oxide 400 mg Tab UD PO SCH (10:36)
[2017-05-29] MEDS: Enoxaparin 40 mg Syringe SC SCH (10:37)
[2017-05-29 12:09] LABS: CHLORIDE 95 mmol/L (98-107); POTASSIUM 3.8 mmol/L (3.6-5.2); SODIUM 129 mmol/L (132-148)
[2017-05-29 12:11] LABS: GFR AFRICAN-AMERICAN > 60
[2017-05-29 12:12] LABS: BLOOD UREA NITROGEN 9 mg/dL (7-17); CALCIUM 8.8 mg/dl (8.6-10.4); CARBON DIOXIDE 23 mmol/L (22-30); GLUCOSE,RANDOM 93 mg/dL (65-105)
[2017-05-29 12:13] LABS: MAGNESIUM 1.5 mg/dL (1.6-2.3)
--- NOTE | 2017-05-29 14:25 | CARD ---
APPROVED REPORT EKG Measurement Heart [id number] <Conclusion> Sinus tachycardia with 1st degree AV block Possible Left atrial enlargement Borderline ECG
[2017-05-29 17:36] VITALS: PULSE 88
[2017-05-29] MEDS: Digoxin 250 mcg (0.25 mg) Tab PO SCH (17:36)
--- NOTE | 2017-05-29 17:40 | CP.PCM.PN ---
Subjective - Date & Time of Evaluation Date of Evaluation: 05/29/17 Time of Evaluation: 13:35 Objective - Vital Signs/Intake and Output Vital Signs (last 24 hours): Temp Pulse Resp BP Pulse Ox 97.8 F 102 H 20 114/76 95 05/29/17 15:56 05/29/17 15:56 05/29/17 15:56 05/29/17 15:56 05/29/17 15:56 Intake and Output: 05/29/17 05/29/17 06:59 18:59 Intake Total 480 Balance 480 - Medications Medications: Current Medications Albuterol/Ipratropium (Duoneb 3 Mg/0.5 Mg (3 Ml) Ud) 3 ml INH RQ6 [facility] Last Admin: 05/29/17 13:40 Dose: 3 ml Digoxin (Lanoxin) 0.25 mg PO DAILY@1800 [facility] Last Admin: 05/29/17 17:36 Dose: 0.25 mg Enoxaparin Sodium (Lovenox) 40 mg SC DAILY [facility] Last Admin: 05/29/17 10:37 Dose: 40 mg Furosemide (Lasix) 20 mg IVP Q12 [facility] Last Admin: 05/29/17 14:04 Dose: 20 mg Magnesium Oxide (Mag-Ox) 400 mg PO DAILY [facility] Stop: 05/30/17 12:01 Last Admin: 05/29/17 10:36 Dose: 400 mg Metronidazole (Flagyl) 500 mg PO Q8 [facility] Last Admin: 05/29/17 14:04 Dose: 500 mg Morphine Sulfate (Morphine) 4 mg IV Q4 PRN PRN Reason: Pain, severe (8-10) Last Admin: 05/29/17 17:36 Dose: 4 mg Ondansetron HCl (Zofran Inj) 4 mg IVP Q4 PRN PRN Reason: Nausea/Vomiting Oxycodone/Acetaminophen (Percocet 5/325 Mg Tab) 1 tab PO Q4H PRN PRN Reason: Pain, moderate (4-7) Stop: 05/30/17 13:53 Potassium Chloride (K-Dur 20 Meq Er Tab) 20 meq PO DAILY [facility] Stop: 05/31/17 10:01 Last Admin: 05/29/17 10:36 Dose: 20 meq Promethazine HCl/Dextromethorphan (Phenergan Dm Syrup) 10 ml PO Q6 [facility] Last Admin: 05/29/17 12:00 Dose: Not Given - Labs Labs: 05/28/17 07:37 05/29/17 11:46 PT 14.7 SECONDS (9.7-12.2) H 05/22/17 15:46 INR 1.3 05/22/17 15:46 APTT 31 SECONDS (21-34) 05/22/17 15:46
--- NOTE | 2017-05-29 18:41 | CP.PCM.PN ---
Subjective - Date & Time of Evaluation Date of Evaluation: 05/29/17 Time of Evaluation: 09:20 - Subjective Subjective: clinically same Objective - Vital Signs/Intake and Output Vital Signs (last 24 hours): Temp Pulse Resp BP Pulse Ox 97.8 F 102 H 20 114/76 95 05/29/17 15:56 05/29/17 15:56 05/29/17 15:56 05/29/17 15:56 05/29/17 15:56 Intake and Output: 05/29/17 05/29/17 06:59 18:59 Intake Total 480 Balance 480 - Medications Medications: Current Medications Albuterol/Ipratropium (Duoneb 3 Mg/0.5 Mg (3 Ml) Ud) 3 ml INH RQ6 [facility] Last Admin: 05/29/17 13:40 Dose: 3 ml Digoxin (Lanoxin) 0.25 mg PO DAILY@1800 [facility] Last Admin: 05/29/17 17:36 Dose: 0.25 mg Enoxaparin Sodium (Lovenox) 40 mg SC DAILY [facility] Last Admin: 05/29/17 10:37 Dose: 40 mg Furosemide (Lasix) 20 mg IVP Q12 [facility] Last Admin: 05/29/17 14:04 Dose: 20 mg Magnesium Oxide (Mag-Ox) 400 mg PO DAILY [facility] Stop: 05/30/17 12:01 Last Admin: 05/29/17 10:36 Dose: 400 mg Metronidazole (Flagyl) 500 mg PO Q8 [facility] Last Admin: 05/29/17 14:04 Dose: 500 mg Morphine Sulfate (Morphine) 4 mg IV Q4 PRN PRN Reason: Pain, severe (8-10) Last Admin: 05/29/17 17:36 Dose: 4 mg Ondansetron HCl (Zofran Inj) 4 mg IVP Q4 PRN PRN Reason: Nausea/Vomiting Oxycodone/Acetaminophen (Percocet 5/325 Mg Tab) 1 tab PO Q4H PRN PRN Reason: Pain, moderate (4-7) Stop: 05/30/17 13:53 Potassium Chloride (K-Dur 20 Meq Er Tab) 20 meq PO DAILY [facility] Stop: 05/31/17 10:01 Last Admin: 05/29/17 10:36 Dose: 20 meq Promethazine HCl/Dextromethorphan (Phenergan Dm Syrup) 10 ml PO Q6 [facility] Last Admin: 05/29/17 12:00 Dose: Not Given - Labs Labs: 05/28/17 07:37 05/29/17 11:46 PT 14.7 SECONDS (9.7-12.2) H 05/22/17 15:46 INR 1.3 05/22/17 15:46 APTT 31 SECONDS (21-34) 05/22/17 15:46 Assessment and Plan (1) Asthma Status: Acute (2) Atrial fibrillation Status: Acute (3) CHF exacerbation Status: Acute (4) Chest discomfort Status: Acute (5) Dyspnea Status: Acute (6) demise Status: Acute (7) Foot sprain Status: Acute (8) History of atrial fibrillation Status: Acute (9) Leg edema Status: Acute (10) PNA (pneumonia) Status: Acute (11) cardiomyopathy Status: Acute (12) Status: Acute (13) Prophylactic measure Status: Acute (14) Rectal abscess Status: Acute (15) Rectal pain Status: Acute (16) UTI (urinary tract infection) Status: Acute (17) CHF (congestive heart failure) Status: Chronic (18) Systolic and diastolic CHF w/reduced LV function, NYHA class 4 Status: Chronic - Assessment and Plan (Free Text) Plan: Patient examined. Patient better. Continue digoxin, furosemide, magnesium oxide, metronidazole. Continue supportive care.
[2017-05-30] MEDS: Promethazine DM 6.25 mg-15 mg/5 ml Syrup PO SCH ×3 (00:43→12:00)
[2017-05-30] MEDS: Albuterol-Ipratrop 3 mg / 0.5 (3 ml) UD INH SCH ×2 (01:20→07:15)
--- NOTE | 2017-05-30 02:25 | CON ---
DATE: HISTORY OF PRESENT ILLNESS: The patient is a 31-year-old female with an unknown last menstrual period who is with twins with a missed . Patient's quantitative hCG levels have been dropping. Ultrasound findings have shown no changes for the last three weeks. Last ultrasound done on 05/27/2017 showed an intrauterine gestation, one 7 weeks 1 day and one 5 weeks 4 days with irregular sac, also consistent with missed . The patient was not planning to keep the . PAST MEDICAL HISTORY: Significant for history of congestive heart failure, cardiomyopathy. PAST GYNECOLOGIC HISTORY: Significant for history of genital herpes. PAST OBSTETRICAL HISTORY: She is 5, para 1 with one vaginal delivery. delivery in 2008. Spontaneous in 2007 and termination of x2. PAST SURGICAL HISTORY: Significant for history of cervical cerclage in 2008, insertion of a defibrillator in 2009, suction and dilatation and curettage of the uterus in 2011, excision of an anal fissure in 2016. Patient was seen in the office on 05/21/2017, requesting a termination of , was referred to [facility] for termination with RU486. The patient did not make that appointment. Currently, the patient has no pain. No vaginal bleeding, no complaint. PHYSICAL EXAMINATION: GENERAL: Patient is morbidly obese with a BMI of 46.35. VITAL SIGNS: Blood pressure is 110/70, pulse is with a respiratory rate of 20, and temperature is 98.8. CHEST: Clear. CARDIAC: Reveals normal heart sounds without any murmurs. ABDOMEN: Soft. PELVIC: She has a normal vulva. Bartholin's, urethral and [place] Johns's glands are within normal. GYNECOLOGIC: Uterus is about 6 weeks' size with no adnexal masses and no active bleeding. ASSESSMENT: Intrauterine , twin gestation, missed . PLAN: Plan on the patient at this time is, in view of a poor cardiac status . Patient was given the option of D&C and after the risks and benefits of each procedure was discussed with the patient, she has opted to undergo the conservative management. The patient will follow up with me in the office in a week's time to repeat an ultrasound. Thank you again for the consultation. Bubba Cook MD [facility] # [id number]
[2017-05-30] MEDS: Magnesium Oxide 400 mg Tab UD PO SCH (10:03)
[2017-05-30] MEDS: Enoxaparin 40 mg Syringe SC SCH (10:03)
[2017-05-30] MEDS: Potassium Chloride 20 mEq ER Tab PO SCH (10:03)
--- NOTE | 2017-05-30 12:42 | CARD ---
APPROVED REPORT EKG Measurement Heart [id number] <Conclusion> Sinus tachycardia with 1st degree AV block Possible Left atrial enlargement ST & T wave abnormality, consider lateral ischemia Abnormal ECG
--- NOTE | 2017-05-30 14:19 | CP.PCM.PN ---
Subjective - Date & Time of Evaluation Date of Evaluation: 05/30/17 Time of Evaluation: 14:21 - Subjective Subjective: PATIENT IS AAO X3 DENIES ANY ABD PAIN, NO NAUSEA AND VOMITING NO SIGN OF DISTRESS; VERY POOR APPETITE Objective - Vital Signs/Intake and Output Vital Signs (last 24 hours): Temp Pulse Resp BP Pulse Ox 97.8 F 99 H 20 100/64 94 L 05/30/17 08:02 05/30/17 08:02 05/30/17 08:02 05/30/17 10:04 05/30/17 08:02 - Medications Medications: Current Medications Albuterol/Ipratropium (Duoneb 3 Mg/0.5 Mg (3 Ml) Ud) 3 ml INH RQ6 [facility] Last Admin: 05/30/17 07:15 Dose: 3 ml Digoxin (Lanoxin) 0.25 mg PO DAILY@1800 [facility] Last Admin: 05/29/17 17:36 Dose: 0.25 mg Enoxaparin Sodium (Lovenox) 40 mg SC DAILY [facility] Last Admin: 05/30/17 10:03 Dose: 40 mg Furosemide (Lasix) 20 mg IVP Q12 [facility] Last Admin: 05/30/17 10:04 Dose: 20 mg Metronidazole (Flagyl) 500 mg PO Q8 [facility] Last Admin: 05/30/17 13:12 Dose: 500 mg Morphine Sulfate (Morphine) 4 mg IV Q4 PRN PRN Reason: Pain, severe (8-10) Last Admin: 05/29/17 21:47 Dose: 4 mg Ondansetron HCl (Zofran Inj) 4 mg IVP Q4 PRN PRN Reason: Nausea/Vomiting Potassium Chloride (K-Dur 20 Meq Er Tab) 20 meq PO DAILY [facility] Stop: 05/31/17 10:01 Last Admin: 05/30/17 10:03 Dose: 20 meq Promethazine HCl/Dextromethorphan (Phenergan Dm Syrup) 10 ml PO Q6 [facility] Last Admin: 05/30/17 12:00 Dose: Not Given - Labs Labs: 05/28/17 07:37 05/29/17 11:46 PT 14.7 SECONDS (9.7-12.2) H 05/22/17 15:46 INR 1.3 05/22/17 15:46 APTT 31 SECONDS (21-34) 05/22/17 15:46 Assessment and Plan - Assessment and Plan (Free Text) Plan: CASE DISCUSSED WITH DR Melvin GARCIA AND CLEAR PATIENT TO D/C DR SAGASTUME, DR NINO AND DR MCKENZIE ALL CLEAR PATIENT FOR D/C AND PATIENT NEED TO FOLLOW UP WITH DR SAGASTUME NO LATER THAN FRIDAY(06/02/17)---CALL OFFICE FOR APPOINTMENT FOLLOW UP WITH DR NINO IN TWO WEEK AT HIS OFFICE ---CALL OFFICE FOR APPOINTMENT FOLLOW UP WITH DR MCKENZIE IN ONE WEEK AT HIS OFFICE ---JARAD OFFICE FOR APPOINTMENT CONTINUE YOUR HOME MEDICATIONS INSTRUCT PATIENT TO CALL DR SAGASTUME OR HER PMD IF SYMPTOMS RETURN OR WORSEN PATIENT AGREED WITH DISCHARGE AND VERBALIZE UNDERSTANDING
[2017-05-30 16:26] VITALS: BP 96/71; PULSE 105; TEMP 97.3; O2SAT 96
--- NOTE | 2017-05-30 16:28 | PCM.HF ---
Heart Failure Core Measure - Heart Failure Ejection Fraction: Less Than 40 % CECE Inhibitor Prescribed: Yes Contraindication/Reason for not providing: combination Beta-Jelly Prescribed: Carvedilol Angiotensin II Receptor Jelly Prescribed: Yes Contraindication/Reason for not providing: combination AnticoagulationTherapy for Atrial Fibrillation/Atrialflutter: No Contraindication/Reason for not providing: no hx afib Aldosterone Antagonist Prescribed: No Contraindication/Reason for not providing: ef >40 Hydralazine Nitrate Prescribed: No Contraindication/Reason for not providing: ef >40 Implantable Cardioverter Defibrillator Therapy: Yes Cardiac Resynchronization Therapy Prescribed: No Contraindication/Reason for not providing: aicd - Follow up Will be discharged to: Home Follow Up Date (must be within 7 days from discharge): 06/02/17 Follow Up Time: 09:00
--- NOTE | 2017-05-30 18:14 | CP.PCM.PN ---
Subjective - Date & Time of Evaluation Date of Evaluation: 05/30/17 Time of Evaluation: 14:20 Objective - Vital Signs/Intake and Output Vital Signs (last 24 hours): Temp Pulse Resp BP Pulse Ox 97.3 F L 105 H 20 96/71 L 96 05/30/17 16:26 05/30/17 16:26 05/30/17 16:26 05/30/17 16:26 05/30/17 16:26 Intake and Output: 05/30/17 05/30/17 06:59 18:59 Intake Total 480 Balance 480 - Labs Labs: 05/28/17 07:37 05/29/17 11:46 PT 14.7 SECONDS (9.7-12.2) H 05/22/17 15:46 INR 1.3 05/22/17 15:46 APTT 31 SECONDS (21-34) 05/22/17 15:46
--- NOTE | 2017-06-02 17:08 | PCM.HF ---
Heart Failure Core Measure - Heart Failure Ejection Fraction: Less Than 40 % (EF LES THAN 20%) CECE Inhibitor Prescribed: No Contraindication/Reason for not providing: combination Beta-Jelly Prescribed: Carvedilol Angiotensin II Receptor Jelly Prescribed: Yes Contraindication/Reason for not providing: combination AnticoagulationTherapy for Atrial Fibrillation/Atrialflutter: No Contraindication/Reason for not providing: no HX OF AFIB Aldosterone Antagonist Prescribed: No Contraindication/Reason for not providing: LOW BP Hydralazine Nitrate Prescribed: No Contraindication/Reason for not providing: LOW BP Implantable Cardioverter Defibrillator Therapy: Yes Cardiac Resynchronization Therapy Prescribed: No Contraindication/Reason for not providing: HAS A PACEMAKER - Follow up Will be discharged to: Home Follow Up Date (must be within 7 days from discharge): 06/02/17 Follow Up Time: 09:00
== END 2017-05-30 17:10 | disposition home or self-care (01) | DRG 779 ==
LOC: C.ER 14:47 → C.9E 20:22 → C.6T 21:47 → C.5S 05-24 16:36
PROVIDERS: ADMIT Internal Medicine Nephrology; ATTEND Internal Medicine Nephrology
DX: O02.1 Missed abortion (principal); I50.22 Chronic systolic (congestive) heart failure; I42.0 Dilated cardiomyopathy; Z68.42 Body mass index [BMI] 45.0-49.9, adult; E87.1 Hypo-osmolality and hyponatremia; E66.01 Morbid (severe) obesity due to excess calories; I27.20 Pulmonary hypertension, unspecified; I48.91 Unspecified atrial fibrillation; K59.00 Constipation, unspecified; L29.9 Pruritus, unspecified; Z95.810 Presence of automatic (implantable) cardiac defibrillator